=== PATIENT | male | born 1945 | race Caucasian/White ===

== ENCOUNTER 2017-08-14 10:01 | Emergency (ER) | payer OTHER ==
--- NOTE | 2017-08-14 10:25 | PDOC ---
History of Present Illness - General History Source: Patient Exam Limitations: No Limitations - History of Present Illness Initial Comments: 08/14/17 11:18 The patient is a 71 year old male with a significant past medical history of PAD , diabetes, triple bypass, and chronic left shoulder pain who presents to the ED , from [facility], s/p unwitnessed fall earlier today. The patient reports he was walking with slippers and tea in his hand, when he slipped and fell onto his back. Questionable loss of consciousness. Patient reports pain to the side of his right neck. Denies injury to the head. Denies headache, lightheadedness, or dizziness. Denies pain in his extremities. Denies back pain. Denies fever or chills. Denies nausea or vomiting. Denies any other symptoms. <Gracie Gifford - Last Filed: 08/14/17 11:22> <Sadia Fountain - Last Filed: 08/14/17 12:43> - General Chief Complaint: Injury Stated Complaint: FALL Time Seen by Provider: 08/14/17 10:12 Past History <Gracie Gifford - Last Filed: 08/14/17 11:22> - Past Medical History Anemia: No Cardiac Disorders: Yes (CABG) Diabetes: Yes (IDDM) Disorders: Yes (KIDNEY STONES) HTN: Yes Hypercholesterolemia: Yes - Surgical History Cardiac Surgery: Yes (stent,diffibrilator,bypass CABG) Orthopedic Surgery: Yes (LEFT FT - 4TH TOE AMPUTATION - 5 YRS AGO) - Suicide/Smoking/Psychosocial Hx Smoking Status: Yes Smoking History: Former smoker Have you smoked in the past 12 months: No Number of Cigarettes Smoked Daily: 0 Cigars Per Day: 1 'Breaking Loose' booklet given: 05/10/16 Hx Alcohol Use: No Drug/Substance Use Hx: No Substance Use Type: None Hx Substance Use Treatment: No <Sadia Fountain - Last Filed: 08/14/17 12:43> - Past Medical History Allergies/Adverse Reactions: Allergies Allergy/AdvReac Type Severity Reaction Status Date / Time No Known Allergies Allergy Verified 08/14/17 10:23 Home Medications: Ambulatory Orders Insulin (Levemir) [Levemir Flexpen -] 15 units SQ 1900 #0 pen 01/02/13 Insulin (Levemir) [Levemir Flexpen -] 20 units SQ ACBK #0 units 01/02/13 Multivitamins [Multivit ([facility] Form[facility])] 1 udtab PO DAILY #0 tab 01/02/13 Lisinopril [Prinivil] 20 mg PO BID 05/10/16 Ranitidine [Zantac -] 150 mg PO BID 05/11/16 Metformin HCl 500 mg PO BID 12/02/16 Amlodipine Besylate [Norvasc -] 10 mg PO DAILY #30 tablet 12/10/16 Atorvastatin Ca [Lipitor] 40 mg PO HS #30 tablet 12/10/16 Carbamide Peroxide 6.5% [Debrox -] 1 drop AU BID #1 bottle 12/10/16 Carvedilol [Coreg -] 25 mg PO BID #30 tablet 12/10/16 Clopidogrel Bisulfate [Plavix -] 75 mg PO DAILY #30 tablet 12/10/16 Hydralazine HCl [Apresoline -] 25 mg PO BID #30 tablet 12/10/16 Review of Systems - Review of Systems Able to Perform ROS?: Yes Comments:: 08/14/17 11:19 CONSTITUTIONAL: No reported: Fever, Chills, Diaphoresis, Generalized Weakness, Malaise, Loss of Appetite HEENT: No reported: Rhinorrhea, Nasal Congestion, Throat Pain, Throat Swelling, Difficulty Swallowing, Mouth Swelling, Ear Pain, Eye Pain, Visual Changes CARDIOVASCULAR: No reported: Chest Pain, Syncope, Palpitations, Irregular Heart Rate, Lightheadedness, Peripheral Edema RESPIRATORY: No reported: Cough, Shortness of Breath, SOB with Exertion, Orthopnea, Wheezing , Stridor, Hemoptysis GASTROINTESTINAL: No reported: Abdominal pain, Abdominal Distension, Nausea, Vomiting, Diarrhea, Constipation, Melena, Hematochezia GENITOURINARY: No reported: Dysuria, Frequency, Urgency, Hesitancy, Flank Pain, Genital Pain MUSCULOSKELETAL: + neck pain No reported: Myalgia, Arthralgia, Joint Swelling, Back pain SKIN: No reported: Rash, Itching, Pallor HEMEATOLOGIC/IMMUNOLOGIC: No reported: Easy Bleeding, Easy Bruising, Lymphadenopathy, Frequent infections ENDOCRINE: No reported: Unexplained Weight Gain, Unexplained Weight Loss, Heat Intolerance , Cold Intolerance NEUROLOGIC: No reported: Headache, Focal Weakness, Paresthesias, Vertigo, Lightheadedness, Unsteady Gait, Seizure, Mental Status Changes, Incontinence PSYCHIATRIC: No reported: Anxiety, Depression All Other Systems: Reviewed and Negative <Gracie Gifford - Last Filed: 08/14/17 11:22> *Physical Exam - Vital Signs Last Vital Signs Temp Pulse Resp BP Pulse Ox 97.8 F 75 18 131/64 100 08/14/17 10:15 08/14/17 10:15 08/14/17 10:15 08/14/17 10:15 08/14/17 10:15 - Physical Exam Comments: 08/14/17 11:19 GENERAL: Well developed, well nourished. Awake and alert. No acute distress. HEENT: Normocephalic, atraumatic. PERRLA, EOMI. No conjunctival pallor. Sclera are non- icteric. Moist mucous membranes. Oropharynx is clear. NECK: Supple. Full ROM. No JVD. Carotid pulses 2+ and symmetric, without bruits. No thyromegaly. No lymphadenopathy. CARDIOVASCULAR: Regular rate and rhythm. No murmurs, rubs, or gallops. Distal pulses are 2+ and symmetric. PULMONARY: No evidence of respiratory distress. Lungs clear to auscultation bilaterally. No wheezing, rales or rhonchi. ABDOMINAL: Soft. Non-tender. Non-distended. No rebound or guarding. No organomegaly. Normoactive bowel sounds. MUSCULOSKELETAL Normal range of motion at all joints. No bony deformities or tenderness. No CVA tenderness. EXTREMITIES: No cyanosis. No clubbing. No edema. No calf tenderness. SKIN: + old healing excoriation on the parietal area, no scalp laceration. No ecchymosis. Warm and dry. Normal capillary refill. No rashes. No jaundice. NEUROLOGICAL: Alert, awake, appropriate. Cranial nerves 2-12 intact. No deficits to light touch and temperature in face, upper extremities and lower extremities. No motor deficits in the in face, upper extremities and lower extremities. Normoreflexic in the upper and lower extremities. Normal speech. Toes are down- going bilaterally. Gait is normal without ataxia. PSYCHIATRIC: Cooperative. Good eye contact. Appropriate mood and affect. <Gracie Gifford - Last Filed: 08/14/17 11:22> ED Treatment Course - RADIOLOGY Radiograph Interpretation: 08/14/17 11:22 CT/HEAD CT WITHOUT CONTRAST Impression: No CT evidence of acute intracranial pathology. Chronic infarct. CT/CERVICAL SPINE CT W/O CONTRAST Impression: No fracture is identified. Probable small central C4-C5 disc herniation Reported by: Steve Navarrete <Gracie Gifford - Last Filed: 08/14/17 11:22> Medical Decision Making - Medical Decision Making 08/14/17 10:35 71-year-old male brought in by ambulance from [facility] after he slipped and fell. -Chief complaint is right neck pain -He states that he was walking wearing his slippers and slipped and presents with wet clothing. -he states he spilled his tea on himself EXAM - wearing c collar with right paraspinal, trapezius muscle tenderness, there was no cervical vertebral tenderness -he had no extremity deformity or tenderness,no ecchymosis -no abd tenderness -cvr [id number] neuro axox3, appropriate behavior,motor strength 5/5 b/l plan imaging CT SCAN neck 08/14/17 11:36 ct scan head:no acute intracranial pathology,chronic infarcts noted ct scan cervical spine: no fracture or dislocation -multilevel degenerative disc and facet joint are noted -prervertebral soft tissues - show no abnormality 08/14/17 11:37 08/14/17 12:27 pt ambulating ,states he no longer has any neck soreness plan discharge back to [facility] <Sadia Fountain - Last Filed: 08/14/17 12:43> *DC/Admit/Observation/Transfer - Attestations Scribe Attestion: 08/14/17 11:19 Documentation prepared by Gracie Gifford, acting as medical radiation therapist for Sadia Fountain MD <Gracie Gifford - Last Filed: 08/14/17 11:22> <Sadia Fountain - Last Filed: 08/14/17 12:43> Diagnosis at time of Disposition: Neck pain on right side Fall Qualifiers: Encounter type: initial encounter Qualified Code(s): W19.XXXA - Unspecified fall, initial encounter - Discharge Dispostion Disposition: HOME Condition at time of disposition: Stable - Referrals Referrals: Negro Strauss [Primary Care Provider] - - Patient Instructions Printed Discharge Instructions: DI for Neck Pain Additional Instructions: please take tylenol for pain Return to the emergency department for any worsening symptoms
[2017-08-14 10:46] VITALS: TEMP 97.8; BMI 27.9
[2017-08-14] MEDS ORDERED: ACETAMINOPHEN 500 MG TABLET (FP) PO ONE (11:29)
[2017-08-14] MEDS ORDERED: ACETAMINOPHEN 325 MG TABLET (FP) ONE (11:33)
[2017-08-14 13:21] VITALS: BP 117/67; PULSE 65
== END 2017-08-14 13:16 | disposition home or self-care (01) ==
LOC: JER 10:01
DX: M54.2 Cervicalgia (principal); W01.0XXA Fall on same level from slipping, tripping and stumbling without subsequent striking against object, initial encounter; Y93.89 Activity, other specified; Y92.098 Other place in other non-institutional residence as the place of occurrence of the external cause; I25.810 Atherosclerosis of coronary artery bypass graft(s) without angina pectoris; I10 Essential (primary) hypertension; Z95.1 Presence of aortocoronary bypass graft; Z95.5 Presence of coronary angioplasty implant and graft; Z87.891 Personal history of nicotine dependence; Z95.810 Presence of automatic (implantable) cardiac defibrillator; E11.9 Type 2 diabetes mellitus without complications; Z79.4 Long term (current) use of insulin; Z79.84 Long term (current) use of oral hypoglycemic drugs; I73.89 Other specified peripheral vascular diseases; Z89.422 Acquired absence of other left toe(s)
CPT/HCPCS: 70450-TC; 72125-TC; 99282-25

== ENCOUNTER 2020-05-19 12:17 | Inpatient (IN) | payer OTHER ==
--- NOTE | 2020-05-19 12:49 | PDOC ---
History of Present Illness - General Chief Complaint: Wound Stated Complaint: WOUND CARE Time Seen by Provider: 05/19/20 12:23 - History of Present Illness Initial Comments: 05/19/20 13:11 74 yo Male with PMH of IDDM, HTN, HLD, CAD (blood thinners), and chronic left foot wound coming in for wound care.. Pt explains that he had this wound on the bottom of his left foot for 2.5 years after getting surgery and that one month ago his wound opened up and he has been following a wound care doctor for about a month. His wound care physician told him 05/13 that when he comes in next week for hyperbarics that he needs to be admitted to get a biopsy on his wound to rule out an infection , so that is why pt is here today. Pt denies any sxs of pain, fever, swelling, erythema, cough, or SOB. 05/19/20 13:56 PCP:Dr. Negro Strauss Swing Manager: dr. Grover PSH: Stent placed, CABG, Pacemaker, amputation done on Left fourth toe and R second toe Allergies:NKA Social Hx: Pt denies use of drugs or alcohol. Pt does smoke 2 cigars a day for the past 13 years. Pt lives for Past History - Travel History Traveled outside of the country in the last 30 days: No - Medical History Allergies/Adverse Reactions: Allergies Allergy/AdvReac Type Severity Reaction Status Date / Time No Known Allergies Allergy Verified 05/02/20 13:29 Home Medications: Ambulatory Orders Insulin (Levemir) [Levemir Flexpen -] 15 units SQ 1900 #0 pen 01/02/13 Multivitamins [Multivit ([facility] Formul[facility])] 1 udtab PO DAILY #0 tab 01/02/13 Lisinopril [Prinivil] 20 mg PO BID 05/10/16 Ranitidine [Zantac -] 150 mg PO BID 05/11/16 metFORMIN HCL [Metformin HCl] 500 mg PO BID 12/02/16 Amlodipine Besylate [Norvasc -] 10 mg PO DAILY #30 tablet 12/10/16 Atorvastatin Ca [Lipitor] 40 mg PO HS #30 tablet 12/10/16 Carbamide Peroxide 6.5% [Debrox -] 1 drop AU BID #1 bottle 12/10/16 Carvedilol [Coreg -] 25 mg PO BID #30 tablet 12/10/16 Clopidogrel Bisulfate [Plavix -] 75 mg PO DAILY #30 tablet 12/10/16 hydrALAZINE HCL [Apresoline -] 25 mg PO BID #30 tablet 12/10/16 Insulin (Levemir) [Levemir Flexpen -] 25 units SQ ACBK 03/06/19 Anemia: No Cardiac Disorders: Yes (CABG) COPD: No Diabetes: Yes (IDDM) Disorders: Yes (KIDNEY STONES) HTN: Yes Hypercholesterolemia: Yes Comment:: PMH: IDDM CAD HTN HLD 05/19/20 13:31 - Surgical History Cardiac Surgery: Yes (stent,diffibrilator,bypass CABG) Orthopedic Surgery: Yes (LEFT FT - 4TH TOE AMPUTATION - 5 YRS AGO) - Psycho-Social/Smoking History Smoking Status: Yes Smoking History: Current every day smoker Have you smoked in the past 12 months: Yes Number of Cigarettes Smoked Daily: 1 Cigars Per Day: 2 Information on smoking cessation initiated: No 'Breaking Loose' booklet given: 05/10/16 - Substance Abuse Hx (Audit-C & DAST Scrn) How often the patient has a drink containing alcohol: Never Score: In Men: 4 or > Positive; In Women: 3 or > Positive: 0 Screen Result (Pos requires Nsg. Audit-10AR): Negative In the last yr the pt used illegal drug/Rx for NonMed reason: No Score: Yes response is considered Positive: 0 Screen Result (Positive result requires Nsg. DAST-10): Negative Review of Systems - Review of Systems Comments:: CONSTITUTIONAL: Absent: fever, chills, diaphoresis, generalized weakness, malaise, loss of appetite HEENT: Absent: rhinorrhea, nasal congestion, throat pain, throat swelling, difficulty swallowing CARDIOVASCULAR: Absent: chest pain, syncope, palpitations, irregular heart rate, lightheadedness, peripheral edema RESPIRATORY: Absent: cough, shortness of breath, dyspnea with exertion GASTROINTESTINAL: Absent: abdominal pain, abdominal distension, nausea, vomiting, diarrhea, constipation, GENITOURINARY: Absent: dysuria, frequency, urgency, MUSCULOSKELETAL: Absent: myalgia, arthralgia, joint swelling SKIN: Wound on dorsal aspect of foot NEUROLOGIC: Absent: headache, focal weakness or paresthesias, dizziness, unsteady gait, seizure, mental status changes, bladder or bowel incontinence 05/19/20 13:17 05/19/20 13:51 05/19/20 15:26 *Physical Exam - Vital Signs Last Vital Signs Temp Pulse Resp BP Pulse Ox 97.5 F L 64 18 151/74 100 05/19/20 12:19 05/19/20 12:19 05/19/20 12:19 05/19/20 12:19 05/19/20 12:19 - Physical Exam Well-appearing, well-nourished. No apparent distress. HEENT: Normocephalic, atraumatic. PERRL, EOM intact. CARDIOVASCULAR: Normal S1, S2. Regular rate and rhythm. PULMONARY: Clear to auscultation bilaterally. ABDOMEN: Soft, non-distended, non-tender. EXTREMITIES: Pt has amputations on both feet. Left foot has 1cm wound on plantar aspect of foot with no erythema or exudate. Pt foot does have malodorous odor. Left foot pulse 1/4 right foot pulse 2/4 Normal ROM in all four extremities. SKIN: Warm, dry. No rash NEUROLOGICAL: No focal neurological deficits. 05/19/20 16:39 Heart Score/ECG Review - ECG Impressions Comment:: Normal Rate Normal Sinus rhythm @62 bpm Normal axis Nomal HI Intervals No ST changes 05/19/20 14:53 ED Treatment Course - LABORATORY CBC & Chemistry Diagram: 05/19/20 13:45 05/19/20 13:45 Medical Decision Making - Medical Decision Making 74 yo m with PMH of IDDM, HTN, HLD, CAD (on anticoagulants) and chronic Left foot wound coming in for wound care. Pt explains he was told by wound care to doctor to be admitted to check for infxn of foot. Labs, foot xray, and chest xray was done to r/o osteo. Pt's vice president of news Dr. Grover was called, engineering secretary was reached and will call back to see who to admit to. 05/19/20 13:25 05/19/20 15:[address] Grover he wants to admit to hospital team and he will see pt for biopsy and start pt on empiric Abx. Talked to hospital team and said to admit to Dr. Saul Tobin . Discharge - Discharge Information Problems reviewed: Yes Clinical Impression/Diagnosis: Wound of foot Condition: Stable - Admission Yes - Follow up/Referral - Patient Discharge Instructions - Post Discharge Activity
--- NOTE | 2020-05-19 12:51 | PDOC ---
Attending Attestation - Resident Resident Name: Mukund Kimball - ED Attending Attestation I have performed the following: I have examined & evaluated the patient, The case was reviewed & discussed with the resident, I agree w/resident's findings & plan - HPI HPI: 05/19/20 13:02 74-year-old male past medical history diabetes (insulin-dependent) hypertension hyperlipidemia CAD (on anticoagulation), chronic left foot ulcer presenting with acute on chronic left foot wound and admission for care. Pt explains that he had this wound for 2.5 years after getting surgery and that one month ago his wound opened up and he has been following a wound care doctor for about a month. His wound care physician told him 05/13/20 that when he comes in next week for hyperbarics that he needs to be admitted to get a biopsy on his wound to rule out an infection , so that is why pt is here today. Pt denies any sxs of pain, fever, swelling, erythema, cough, or SOB. 05/19/20 13:46 - Physicial Exam PE: 05/19/20 13:02 General: Well appearing, awake and alert, NAD. HEENT: NCAT, PERRL, EOMI, clear conjunctiva, anicteric, moist mucous membranes, clear oropharynx, no oral lesions.. Neck: neck supple, FROM Resp: CTAB, normal and even respirations, no respiratory distress CVS: RRR, no murmurs, 2+ peripheral pulses throughout, no peripheral edema Abdomen: soft, NTND, no rebound or guarding. MSK: no edema, RIVAS x4, ROM intact. Extremities: Left foot_deformity with prior metatarsal excision; plantar aspect with 1cm dry wound Neuro: alert, oriented appropriately; no focal neurologic deficits Skin: warm and well perfused, cap refill <2 sec, normal color; left plantar foot has 1cm wound with no erythema or exudate. Pt foot does have malodorous odor., +left foot chronic deformity s/p surgery/metatarsal excision 05/19/20 13:47 05/19/20 15:23 05/19/20 16:30 - Medical Decision Making 05/19/20 12:51 Vital Signs Temp Pulse Resp BP Pulse Ox 97.5 F L 64 18 151/74 100 05/19/20 12:19 05/19/20 12:19 05/19/20 12:19 05/19/20 12:19 05/19/20 12:19 Vitals reviewed within normal limits, mildly hypertensive otherwise no tachycar anthony no fever no systemic/toxic findings Differential diagnosis includes cellulitis, abscess, osteomyelitis, chronic wound, no signs and symptoms to suggest necrotizing fasciitis Basic laboratory results are within normal limits Type and screen Coags Foot x-ray with chronic degenerative changes and partial amputation of the left metatarsal bone antibiotics IV ceftriaxone and vancomycin for empiric coverage of chronic foot infection/osteo Will admit for wound care, biopsy, debridement, discussed with performing arts road manager Dr. Landry admission to hospitalist service. 05/19/20 15:37 05/19/20 16:31 Heart Score/ECG Review #1 ECG reviewed & interpreted by me at: 13:55 General ECG Interpretation: Sinus Rhythm, Normal Rate 05/19/20 14:03 EKG normal sinus rhythm 62 beats per, no interval abnormalities, narrow QRS, ST and T wave segments and morphology normal. Nonspecific T wave abnormalities Discharge - Discharge Information Problems reviewed: Yes Clinical Impression/Diagnosis: Wound of foot Condition: Stable - Admission Yes - Follow up/Referral - Patient Discharge Instructions - Post Discharge Activity
[2020-05-19 14:10] LABS: BASO % 0.6 % (0-2.0); EOS % 4.3 % (0-4.5); HEMATOCRIT 36.7 % (35.4-49); HEMOGLOBIN 12.1 GM/dL (11.7-16.9); LYMPH % 24.5 % (8-40); MCH 28.8 pg (25.7-33.7); MCHC 32.9 g/dl (32.0-35.9); MEAN CELL VOLUME 87.6 fl (80-96); MEAN PLT VOLUME 11.4 fl (7.5-11.1); MONO % 6.6 % (3.8-10.2); PLATELET COUNT 234 K/MM3 (134-434); RBC 4.19 M/mm3 (4.00-5.60); RDW 14.4 % (11.9-15.9); WHITE BLOOD COUNT 6.9 K/mm3 (4.0-10.0)
[2020-05-19 14:20] LABS: INR 1.18 (0.83-1.09); PROTHROMBIN TIME (PATIENT) 13.9 SEC (9.7-13.0)
[2020-05-19 14:23] LABS: ACTIVATED PTT 26.1 SECONDS (25.2-36.5)
[2020-05-19 14:51] LABS: ALBUMIN 3.3 g/dl (3.4-5.0); BILIRUBIN,TOTAL 0.5 mg/dL (0.2-1); BLOOD UREA NITROGEN 26.4 mg/dL (7-18); CALCIUM 9.1 mg/dL (8.5-10.1); CREATININE 1.5 mg/dL (0.55-1.3); TOT PROT 8.2 g/dl (6.4-8.2)
[2020-05-19 15:15] LABS: POTASSIUM 6.2 mmol/L (3.5-5.1)
--- NOTE | 2020-05-19 15:15 | EKG ---
Test Reason : Blood Pressure : / mmHG Vent. Rate : 062 BPM Atrial Rate : 062 BPM P-R Int : 194 ms QRS Dur : 098 ms QT Int : 400 ms P-R-T Axes : 046 047 104 degrees QTc Int : 406 ms NORMAL SINUS RHYTHM IRBBB ANTERIOR INFARCT (CITED ON OR BEFORE 04-FEB-2012) Inferior infarct old ABNORMAL ECG WHEN COMPARED WITH ECG OF 01-DEC-2016 13:11, No significant changes Confirmed by Yoselin Luna ([id number]) on 05/19/2020 3:14:56 PM Referred By: Confirmed By:Yoselin Luna
[2020-05-19] MEDS ORDERED: CEFTRIAXONE 2 GM-D5W BAG 2 GM/50 ML BAG IVPB ONE (15:23)
[2020-05-19] MEDS ORDERED: SODIUM CHLORIDE 0.9% 500 ML INFUS.BAG IV ONE (16:09)
[2020-05-19] MEDS ORDERED: CEFTRIAXONE 2 GM/100 ML BAG IVPB ONE (16:58)
--- NOTE | 2020-05-19 17:02 | HP ---
CHIEF COMPLAINT: foot wound PCP: Dr. Negro Strauss HISTORY OF PRESENT ILLNESS: 74 yo M PMH DM, HTN, CAD (s/p CABG, stents, defibrillator ~5yago) , CVA ( residual R side deficit ) presents to ED with recommendation from podiatry for L foot OM . Pt states that he saw his wound care doctor last week who states that the wound was deep and that he needed to come in today for a bone biopsy and procedure. pt states that he has had this wound for many years. he states that it is sore around the " callous" wound but denies pain, warmth. denies fevers and chills. Spoke with Dr. Landry. states that pt lost follow up for many years and just returned to his care this month. he states that pt has a positive bone scan for OM. he plans to take the pt for resection and biopsy. Pt states that he has been on Plavix for > 15 y. Pt has not followed up with cardiology since his defibrillator was placed >4 years ago at [facility] ER course was notable for: (1)CBC, BMP (2) foot XR Recent Travel: denies PAST MEDICAL HISTORY: see above Family Hx: Father, Brothers- diabetes PAST SURGICAL HISTORY:Stent placed, CABG, Pacemaker, amputation done on Left fourth toe and R second toe Social History: Smokin cigars a day Alcohol:denies Drugs: denies Allergies No Known Allergies Allergy (Verified 05/02/20 13:29) HOME MEDICATIONS: Home Medications Medication Instructions Recorded Insulin (Levemir) [Levemir Flexpen 15 units SQ 1900 #0 pen 01/02/13 -] Multivitamins [Multivit ([facility] 1 udtab PO DAILY #0 tab 01/02/13 Formulary)] Lisinopril [Prinivil] 20 mg PO BID 05/10/16 Ranitidine [Zantac -] 150 mg PO BID 05/11/16 metFORMIN HCL [Metformin HCl] 500 mg PO BID 12/02/16 Amlodipine Besylate [Norvasc -] 10 mg PO DAILY #30 tablet 12/10/16 Atorvastatin Ca [Lipitor] 40 mg PO HS #30 tablet 12/10/16 Carbamide Peroxide 6.5% [Debrox -] 1 drop AU BID #1 bottle 12/10/16 Carvedilol [Coreg -] 25 mg PO BID #30 tablet 12/10/16 Clopidogrel Bisulfate [Plavix -] 75 mg PO DAILY #30 tablet 12/10/16 hydrALAZINE HCL [Apresoline -] 25 mg PO BID #30 tablet 12/10/16 Insulin (Levemir) [Levemir Flexpen 25 units SQ ACBK 03/06/19 -] REVIEW OF SYSTEMS CONSTITUTIONAL: Absent: fever, chills, diaphoresis, generalized weakness, malaise, loss of appetite, weight change HEENT: Absent: rhinorrhea, nasal congestion, throat pain, throat swelling, difficulty swallowing, mouth swelling, ear pain, eye pain, visual changes CARDIOVASCULAR: Absent: chest pain, syncope, palpitations, irregular heart rate, lig htheadedness, peripheral edema RESPIRATORY: Absent: cough, shortness of breath, dyspnea with exertion, orthopnea, wheezing, stridor, hemoptysis GASTROINTESTINAL: Absent: abdominal pain, abdominal distension, nausea, vomiting, diarrhea, constipation, melena, hematochezia GENITOURINARY: Absent: dysuria, frequency, urgency, hesitancy, hematuria, flank pain, genital pain MUSCULOSKELETAL: Absent: myalgia, arthralgia, joint swelling, back pain, neck pain SKIN: Absent: rash, itching, pallor HEMATOLOGIC/IMMUNOLOGIC: Absent: easy bleeding, easy bruising, lymphadenopathy, frequent infections ENDOCRINE: Absent: unexplained weight gain, unexplained weight loss, heat intolerance, cold intolerance NEUROLOGIC: Absent: headache, focal weakness or paresthesias, dizziness, unsteady gait, seizure, mental status changes, bladder or bowel incontinence PSYCHIATRIC: Absent: anxiety, depression, suicidal or homicidal ideation, hallucinations. PHYSICAL EXAMINATION Vital Signs - 24 hr 05/19/20 05/19/20 12:19 16:31 Temperature 97.5 F L Pulse Rate 64 Pulse Rate [ 62 Right Radial] Respiratory 18 Rate Blood Pressure 151/74 Blood Pressure 120/62 [Left Arm] O2 Sat by Pulse 100 100 Oximetry (%) GENERAL: Awake, alert, and fully oriented, in no acute distress. HEAD: Normal with no signs of trauma. EYES: Pupils equal, round and reactive to light, extraocular movements intact EARS, NOSE, THROAT:oropharynx clear without exudates. Moist mucous membranes. NECK: no JVD LUNGS: Breath sounds equal, clear to auscultation bilaterally.No accessory muscle use. HEART: Regular rate and rhythm, normal S1 and S2 without murmur ABDOMEN: Soft, nontender, not distended, normoactive bowel sounds, no guarding, no rebound, no masses. MUSCULOSKELETAL: Normal range of motion at all joints. No bony deformities or tenderness. No CVA tenderness. UPPER EXTREMITIES: 2+ pulses, warm, well-perfused. No cyanosis. No clubbing. No peripheral edema. LOWER EXTREMITIES: left sub-metatarsal diabetic ulcer, hyperkeratotic borders. There is serous drainage, no surrounding cellulitis, no signs of infection. mild sensitivity around. NEUROLOGICAL: Cranial nerves II-XII intact. Normal speech. mild R nasolabial asymmetry SKIN: Warm, dry, normal turgor, no rashes or lesions noted, normal capillary refill. Laboratory Last Values WBC 6.9 K/mm3 (4.0-10.0) 05/19/20 13:45 RBC 4.19 M/mm3 (4.00-5.60) 05/19/20 13:45 Hgb 12.1 GM/dL (11.7-16.9) 05/19/20 13:45 Hct 36.7 % (35.4-49) 05/19/20 13:45 MCV 87.6 fl (80-96) 05/19/20 13:45 MCH 28.8 pg (25.7-33.7) 05/19/20 13:45 MCHC 32.9 g/dl (32.0-35.9) 05/19/20 13:45 RDW 14.4 % (11.9-15.9) 05/19/20 13:45 Plt Count 234 K/MM3 (134-434) D 05/19/20 13:45 MPV 11.4 fl (7.5-11.1) H 05/19/20 13:45 Absolute Neuts (auto) 4.4 K/mm3 (1.5-8.0) 05/19/20 13:45 Neutrophils % 64.0 % (42.8-82.8) 05/19/20 13:45 Lymphocytes % 24.5 % (8-40) 05/19/20 13:45 Monocytes % 6.6 % (3.8-10.2) 05/19/20 13:45 Eosinophils % 4.3 % (0-4.5) 05/19/20 13:45 Basophils % 0.6 % (0-2.0) 05/19/20 13:45 Nucleated RBC % 0 % (0-0) 05/19/20 13:45 PT with INR 13.90 SEC (9.7-13.0) H 05/19/20 13:45 INR 1.18 (0.83-1.09) H 05/19/20 13:45 PTT (Actin FS) 26.1 SECONDS (25.2-36.5) 05/19/20 13:45 Sodium 140 mmol/L (136-145) 05/19/20 13:45 Potassium 6.2 mmol/L (3.5-5.1) H* 05/19/20 13:45 Chloride 108 mmol/L (98-107) H 05/19/20 13:45 Carbon Dioxide 25 mmol/L (21-32) 05/19/20 13:45 Anion Gap 7 MMOL/L (8-16) L 05/19/20 13:45 BUN 26.4 mg/dL (7-18) H 05/19/20 13:45 Creatinine 1.5 mg/dL (0.55-1.3) H 05/19/20 13:45 Est GFR (CKD-EPI)AfAm 52.77 05/19/20 13:45 Est GFR (CKD-EPI)NonAf 45.53 05/19/20 13:45 Random Glucose 116 mg/dL (74-106) H 05/19/20 13:45 Calcium 9.1 mg/dL (8.5-10.1) 05/19/20 13:45 Total Bilirubin 0.5 mg/dL (0.2-1) 05/19/20 13:45 AST 62 U/L (15-37) H 05/19/20 13:45 ALT 20 U/L (13-61) 05/19/20 13:45 Alkaline Phosphatase 59 U/L (45-117) 05/19/20 13:45 Total Protein 8.2 g/dl (6.4-8.2) 05/19/20 13:45 Albumin 3.3 g/dl (3.4-5.0) L 05/19/20 13:45 Blood Type Cancelled 05/19/20 13:45 Antibody Screen Cancelled 05/19/20 13:45 ASSESSMENT/PLAN: 74 yo M PMH DM, HTN, CAD (s/p CABG, stents, defibrillator ~5yago) , CVA ( residual R side deficit ) presents to ED with recommendation from podiatry. Pt is admitted for bone resection/ biopsy- OM mgmt Osteomyelitis - pt follows Dr. Landry. podiatry consult placed, plan for procedure Tuesday - will start empiric Vanc/ Zosyn. ID consult placed , Dr. Alonso . hold Abx tomorrow as per podiatry - cardio consult placed for optimization for procedure -Dr. Landry reports + bone scan - foot XR reviewed DM - ISS , BGM - A1C HTN - cont home meds: coreg , norvasc CAD - cont home meds - statin, coreg, lisinopril, norvasc , -will hold plavix, asa before surgery - pending cardio consult Home meds confirmed ; confirmed with Nilsa Jarvis DVTppx: Hep SQ Dispo: admit to medicine Visit type - Emergency Visit Emergency Visit: Yes ED Registration Date: 05/19/20 Care time: The patient presented to the Emergency Department on the above date and was hospitalized for further evaluation of their emergent condition. - New Patient This patient is new to me today: Yes - Critical Care Critical Care patient: No ATTENDING PHYSICIAN STATEMENT I saw and evaluated the patient. I reviewed the resident's note and discussed the case with the resident. I agree with the resident's findings and plan as documented. SUBJECTIVE: OBJECTIVE: ASSESSMENT AND PLAN:
--- NOTE | 2020-05-19 17:03 | PN ---
Teaching Attending Note Name of Resident: Latoya Riggs ATTENDING PHYSICIAN STATEMENT I saw and evaluated the patient. I reviewed the resident's note and discussed the case with the resident. I agree with the resident's findings and plan as documented. SUBJECTIVE:74 yo M PMH DM, HTN, CAD (s/p CABG, stents, defibrillator ~5yago) , CVA presents to ED with recommendation from podiatry for L foot OM . Pt states that he saw his wound care doctor last week who states that the wound was deep and that he needed to come in today for a bone biopsy and procedure. pt states that he has had this wound for many years. he states that it is sore around the " callous" wound but denies pain, warmth. denies fevers and chills. Spoke with Dr. Landry. states that pt lost follow up for many years and just returned to his care this month. he states that pt has a positive bone scan for OM. he plans to take the pt for resection and biopsy. no other c/o Pt states that he has been on Plavix for > 15 y. Pt has not followed up with cardiology since his defibrillator was placed >4 years ago at [facility] OBJECTIVE:O/E is comfortable nad alert awake oriented into 3. vss neck supple , no jvd cvs s1/s2/0 chest ctab abd benign ext no c/c/e neuro non focal, L foot plantar aspect a small open wound, about 1 cm, with yellowish discharge, and callous surrounding it, no warmth,capillary refill normal, 1st toe deformity, soft, unable to move, ASSESSMENT AND PLAN: 74 yo M PMH DM, HTN, CAD (s/p CABG, stents, defibrillator ~5yago) , CVA ( residual R side deficit ) presents to ED with recommendation from podiatry. Pt is admitted for bone resection/ biopsy- OM mgmt 1.Osteomyelitis - pt follows Dr. Landry. podiatry consult placed, plan for procedure Tuesday.for possible metatarsal resection and bone biopsy, - will start empiric Vanc/ Zosyn. ID consult placed , Dr. Alonso . hold Abx tomorrow as per podiatry - cardio consult placed for optimization for procedure - 2.DM - RISS , BGM - A1C 3.HTN - cont home meds: coreg , norvasc 4.CAD - cont home meds -
[2020-05-19] MEDS: PIPERACILLIN/TAZOB 3.375 GM 3.375 GM in DEXTROSE 5%-WATER - 50 ML IVPB SCH (19:01)
[2020-05-19] MEDS ORDERED: PIPERACILLIN/TAZOB 3.375 GM 3.375 GM/50 ML BAG IVPB ONE (19:16)
[2020-05-19] MEDS ORDERED: hydrALAZINE HCL 25 MG TABLET (FP) ONE (22:33)
[2020-05-19] MEDS ORDERED: LISINOPRIL 20 MG TABLET (FP) ONE (22:33)
[2020-05-19] MEDS ORDERED: CARVEDILOL 12.5 MG TABLET (FP) ONE (22:33)
[2020-05-19] MEDS ORDERED: FAMOTIDINE 20 MG TABLET ONE (22:33)
[2020-05-19] MEDS ORDERED: ATORVASTATIN CA 40 MG TABLET (FP) ONE (22:33)
[2020-05-19] MEDS ORDERED: HEPARIN NA (PORCINE) 5,000 UNITS/ML 1ML VIAL ONE (22:34)
[2020-05-19 22:49] LABS: BLOOD UREA NITROGEN 23.6 mg/dL (7-18); CALCIUM 8.4 mg/dL (8.5-10.1); CREATININE 1.4 mg/dL (0.55-1.3); POTASSIUM 4.1 mmol/L (3.5-5.1)
[2020-05-19] MEDS: ATORVASTATIN CA 40 MG TABLET (FP) PO SCH (22:55)
[2020-05-19] MEDS: FAMOTIDINE 20 MG TABLET PO SCH (22:55)
[2020-05-19] MEDS: CARVEDILOL 25 MG TABLET (FP) PO SCH (22:55)
[2020-05-19] MEDS: HEPARIN NA (PORCINE) 5,000 UNITS/ML 1ML VIAL SQ SCH (22:55)
[2020-05-19] MEDS: hydrALAZINE HCL 25 MG TABLET (FP) PO SCH (22:55)
[2020-05-19] MEDS: LISINOPRIL 20 MG TABLET (FP) PO SCH (22:55)
[2020-05-20] MEDS ORDERED: PIPERACILLIN/TAZOBACTAM 3.375 GM VIAL IVPB ONE ×2 (02:52→09:18)
[2020-05-20] MEDS ORDERED: DEXTROSE 5%-WATER - 50 ML IVPB ONE ×2 (02:53→09:18)
[2020-05-20] MEDS: PIPERACILLIN/TAZOB 3.375 GM 3.375 GM in DEXTROSE 5%-WATER - 50 ML IVPB SCH ×3 (02:57→17:11)
[2020-05-20] MEDS: HEPARIN NA (PORCINE) 5,000 UNITS/ML 1ML VIAL SQ SCH ×3 (05:58→21:43)
[2020-05-20] MEDS: INSULIN SLIDING SCALE (NOVOLOG) 1 VIAL SQ SCH ×3 (06:00→16:36)
[2020-05-20 08:21] LABS: BASO % 0.3 % (0-2.0); EOS % 5.1 % (0-4.5); HEMATOCRIT 32.1 % (35.4-49); HEMOGLOBIN 10.6 GM/dL (11.7-16.9); LYMPH % 27.2 % (8-40); MCH 28.9 pg (25.7-33.7); MCHC 33.1 g/dl (32.0-35.9); MEAN CELL VOLUME 87.3 fl (80-96); MEAN PLT VOLUME 11.5 fl (7.5-11.1); MONO % 6.9 % (3.8-10.2); NEUT % 60.5 % (42.8-82.8); PLATELET COUNT 128 K/MM3 (134-434); RBC 3.67 M/mm3 (4.00-5.60); RDW 14.2 % (11.9-15.9)
[2020-05-20 08:43] LABS: ALBUMIN 2.9 g/dl (3.4-5.0); BILIRUBIN,TOTAL 0.5 mg/dL (0.2-1); BLOOD UREA NITROGEN 21.4 mg/dL (7-18); CALCIUM 8.4 mg/dL (8.5-10.1); CREATININE 1.2 mg/dL (0.55-1.3); MAGNESIUM 1.6 mg/dL (1.8-2.4); PHOSPHOROUS 2.8 mg/dL (2.5-4.9); POTASSIUM 3.8 mmol/L (3.5-5.1); TOT PROT 6.8 g/dl (6.4-8.2)
[2020-05-20] MEDS ORDERED: CLOPIDOGREL BISULFATE 75 MG TABLET (FP) PO SCH (10:00)
[2020-05-20] MEDS ORDERED: ASPIRIN 81 MG CHEWABLE TABLETS PO SCH (10:00)
[2020-05-20] MEDS: amLODIPine BESYLATE 10 MG TABLET (FP) PO SCH (10:10)
[2020-05-20] MEDS: MULTIVITAMINS (DAILY MVI) TABLET (FP) PO SCH (10:10)
[2020-05-20] MEDS: hydrALAZINE HCL 25 MG TABLET (FP) PO SCH ×2 (10:10→21:43)
[2020-05-20] MEDS: CARVEDILOL 25 MG TABLET (FP) PO SCH ×2 (10:10→21:43)
[2020-05-20] MEDS: LISINOPRIL 20 MG TABLET (FP) PO SCH ×2 (10:10→21:43)
[2020-05-20] MEDS: LORATADINE 10 MG TABLET PO SCH (10:10)
[2020-05-20] MEDS: FAMOTIDINE 20 MG TABLET PO SCH ×2 (10:11→21:43)
--- NOTE | 2020-05-20 11:24 | CON.CARD ---
Consult Consult Specialty:: Cardiology Referred by:: Hospitalist Reason for Consultation:: Cardiac evaluation - History of Present Illness Chief Complaint: Left foot osteomyelitis History of Present Illness: Patient is a 74 year old male with underlying history of CAD s/p PCI/stent ([facility]) and CABG (at [facility], thinks 8 years ago), in addition ICD implantation (does not know the grocery stocker) for ischemic cardiomyopathy and VT/VF, CVA with right residual deficit, HTN, hypercholesterolemia and DM who presented with left foot osteomyelitis. He has been followed at wound care. Currently, he denies chest pain, shortness of breath or palpitations. He denies paroxysmal nocturnal dyspnea or orthopnea. He denies fever or chills. He denies nausea, vomiting, diarrhea or abdominal pain. He denies headache or light headedness. He has not had ICD interrogated for many years. He had seen a business support manager at [facility], but had not seen him for many years and he does not remember his name. - History Source History Provided By: Patient, Medical Record Limitations to Obtaining History: No Limitations - Past Medical History Cardio/Vascular: Yes: CAD, HTN, Hyperlipdemia, Other (CABG, PCI/stent) Endocrine: Yes: Diabetes Mellitus - Past Surgical History Past Surgical History: Yes: AICD, Amputation (Toe amputation), CABG - Alcohol/Substance Use Hx Alcohol Use: Yes (social) - Smoking History Smoking history: Former smoker Home Medications - Allergies Allergies/Adverse Reactions: Allergies Allergy/AdvReac Type Severity Reaction Status Date / Time No Known Allergies Allergy Verified 05/02/20 13:29 - Home Medications Home Medications: Ambulatory Orders Multivitamins [Multivit ([facility] Formulary)] 1 udtab PO DAILY #0 tab 01/02/13 Lisinopril [Prinivil] 20 mg PO BID 05/10/16 Ranitidine [Zantac -] 150 mg PO BID 05/11/16 metFORMIN HCL [Metformin HCl] 1,000 mg PO BID 12/02/16 Amlodipine Besylate [Norvasc -] 10 mg PO DAILY #30 tablet 12/10/16 Atorvastatin Ca [Lipitor] 40 mg PO HS #30 tablet 12/10/16 Carbamide Peroxide 6.5% [Debrox -] 1 drop AU BID #1 bottle 12/10/16 Carvedilol [Coreg -] 25 mg PO BID #30 tablet 12/10/16 Clopidogrel Bisulfate [Plavix -] 75 mg PO DAILY #30 tablet 12/10/16 hydrALAZINE HCL [Apresoline -] 25 mg PO BID #30 tablet 12/10/16 Insulin (Levemir) [Levemir Flexpen -] 25 units SQ ACBK 03/06/19 Aspirin 81 mg PO DAILY 05/19/20 Cetirizine HCl 10 mg PO DAILY 05/19/20 Famotidine [Pepcid] 20 mg PO BID 05/19/20 Gabapentin 100 mg PO BID 05/19/20 Insulin (Levemir) [Levemir Flexpen -] 15 units SQ HS 05/19/20 Family Medical History Other Family History: DM, CHF Review of Systems - Review of Systems Constitutional: denies: Chills, Fever Cardiovascular: denies: Chest Pain, Palpitations, Shortness of Breath Respiratory: denies: Cough, Hemoptysis, Orthopnea, PND, SOB, SOB on Exertion Gastrointestinal: denies: Abdominal Pain, Constipation, Diarrhea, Melena, Nausea, Rectal Bleeding, Vomiting Genitourinary: denies: Dysuria, Hematuria Musculoskeletal: denies: Back Pain, Joint Pain Neurological: denies: Dizziness, Headache, Seizure, Syncope Vital Signs: Vital Signs Temperature 98.0 F 05/20/20 05:00 Pulse Rate 72 05/20/20 10:00 Respiratory Rate 18 05/20/20 10:00 Blood Pressure 108/62 05/20/20 10:00 O2 Sat by Pulse Oximetry (%) 98 05/20/20 09:00 Neck: Yes: Supple Respiratory: Yes: CTA Bilaterally Gastrointestinal: Yes: Normal Bowel Sounds, Soft. No: Tenderness Cardiovascular: Yes: Regular Rate and Rhythm JVD: No PMI: Non-Displaced Heart Sounds: Yes: S1, S2. No: Gallop Murmur: Yes: Systolic Murmur, Grade 1 Extremities: Yes: Amputation Edema: No - Other Data Labs, Other Data: CBC, BMP 05/20/20 06:55 05/20/20 06:55 INR, PTT INR 1.18 (0.83-1.09) H 05/19/20 13:45 Laboratory Results - last 24 hr 05/19/20 05/19/20 05/19/20 13:45 13:45 13:45 WBC 6.9 RBC 4.19 Hgb 12.1 Hct 36.7 MCV 87.6 MCH 28.8 MCHC 32.9 RDW 14.4 Plt Count 234 D MPV 11.4 H Absolute Neuts (auto) 4.4 Neutrophils % 64.0 Lymphocytes % 24.5 Monocytes % 6.6 Eosinophils % 4.3 Basophils % 0.6 Nucleated RBC % 0 PT with INR 13.90 H INR 1.18 H PTT (Actin FS) 26.1 Sodium 140 Potassium 6.2 H* Chloride 108 H Carbon Dioxide 25 Anion Gap 7 L BUN 26.4 H Creatinine 1.5 H Est GFR (CKD-EPI)AfAm 52.77 Est GFR (CKD-EPI)NonAf 45.53 POC Glucometer Random Glucose 116 H Hemoglobin A1c % Calcium 9.1 Phosphorus Magnesium Total Bilirubin 0.5 AST 62 H ALT 20 Alkaline Phosphatase 59 Total Protein 8.2 Albumin 3.3 L Blood Type Antibody Screen 05/19/20 05/19/20 05/19/20 13:45 18:30 21:58 WBC RBC Hgb Hct MCV MCH MCHC RDW Plt Count MPV Absolute Neuts (auto) Neutrophils % Lymphocytes % Monocytes % Eosinophils % Basophils % Nucleated RBC % PT with INR INR PTT (Actin FS) Sodium 142 Potassium 4.1 Chloride 110 H Carbon Dioxide 26 Anion Gap 6 L BUN 23.6 H Creatinine 1.4 H Est GFR (CKD-EPI)AfAm 57.36 Est GFR (CKD-EPI)NonAf 49.49 POC Glucometer Random Glucose 109 H Hemoglobin A1c % Calcium 8.4 L Phosphorus Magnesium Total Bilirubin AST ALT Alkaline Phosphatase Total Protein Albumin Blood Type Cancelled A POSITIVE Antibody Screen Cancelled Negative 05/19/20 05/20/20 05/20/20 21:58 05:38 06:55 WBC 7.0 RBC 3.67 L Hgb 10.6 L Hct 32.1 L MCV 87.3 MCH 28.9 MCHC 33.1 RDW 14.2 Plt Count 128 L D MPV 11.5 H Absolute Neuts (auto) 4.2 Neutrophils % 60.5 Lymphocytes % 27.2 Monocytes % 6.9 Eosinophils % 5.1 H Basophils % 0.3 Nucleated RBC % 0 PT with INR INR PTT (Actin FS) Sodium Potassium Chloride Carbon Dioxide Anion Gap BUN Creatinine Est GFR (CKD-EPI)AfAm Est GFR (CKD-EPI)NonAf POC Glucometer 130 Random Glucose Hemoglobin A1c % 6.3 Calcium Phosphorus Magnesium Total Bilirubin AST ALT Alkaline Phosphatase Total Protein Albumin Blood Type Antibody Screen 05/20/20 05/20/20 06:55 11:19 WBC RBC Hgb Hct MCV MCH MCHC RDW Plt Count MPV Absolute Neuts (auto) Neutrophils % Lymphocytes % Monocytes % Eosinophils % Basophils % Nucleated RBC % PT with INR INR PTT (Actin FS) Sodium 141 Potassium 3.8 Chloride 109 H Carbon Dioxide 24 Anion Gap 8 BUN 21.4 H Creatinine 1.2 Est GFR (CKD-EPI)AfAm 69.11 Est GFR (CKD-EPI)NonAf 59.63 POC Glucometer 188 Random Glucose 125 H Hemoglobin A1c % Calcium 8.4 L Phosphorus 2.8 Magnesium 1.6 L Total Bilirubin 0.5 AST 12 L ALT 14 Alkaline Phosphatase 53 Total Protein 6.8 Albumin 2.9 L Blood Type Antibody Screen Sinus rhythm with inferior infarct, anterior infarct Imaging - Results Chest X-ray: Report Reviewed (Cardiomegaly) EKG: Report Reviewed Problem List - Problems (1) CAD (coronary artery disease) Code(s): I25.10 - ATHSCL HEART DISEASE OF [place] CORONARY ARTERY W/O ANG PCTRS (2) History of percutaneous coronary intervention Code(s): Z98.61 - CORONARY ANGIOPLASTY STATUS (3) Hx of CABG Code(s): Z95.1 - PRESENCE OF AORTOCORONARY BYPASS GRAFT (4) HTN (hypertension) Code(s): I10 - ESSENTIAL (PRIMARY) HYPERTENSION (5) Hypercholesterolemia Code(s): E78.00 - PURE HYPERCHOLESTEROLEMIA, UNSPECIFIED (6) Diabetes mellitus Code(s): E11.9 - TYPE 2 DIABETES MELLITUS WITHOUT COMPLICATIONS (7) Presence of automatic cardioverter/defibrillator (AICD) Code(s): Z95.810 - PRESENCE OF AUTOMATIC (IMPLANTABLE) CARDIAC DEFIBRILLATOR (8) Ischemic dilated cardiomyopathy Code(s): I25.5 - ISCHEMIC CARDIOMYOPATHY; I42.0 - DILATED CARDIOMYOPATHY (9) Wound of foot Code(s): S91.309A - UNSPECIFIED OPEN WOUND, UNSPECIFIED FOOT, INITIAL ENCOUNTER (10) Diabetic foot ulcer Code(s): E11.621 - TYPE 2 DIABETES MELLITUS WITH FOOT ULCER; L97.509 - NON- PRESSURE CHRONIC ULCER OTH PRT UNSP FOOT W UNSP SEVERITY Qualifiers: Diabetic foot ulcer location: midfoot Diabetes mellitus type: other specified (including MARIA M) Laterality: left Non-pressure ulcer stage: unspecified non-pressure ulcer stage Qualified Code(s): E13.621 - Other specified diabetes mellitus with foot ulcer; L97.429 - Non-pressure chronic ulcer of left heel and midfoot with unspecified severity (11) Osteomyelitis Code(s): M86.9 - OSTEOMYELITIS, UNSPECIFIED (12) PAD (peripheral artery disease) Code(s): I73.9 - PERIPHERAL VASCULAR DISEASE, UNSPECIFIED Assessment/Plan 1. Left foot osteomyelitis 2. CAD s/p PCI/stent, CABG, angina pectoris 3. Ischemic dilated cardiomyopathy 4. HTN 5. Hypercholesterolemia 6. DM 7. Presence of AICD for above cardiomyopathy and VT/VF PLAN: 1. Obtain prior medical records from [facility]. 2. Continue Carvedilol 25 mg BID and Prinivil 20 mg BID 3. Continue Amlodipine 10 mg QD and Hydralazine 25 mg BID 4. Continue Atorvastatin 40 mg QHS 5. Empiric antibiotics and wound care 6. Echocardiography to assess LV/RV and valvular function 7. Need to find out the grocery stocker of the device (AICD) and needs to be interrogated. For the procedure, magnet may be placed to deactivate the device during the procedure if needed 8. No absolute contraindication for procedure in view of absence of ischemic symptoms, decompensated congestive heart failure or malignant arrhythmia 9. Restart ASA after procedure when cleared Patient was advised to follow up in our office, [facility] (Dr. Rojas) at [phone] Eddie Rojas MD
--- NOTE | 2020-05-20 12:56 | CONSULT ---
Consult - text type - Consultation Consultation Note: Podiatry Consultation: 74 year old diabetic CAD male presented for admission for non-healing ulcer of the left foot. Patient is seen regularly in wound healing center. He developed a recurrent probing ulcer to the left foot; bone scan obtained which is suggestive of osteomyelitis of the left 2nd/3rd MTPJs. Currently denies F/V/N/C/SOB/CP. Afebrile. Notes some drainage to the left foot. PMHx: IDDM, HTN, HLP, CAD s/p AICD s/p CABG Meds: noted in chart ALL: NKMA SHELLY: L foot: Pedal pulses palpable 2/4, TG wnl, CFT brisk to remaining digits. There is no ischemic change to the foot. The foot is warm and well perfused. There is a sub-second metatarsal diabetic ulcer with underlying fibrogranular base, hyperkeratotic edges, probes to bone. There is scant serosanguinous drainage, there is no purulent drainage, no fluctuance, no streaking ascending cellulitis, no signs of acute infection. Mild tenderness to palpation. Bone scan (from [facility]): consistent with osteomyelitis left 2nd/3rd MTPJs Imp: 74 year old diabetic male with left foot diabetic ulcer and osteomyelitis 1. IV abx per infectious disease 2. Continue local care 3. Discussed treatment options at length with patient. Will plan for left foot debridement and metatarsal head resection with bone biopsy tomorrow. Patient agreeable for planned procedure. NPO after midnight. 4. Will follow postoperatively. Thank you for the courtesy of this consultation. Yunior Grover DPM
--- NOTE | 2020-05-20 13:33 | PN ---
Progress Note (short form) - Note Progress Note: ID CONSULT DICTATED OSTEOMYELITIS L FOOT NON HEALING DIABETIC FOOT ULCER IDDM FOR BONE BX/ CULTURE TOMORROW HOLD ANTIBIOTICS UNTIL AFTER BX
--- NOTE | 2020-05-20 17:17 | CONS ---
DATE OF CONSULTATION: DATE OF DICTATION: 05/20/2020 INFECTIOUS DISEASE CONSULTATION HISTORY OF PRESENT ILLNESS: The patient is a 74-year-old male who is evaluated for osteomyelitis of the left foot. According to the notes, he has had a longstanding history of chronic left diabetic plantar foot ulcer. According to the notes also had dated back approximately 2-1/2 years. It heals intermittently however from time to time opens up. He reports over the past 1 month he had developed a callus which fell off, resulting in a nonhealing wound. He has been followed in the wound care center. X-rays of the foot were negative for osteomyelitis, however a bone scan which was performed on May 02, 2020, showed acute osteomyelitis of the left 2nd or 3rd toe extending to the distal aspect of the metatarsal bone. He is now admitted for debridement and excisional biopsy with culture. The patient denies any purulent wound drainage. He has no complaints of pain at the present time. In the past, he has had wound cultures which have grown mixed organisms including methicillin-sensitive Staphylococcus aureus, group C strep, ESBL, group B strep, coagulase-negative staph, Enterobacter and MRSA. PAST MEDICAL HISTORY: Positive for insulin dependent diabetes mellitus, hypertension, hyperlipidemia, coronary artery disease. PAST SURGICAL HISTORY: Status post coronary artery stent, coronary artery bypass, permanent pacemaker. 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 ALLERGIES: No known allergies. MEDICATION: Include: 1. Lisinopril. 2. Heparin. 3. Coreg. 4. Norvasc. 5. Apresoline. 6. Pepcid. 7. Lipitor. 8. Claritin. SOCIAL HISTORY: He resides at home in the community. He is a former smoker, occasional ETOH. SYSTEMS REVIEW: Neurologic: No loss of consciousness, seizure activity, focal weakness. Cardiac: Negative for chest pain or palpitations. Respiratory: Negative for cough or sputum production. Gastrointestinal: Negative vomiting or diarrhea. Genitourinary: Negative for urinary tract infection. LABORATORY DATA: White count 7.0, hematocrit 32.1, platelet count 128, creatinine 1.2, chest x-ray negative. PHYSICAL EXAMINATION: General: On physical examination, he is awake and alert. He is not acutely toxic appearing. Vital signs: Temperature 98, blood pressure 108/62, pulse 72 regular, respirations 18 per minute. HEENT: Sclerae anicteric. Cardiovascular: Heart sounds S1, S2. Lungs: Clear. Abdomen: Soft, nontender. 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 Examination of the left foot, there is a dry ulceration present on the plantar aspect of the left foot in the area of the 2nd and 3rd metatarsal heads. There is no purulent drainage, no surrounding erythema. IMPRESSION: 1. Osteomyelitis of the left foot. 2. Nonhealing diabetic left foot plantar ulcer. 3. Insulin dependent diabetes mellitus. 4. Positive history of polymicrobial wound cultures including methicillin-resistant Staphylococcus aureus. 5. Bone biopsy and culture tomorrow, would hold off on empiric antibiotic coverage until after bone biopsy obtained and sent for culture, will likely require long-term intravenous antibiotic therapy through a PICC line as an outpatient with podiatry followup. Thank you for the kind referral. WILLIAM JULIEN M.D. [id number]
[2020-05-20] MEDS: ATORVASTATIN CA 40 MG TABLET (FP) PO SCH (21:43)
[2020-05-21] MEDS: HEPARIN NA (PORCINE) 5,000 UNITS/ML 1ML VIAL SQ SCH ×3 (06:05→21:56)
[2020-05-21] MEDS: INSULIN SLIDING SCALE (NOVOLOG) 1 VIAL SQ SCH ×3 (06:35→17:05)
[2020-05-21] MEDS ORDERED: LIDOCAINE HCL 1%, 10 MG/ML (20ML VIAL) ONE (07:22)
[2020-05-21] MEDS ORDERED: LIDOCAINE HCL/PF 2% SDV 5ML VIAL ONE (07:48)
[2020-05-21] MEDS ORDERED: MIDAZOLAM HCL 2 MG/2 ML SINGLE DOSE VIAL ONE (07:48)
[2020-05-21] MEDS ORDERED: PROPOFOL 20 ML ONE (07:48)
[2020-05-21] MEDS ORDERED: ONDANSETRON 4 MG/2 ML VIAL IVPUSH PRN ×2 (07:59→10:18)
[2020-05-21] MEDS ORDERED: ACETAMINOPHEN 500 MG TABLET (FP) PO PRN (07:59)
[2020-05-21] MEDS ORDERED: SODIUM CHLORIDE 1,000 ML IV SCH (08:00)
--- NOTE | 2020-05-21 08:06 | PN ---
Progress Note (short form) - Note Progress Note: Podiatry Pre-op Note: Patient seen/evaluated in preoperative holding. Risks, benefits and alternatives to surgery discussed at length with patient. He is amenable to planned procedure. Plan for left foot debridement, metatarsal head resection and bone biopsy under MAC/Local. Yunior Grover DPM
[2020-05-21] MEDS ORDERED: LIDOCAINE HCL 1%, 10 MG/ML (20ML VIAL) INF ONE (08:17)
--- NOTE | 2020-05-21 09:11 | OP ---
Operative Note - Note: Operative Date: 05/21/20 Pre-Operative Diagnosis: Left foot diabetic ulcer, osteomyelitis Operation: Left foot debridement of ulcer with metatarsal head resection and biopsy Findings: see operative note Post-Operative Diagnosis: Same as Pre-op Surgeon: Los Grover Anesthesia: Local, MAC Specimens Removed: Metatarsal bone left foot Estimated Blood Loss (mls): 10 Instrument used (Debridements only): #15 blade scalpel Operative Report Dictated: Yes
[2020-05-21] MEDS ORDERED: oxyCODONE HCL 5 MG TABLET PO PRN (09:52)
[2020-05-21] MEDS: SODIUM CHLORIDE 1,000 ML IV SCH (10:22)
--- NOTE | 2020-05-21 10:30 | PN ---
Progress Note, Physician History of Present Illness: Left foot diabetic ulcer, osteomyelitis s/p debridement of ulcer with metatarsal head resection and biopsy under MAC/local. Pain adequately controlled, denies chest pain or dyspnea. - Current Medication List Current Medications: Active Medications Amlodipine Besylate (Norvasc -) 10 mg PO DAILY [facility] Atorvastatin Calcium (Lipitor -) 40 mg PO HS [facility] Carvedilol (Coreg -) 25 mg PO BID [facility] Famotidine (Pepcid -) 20 mg PO BID [facility] Heparin Sodium (Porcine) (Heparin -) 5,000 unit SQ TID [facility] Hydralazine HCl (Apresoline -) 25 mg PO BID [facility] Sodium Chloride (Normal Saline -) 1,000 mls @ 75 mls/hr IV ASDIR [facility] Insulin Aspart (Novolog Vial Sliding Scale -) 1 vial SQ TIDAC [facility]; Protocol Lisinopril (Prinivil) 20 mg PO BID [facility] Loratadine (Claritin -) 10 mg PO DAILY [facility] Multivitamins/Minerals/Vitamin C (Tab-A-Vit -) 1 tab PO DAILY [facility] Ondansetron HCl (Zofran Injection) 4 mg IVPUSH Q6H PRN PRN Reason: NAUSEA AND/OR VOMITING Stop: 05/22/20 07:58 Oxycodone HCl (Roxicodone -) 5 mg PO Q4H PRN PRN Reason: PAIN LEVEL 1-5 - Objective Vital Signs: Vital Signs Temperature 97.6 F 05/21/20 09:17 Pulse Rate 60 05/21/20 09:45 Respiratory Rate 18 05/21/20 09:45 Blood Pressure 135/63 05/21/20 09:45 O2 Sat by Pulse Oximetry (%) 96 05/21/20 09:45 Constitutional: Yes: No Distress, Calm Neck: Yes: Supple Cardiovascular: Yes: Regular Rate and Rhythm Respiratory: Yes: Regular, CTA Bilaterally Gastrointestinal: Yes: Normal Bowel Sounds, Soft Edema: No Wound/Incision: Yes: Dressing Dry and Intact Labs: CBC, BMP 05/20/20 06:55 05/20/20 06:55 INR, PTT INR 1.18 (0.83-1.09) H 05/19/20 13:45 Assessment/Plan Problem List - Problems (1) CAD (coronary artery disease) Code(s): I25.10 - ATHSCL HEART DISEASE OF [place] CORONARY ARTERY W/O ANG PCTRS (2) History of percutaneous coronary intervention Code(s): Z98.61 - CORONARY ANGIOPLASTY STATUS (3) Hx of CABG Code(s): Z95.1 - PRESENCE OF AORTOCORONARY BYPASS GRAFT (4) HTN (hypertension) Code(s): I10 - ESSENTIAL (PRIMARY) HYPERTENSION (5) Hypercholesterolemia Code(s): E78.00 - PURE HYPERCHOLESTEROLEMIA, UNSPECIFIED (6) Diabetes mellitus Code(s): E11.9 - TYPE 2 DIABETES MELLITUS WITHOUT COMPLICATIONS (7) Presence of automatic cardioverter/defibrillator (AICD) Code(s): Z95.810 - PRESENCE OF AUTOMATIC (IMPLANTABLE) CARDIAC DEFIBRILLATOR (8) Ischemic dilated cardiomyopathy Code(s): I25.5 - ISCHEMIC CARDIOMYOPATHY; I42.0 - DILATED CARDIOMYOPATHY (9) Wound of foot Code(s): S91.309A - UNSPECIFIED OPEN WOUND, UNSPECIFIED FOOT, INITIAL ENCOUNTER (10) Diabetic foot ulcer Code(s): E11.621 - TYPE 2 DIABETES MELLITUS WITH FOOT ULCER; L97.509 - NON- PRESSURE CHRONIC ULCER OTH PRT UNSP FOOT W UNSP SEVERITY Qualifiers: Diabetic foot ulcer location: midfoot Diabetes mellitus type: other specified (including MARIA M) Laterality: left Non-pressure ulcer stage: unspecified non-pressure ulcer stage Qualified Code(s): E13.621 - Other specified diabetes mellitus with foot ulcer; L97.429 - Non-pressure chronic ulcer of left heel and midfoot with unspecified severity (11) Osteomyelitis Code(s): M86.9 - OSTEOMYELITIS, UNSPECIFIED (12) PAD (peripheral artery disease) Code(s): I73.9 - PERIPHERAL VASCULAR DISEASE, UNSPECIFIED Assessment/Plan 1. Left foot osteomyelitis, diabetic ulcer POD #0 left foot debridement of ulcer with metatarsal head resection and biopsy 2. CAD s/p PCI/stent, CABG, angina pectoris 3. Ischemic dilated cardiomyopathy 4. HTN 5. Hypercholesterolemia 6. DM 7. Presence of AICD for above cardiomyopathy and VT/VF PLAN: 1. Obtain prior medical records from [facility], last saw Dr. Wayne Quijano 2016, did not f/u due to distance 2. Continue Carvedilol 25 mg BID and Prinivil 20 mg BID 3. Continue Amlodipine 10 mg QD and Hydralazine 25 mg BID 4. Continue Atorvastatin 40 mg QHS 5. Off empiric antibiotics and wound care 6. Echocardiography to assess LV/RV and valvular function 7. Need to find out the traffic signal mechanic of the device (AICD) and needs to be interrogated. 8. GI and DVT prophylaxis 9. Restart ASA after procedure when cleared, f/u bone biopsy and cultures Patient was advised to follow up in our office, [facility] (Dr. Rojas) at [phone]
[2020-05-21] MEDS: hydrALAZINE HCL 25 MG TABLET (FP) PO SCH ×2 (11:42→21:58)
[2020-05-21] MEDS: CARVEDILOL 25 MG TABLET (FP) PO SCH ×2 (11:42→21:58)
[2020-05-21] MEDS: amLODIPine BESYLATE 10 MG TABLET (FP) PO SCH (11:42)
[2020-05-21] MEDS: LORATADINE 10 MG TABLET PO SCH (11:42)
[2020-05-21] MEDS: FAMOTIDINE 20 MG TABLET PO SCH ×2 (11:43→21:58)
[2020-05-21] MEDS: LISINOPRIL 20 MG TABLET (FP) PO SCH ×2 (11:43→21:59)
[2020-05-21] MEDS: MULTIVITAMINS (DAILY MVI) TABLET (FP) PO SCH (11:44)
--- NOTE | 2020-05-21 12:14 | OP ---
DATE OF OPERATION: 05/21/2020 PREOPERATIVE DIAGNOSIS: Left foot diabetic ulcer, osteomyelitis. POSTOPERATIVE DIAGNOSIS: Left foot diabetic ulcer, osteomyelitis. OPERATIVE PROCEDURE: Left foot debridement of diabetic ulcer with metatarsal head resection for biopsy. SURGEON: Los Grover DPM WHEEL LACER AND TRUER: None. ANESTHESIA: IV sedation with local. HEMOSTASIS: Surgical dissection. ESTIMATED BLOOD LOSS: 10 mL. PATHOLOGY: Bone, metatarsal, left foot. COMPLICATIONS: None. DESCRIPTION OF PROCEDURE: The patient was brought to the operating room and placed on the operating room table in the supine position. I elected to not use a tourniquet during the course of the procedure. Following induction of IV sedation, local anesthesia was administered using 10 mL of 1% lidocaine plain. The left foot was scrubbed, prepped, and draped in the usual sterile fashion. Attention was directed to the left foot where a submetatarsal ulcer probing to bone was visualized and appreciated. I began by performing a sharp excisional debridement of all devitalized tissue of the left submetatarsal diabetic ulcer to the level of skin, subcutaneous tissue, muscle, and bone utilizing a No. 15 scalpel and forceps. What remained was underlying granular tissue; however, it was noted that the submetatarsal ulcer was probing through and through to the 2nd MTPJ. Next, I performed a 4-cm linear longitudinal incision overlying the dorsal aspect of the 2nd metatarsal. The incision was deepened using sharp and blunt dissection, taking care to retract vital neural and vascular structures. All bleeders were cauterized and ligated as necessary. Next, the periosteum was reflected as well as deep capsular attachments from the 2nd metatarsal distal shaft and head. Of note, there was complete subluxation of the 2nd toe at the 2nd metatarsophalangeal joint. The 2nd metatarsal head was noted to be sclerotic, plantarflexed, and indicative of osteomyelitis bone. Next, the [place] elevator was used to continue gentle reflection of the periosteum until the metatarsal head was exposed. The metatarsal head was resected utilizing the sagittal saw. The metatarsal head was removed from the operative site. It was sectioned for both bone culture and bone pathology. A wound culture was also obtained. The surgical site was then irrigated with sterile saline mixed with Bacitracin. The skin was coapted and maintained using 3-0 nylon in a retention suture fashion. The plantar submetatarsal diabetic ulcer was packed loosely with 1/4-inch Iodoform packing. Following the conclusion of the procedure, the incision was covered with Xeroform, as well as the diabetic ulcer. A sterile compressive dressing was applied to the left foot consisting of sterile gauze, Kerlix, and an Salvatore wrap. The patient tolerated the procedure and anesthesia well without complications. He was transferred from the operating room to the recovery unit with vital signs stable and neurovasculature intact to the left foot. ARTURO [id number]
[2020-05-21] MEDS: VANCOMYCIN 1 GRAM (PRE-DOCKED) 1,000 MG/250 ML BAG IVPB SCH ×2 (12:44→23:34)
[2020-05-21] MEDS ORDERED: PIPERACILLIN/TAZOBACTAM 3.375 GM VIAL IVPB ONE (18:07)
[2020-05-21] MEDS ORDERED: DEXTROSE 5%-WATER - 50 ML IVPB ONE (18:08)
[2020-05-21] MEDS: PIPERACILLIN/TAZOB 3.375 GM 3.375 GM in DEXTROSE 5%-WATER - 50 ML IVPB SCH (18:50)
--- NOTE | 2020-05-21 21:48 | PN ---
Physical Exam: SUBJECTIVE: Patient seen and examined. S/p OR today for left foot ulcer debridement with metatarsal head resection and biopsy. Patient is feeling well post-op. Pain is well controlled. OBJECTIVE: Vital Signs Period Temp Pulse Resp BP Sys/Highotwer Pulse Ox Last 24 Hr 97.4 F-98.4 F 60-72 16-18 131-152/62-77 96-100 GENERAL: AAOx3, in no acute distress HEENT: NCAT, PERRLA, EOMI, sclera anicteric, conjunctiva clear, oropharynx clear w/o exudates. MMM. NECK: Normal ROM, supple, no JVD. LUNGS: CTABL no wheezes/ rhonchi/ rales. No distress, speaks in full sentences. No increased work of breathing. HEART: RRR, normal S1 S2, no M/R/G, peripheral pulses 2+ and equal b/l ABDOMEN: Soft, NTND, + BS. No guarding or rebound. MSK: ROM WNL EXTREMITIES: No peripheral edema. LLE ventral debrided ulcer. Site is c/d/i. Wrapped with gauze bandage, no active drainage. NEUROLOGICAL: CN II-XII intact. No focal sensorimotor deficits. SKIN: Warm, Dry, no rashes or lesions noted Laboratory Results - last 24 hr 05/21/20 05/21/20 05/21/20 06:33 11:56 16:33 POC Glucometer 177 140 191 Active Medications Generic Name Dose Route Start Last Admin Trade Name Freq PRN Reason Stop Dose Admin Amlodipine Besylate 10 mg 05/22/20 10:00 Norvasc - PO DAILY [facility] Atorvastatin Calcium 40 mg 05/21/20 22:00 Lipitor - PO HS [facility] Carvedilol 25 mg 05/21/20 22:00 Coreg - PO BID [facility] Famotidine 20 mg 05/21/20 22:00 Pepcid - PO BID [facility] Heparin Sodium (Porcine) 5,000 unit 05/21/20 14:00 05/21/20 17:05 Heparin - SQ 5,000 unit TID [facility] Administration Hydralazine HCl 25 mg 05/21/20 22:00 Apresoline - PO BID [facility] Sodium Chloride 1,000 mls @ 75 mls/hr 05/21/20 10:18 05/21/20 10:22 Normal Saline - IV 0 mls ASDIR [facility] Administration Vancomycin HCl 1,000 mg in 250 mls @ 166.667 mls/hr 05/21/20 11:45 05/21/20 12:44 Vancomycin (Pre-Docked) IVPB 166.667 mls/hr Q12H [facility] Administration Protocol Piperacillin Sod/Tazobactam 50 mls @ 100 mls/hr 05/21/20 18:00 05/21/20 18:50 Sod 3.375 gm/ Dextrose IVPB 100 mls/hr Q8H-IV [facility] Administration Protocol Insulin Aspart 1 vial 05/21/20 11:00 05/21/20 17:05 Novolog Vial Sliding Scale - SQ 2 units TIDAC [facility] Administration Protocol Lisinopril 20 mg 05/21/20 22:00 Prinivil PO BID [facility] Loratadine 10 mg 05/22/20 10:00 Claritin - PO DAILY [facility] Multivitamins/Minerals/Vitamin C 1 tab 05/22/20 10:00 Tab-A-Vit - PO DAILY [facility] Ondansetron HCl 4 mg 05/21/20 10:18 Zofran Injection IVPUSH 05/22/20 07:58 Q6H PRN NAUSEA AND/OR VOMITING Oxycodone HCl 5 mg 05/21/20 09:52 Roxicodone - PO Q4H PRN PAIN LEVEL 1-5 IMAGING: * Bone scan 05/02/20: Scintigraphic findings suggestive of acute osteomyelitis of the left second or third toe extending to the distal aspect of the metatarsal bone. Nonspecific focal blood pool and delayed uptake in the talus, unchanged since the prior exam possibly possibly on the basis of old trauma or degenerat liudmila changes. Other underlying etiologies cannot be excluded. Correlation with dedicated cross-sectional imaging may be obtained if clinically indicated. ASSESSMENT/PLAN: 74 y.o .M PMH DM, HTN, CAD (s/p CABG, stents, defibrillator ~5yago), CVA (residual R side deficit) presented as per podiatry recommendations for management of left foot diabetic ulcer. #LLE osteomyelitis -today POD #0 s/p left foot ulcer debridement with metatarsal head resection and biopsy -continue local wound care as per podiatry recs- Dr. Grover following -f/u wound culture, bone biopsy cultures -ID following (Dr. Jolly) -abx: continue vanc & zosyn -Oxy 5mg q4h prn for pain control #HTN -Continue amlodipine 10mg QD, Hydralazine 25mg BID, Carvedilol 25mg BID, Prinivil 20mg BID -f/u medical records from [facility] (Pt saw synthetic cloth binding cutter Dr. Wayne Quijano) -f/u echo assess LV/RV and valvular function -Caridology following, Dr. Rojas- pt will need outpatient f/u care with cardiology -f/u cardio recs regarding resuming aspirin post-op #CAD -resume asa & plavix when appropriate (held prior to OR) -atorvastatin 40mg qHS -continue anti htn meds as above -will hold plavix, asa before surgery -cardio following: f/u AICD sports administrator information #DM -ISS, BGMs ACHS -HbA1C 6.3% #PPX: -DVT: Hep SQ #FEN -NS @75cc/hr -trend & replete lytes prn -diabetic diet Dispo: cont to monitor on med surg Visit type - Emergency Visit Emergency Visit: No - New Patient This patient is new to me today: No - Critical Care Critical Care patient: No ATTENDING PHYSICIAN STATEMENT I saw and evaluated the patient. I reviewed the resident's note and discussed the case with the resident. I agree with the resident's findings and plan as documented. SUBJECTIVE: OBJECTIVE: ASSESSMENT AND PLAN:
[2020-05-21] MEDS: ATORVASTATIN CA 40 MG TABLET (FP) PO SCH (21:58)
--- NOTE | 2020-05-21 22:52 | PN ---
Teaching Attending Note Name of Resident: Christine Echevarria ATTENDING PHYSICIAN STATEMENT I saw and evaluated the patient. I reviewed the resident's note and discussed the case with the resident. I agree with the resident's findings and plan as documented. SUBJECTIVE: Patient has no complaints. OBJECTIVE: Vital Signs Period Temp Pulse Resp BP Sys/Hightower Pulse Ox Last 24 Hr 97.4 F-98.4 F 60-72 16-18 131-152/62-77 96-100 HEART: S1S2, RRR LUNGS: Clear ABDOMEN: Soft, non-tender, non-distended, normal BS EXTREMITIES: No edema. Left foot wrapped Laboratory Results - last 24 hr 05/21/20 05/21/20 05/21/20 06:33 11:56 16:33 POC Glucometer 177 140 191 05/21/20 22:05 POC Glucometer 140 Current Medications Generic Name Dose Route Start Last Admin Trade Name Freq PRN Reason Stop Dose Admin Amlodipine Besylate 10 mg 05/22/20 10:00 Norvasc - PO DAILY [facility] Atorvastatin Calcium 40 mg 05/21/20 22:00 05/21/20 21:58 Lipitor - PO 40 mg HS [facility] Administration Carvedilol 25 mg 05/21/20 22:00 05/21/20 21:58 Coreg - PO 25 mg BID [facility] Administration Famotidine 20 mg 05/21/20 22:00 05/21/20 21:58 Pepcid - PO 20 mg BID [facility] Administration Heparin Sodium (Porcine) 5,000 unit 05/21/20 14:00 05/21/20 21:56 Heparin - SQ 5,000 unit TID [facility] Administration Hydralazine HCl 25 mg 05/21/20 22:00 05/21/20 21:58 Apresoline - PO 25 mg BID [facility] Administration Sodium Chloride 1,000 mls @ 75 mls/hr 05/21/20 10:18 05/21/20 10:22 Normal Saline - IV 0 mls ASDIR [facility] Administration Vancomycin HCl 1,000 mg in 250 mls @ 166.667 mls/hr 05/21/20 11:45 05/21/20 12:44 Vancomycin (Pre-Docked) IVPB 166.667 mls/hr Q12H [facility] Administration Protocol Piperacillin Sod/Tazobactam 50 mls @ 100 mls/hr 05/21/20 18:00 05/21/20 18:50 Sod 3.375 gm/ Dextrose IVPB 100 mls/hr Q8H-IV [facility] Administration Protocol Insulin Aspart 1 vial 05/21/20 11:00 05/21/20 17:05 Novolog Vial Sliding Scale - SQ 2 units TIDAC [facility] Administration Protocol Lisinopril 20 mg 05/21/20 22:00 05/21/20 21:59 Prinivil PO 20 mg BID [facility] Administration Loratadine 10 mg 05/22/20 10:00 Claritin - PO DAILY [facility] Multivitamins/Minerals/Vitamin C 1 tab 05/22/20 10:00 Tab-A-Vit - PO DAILY [facility] Ondansetron HCl 4 mg 05/21/20 10:18 Zofran Injection IVPUSH 05/22/20 07:58 Q6H PRN NAUSEA AND/OR VOMITING Oxycodone HCl 5 mg 05/21/20 09:52 Roxicodone - PO Q4H PRN PAIN LEVEL 1-5 ASSESSMENT AND PLAN: This is a 74 year old man with a history of HTN, hyperlipidemia, CAD with CABG and stents, AICD, type 2 DM, CVA with right-sided weakness who presented to the ED with chronic left foot wound and possible osteomyelitis. 1. Non-healing diabetic ulcer of left foot with osteomyelitis of left 2nd metatarsal - s/p debridement and resection of 2nd metatarsal head today - Continue Zosyn, vancomycin - Aspirin, Plavix held for surgery - Wound care
[2020-05-22] MEDS ORDERED: PIPERACILLIN/TAZOBACTAM 3.375 GM VIAL IVPB ONE ×3 (01:31→18:19)
[2020-05-22] MEDS ORDERED: DEXTROSE 5%-WATER - 50 ML IVPB ONE ×3 (01:31→18:19)
[2020-05-22] MEDS: PIPERACILLIN/TAZOB 3.375 GM 3.375 GM in DEXTROSE 5%-WATER - 50 ML IVPB SCH ×3 (01:48→18:20)
[2020-05-22] MEDS: SODIUM CHLORIDE 1,000 ML IV SCH ×2 (03:56→16:29)
[2020-05-22] MEDS: HEPARIN NA (PORCINE) 5,000 UNITS/ML 1ML VIAL SQ SCH ×3 (05:41→21:53)
[2020-05-22] MEDS: INSULIN SLIDING SCALE (NOVOLOG) 1 VIAL SQ SCH ×3 (06:04→15:18)
[2020-05-22] MEDS: FAMOTIDINE 20 MG TABLET PO SCH ×2 (09:27→21:56)
[2020-05-22] MEDS: LISINOPRIL 20 MG TABLET (FP) PO SCH ×2 (09:27→21:53)
[2020-05-22] MEDS: amLODIPine BESYLATE 10 MG TABLET (FP) PO SCH (09:27)
[2020-05-22] MEDS: LORATADINE 10 MG TABLET PO SCH (09:27)
[2020-05-22] MEDS: CARVEDILOL 25 MG TABLET (FP) PO SCH ×2 (09:27→21:53)
[2020-05-22] MEDS: hydrALAZINE HCL 25 MG TABLET (FP) PO SCH ×2 (09:28→21:53)
[2020-05-22] MEDS: MULTIVITAMINS (DAILY MVI) TABLET (FP) PO SCH (09:28)
--- NOTE | 2020-05-22 09:40 | PN ---
Progress Note, Physician History of Present Illness: Left foot diabetic ulcer, osteomyelitis s/p debridement of ulcer with metatarsal head resection and biopsy under MAC/local. Pain adequately controlled, denies chest pain or dyspnea. - Current Medication List Current Medications: Active Medications Amlodipine Besylate (Norvasc -) 10 mg PO DAILY [facility] Atorvastatin Calcium (Lipitor -) 40 mg PO HS [facility] Last Admin: 05/21/20 21:58 Dose: 40 mg Documented by: Carvedilol (Coreg -) 25 mg PO BID [facility] Last Admin: 05/21/20 21:58 Dose: 25 mg Documented by: Famotidine (Pepcid -) 20 mg PO BID [facility] Last Admin: 05/21/20 21:58 Dose: 20 mg Documented by: Heparin Sodium (Porcine) (Heparin -) 5,000 unit SQ TID [facility] Last Admin: 05/22/20 05:41 Dose: 5,000 unit Documented by: Hydralazine HCl (Apresoline -) 25 mg PO BID [facility] Last Admin: 05/21/20 21:58 Dose: 25 mg Documented by: Sodium Chloride (Normal Saline -) 1,000 mls @ 75 mls/hr IV ASDIR [facility] Last Admin: 05/22/20 03:56 Dose: 75 mls/hr Documented by: Vancomycin HCl (Vancomycin (Pre-Docked)) 1,000 mg in 250 mls @ 166.667 mls/hr IVPB Q12H [facility]; Protocol Last Admin: 05/21/20 23:34 Dose: 166.667 mls/hr Documented by: Piperacillin Sod/Tazobactam (Sod 3.375 gm/ Dextrose) 50 mls @ 100 mls/hr IVPB Q8H-IV [facility]; Protocol Last Admin: 05/22/20 01:48 Dose: 100 mls/hr Documented by: Insulin Aspart (Novolog Vial Sliding Scale -) 1 vial SQ TIDAC [facility]; Protocol Last Admin: 05/22/20 06:04 Dose: Not Given Documented by: Lisinopril (Prinivil) 20 mg PO BID [facility] Last Admin: 05/21/20 21:59 Dose: 20 mg Documented by: Loratadine (Claritin -) 10 mg PO DAILY [facility] Multivitamins/Minerals/Vitamin C (Tab-A-Vit -) 1 tab PO DAILY [facility] Oxycodone HCl (Roxicodone -) 5 mg PO Q4H PRN PRN Reason: PAIN LEVEL 1-5 - Objective Vital Signs: Vital Signs Temperature 98.4 F 05/22/20 05:04 Pulse Rate 95 H 05/22/20 05:04 Respiratory Rate 18 05/22/20 05:04 Blood Pressure 134/62 05/22/20 05:04 O2 Sat by Pulse Oximetry (%) 98 05/21/20 22:00 Constitutional: Yes: No Distress, Calm Neck: Yes: Supple Cardiovascular: Yes: Regular Rate and Rhythm Respiratory: Yes: Regular, CTA Bilaterally Gastrointestinal: Yes: Normal Bowel Sounds, Soft Edema: No Wound/Incision: Yes: Dressing Dry and Intact Labs: CBC, BMP 05/20/20 06:55 05/20/20 06:55 INR, PTT INR 1.18 (0.83-1.09) H 05/19/20 13:45 Assessment/Plan Problem List - Problems (1) CAD (coronary artery disease) Code(s): I25.10 - ATHSCL HEART DISEASE OF [place] CORONARY ARTERY W/O ANG PCTRS (2) History of percutaneous coronary intervention Code(s): Z98.61 - CORONARY ANGIOPLASTY STATUS (3) Hx of CABG Code(s): Z95.1 - PRESENCE OF AORTOCORONARY BYPASS GRAFT (4) HTN (hypertension) Code(s): I10 - ESSENTIAL (PRIMARY) HYPERTENSION (5) Hypercholesterolemia Code(s): E78.00 - PURE HYPERCHOLESTEROLEMIA, UNSPECIFIED (6) Diabetes mellitus Code(s): E11.9 - TYPE 2 DIABETES MELLITUS WITHOUT COMPLICATIONS (7) Presence of automatic cardioverter/defibrillator (AICD) Code(s): Z95.810 - PRESENCE OF AUTOMATIC (IMPLANTABLE) CARDIAC DEFIBRILLATOR (8) Ischemic dilated cardiomyopathy Code(s): I25.5 - ISCHEMIC CARDIOMYOPATHY; I42.0 - DILATED CARDIOMYOPATHY (9) Wound of foot Code(s): S91.309A - UNSPECIFIED OPEN WOUND, UNSPECIFIED FOOT, INITIAL ENCOUNTER (10) Diabetic foot ulcer Code(s): E11.621 - TYPE 2 DIABETES MELLITUS WITH FOOT ULCER; L97.509 - NON- PRESSURE CHRONIC ULCER OTH PRT UNSP FOOT W UNSP SEVERITY Qualifiers: Diabetic foot ulcer location: midfoot Diabetes mellitus type: other specified (including MARIA M) Laterality: left Non-pressure ulcer stage: unspecified non-pressure ulcer stage Qualified Code(s): E13.621 - Other specified diabetes mellitus with foot ulcer; L97.429 - Non-pressure chronic ulcer of left heel and midfoot with unspecified severity (11) Osteomyelitis Code(s): M86.9 - OSTEOMYELITIS, UNSPECIFIED (12) PAD (peripheral artery disease) Code(s): I73.9 - PERIPHERAL VASCULAR DISEASE, UNSPECIFIED Assessment/Plan 1. Left foot osteomyelitis, diabetic ulcer POD #0 left foot debridement of u lcer with metatarsal head resection and biopsy 2. CAD s/p PCI/stent, CABG, angina pectoris 3. Ischemic dilated cardiomyopathy 4. HTN 5. Hypercholesterolemia 6. DM 7. Presence of AICD for above cardiomyopathy and VT/VF PLAN: 1. Obtain prior medical records from [facility], last saw Dr. Wayne Quijano 2016, did not f/u due to distance 2. Continue Carvedilol 25 mg BID and Prinivil 20 mg BID 3. Continue Amlodipine 10 mg QD and Hydralazine 25 mg BID 4. Continue Atorvastatin 40 mg QHS 5. Off empiric antibiotics and wound care 6. Echocardiography to assess LV/RV and valvular function 7. Need to find out the certified breastfeeding educator of the device (AICD) and needs to be interrogated. 8. GI and DVT prophylaxis 9. Restart ASA after procedure when cleared, f/u bone biopsy and cultures Patient was advised to follow up in our office, [facility] (Dr. Rojas) at [phone]
--- NOTE | 2020-05-22 10:16 | PN ---
Progress Note (short form) - Note Progress Note: 74 year old diabetic CAD male presented for admission for non-healing ulcer of the left foot. Patient is seen regularly in wound healing center. He developed a recurrent probing ulcer to the left foot; bone scan obtained which is suggestive of osteomyelitis of the left 2nd/3rd MTPJs. One day s/p left 2nd MT head resection. Doing well w/o complaints. Does NOT want to go to rehab would rather have home infusion for antibiotics. PMHx: IDDM, HTN, HLP, CAD s/p AICD s/p CABG Meds: noted in chart ALL: NKMA SHELLY: L foot: Pedal pulses palpable 2/4, TG wnl, CFT brisk to remaining digits. There is no ischemic change to the foot. The foot is warm and well perfused. packing in place, sutures intact, no dehiscence, no erythema, no signs of acute infection Bone scan (from [facility]): consistent with osteomyelitis left 2nd/3rd MTPJs Imp: 74 year old diabetic male with left foot diabetic ulcer and osteomyelitis Evaluated and reviewed looks healthy if IV abx are needed patient refuses rehab; would rather have at home or will come in daily for infusions if needed Keep c/d/i needs f/u as outpatient at wound care center next week.
--- NOTE | 2020-05-22 11:20 | PN ---
Progress Note, Physician History of Present Illness: Left foot diabetic ulcer, osteomyelitis s/p debridement of ulcer with metatarsal head resection and biopsy. Pain adequately controlled, denies chest pain or dyspnea. - Current Medication List Current Medications: Active Medications Amlodipine Besylate (Norvasc -) 10 mg PO DAILY [facility] Last Admin: 05/22/20 09:27 Dose: 10 mg Documented by: Atorvastatin Calcium (Lipitor -) 40 mg PO HS [facility] Last Admin: 05/21/20 21:58 Dose: 40 mg Documented by: Carvedilol (Coreg -) 25 mg PO BID [facility] Last Admin: 05/22/20 09:27 Dose: 25 mg Documented by: Famotidine (Pepcid -) 20 mg PO BID [facility] Last Admin: 05/22/20 09:27 Dose: 20 mg Documented by: Heparin Sodium (Porcine) (Heparin -) 5,000 unit SQ TID [facility] Last Admin: 05/22/20 05:41 Dose: 5,000 unit Documented by: Hydralazine HCl (Apresoline -) 25 mg PO BID [facility] Last Admin: 05/22/20 09:28 Dose: 25 mg Documented by: Sodium Chloride (Normal Saline -) 1,000 mls @ 75 mls/hr IV ASDIR [facility] Last Admin: 05/22/20 03:56 Dose: 75 mls/hr Documented by: Vancomycin HCl (Vancomycin (Pre-Docked)) 1,000 mg in 250 mls @ 166.667 mls/hr IVPB Q12H [facility]; Protocol Last Admin: 05/21/20 23:34 Dose: 166.667 mls/hr Documented by: Piperacillin Sod/Tazobactam (Sod 3.375 gm/ Dextrose) 50 mls @ 100 mls/hr IVPB Q8H-IV [facility]; Protocol Last Admin: 05/22/20 09:28 Dose: 100 mls/hr Documented by: Insulin Aspart (Novolog Vial Sliding Scale -) 1 vial SQ TIDAC [facility]; Protocol Last Admin: 05/22/20 06:04 Dose: Not Given Documented by: Lisinopril (Prinivil) 20 mg PO BID [facility] Last Admin: 05/22/20 09:27 Dose: 20 mg Documented by: Loratadine (Claritin -) 10 mg PO DAILY [facility] Last Admin: 05/22/20 09:27 Dose: 10 mg Documented by: Multivitamins/Minerals/Vitamin C (Tab-A-Vit -) 1 tab PO DAILY [facility] Last Admin: 05/22/20 09:28 Dose: 1 tab Documented by: Oxycodone HCl (Roxicodone -) 5 mg PO Q4H PRN PRN Reason: PAIN LEVEL 1-5 - Objective Vital Signs: Vital Signs Temperature 98.4 F 05/22/20 05:04 Pulse Rate 95 H 05/22/20 05:04 Respiratory Rate 18 05/22/20 05:04 Blood Pressure 134/62 05/22/20 05:04 O2 Sat by Pulse Oximetry (%) 98 05/21/20 22:00 Constitutional: Yes: No Distress, Calm Neck: Yes: Supple Cardiovascular: Yes: Regular Rate and Rhythm Respiratory: Yes: Regular, CTA Bilaterally Gastrointestinal: Yes: Normal Bowel Sounds, Soft Edema: No Wound/Incision: Yes: Dressing Dry and Intact Labs: CBC, BMP 05/20/20 06:55 05/20/20 06:55 INR, PTT INR 1.18 (0.83-1.09) H 05/19/20 13:45 Assessment/Plan Problem List - Problems (1) CAD (coronary artery disease) Code(s): I25.10 - ATHSCL HEART DISEASE OF [place] CORONARY ARTERY W/O ANG PCTRS (2) History of percutaneous coronary intervention Code(s): Z98.61 - CORONARY ANGIOPLASTY STATUS (3) Hx of CABG Code(s): Z95.1 - PRESENCE OF AORTOCORONARY BYPASS GRAFT (4) HTN (hypertension) Code(s): I10 - ESSENTIAL (PRIMARY) HYPERTENSION (5) Hypercholesterolemia Code(s): E78.00 - PURE HYPERCHOLESTEROLEMIA, UNSPECIFIED (6) Diabetes mellitus Code(s): E11.9 - TYPE 2 DIABETES MELLITUS WITHOUT COMPLICATIONS (7) Presence of automatic cardioverter/defibrillator (AICD) Code(s): Z95.810 - PRESENCE OF AUTOMATIC (IMPLANTABLE) CARDIAC DEFIBRILLATOR (8) Ischemic dilated cardiomyopathy Code(s): I25.5 - ISCHEMIC CARDIOMYOPATHY; I42.0 - DILATED CARDIOMYOPATHY (9) Wound of foot Code(s): S91.309A - UNSPECIFIED OPEN WOUND, UNSPECIFIED FOOT, INITIAL ENCOUNTER (10) Diabetic foot ulcer Code(s): E11.621 - TYPE 2 DIABETES MELLITUS WITH FOOT ULCER; L97.509 - NON- PRESSURE CHRONIC ULCER OTH PRT UNSP FOOT W UNSP SEVERITY Qualifiers: Diabetic foot ulcer location: midfoot Diabetes mellitus type: other specified (including MARIA M) Laterality: left Non-pressure ulcer stage: unspecified non-pressure ulcer stage Qualified Code(s): E13.621 - Other specified diabetes mellitus with foot ulcer; L97.429 - Non-pressure chronic ulcer of left heel and midfoot with unspecified severity (11) Osteomyelitis Code(s): M86.9 - OSTEOMYELITIS, UNSPECIFIED (12) PAD (peripheral artery disease) Code(s): I73.9 - PERIPHERAL VASCULAR DISEASE, UNSPECIFIED Assessment/Plan 1. Left foot osteomyelitis, diabetic ulcer POD #1 left foot debridement of ulcer with metatarsal head resection and biopsy 2. CAD s/p PCI/stent, CABG, angina pectoris 3. Ischemic dilated cardiomyopathy 4. HTN 5. Hypercholesterolemia 6. DM 7. Presence of AICD for above cardiomyopathy and VT/VF PLAN: 1. Obtain prior medical records from [facility], last saw Dr. Wayne Quijano 2016, did not f/u due to distance 2. Continue Carvedilol 25 mg BID and Prinivil 20 mg BID 3. Continue Amlodipine 10 mg QD and Hydralazine 25 mg BID 4. Continue Atorvastatin 40 mg QHS 5. Resumed antibiotics, needs PICC line and wound care 6. Echocardiography to assess LV/RV and valvular function 7. Need to find out the microfabrication engineer manager of the device (AICD) and needs to be interrogated. 8. GI and DVT prophylaxis 9. Restart ASA after procedure when cleared, f/u bone biopsy and cultures Patient was advised to follow up in our office, [facility] (Dr. Rojas) at [phone]
--- NOTE | 2020-05-22 12:20 | PATH ---
Surgical Pathology Report Patient Name: REGINALDO BAILEY Med. Rec. #: [id number] /Age/Gender: 1945 (Age: 74) / M Account: [id number] Location: [address] [place] [address]/[facility] Taken: 05/21/2020 Received: 05/21/2020 Reported: 05/22/2020 Physicians: ARTURO Armendariz MD Specimen(s) Received BONE METATARSAL LEFT FOOT Clinical History Osteomyelitis left foot Final Diagnosis BONE METATARSAL LEFT FOOT, EXCISION: PORTION OF BONE WITH MARKED CHRONIC, FOCALLY ACUTE OSTEOMYELITIS. Electronically Signed Alice Villanueva M.D. Gross Description Received in formalin labeled "bone metatarsal left foot," is a 2.0 x 1.6 x 1.1 cm briones, irregular portion of bone. The specimen is sectioned and retail sales representative full thickness sections are submitted in one cassette, following decalcification. /05/21/2020 saudi/05/21/2020
[2020-05-22] MEDS: VANCOMYCIN 1 GRAM (PRE-DOCKED) 1,000 MG/250 ML BAG IVPB SCH ×2 (16:28→23:50)
--- NOTE | 2020-05-22 17:38 | PN ---
Physical Exam: SUBJECTIVE: Patient seen and examined at the bedside, resting in bed, comfortable. denies any pain/discomfort. OBJECTIVE: Patient is a 74 year old male with a significant past medical history of diabetes, hypertention, CAD (s/p CABG, stents, defibrillator ~5yago), CVA (residual right side deficit) presents to ED on 05/19/2020 for left foot osteomyelitis. Pt states that he saw his wound care doctor last week who states that the wound was deep and that he needed to come in today for a bone biopsy and procedure. Pt reports that he has had this wound for many years and has had a PICC line before for IV antibiotics when sent to rehab. Period Temp Pulse Resp BP Sys/Hightower Pulse Ox Last 24 Hr 98.0 F-98.4 F 72-95 16-18 134-152/62-90 98 GENERAL: The patient is awake, alert, and fully oriented, in no acute distress. HEAD: Normal with no signs of trauma. EYES: PERRL, extraocular movements intact, sclera anicteric, conjunctiva clear. No ptosis. ENT: Ears normal, nares patent, oropharynx clear without exudates, moist mucous membranes. NECK: Trachea midline, full range of motion, supple. LUNGS: Breath sounds equal, clear to auscultation bilaterally, no wheezes HEART: Regular rate and rhythm ABDOMEN: Soft, nontender, nondistended, normoactive bowel sounds EXTREMITIES: left foot bandaged (c/d/i), warm left extremity, no pain NEUROLOGICAL: Normal speech, gait not observed. PSYCH: Normal mood, normal affect. laboratory Results - last 24 hr 05/21/20 05/22/20 05/22/20 22:05 05:44 11:33 POC Glucometer 140 129 179 05/22/20 16:49 POC Glucometer 198 Active Medications Generic Name Dose Route Start Last Admin Trade Name Freq PRN Reason Stop Dose Admin Amlodipine Besylate 10 mg 05/22/20 10:00 05/22/20 09:27 Norvasc - PO 10 mg DAILY [facility] Administration Atorvastatin Calcium 40 mg 05/21/20 22:00 05/21/20 21:58 Lipitor - PO 40 mg HS [facility] Administration Carvedilol 25 mg 05/21/20 22:00 05/22/20 09:27 Coreg - PO 25 mg BID [facility] Administration Famotidine 20 mg 05/21/20 22:00 05/22/20 09:27 Pepcid - PO 20 mg BID [facility] Administration Heparin Sodium (Porcine) 5,000 unit 05/21/20 14:00 05/22/20 05:41 Heparin - SQ 5,000 unit TID [facility] Administration Hydralazine HCl 25 mg 05/21/20 22:00 05/22/20 09:28 Apresoline - PO 25 mg BID [facility] Administration Sodium Chloride 1,000 mls @ 75 mls/hr 05/21/20 10:18 05/22/20 16:29 Normal Saline - IV Not Given ASDIR [facility] Vancomycin HCl 1,000 mg in 250 mls @ 166.667 mls/hr 05/21/20 11:45 05/22/20 16:28 Vancomycin (Pre-Docked) IVPB 166.667 mls/hr Q12H [facility] Administration Protocol Piperacillin Sod/Tazobactam 50 mls @ 100 mls/hr 05/21/20 18:00 05/22/20 09:28 Sod 3.375 gm/ Dextrose IVPB 100 mls/hr Q8H-IV [facility] Administration Protocol Insulin Aspart 1 vial 05/21/20 11:00 05/22/20 14:08 Novolog Vial Sliding Scale - SQ 2 units TIDAC [facility] Administration Protocol Lisinopril 20 mg 05/21/20 22:00 05/22/20 09:27 Prinivil PO 20 mg BID [facility] Administration Loratadine 10 mg 05/22/20 10:00 05/22/20 09:27 Claritin - PO 10 mg DAILY [facility] Administration Multivitamins/Minerals/Vitamin C 1 tab 05/22/20 10:00 05/22/20 09:28 Tab-A-Vit - PO 1 tab DAILY [facility] Administration Oxycodone HCl 5 mg 05/21/20 09:52 Roxicodone - PO Q4H PRN PAIN LEVEL 1-5 ASSESSMENT/PLAN: Problem List - Problems (1) Diabetic foot ulcer Assessment/Plan: followed by podiatry Code(s): E11.621 - TYPE 2 DIABETES MELLITUS WITH FOOT ULCER; L97.509 - NON- PRESSURE CHRONIC ULCER OTH PRT UNSP FOOT W UNSP SEVERITY Qualifiers: Diabetic foot ulcer location: midfoot Diabetes mellitus type: other specified (including MARIA M) Laterality: left Non-pressure ulcer stage: unspecified non-pressure ulcer stage Qualified Code(s): E13.621 - Other specified diabetes mellitus with foot ulcer; L97.429 - Non-pressure chronic ulcer of left heel and midfoot with unspecified severity (2) Wound of foot Assessment/Plan: followed by podiatry and ID on zolesli patient with osteomyelitis of left foot non healing diabetic foot ulcer had a bone biopsy today Code(s): S91.309A - UNSPECIFIED OPEN WOUND, UNSPECIFIED FOOT, INITIAL ENCOUNTER (3) CAD (coronary artery disease) Assessment/Plan: continue home meds. lipitor 40mg daily. Code(s): I25.10 - ATHSCL HEART DISEASE OF [place] CORONARY ARTERY W/O ANG PCTRS (4) Diabetes mellitus Assessment/Plan: controlled on novolog ss with bgm checks ac/hs Code(s): E11.9 - TYPE 2 DIABETES MELLITUS WITHOUT COMPLICATIONS (5) HTN (hypertension) Assessment/Plan: stable bp on norvasc 10mg, hydralazine 25 bid, coreq 25 bid Code(s): I10 - ESSENTIAL (PRIMARY) HYPERTENSION (6) Hx of CABG Code(s): Z95.1 - PRESENCE OF AORTOCORONARY BYPASS GRAFT (7) Hypercholesterolemia Assessment/Plan: on statin therapy Code(s): E78.00 - PURE HYPERCHOLESTEROLEMIA, UNSPECIFIED (8) Presence of automatic cardioverter/defibrillator (AICD) Code(s): Z95.810 - PRESENCE OF AUTOMATIC (IMPLANTABLE) CARDIAC DEFIBRILLATOR (9) DVT prophylaxis Assessment/Plan: heparin tid Code(s): Z29.9 - ENCOUNTER FOR PROPHYLACTIC MEASURES, UNSPECIFIED Visit type - Emergency Visit Emergency Visit: Yes ED Registration Date: 05/19/20 Care time: The patient presented to the Emergency Department on the above date and was hospitalized for further evaluation of their emergent condition. - New Patient This patient is new to me today: Yes Date on this admission: 05/22/20 - Critical Care Critical Care patient: No - Discharge Referral Referred to [facility] Med [facility].C.: No
[2020-05-22] MEDS: ATORVASTATIN CA 40 MG TABLET (FP) PO SCH (21:53)
--- NOTE | 2020-05-22 22:24 | PN ---
Progress Note, Physician History of Present Illness: S/P DEBRIDEMENT/BONE BX C/S PENDING - Current Medication List Current Medications: Active Medications Amlodipine Besylate (Norvasc -) 10 mg PO DAILY [facility] Last Admin: 05/22/20 09:27 Dose: 10 mg Documented by: Atorvastatin Calcium (Lipitor -) 40 mg PO HS [facility] Last Admin: 05/22/20 21:53 Dose: 40 mg Documented by: Carvedilol (Coreg -) 25 mg PO BID [facility] Last Admin: 05/22/20 21:53 Dose: 25 mg Documented by: Famotidine (Pepcid -) 20 mg PO BID [facility] Last Admin: 05/22/20 21:56 Dose: 20 mg Documented by: Heparin Sodium (Porcine) (Heparin -) 5,000 unit SQ TID [facility] Last Admin: 05/22/20 21:53 Dose: 5,000 unit Documented by: Hydralazine HCl (Apresoline -) 25 mg PO BID [facility] Last Admin: 05/22/20 21:53 Dose: 25 mg Documented by: Sodium Chloride (Normal Saline -) 1,000 mls @ 75 mls/hr IV ASDIR [facility] Last Admin: 05/22/20 16:29 Dose: Not Given Documented by: Vancomycin HCl (Vancomycin (Pre-Docked)) 1,000 mg in 250 mls @ 166.667 mls/hr IVPB Q12H [facility]; Protocol Last Admin: 05/22/20 16:28 Dose: 166.667 mls/hr Documented by: Piperacillin Sod/Tazobactam (Sod 3.375 gm/ Dextrose) 50 mls @ 100 mls/hr IVPB Q8H-IV [facility]; Protocol Last Admin: 05/22/20 18:20 Dose: 100 mls/hr Documented by: Insulin Aspart (Novolog Vial Sliding Scale -) 1 vial SQ TIDAC [facility]; Protocol Last Admin: 05/22/20 15:18 Dose: 2 units Documented by: Lisinopril (Prinivil) 20 mg PO BID [facility] Last Admin: 05/22/20 21:53 Dose: 20 mg Documented by: Loratadine (Claritin -) 10 mg PO DAILY [facility] Last Admin: 05/22/20 09:27 Dose: 10 mg Documented by: Multivitamins/Minerals/Vitamin C (Tab-A-Vit -) 1 tab PO DAILY [facility] Last Admin: 05/22/20 09:28 Dose: 1 tab Documented by: Oxycodone HCl (Roxicodone -) 5 mg PO Q4H PRN PRN Reason: PAIN LEVEL 1-5 - Objective Vital Signs: Vital Signs Temperature 98.6 F 05/22/20 19:30 Pulse Rate 66 05/22/20 19:30 Respiratory Rate 18 05/22/20 05:04 Blood Pressure 154/73 05/22/20 19:30 O2 Sat by Pulse Oximetry (%) 98 05/21/20 22:00 Constitutional: Yes: No Distress Eyes: Yes: Conjunctiva Clear Cardiovascular: Yes: Regular Rate and Rhythm, S1, S2 Respiratory: Yes: CTA Bilaterally Gastrointestinal: Yes: Normal Bowel Sounds Extremities: Yes: Other (DRESSING IN PLACE) Labs: CBC, BMP 05/20/20 06:55 05/20/20 06:55 INR, PTT INR 1.18 (0.83-1.09) H 05/19/20 13:45 Assessment/Plan S/P BONE BX/ DEBRIDEMENT OSTEOMYELITIS, FOOT NON HEALING DIABETIC FOOT ULCER DM AWAIT C/S CONTINUE VANCOMYCIN/ ZOSYN
[2020-05-23] MEDS ORDERED: DEXTROSE 5%-WATER - 50 ML IVPB ONE ×3 (02:06→16:49)
[2020-05-23] MEDS ORDERED: PIPERACILLIN/TAZOBACTAM 3.375 GM VIAL IVPB ONE ×3 (02:06→16:49)
[2020-05-23] MEDS: PIPERACILLIN/TAZOB 3.375 GM 3.375 GM in DEXTROSE 5%-WATER - 50 ML IVPB SCH ×3 (02:12→16:59)
[2020-05-23] MEDS: INSULIN SLIDING SCALE (NOVOLOG) 1 VIAL SQ SCH ×3 (06:10→16:46)
[2020-05-23] MEDS: HEPARIN NA (PORCINE) 5,000 UNITS/ML 1ML VIAL SQ SCH ×3 (06:10→21:21)
[2020-05-23] MEDS: MULTIVITAMINS (DAILY MVI) TABLET (FP) PO SCH (09:04)
[2020-05-23] MEDS: CARVEDILOL 25 MG TABLET (FP) PO SCH ×2 (09:04→21:21)
[2020-05-23] MEDS: LISINOPRIL 20 MG TABLET (FP) PO SCH ×2 (09:04→21:21)
[2020-05-23] MEDS: amLODIPine BESYLATE 10 MG TABLET (FP) PO SCH (09:04)
[2020-05-23] MEDS: hydrALAZINE HCL 25 MG TABLET (FP) PO SCH ×2 (09:04→21:21)
[2020-05-23] MEDS: FAMOTIDINE 20 MG TABLET PO SCH ×2 (09:05→21:22)
[2020-05-23] MEDS: LORATADINE 10 MG TABLET PO SCH (09:05)
[2020-05-23 09:16] LABS: BASO % 0.6 % (0-2.0); EOS % 5.3 % (0-4.5); HEMOGLOBIN 10.8 GM/dL (11.7-16.9); LYMPH % 25.1 % (8-40); MCH 28.4 pg (25.7-33.7); MCHC 32.7 g/dl (32.0-35.9); MEAN CELL VOLUME 86.7 fl (80-96); MEAN PLT VOLUME 11.7 fl (7.5-11.1); MONO % 7.4 % (3.8-10.2); NEUT % 61.6 % (42.8-82.8); PLATELET COUNT 135 K/MM3 (134-434); RBC 3.81 M/mm3 (4.00-5.60); RDW 14.1 % (11.9-15.9); WHITE BLOOD COUNT 7.1 K/mm3 (4.0-10.0)
[2020-05-23 09:55] LABS: ALBUMIN 2.8 g/dl (3.4-5.0); BILIRUBIN,TOTAL 0.6 mg/dL (0.2-1); BLOOD UREA NITROGEN 16.1 mg/dL (7-18); CALCIUM 8.3 mg/dL (8.5-10.1); CREATININE 1.3 mg/dL (0.55-1.3); MAGNESIUM 1.9 mg/dL (1.8-2.4); POTASSIUM 3.8 mmol/L (3.5-5.1); TOT PROT 6.7 g/dl (6.4-8.2)
--- NOTE | 2020-05-23 10:44 | PN ---
Progress Note (short form) - Note Progress Note: no cardiac events Vital Signs Temperature 97.8 F 05/23/20 09:02 Pulse Rate 62 05/23/20 09:02 Respiratory Rate 18 05/23/20 09:02 Blood Pressure 153/84 05/23/20 09:02 O2 Sat by Pulse Oximetry (%) 97 05/23/20 09:00 Cardiovascular: Yes: Regular Rate and Rhythm Respiratory: Yes: Regular, CTA Bilaterally Gastrointestinal: Yes: Normal Bowel Sounds, Soft Edema: No Labs: CBC, BMP 05/23/20 07:08 05/23/20 07:08 Active Medications Amlodipine Besylate (Norvasc -) 10 mg PO DAILY [facility] Last Admin: 05/23/20 09:04 Dose: 10 mg Documented by: Atorvastatin Calcium (Lipitor -) 40 mg PO HS [facility] Last Admin: 05/22/20 21:53 Dose: 40 mg Documented by: Carvedilol (Coreg -) 25 mg PO BID [facility] Last Admin: 05/23/20 09:04 Dose: 25 mg Documented by: Famotidine (Pepcid -) 20 mg PO BID [facility] Last Admin: 05/23/20 09:05 Dose: 20 mg Documented by: Heparin Sodium (Porcine) (Heparin -) 5,000 unit SQ TID [facility] Last Admin: 05/23/20 06:10 Dose: 5,000 unit Documented by: Hydralazine HCl (Apresoline -) 25 mg PO BID [facility] Last Admin: 05/23/20 09:04 Dose: 25 mg Documented by: Sodium Chloride (Normal Saline -) 1,000 mls @ 75 mls/hr IV ASDIR [facility] Last Admin: 05/22/20 16:29 Dose: Not Given Documented by: Vancomycin HCl (Vancomycin (Pre-Docked)) 1,000 mg in 250 mls @ 166.667 mls/hr I VPB Q12H [facility]; Protocol Last Admin: 05/22/20 23:50 Dose: 166.667 mls/hr Documented by: Piperacillin Sod/Tazobactam (Sod 3.375 gm/ Dextrose) 50 mls @ 100 mls/hr IVPB Q8H-IV [facility]; Protocol Last Admin: 05/23/20 09:04 Dose: 100 mls/hr Documented by: Insulin Aspart (Novolog Vial Sliding Scale -) 1 vial SQ TIDAC [facility]; Protocol Last Admin: 05/23/20 06:10 Dose: Not Given Documented by: Lisinopril (Prinivil) 20 mg PO BID [facility] Last Admin: 05/23/20 09:04 Dose: 20 mg Documented by: Loratadine (Claritin -) 10 mg PO DAILY [facility] Last Admin: 05/23/20 09:05 Dose: 10 mg Documented by: Multivitamins/Minerals/Vitamin C (Tab-A-Vit -) 1 tab PO DAILY [facility] Last Admin: 05/23/20 09:04 Dose: 1 tab Documented by: Oxycodone HCl (Roxicodone -) 5 mg PO Q4H PRN PRN Reason: PAIN LEVEL 1-5 Assessment/Plan Problem List - Problems (1) CAD (coronary artery disease) Code(s): I25.10 - ATHSCL HEART DISEASE OF [place] CORONARY ARTERY W/O ANG PCTRS (2) History of percutaneous coronary intervention Code(s): Z98.61 - CORONARY ANGIOPLASTY STATUS (3) Hx of CABG Code(s): Z95.1 - PRESENCE OF AORTOCORONARY BYPASS GRAFT (4) HTN (hypertension) Code(s): I10 - ESSENTIAL (PRIMARY) HYPERTENSION (5) Hypercholesterolemia Code(s): E78.00 - PURE HYPERCHOLESTEROLEMIA, UNSPECIFIED (6) Diabetes mellitus Code(s): E11.9 - TYPE 2 DIABETES MELLITUS WITHOUT COMPLICATIONS (7) Presence of automatic cardioverter/defibrillator (AICD) Code(s): Z95.810 - PRESENCE OF AUTOMATIC (IMPLANTABLE) CARDIAC DEFIBRILLATOR (8) Ischemic dilated cardiomyopathy Code(s): I25.5 - ISCHEMIC CARDIOMYOPATHY; I42.0 - DILATED CARDIOMYOPATHY (9) Wound of foot Code(s): S91.309A - UNSPECIFIED OPEN WOUND, UNSPECIFIED FOOT, INITIAL ENCOUNTER (10) Diabetic foot ulcer Code(s): E11.621 - TYPE 2 DIABETES MELLITUS WITH FOOT ULCER; L97.509 - NON- PRESSURE CHRONIC ULCER OTH PRT UNSP FOOT W UNSP SEVERITY Qualifiers: Diabetic foot ulcer location: midfoot Diabetes mellitus type: other specified (including MARIA M) Laterality: left Non-pressure ulcer stage: unspecified non-pressure ulcer stage Qualified Code(s): E13.621 - Other specified diabetes mellitus with foot ulcer; L97.429 - Non-pressure chronic ulcer of left heel and midfoot with unspecified severity (11) Osteomyelitis Code(s): M86.9 - OSTEOMYELITIS, UNSPECIFIED (12) PAD (peripheral artery disease) Code(s): I73.9 - PERIPHERAL VASCULAR DISEASE, UNSPECIFIED Assessment/Plan 1. Left foot osteomyelitis, diabetic ulcer POD #1 left foot debridement of ulcer with metatarsal head resection and biopsy 2. CAD s/p PCI/stent, CABG, angina pectoris 3. Ischemic dilated cardiomyopathy 4. HTN 5. Hypercholesterolemia 6. DM 7. Presence of AICD for above cardiomyopathy and VT/VF PLAN: Cardiacwise same: 1. Obtain prior medical records from [facility], last saw Dr. Wayne Quijano 2017, did not f/u due to distance 2. Continue Carvedilol 25 mg BID and Prinivil 20 mg BID 3. Continue Amlodipine 10 mg QD and Hydralazine 25 mg BID 4. Continue Atorvastatin 40 mg QHS 6. Echocardiography to assess LV/RV and valvular function 7. Need to find out the plater production of the device (AICD) and needs to be interrogated. 8. GI and DVT prophylaxis 9. Restart ASA when cleared, s Patient was advised to follow up in our office, [facility] (Dr. Rojas) at [phone]
[2020-05-23] MEDS: SODIUM CHLORIDE 1,000 ML IV SCH ×2 (11:31→21:20)
[2020-05-23] MEDS: VANCOMYCIN 1 GRAM (PRE-DOCKED) 1,000 MG/250 ML BAG IVPB SCH ×2 (11:32→22:55)
[2020-05-23] MEDS ORDERED: INSULIN (NOVOLOG) ASPART 100 UNITS/ML 10ML VIAL ONE ×2 (11:37→16:48)
[2020-05-23] MEDS ORDERED: BISACODYL 10 MG SUPP.RECT PR ONE (14:02)
--- NOTE | 2020-05-23 16:56 | PN ---
Physical Exam: SUBJECTIVE: Patient seen and examined. OBJECTIVE: Patient is a 74 year old male with a significant past medical history of diabetes, hypertention, CAD (s/p CABG, stents, defibrillator ~5yago), CVA (residual right side deficit) presents to ED on 05/19/2020 for left foot osteomyelitis. Pt states that he saw his wound care doctor last week who states that the wound was deep and that he needed to come in today for a bone biopsy and procedure. Pt reports that he has had this wound for many years and has had a PICC line before for IV antibiotics when sent to rehab. ------ covid status: negative serology as of 05/19/2020 discharge plan: picc line for care home antibiotics pending ID recommendations. Vital Signs Period Temp Pulse Resp BP Sys/Hightower Pulse Ox Last 24 Hr 97.8 F-98.6 F 60-70 18-18 111-154/55-84 96-97 GENERAL: The patient is awake, alert, and fully oriented, in no acute distress. HEAD: Normal with no signs of trauma. EYES: PERRL, extraocular movements intact, sclera anicteric, conjunctiva clear. No ptosis. ENT: Ears normal, nares patent, oropharynx clear without exudates, moist mucous membranes. NECK: Trachea midline, full range of motion, supple. LUNGS: Breath sounds equal, clear to auscultation bilaterally, no wheezes HEART: Regular rate and rhythm ABDOMEN: Soft, nontender, nondistended, normoactive bowel sounds EXTREMITIES: left foot bandaged (c/d/i), warm left extremity, no pain NEUROLOGICAL: Normal speech, gait not observed. PSYCH: Normal mood, normal affect. Laboratory Results - last 24 hr 05/22/20 05/23/20 05/23/20 21:47 07:08 07:08 WBC 7.1 RBC 3.81 L Hgb 10.8 L Hct 33.0 L MCV 86.7 MCH 28.4 MCHC 32.7 RDW 14.1 Plt Count 135 MPV 11.7 H Absolute Neuts (auto) 4.4 Neutrophils % 61.6 Lymphocytes % 25.1 Monocytes % 7.4 Eosinophils % 5.3 H Basophils % 0.6 Nucleated RBC % 0 Sodium 141 Potassium 3.8 Chloride 110 H Carbon Dioxide 24 Anion Gap 7 L BUN 16.1 Creatinine 1.3 Est GFR (CKD-EPI)AfAm 62.74 Est GFR (CKD-EPI)NonAf 54.13 POC Glucometer 118 Random Glucose 124 H Calcium 8.3 L Magnesium 1.9 Total Bilirubin 0.6 AST 17 ALT 19 Alkaline Phosphatase 47 Total Protein 6.7 Albumin 2.8 L 05/23/20 05/23/20 11:26 16:43 WBC RBC Hgb Hct MCV MCH MCHC RDW Plt Count MPV Absolute Neuts (auto) Neutrophils % Lymphocytes % Monocytes % Eosinophils % Basophils % Nucleated RBC % Sodium Potassium Chloride Carbon Dioxide Anion Gap BUN Creatinine Est GFR (CKD-EPI)AfAm Est GFR (CKD-EPI)NonAf POC Glucometer 193 160 Random Glucose Calcium Magnesium Total Bilirubin AST ALT Alkaline Phosphatase Total Protein Albumin Active Medications Generic Name Dose Route Start Last Admin Trade Name Freq PRN Reason Stop Dose Admin Amlodipine Besylate 10 mg 05/22/20 10:00 05/23/20 09:04 Norvasc - PO 10 mg DAILY [facility] Administration Atorvastatin Calcium 40 mg 05/21/20 22:00 05/22/20 21:53 Lipitor - PO 40 mg HS [facility] Administration Carvedilol 25 mg 05/21/20 22:00 05/23/20 09:04 Coreg - PO 25 mg BID [facility] Administration Famotidine 20 mg 05/21/20 22:00 05/23/20 09:05 Pepcid - PO 20 mg BID [facility] Administration Heparin Sodium (Porcine) 5,000 unit 05/21/20 14:00 05/23/20 13:53 Heparin - SQ 5,000 unit TID [facility] Administration Hydralazine HCl 25 mg 05/21/20 22:00 05/23/20 09:04 Apresoline - PO 25 mg BID [facility] Administration Sodium Chloride 1,000 mls @ 75 mls/hr 05/21/20 10:18 05/23/20 11:31 Normal Saline - IV Not Given ASDIR [facility] Vancomycin HCl 1,000 mg in 250 mls @ 166.667 mls/hr 05/21/20 11:45 05/23/20 11:32 Vancomycin (Pre-Docked) IVPB 166.667 mls/hr Q12H [facility] Administration Protocol Piperacillin Sod/Tazobactam 50 mls @ 100 mls/hr 05/21/20 18:00 07/10/20 09:04 Sod 3.375 gm/ Dextrose IVPB 100 mls/hr Q8H-IV [facility] Administration Protocol Insulin Aspart 1 vial 05/21/20 11:00 05/23/20 16:46 Novolog Vial Sliding Scale - SQ 2 units TIDAC [facility] Administration Protocol Lisinopril 20 mg 05/21/20 22:00 05/23/20 09:04 Prinivil PO 20 mg BID [facility] Administration Loratadine 10 mg 05/22/20 10:00 05/23/20 09:05 Claritin - PO 10 mg DAILY [facility] Administration Multivitamins/Minerals/Vitamin C 1 tab 05/22/20 10:00 05/23/20 09:04 Tab-A-Vit - PO 1 tab DAILY [facility] Administration Oxycodone HCl 5 mg 05/21/20 09:52 Roxicodone - PO Q4H PRN PAIN LEVEL 1-5 ASSESSMENT/PLAN: Problem List - Problems (1) Wound of foot Assessment/Plan: followed by podiatry and ID on zosyn/vanco patient with osteomyelitis of left foot non healing diabetic foot ulcer had a bone biopsy on 05/22/2020 will need picc line tuesday for d/c home with antibiotics (pending ID recommendations) Code(s): S91.309A - UNSPECIFIED OPEN WOUND, UNSPECIFIED FOOT, INITIAL ENCOUNTER (2) Diabetic foot ulcer Assessment/Plan: followed by podiatry Code(s): E11.621 - TYPE 2 DIABETES MELLITUS WITH FOOT ULCER; L97.509 - NON- PRESSURE CHRONIC ULCER OTH PRT UNSP FOOT W UNSP SEVERITY Qualifiers: Diabetic foot ulcer location: midfoot Diabetes mellitus type: other specified (including MARIA M) Laterality: left Non-pressure ulcer stage: unspecified non-pressure ulcer stage Qualified Code(s): E13.621 - Other specified diabetes mellitus with foot ulcer; L97.429 - Non-pressure chronic ulcer of left heel and midfoot with unspecified severity (3) CAD (coronary artery disease) Assessment/Plan: continue home meds. lipitor 40mg daily. Code(s): I25.10 - ATHSCL HEART DISEASE OF [place] CORONARY ARTERY W/O ANG PCTRS (4) Diabetes mellitus Assessment/Plan: controlled on novolog ss with bgm checks ac/hs Code(s): E11.9 - TYPE 2 DIABETES MELLITUS WITHOUT COMPLICATIONS (5) HTN (hypertension) Assessment/Plan: stable bp on norvasc 10mg, hydralazine 25 bid, coreq 25 bid Code(s): I10 - ESSENTIAL (PRIMARY) HYPERTENSION (6) Hx of CABG Code(s): Z95.1 - PRESENCE OF AORTOCORONARY BYPASS GRAFT (7) Hypercholesterolemia Assessment/Plan: on statin therapy Code(s): E78.00 - PURE HYPERCHOLESTEROLEMIA, UNSPECIFIED (8) Presence of automatic cardioverter/defibrillator (AICD) Code(s): Z95.810 - PRESENCE OF AUTOMATIC (IMPLANTABLE) CARDIAC DEFIBRILLATOR (9) DVT prophylaxis Assessment/Plan: heparin tid Code(s): Z29.9 - ENCOUNTER FOR PROPHYLACTIC MEASURES, UNSPECIFIED Visit type - Emergency Visit Emergency Visit: Yes ED Registration Date: 05/19/20 Care time: The patient presented to the Emergency Department on the above date and was hospitalized for further evaluation of their emergent condition. - New Patient This patient is new to me today: No - Critical Care Critical Care patient: No - Discharge Referral Referred to [facility] Med [facility] No
--- NOTE | 2020-05-23 20:30 | PN ---
Progress Note, Physician History of Present Illness: AWAKE, ALERT IN BED NO COMPLAINTS NO FOOT PAIN S/P DEBRIDEMENT/BONE BX C/S MIXED ORGANISMS FINAL C/S PENDING - Current Medication List Current Medications: Active Medications Amlodipine Besylate (Norvasc -) 10 mg PO DAILY [facility] Last Admin: 05/23/20 09:04 Dose: 10 mg Documented by: Atorvastatin Calcium (Lipitor -) 40 mg PO HS [facility] Last Admin: 05/22/20 21:53 Dose: 40 mg Documented by: Carvedilol (Coreg -) 25 mg PO BID [facility] Last Admin: 05/23/20 09:04 Dose: 25 mg Documented by: Famotidine (Pepcid -) 20 mg PO BID [facility] Last Admin: 05/23/20 09:05 Dose: 20 mg Documented by: Heparin Sodium (Porcine) (Heparin -) 5,000 unit SQ TID [facility] Last Admin: 05/23/20 13:53 Dose: 5,000 unit Documented by: Hydralazine HCl (Apresoline -) 25 mg PO BID [facility] Last Admin: 05/23/20 09:04 Dose: 25 mg Documented by: Sodium Chloride (Normal Saline -) 1,000 mls @ 75 mls/hr IV ASDIR [facility] Last Admin: 05/23/20 11:31 Dose: Not Given Documented by: Vancomycin HCl (Vancomycin (Pre-Docked)) 1,000 mg in 250 mls @ 166.667 mls/hr IVPB Q12H [facility]; Protocol Last Admin: 05/23/20 11:32 Dose: 166.667 mls/hr Documented by: Piperacillin Sod/Tazobactam (Sod 3.375 gm/ Dextrose) 50 mls @ 100 mls/hr IVPB Q8H-IV [facility]; Protocol Last Admin: 05/23/20 16:59 Dose: 100 mls/hr Documented by: Insulin Aspart (Novolog Vial Sliding Scale -) 1 vial SQ TIDAC [facility]; Protocol Last Admin: 05/23/20 16:46 Dose: 2 units Documented by: Lisinopril (Prinivil) 20 mg PO BID [facility] Last Admin: 05/23/20 09:04 Dose: 20 mg Documented by: Loratadine (Claritin -) 10 mg PO DAILY [facility] Last Admin: 05/23/20 09:05 Dose: 10 mg Documented by: Multivitamins/Minerals/Vitamin C (Tab-A-Vit -) 1 tab PO DAILY [facility] Last Admin: 05/23/20 09:04 Dose: 1 tab Documented by: Oxycodone HCl (Roxicodone -) 5 mg PO Q4H PRN PRN Reason: PAIN LEVEL 1-5 - Objective Vital Signs: Vital Signs Temperature 98.6 F 05/23/20 19:15 Pulse Rate 64 05/23/20 19:15 Respiratory Rate 18 05/23/20 13:49 Blood Pressure 148/71 05/23/20 19:15 O2 Sat by Pulse Oximetry (%) 97 05/23/20 09:00 Constitutional: Yes: No Distress Eyes: Yes: Conjunctiva Clear Cardiovascular: Yes: Regular Rate and Rhythm, S1, S2 Respiratory: Yes: CTA Bilaterally Gastrointestinal: Yes: Normal Bowel Sounds, Soft Extremities: Yes: Other (L FOOT DRESSING IN PLACE) Labs: CBC, BMP 05/23/20 07:08 05/23/20 07:08 INR, PTT INR 1.18 (0.83-1.09) H 05/19/20 13:45 Assessment/Plan S/P BONE BX/ DEBRIDEMENT OSTEOMYELITIS, FOOT NON HEALING DIABETIC FOOT ULCER DM AWAIT FINAL C/S CONTINUE VANCOMYCIN/ ZOSYN
[2020-05-23] MEDS: ATORVASTATIN CA 40 MG TABLET (FP) PO SCH (21:21)
[2020-05-24] MEDS ORDERED: PIPERACILLIN/TAZOBACTAM 3.375 GM VIAL IVPB ONE ×3 (02:35→16:03)
[2020-05-24] MEDS ORDERED: DEXTROSE 5%-WATER - 50 ML IVPB ONE ×3 (02:35→16:03)
[2020-05-24] MEDS: PIPERACILLIN/TAZOB 3.375 GM 3.375 GM in DEXTROSE 5%-WATER - 50 ML IVPB SCH ×3 (02:40→17:19)
[2020-05-24] MEDS: HEPARIN NA (PORCINE) 5,000 UNITS/ML 1ML VIAL SQ SCH ×3 (05:27→21:19)
[2020-05-24] MEDS: INSULIN SLIDING SCALE (NOVOLOG) 1 VIAL SQ SCH ×3 (06:03→16:39)
--- NOTE | 2020-05-24 07:31 | PN ---
Progress Note (short form) - Note Progress Note: Podiatry F/U: Seen/evaluated at bedside NAD. Pain controlled. Denies F/V/N/C/SOB/CP. AFebrile. S/p left foot debridement with metatarsal head resection. SHELLY: L foot: pedal pulses palpable, TG wnl, CFT brisk to toes. There are no ischemic changes to the foot. The foot is warm, well perfused. Post-surgical dressing clean, dry, intact. Sutures well coapted dorsal second ray. There is no dehiscence noted. There is a sub-second metatarsal diabetic ulcer, strong granular base, mild sanguinous ooze. There is no purulence, no fluctuance, no streaking ascending cellulitis, no signs of active infection. No tenderness to palpation. OR Cx: mixed orgs Path: (+) acute on chronic osteomyelitis Imp: 74 year old diabetic male s/p left foot debridement with metatarsal head resection 1. IV abx per infectious disease 2. DSD L foot. Can begin using topical mupirocin and dry sterile dressing daily. 3. F/u operative cultures 4. PICC line. SNF versus daily IV infusion in the hospital. 5. Patient enrolled in hyperbaric oxygen therapy program. 6. Partial WB L heel with surgical shoe. 7. Will follow. Yunior Grover DPM
[2020-05-24] MEDS: LISINOPRIL 20 MG TABLET (FP) PO SCH ×2 (09:01→21:19)
[2020-05-24] MEDS: hydrALAZINE HCL 25 MG TABLET (FP) PO SCH ×2 (09:01→21:19)
[2020-05-24] MEDS: LORATADINE 10 MG TABLET PO SCH (09:01)
[2020-05-24] MEDS: amLODIPine BESYLATE 10 MG TABLET (FP) PO SCH (09:01)
[2020-05-24] MEDS: MULTIVITAMINS (DAILY MVI) TABLET (FP) PO SCH (09:02)
[2020-05-24] MEDS: CARVEDILOL 25 MG TABLET (FP) PO SCH ×2 (09:02→21:19)
[2020-05-24] MEDS: FAMOTIDINE 20 MG TABLET PO SCH ×2 (09:02→21:19)
[2020-05-24] MEDS ORDERED: PT OWN MED DRAWER 7, Y5N ONE (10:02)
[2020-05-24] MEDS: SODIUM CHLORIDE 1,000 ML IV SCH (10:17)
[2020-05-24] MEDS: VANCOMYCIN 1 GRAM (PRE-DOCKED) 1,000 MG/250 ML BAG IVPB SCH (10:55)
[2020-05-24 11:48] LABS: BASO % 0.6 % (0-2.0); EOS % 3.7 % (0-4.5); HEMATOCRIT 34.6 % (35.4-49); HEMOGLOBIN 11.6 GM/dL (11.7-16.9); LYMPH % 21.7 % (8-40); MCH 29.2 pg (25.7-33.7); MCHC 33.5 g/dl (32.0-35.9); MEAN CELL VOLUME 87.1 fl (80-96); MEAN PLT VOLUME 11.2 fl (7.5-11.1); MONO % 5.8 % (3.8-10.2); NEUT % 68.2 % (42.8-82.8); PLATELET COUNT 137 K/MM3 (134-434); RBC 3.98 M/mm3 (4.00-5.60); RDW 14.6 % (11.9-15.9); WHITE BLOOD COUNT 7.2 K/mm3 (4.0-10.0)
[2020-05-24 12:06] LABS: ALBUMIN 2.9 g/dl (3.4-5.0); BILIRUBIN,TOTAL 0.8 mg/dL (0.2-1); BLOOD UREA NITROGEN 14.2 mg/dL (7-18); CALCIUM 8.5 mg/dL (8.5-10.1); CREATININE 1.2 mg/dL (0.55-1.3); POTASSIUM 3.9 mmol/L (3.5-5.1); TOT PROT 7.2 g/dl (6.4-8.2)
--- NOTE | 2020-05-24 12:07 | PN ---
Progress Note (short form) - Note Progress Note: no cardiac events Vital Signs Temperature 98.6 F 05/24/20 09:00 Pulse Rate 66 05/24/20 09:00 Respiratory Rate 18 05/24/20 09:00 Blood Pressure 158/72 05/24/20 09:00 O2 Sat by Pulse Oximetry (%) 100 05/24/20 09:00 Cardiovascular: Yes: Regular Rate and Rhythm Respiratory: Yes: Regular, CTA Bilaterally Gastrointestinal: Yes: Normal Bowel Sounds, Soft Edema: No Labs: CBC, BMP 05/24/20 11:11 05/24/20 11:11 Active Medications Amlodipine Besylate (Norvasc -) 10 mg PO DAILY [facility] Last Admin: 05/24/20 09:01 Dose: 10 mg Documented by: Atorvastatin Calcium (Lipitor -) 40 mg PO HS [facility] Last Admin: 05/23/20 21:21 Dose: 40 mg Documented by: Carvedilol (Coreg -) 25 mg PO BID [facility] Last Admin: 05/24/20 09:02 Dose: 25 mg Documented by: Famotidine (Pepcid -) 20 mg PO BID [facility] Last Admin: 05/24/20 09:02 Dose: 20 mg Documented by: Heparin Sodium (Porcine) (Heparin -) 5,000 unit SQ TID [facility] Last Admin: 05/24/20 05:27 Dose: 5,000 unit Documented by: Hydralazine HCl (Apresoline -) 25 mg PO BID [facility] Last Admin: 05/24/20 09:01 Dose: 25 mg Documented by: Sodium Chloride (Normal Saline -) 1,000 mls @ 75 mls/hr IV [facility] Last Admin: 05/24/20 10:17 Dose: Not Given Documented by: Vancomycin HCl (Vancomycin (Pre-Docked)) 1,000 mg in 250 mls @ 166.667 mls/hr IVPB Q12H [facility]; Protocol Last Admin: 05/24/20 10:55 Dose: 166.667 mls/hr Documented by: Piperacillin Sod/Tazobactam (Sod 3.375 gm/ Dextrose) 50 mls @ 100 mls/hr IVPB Q8H-IV [facility]; Protocol Last Admin: 05/24/20 09:02 Dose: 100 mls/hr Documented by: Insulin Aspart (Novolog Vial Sliding Scale -) 1 vial SQ TIDAC [facility]; Protocol Last Admin: 05/24/20 10:16 Dose: 4 units Documented by: Lisinopril (Prinivil) 20 mg PO BID [facility] Last Admin: 05/24/20 09:01 Dose: 20 mg Documented by: Loratadine (Claritin -) 10 mg PO DAILY [facility] Last Admin: 05/24/20 09:01 Dose: 10 mg Documented by: Multivitamins/Minerals/Vitamin C (Tab-A-Vit -) 1 tab PO DAILY [facility] Last Admin: 05/24/20 09:02 Dose: 1 tab Documented by: Mupirocin (Bactroban 2% Ointment -) 1 applic TP DAILY [facility] Oxycodone HCl (Roxicodone -) 5 mg PO Q4H PRN PRN Reason: PAIN LEVEL 1-5 Assessment/Plan Problem List - Problems (1) CAD (coronary artery disease) Code(s): I25.10 - ATHSCL HEART DISEASE OF [place] CORONARY ARTERY W/O ANG PCTRS (2) History of percutaneous coronary intervention Code(s): Z98.61 - CORONARY ANGIOPLASTY STATUS (3) Hx of CABG Code(s): Z95.1 - PRESENCE OF AORTOCORONARY BYPASS GRAFT (4) HTN (hypertension) Code(s): I10 - ESSENTIAL (PRIMARY) HYPERTENSION (5) Hypercholesterolemia Code(s): E78.00 - PURE HYPERCHOLESTEROLEMIA, UNSPECIFIED (6) Diabetes mellitus Code(s): E11.9 - TYPE 2 DIABETES MELLITUS WITHOUT COMPLICATIONS (7) Presence of automatic cardioverter/defibrillator (AICD) Code(s): Z95.810 - PRESENCE OF AUTOMATIC (IMPLANTABLE) CARDIAC DEFIBRILLATOR (8) Ischemic dilated cardiomyopathy Code(s): I25.5 - ISCHEMIC CARDIOMYOPATHY; I42.0 - DILATED CARDIOMYOPATHY (9) Wound of foot Code(s): S91.309A - UNSPECIFIED OPEN WOUND, UNSPECIFIED FOOT, INITIAL ENCOUNTER (10) Diabetic foot ulcer Code(s): E11.621 - TYPE 2 DIABETES MELLITUS WITH FOOT ULCER; L97.509 - NON- PRESSURE CHRONIC ULCER OTH PRT UNSP FOOT W UNSP SEVERITY Qualifiers: Diabetic foot ulcer location: midfoot Diabetes mellitus type: other specified (including MARIA M) Laterality: left Non-pressure ulcer stage: unspecified non-pressure ulcer stage Qualified Code(s): E13.621 - Other specified diabetes mellitus with foot ulcer; L97.429 - Non-pressure chronic ulcer of left heel and midfoot with unspecified severity (11) Osteomyelitis Code(s): M86.9 - OSTEOMYELITIS, UNSPECIFIED (12) PAD (peripheral artery disease) Code(s): I73.9 - PERIPHERAL VASCULAR DISEASE, UNSPECIFIED Assessment/Plan 1. Left foot osteomyelitis, diabetic ulcer POD #1 left foot debridement of ulcer with metatarsal head resection and biopsy 2. CAD s/p PCI/stent, CABG, angina pectoris 3. Ischemic dilated cardiomyopathy 4. HTN 5. Hypercholesterolemia 6. DM 7. Presence of AICD for above cardiomyopathy and VT/VF PLAN: Cardiacwise same: 1. Obtain prior medical records from [facility], last saw Dr. Wayne Quijano 2016, did not f/u due to distance 2. Continue Carvedilol 25 mg BID and Prinivil 20 mg BID 3. Continue Amlodipine 10 mg QD and Hydralazine 25 mg BID 4. Continue Atorvastatin 40 mg QHS 6. Echocardiography to assess LV/RV and valvular function 7. Need to find out the him clerk of the device (AICD) and needs to be interrogated. 8. GI and DVT prophylaxis 9. Restart ASA when cleared, s Patient was advised to follow up in our office, [facility] (Dr. Roajs) at [phone]
[2020-05-24] MEDS: MUPIROCIN 2% TOPICAL OINTMENT 22 GM TUBE TP SCH (13:19)
--- NOTE | 2020-05-24 16:27 | PN ---
Progress Note, Physician History of Present Illness: seen and examined at bedside. No events. Afebrile. Cultures from OR are preliminrily positive. pending ID and sensitivity. Remains on vanco and zosyn. Denies nausea vomiting fever chills chest pain or SOB. Ambulating. Eating and drinking well. - Current Medication List Current Medications: Active Medications Amlodipine Besylate (Norvasc -) 10 mg PO DAILY [facility] Last Admin: 05/24/20 09:01 Dose: 10 mg Documented by: Atorvastatin Calcium (Lipitor -) 40 mg PO HS [facility] Last Admin: 05/23/20 21:21 Dose: 40 mg Documented by: Carvedilol (Coreg -) 25 mg PO BID [facility] Last Admin: 05/24/20 09:02 Dose: 25 mg Documented by: Famotidine (Pepcid -) 20 mg PO BID [facility] Last Admin: 05/24/20 09:02 Dose: 20 mg Documented by: Heparin Sodium (Porcine) (Heparin -) 5,000 unit SQ TID [facility] Last Admin: 05/24/20 13:19 Dose: 5,000 unit Documented by: Hydralazine HCl (Apresoline -) 25 mg PO BID [facility] Last Admin: 05/24/20 09:01 Dose: 25 mg Documented by: Sodium Chloride (Normal Saline -) 1,000 mls @ 75 mls/hr IV ASDIR [facility] Last Admin: 05/24/20 10:17 Dose: Not Given Documented by: Vancomycin HCl (Vancomycin (Pre-Docked)) 1,000 mg in 250 mls @ 166.667 mls/hr IVPB Q12H [facility]; Protocol Last Admin: 05/24/20 10:55 Dose: 166.667 mls/hr Documented by: Piperacillin Sod/Tazobactam (Sod 3.375 gm/ Dextrose) 50 mls @ 100 mls/hr IVPB Q8H-IV [facility]; Protocol Last Admin: 05/24/20 09:02 Dose: 100 mls/hr Documented by: Insulin Aspart (Novolog Vial Sliding Scale -) 1 vial SQ TIDAC [facility]; Protocol Last Admin: 05/24/20 10:16 Dose: 4 units Documented by: Lisinopril (Prinivil) 20 mg PO BID [facility] Last Admin: 05/24/20 09:01 Dose: 20 mg Documented by: Loratadine (Claritin -) 10 mg PO DAILY [facility] Last Admin: 05/24/20 09:01 Dose: 10 mg Documented by: Multivitamins/Minerals/Vitamin C (Tab-A-Vit -) 1 tab PO DAILY [facility] Last Admin: 05/24/20 09:02 Dose: 1 tab Documented by: Mupirocin (Bactroban 2% Ointment -) 1 applic TP DAILY [facility] Last Admin: 05/24/20 13:19 Dose: 1 applic Documented by: Oxycodone HCl (Roxicodone -) 5 mg PO Q4H PRN PRN Reason: PAIN LEVEL 1-5 - Objective Vital Signs: Vital Signs Temperature 98.6 F 05/24/20 09:00 Pulse Rate 66 05/24/20 09:00 Respiratory Rate 18 05/24/20 09:00 Blood Pressure 158/72 05/24/20 09:00 O2 Sat by Pulse Oximetry (%) 100 05/24/20 09:00 Constitutional: Yes: No Distress, Calm Eyes: Yes: Conjunctiva Clear, EOM Intact HENT: Yes: Normocephalic, Other (Moist mucous membranes). No: Thrush Neck: Yes: Supple Cardiovascular: Yes: Regular Rate and Rhythm Respiratory: Yes: Regular, Other (Crackles at the bases biolaterally) Gastrointestinal: Yes: WNL, Soft. No: Tenderness, Vomiting Edema: No Wound/Incision: Yes: Clean/Dry Neurological: Yes: Alert, Oriented Labs: CBC, BMP 05/24/20 11:11 05/24/20 11:11 INR, PTT INR 1.18 (0.83-1.09) H 05/19/20 13:45 Impression/Plan Impression/Plan: 74M with multiple medical problems including CAD s/p CABG DM HTN HLD DFU now osteomyelitis s/p bone biopsy in OR by podiatry. diabetic foot ulcer/osteomyelitis of left foot f/u final OR cultures f/u ID continue vanco and zosyn for now check Vanco level tonight 30 min prior to dose. pain control PICC line and DC tuesday likely Blood glucose control d/c IVF CAD s/p CABG s/p AICD Continue statin, BB, BP control KATHY resolved stop IVF Diabetes mellitus controlled on ISS-continue HTN was controlled but getting hypertensive-stop IVF on norvasc 10mg, increase hydralazine to 25mg PO TID from BID, coreq 25 bid, Lisinopril 20mg po BID HLD on statin therapy DVT prophylaxis heparin tid GI PPx famotidine 20mg po BID Visit type - Emergency Visit Emergency Visit: Yes ED Registration Date: 05/19/20 Care time: The patient presented to the Emergency Department on the above date and was hospitalized for further evaluation of their emergent condition. - New Patient This patient is new to me today: Yes Date on this admission: 05/24/20 - Critical Care Critical Care patient: No
[2020-05-24] MEDS: ATORVASTATIN CA 40 MG TABLET (FP) PO SCH (21:19)
[2020-05-25] MEDS: VANCOMYCIN 1 GRAM (PRE-DOCKED) 1,000 MG/250 ML BAG IVPB SCH (01:25)
[2020-05-25] MEDS ORDERED: PIPERACILLIN/TAZOBACTAM 3.375 GM VIAL IVPB ONE ×2 (01:28→08:48)
[2020-05-25] MEDS ORDERED: DEXTROSE 5%-WATER - 50 ML IVPB ONE ×2 (01:28→08:49)
[2020-05-25] MEDS: PIPERACILLIN/TAZOB 3.375 GM 3.375 GM in DEXTROSE 5%-WATER - 50 ML IVPB SCH ×2 (01:30→09:09)
[2020-05-25] MEDS: HEPARIN NA (PORCINE) 5,000 UNITS/ML 1ML VIAL SQ SCH ×3 (05:45→21:01)
[2020-05-25] MEDS: hydrALAZINE HCL 25 MG TABLET (FP) PO SCH ×3 (05:45→21:01)
[2020-05-25] MEDS: INSULIN SLIDING SCALE (NOVOLOG) 1 VIAL SQ SCH ×3 (06:03→16:33)
[2020-05-25] MEDS: LORATADINE 10 MG TABLET PO SCH (09:09)
[2020-05-25] MEDS: amLODIPine BESYLATE 10 MG TABLET (FP) PO SCH (09:09)
[2020-05-25] MEDS: MULTIVITAMINS (DAILY MVI) TABLET (FP) PO SCH (09:09)
[2020-05-25] MEDS: FAMOTIDINE 20 MG TABLET PO SCH ×2 (09:09→21:01)
[2020-05-25] MEDS: CARVEDILOL 25 MG TABLET (FP) PO SCH ×2 (09:09→21:01)
[2020-05-25] MEDS: LISINOPRIL 20 MG TABLET (FP) PO SCH ×2 (09:09→21:01)
--- NOTE | 2020-05-25 09:35 | PN ---
Progress Note (short form) - Note Progress Note: no acute cardiac events Vital Signs Temperature 97.9 F 05/25/20 05:00 Pulse Rate 74 05/25/20 05:00 Respiratory Rate 16 05/25/20 05:00 Blood Pressure 141/66 05/25/20 05:00 O2 Sat by Pulse Oximetry (%) 100 05/24/20 20:39 Cardiovascular: Yes: Regular Rate and Rhythm Respiratory: Yes: Regular, CTA Bilaterally Gastrointestinal: Yes: Normal Bowel Sounds, Soft Edema: No Labs: CBC, BMP 05/24/20 11:11 05/24/20 11:11 Active Medications Amlodipine Besylate (Norvasc -) 10 mg PO DAILY [facility] Last Admin: 05/24/20 09:01 Dose: 10 mg Documented by: Atorvastatin Calcium (Lipitor -) 40 mg PO HS [facility] Last Admin: 05/23/20 21:21 Dose: 40 mg Documented by: Carvedilol (Coreg -) 25 mg PO BID [facility] Last Admin: 05/24/20 09:02 Dose: 25 mg Documented by: Famotidine (Pepcid -) 20 mg PO BID [facility] Last Admin: 05/24/20 09:02 Dose: 20 mg Documented by: Heparin Sodium (Porcine) (Heparin -) 5,000 unit SQ TID [facility] Last Admin: 05/24/20 05:27 Dose: 5,000 unit Documented by: Hydralazine HCl (Apresoline -) 25 mg PO BID [facility] Last Admin: 05/24/20 09:01 Dose: 25 mg Documented by: Sodium Chloride (Normal Saline -) 1,000 mls @ 75 mls/hr IV ASDIR [facility] Last Admin: 05/24/20 10:17 Dose: Not Given Documented by: Vancomycin HCl (Vancomycin (Pre-Docked)) 1,000 mg in 250 mls @ 166.667 mls/hr IVPB Q12H [facility]; Protocol Last Admin: 05/24/20 10:55 Dose: 166.667 mls/hr Documented by: Piperacillin Sod/Tazobactam (Sod 3.375 gm/ Dextrose) 50 mls @ 100 mls/hr IVPB Q8H-IV [facility]; Protocol Last Admin: 05/24/20 09:02 Dose: 100 mls/hr Documented by: Insulin Aspart (Novolog Vial Sliding Scale -) 1 vial SQ TIDAC [facility]; Protocol Last Admin: 05/24/20 10:16 Dose: 4 units Documented by: Lisinopril (Prinivil) 20 mg PO BID [facility] Last Admin: 05/24/20 09:01 Dose: 20 mg Documented by: Loratadine (Claritin -) 10 mg PO DAILY [facility] Last Admin: 05/24/20 09:01 Dose: 10 mg Documented by: Multivitamins/Minerals/Vitamin C (Tab-A-Vit -) 1 tab PO DAILY [facility] Last Admin: 05/24/20 09:02 Dose: 1 tab Documented by: Mupirocin (Bactroban 2% Ointment -) 1 applic TP DAILY [facility] Oxycodone HCl (Roxicodone -) 5 mg PO Q4H PRN PRN Reason: PAIN LEVEL 1-5 Assessment/Plan Problem List - Problems (1) CAD (coronary artery disease) Code(s): I25.10 - ATHSCL HEART DISEASE OF [place] CORONARY ARTERY W/O ANG PCTRS (2) History of percutaneous coronary intervention Code(s): Z98.61 - CORONARY ANGIOPLASTY STATUS (3) Hx of CABG Code(s): Z95.1 - PRESENCE OF AORTOCORONARY BYPASS GRAFT (4) HTN (hypertension) Code(s): I10 - ESSENTIAL (PRIMARY) HYPERTENSION (5) Hypercholesterolemia Code(s): E78.00 - PURE HYPERCHOLESTEROLEMIA, UNSPECIFIED (6) Diabetes mellitus Code(s): E11.9 - TYPE 2 DIABETES MELLITUS WITHOUT COMPLICATIONS (7) Presence of automatic cardioverter/defibrillator (AICD) Code(s): Z95.810 - PRESENCE OF AUTOMATIC (IMPLANTABLE) CARDIAC DEFIBRILLATOR (8) Ischemic dilated cardiomyopathy Code(s): I25.5 - ISCHEMIC CARDIOMYOPATHY; I42.0 - DILATED CARDIOMYOPATHY (9) Wound of foot Code(s): S91.309A - UNSPECIFIED OPEN WOUND, UNSPECIFIED FOOT, INITIAL ENCOUNTER (10) Diabetic foot ulcer Code(s): E11.621 - TYPE 2 DIABETES MELLITUS WITH FOOT ULCER; L97.509 - NON- PRESSURE CHRONIC ULCER OTH PRT UNSP FOOT W UNSP SEVERITY Qualifiers: Diabetic foot ulcer location: midfoot Diabetes mellitus type: other specified (including MARIA M) Laterality: left Non-pressure ulcer stage: unspecified non-pressure ulcer stage Qualified Code(s): E13.621 - Other specified diabetes mellitus with foot ulcer; L97.429 - Non-pressure chronic ulcer of left heel and midfoot with unspecified severity (11) Osteomyelitis Code(s): M86.9 - OSTEOMYELITIS, UNSPECIFIED (12) PAD (peripheral artery disease) Code(s): I73.9 - PERIPHERAL VASCULAR DISEASE, UNSPECIFIED Assessment/Plan 1. Left foot osteomyelitis, diabetic ulcer POD #1 left foot debridement of ulcer with metatarsal head resection and biopsy 2. CAD s/p PCI/stent, CABG, angina pectoris 3. Ischemic dilated cardiomyopathy 4. HTN 5. Hypercholesterolemia 6. DM 7. Presence of AICD for above cardiomyopathy and VT/VF PLAN: Cardiacwise same: 1. Obtain prior medical records from [facility], last saw Dr. Wayne Quijano 2016, did not f/u due to distance 2. Continue Carvedilol 25 mg BID and Prinivil 20 mg BID 3. Continue Amlodipine 10 mg QD and Hydralazine 25 mg BID 4. Continue Atorvastatin 40 mg QHS 6. Echocardiography to assess LV/RV and valvular function 7. Need to find out the religious education coordinator of the device (AICD) and needs to be interrogated. 8. GI and DVT prophylaxis 9. Restart ASA when cleared, s [facility] ([facility] at [phone]
[2020-05-25 10:26] LABS: BASO % 0.9 % (0-2.0); EOS % 4.2 % (0-4.5); HEMATOCRIT 35.4 % (35.4-49); HEMOGLOBIN 11.6 GM/dL (11.7-16.9); LYMPH % 19.5 % (8-40); MCH 28.5 pg (25.7-33.7); MCHC 32.9 g/dl (32.0-35.9); MEAN CELL VOLUME 86.8 fl (80-96); MONO % 5.2 % (3.8-10.2); NEUT % 70.2 % (42.8-82.8); PLATELET COUNT 158 K/MM3 (134-434); RBC 4.08 M/mm3 (4.00-5.60); RDW 14.8 % (11.9-15.9); WHITE BLOOD COUNT 8.3 K/mm3 (4.0-10.0)
[2020-05-25 10:55] LABS: ALBUMIN 3.2 g/dl (3.4-5.0); BILIRUBIN,TOTAL 0.5 mg/dL (0.2-1); CALCIUM 8.9 mg/dL (8.5-10.1); CREATININE 1.5 mg/dL (0.55-1.3); POTASSIUM 4.1 mmol/L (3.5-5.1); TOT PROT 7.5 g/dl (6.4-8.2)
[2020-05-25] MEDS: MUPIROCIN 2% TOPICAL OINTMENT 22 GM TUBE TP SCH (11:18)
--- NOTE | 2020-05-25 11:24 | PN ---
Progress Note (short form) - Note Progress Note: doing well no complaints Vital Signs Period Temp Pulse Resp BP Sys/Hightower Pulse Ox Last 24 Hr 97.7 F-98 F 62-74 16-18 141-152/63-71 100-100 cor-rrr lungs clear abd soft,nt ext incision clean and dry- wound examined CBC, BMP 05/25/20 09:50 05/25/20 09:50 Microbiology 05/21/20 08:36 Bone Gram Stain - Final 05/21/20 08:36 Bone Tissue Culture - Final Staphylococcus Aureus 05/21/20 08:36 Bone Anaerobic Culture - Final NO ANAEROBES WERE ISOLATED 05/21/20 08:36 Foot - Left Gram Stain - Final 05/21/20 08:36 Foot - Left Wound Culture - Preliminary Staphylococcus Coagulase Neg Beta Hem Streptococcus Group G Diphtheroid/Corynebacterium Staphylococcus Aureus path- acute/chronic osteomyelitis a/p osteomyelitis-MSSA s/p resection of second metatarsal head switch to cefazolin 2 g q8h repeat bmp in am esr/crp to trend will need picc line for [facility] iv antibiotics
[2020-05-25] MEDS: CEFAZOLIN 2 GM/D5W 2 GM/50 ML ML IVPB SCH (16:59)
--- NOTE | 2020-05-25 18:19 | PN ---
Progress Note, Physician History of Present Illness: seen and examined at bedside. No events. Afebrile. Cultures from OR are positive for MSSA. Switched to Cefazolin 2gm q8h per ID.. Denies nausea vomiting fever chills chest pain or SOB. Ambulating. Eating and drinking well.Patient smokes cigars despite counselling. - Current Medication List Current Medications: Active Medications Amlodipine Besylate (Norvasc -) 10 mg PO DAILY [facility] Last Admin: 05/25/20 09:09 Dose: 10 mg Documented by: Atorvastatin Calcium (Lipitor -) 40 mg PO HS [facility] Last Admin: 05/24/20 21:19 Dose: 40 mg Documented by: Carvedilol (Coreg -) 25 mg PO BID [facility] Last Admin: 05/25/20 09:09 Dose: 25 mg Documented by: Famotidine (Pepcid -) 20 mg PO BID [facility] Last Admin: 05/25/20 09:09 Dose: 20 mg Documented by: Heparin Sodium (Porcine) (Heparin -) 5,000 unit SQ TID [facility] Last Admin: 05/25/20 13:00 Dose: 5,000 unit Documented by: Hydralazine HCl (Apresoline -) 25 mg PO TID [facility] Last Admin: 05/25/20 13:00 Dose: 25 mg Documented by: Cefazolin Sodium/Dextrose (Ancef 2 Gm Premixed Ivpb -) 2 gm in 50 mls @ 100 mls/hr IVPB Q8H-IV [facility] Last Admin: 05/25/20 16:59 Dose: 100 mls/hr Documented by: Insulin Aspart (Novolog Vial Sliding Scale -) 1 vial SQ TIDAC [facility]; Protocol Last Admin: 05/25/20 16:33 Dose: 2 units Documented by: Lisinopril (Prinivil) 20 mg PO BID [facility] Last Admin: 05/25/20 09:09 Dose: 20 mg Documented by: Loratadine (Claritin -) 10 mg PO DAILY [facility] Last Admin: 05/25/20 09:09 Dose: 10 mg Documented by: Multivitamins/Minerals/Vitamin C (Tab-A-Vit -) 1 tab PO DAILY [facility] Last Admin: 05/25/20 09:09 Dose: 1 tab Documented by: Mupirocin (Bactroban 2% Ointment -) 1 applic TP DAILY [facility] Last Admin: 05/25/20 11:18 Dose: 1 applic Documented by: Oxycodone HCl (Roxicodone -) 5 mg PO Q4H PRN PRN Reason: PAIN LEVEL 1-5 - Objective Vital Signs: Vital Signs Temperature 98.4 F 05/25/20 18:10 Pulse Rate 65 05/25/20 18:10 Respiratory Rate 18 05/25/20 18:10 Blood Pressure 149/72 05/25/20 18:10 O2 Sat by Pulse Oximetry (%) 100 05/25/20 09:00 Constitutional: Yes: No Distress, Calm Eyes: Yes: Conjunctiva Clear, EOM Intact HENT: Yes: Normocephalic, Other (Moist mucous membranes). No: Thrush Neck: Yes: Supple Cardiovascular: Yes: Regular Rate and Rhythm Respiratory: Yes: Regular, Other (Crackles at the bases bilaterally) Gastrointestinal: Yes: WNL, Soft. No: Tenderness, Vomiting Edema: No Wound/Incision: Yes: Clean/Dry Neurological: Yes: Alert, Oriented Labs: CBC, BMP 05/25/20 09:50 05/25/20 09:50 INR, PTT INR 1.18 (0.83-1.09) H 05/19/20 13:45 Impression/Plan Impression/Plan: 74M with multiple medical problems including CAD s/p CABG DM HTN HLD DFU now osteomyelitis s/p bone biopsy in OR by podiatry. diabetic foot ulcer/osteomyelitis of left foot f/u final OR cultures-MSSA f/u ID-noted and appreciated discontinue vanco and zosyn per ID and start cefazolin 2gm IV q8h check Vanco level tonight 30 min prior to dose. pain control PICC line and DC tuesday likely Blood glucose control repeat ESR/CRP tomorrow AM per ID CAD s/p CABG s/p AICD Continue statin, BB, BP control KATHY resolved yesterday now 1.5 from 1.2. possibly from vanco as trough was 29 last night encourage hydration orally Diabetes mellitus controlled on ISS-continue HTN on norvasc 10mg, ihydralazine to 25mg PO TID, coreq 25 bid, Lisinopril 20mg po BID if needed can increase hydralazine HLD on statin therapy DVT prophylaxis heparin tid GI PPx famotidine 20mg po BID Visit type - Emergency Visit Emergency Visit: Yes ED Registration Date: 05/19/20 Care time: The patient presented to the Emergency Department on the above date and was hospitalized for further evaluation of their emergent condition. - New Patient This patient is new to me today: No - Critical Care Critical Care patient: No
[2020-05-25] MEDS: ATORVASTATIN CA 40 MG TABLET (FP) PO SCH (21:01)
[2020-05-26] MEDS: CEFAZOLIN 2 GM/D5W 2 GM/50 ML ML IVPB SCH ×2 (01:30→10:01)
[2020-05-26] MEDS: HEPARIN NA (PORCINE) 5,000 UNITS/ML 1ML VIAL SQ SCH ×2 (06:13→14:20)
[2020-05-26] MEDS: hydrALAZINE HCL 25 MG TABLET (FP) PO SCH ×2 (06:13→14:20)
[2020-05-26] MEDS: INSULIN SLIDING SCALE (NOVOLOG) 1 VIAL SQ SCH ×3 (06:16→16:29)
[2020-05-26 08:35] LABS: BASO % 0.7 % (0-2.0); EOS % 3.9 % (0-4.5); HEMATOCRIT 33.1 % (35.4-49); HEMOGLOBIN 11.1 GM/dL (11.7-16.9); MCH 29.3 pg (25.7-33.7); MCHC 33.4 g/dl (32.0-35.9); MEAN CELL VOLUME 87.7 fl (80-96); MEAN PLT VOLUME 11.9 fl (7.5-11.1); NEUT % 66.4 % (42.8-82.8); PLATELET COUNT 147 K/MM3 (134-434); RBC 3.78 M/mm3 (4.00-5.60); RDW 14.9 % (11.9-15.9); WHITE BLOOD COUNT 7.9 K/mm3 (4.0-10.0)
[2020-05-26 09:00] LABS: ALBUMIN 2.9 g/dl (3.4-5.0); BILIRUBIN,TOTAL 0.3 mg/dL (0.2-1); BLOOD UREA NITROGEN 26.1 mg/dL (7-18); CALCIUM 8.4 mg/dL (8.5-10.1); CREATININE 1.5 mg/dL (0.55-1.3); POTASSIUM 3.9 mmol/L (3.5-5.1)
--- NOTE | 2020-05-26 09:47 | PN ---
Progress Note, Physician History of Present Illness: Left foot diabetic ulcer, MSSA osteomyelitis s/p debridement of ulcer with metatarsal head resection and biopsy s/p tunnelled catheter. Pain adequately controlled, denies chest pain or dyspnea. - Current Medication List Current Medications: Active Medications Amlodipine Besylate (Norvasc -) 10 mg PO DAILY [facility] Last Admin: 05/25/20 09:09 Dose: 10 mg Documented by: Atorvastatin Calcium (Lipitor -) 40 mg PO HS [facility] Last Admin: 05/25/20 21:01 Dose: 40 mg Documented by: Carvedilol (Coreg -) 25 mg PO BID [facility] Last Admin: 05/25/20 21:01 Dose: 25 mg Documented by: Famotidine (Pepcid -) 20 mg PO BID [facility] Last Admin: 05/25/20 21:01 Dose: 20 mg Documented by: Heparin Sodium (Porcine) (Heparin -) 5,000 unit SQ TID [facility] Last Admin: 05/26/20 06:13 Dose: 5,000 unit Documented by: Hydralazine HCl (Apresoline -) 25 mg PO TID [facility] Last Admin: 05/26/20 06:13 Dose: 25 mg Documented by: Cefazolin Sodium/Dextrose (Ancef 2 Gm Premixed Ivpb -) 2 gm in 50 mls @ 100 mls/hr IVPB Q8H-IV [facility] Last Admin: 05/26/20 01:30 Dose: 100 mls/hr Documented by: Insulin Aspart (Novolog Vial Sliding Scale -) 1 vial SQ TIDAC [facility]; Protocol Last Admin: 05/26/20 06:16 Dose: Not Given Documented by: Lisinopril (Prinivil) 20 mg PO BID [facility] Last Admin: 05/25/20 21:01 Dose: 20 mg Documented by: Loratadine (Claritin -) 10 mg PO DAILY [facility] Last Admin: 05/25/20 09:09 Dose: 10 mg Documented by: Multivitamins/Minerals/Vitamin C (Tab-A-Vit -) 1 tab PO DAILY [facility] Last Admin: 05/25/20 09:09 Dose: 1 tab Documented by: Mupirocin (Bactroban 2% Ointment -) 1 applic TP DAILY [facility] Last Admin: 05/25/20 11:18 Dose: 1 applic Documented by: Oxycodone HCl (Roxicodone -) 5 mg PO Q4H PRN PRN Reason: PAIN LEVEL 1-5 - Objective Vital Signs: Vital Signs Temperature 97.9 F 05/26/20 08:27 Pulse Rate 71 05/26/20 08:27 Respiratory Rate 20 05/26/20 08:30 Blood Pressure 130/73 05/26/20 08:27 O2 Sat by Pulse Oximetry (%) 98 05/26/20 08:30 Constitutional: Yes: No Distress, Calm, Thin Neck: Yes: Supple Cardiovascular: Yes: Regular Rate and Rhythm Respiratory: Yes: Regular, CTA Bilaterally Gastrointestinal: Yes: Normal Bowel Sounds, Soft Edema: No Wound/Incision: Yes: Dressing Dry and Intact Labs: CBC, BMP 05/26/20 07:30 05/26/20 07:30 INR, PTT INR 1.18 (0.83-1.09) H 05/19/20 13:45 Assessment/Plan Problem List - Problems (1) CAD (coronary artery disease) Code(s): I25.10 - ATHSCL HEART DISEASE OF [place] CORONARY ARTERY W/O ANG PCTRS (2) History of percutaneous coronary intervention Code(s): Z98.61 - CORONARY ANGIOPLASTY STATUS (3) Hx of CABG Code(s): Z95.1 - PRESENCE OF AORTOCORONARY BYPASS GRAFT (4) HTN (hypertension) Code(s): I10 - ESSENTIAL (PRIMARY) HYPERTENSION (5) Hypercholesterolemia Code(s): E78.00 - PURE HYPERCHOLESTEROLEMIA, UNSPECIFIED (6) Diabetes mellitus Code(s): E11.9 - TYPE 2 DIABETES MELLITUS WITHOUT COMPLICATIONS (7) Presence of automatic cardioverter/defibrillator (AICD) Code(s): Z95.810 - PRESENCE OF AUTOMATIC (IMPLANTABLE) CARDIAC DEFIBRILLATOR (8) Ischemic dilated cardiomyopathy Code(s): I25.5 - ISCHEMIC CARDIOMYOPATHY; I42.0 - DILATED CARDIOMYOPATHY (9) Wound of foot Code(s): S91.309A - UNSPECIFIED OPEN WOUND, UNSPECIFIED FOOT, INITIAL ENCOUNTER (10) Diabetic foot ulcer Code(s): E11.621 - TYPE 2 DIABETES MELLITUS WITH FOOT ULCER; L97.509 - NON- PRESSURE CHRONIC ULCER OTH PRT UNSP FOOT W UNSP SEVERITY Qualifiers: Diabetic foot ulcer location: midfoot Diabetes mellitus type: other specified (including MARIA M) Laterality: left Non-pressure ulcer stage: unspecified non-pressure ulcer stage Qualified Code(s): E13.621 - Other specified diabetes mellitus with foot ulcer; L97.429 - Non-pressure chronic ulcer of left heel and midfoot with unspecified severity (11) Osteomyelitis Code(s): M86.9 - OSTEOMYELITIS, UNSPECIFIED (12) PAD (peripheral artery disease) Code(s): I73.9 - PERIPHERAL VASCULAR DISEASE, UNSPECIFIED Assessment/Plan 1. Left foot MSSA osteomyelitis, diabetic ulcer s/p left foot debridement of ulcer with metatarsal head resection and biopsy 2. CAD s/p PCI/stent, CABG, angina pectoris 3. Ischemic dilated cardiomyopathy 4. HTN 5. Hypercholesterolemia 6. DM 7. Presence of AICD for above cardiomyopathy and VT/VF 8. CKD PLAN: Cardiacwise same: 1. Obtain prior medical records from [facility], last saw Dr. Wayne Quijano 2016, did not f/u due to distance 2. Continue Carvedilol 25 mg BID and Prinivil 20 mg BID 3. Continue Amlodipine 10 mg QD and Hydralazine 25 mg TID 4. Continue Atorvastatin 40 mg QHS 6. Echocardiography to assess LV/RV and valvular function as outpatient 7. Need to find out the cell room supervisor of the device (AICD) and needs to be interrogated. 8. GI and DVT prophylaxis, complete Ancef course via tunnelled catheter 9. Resume ASA after PICC insertion Patient was advised to follow up in our office, [facility] (Dr. Rojas) at [phone]
[2020-05-26] MEDS: amLODIPine BESYLATE 10 MG TABLET (FP) PO SCH (10:01)
[2020-05-26] MEDS: LORATADINE 10 MG TABLET PO SCH (10:01)
[2020-05-26] MEDS: CARVEDILOL 25 MG TABLET (FP) PO SCH (10:01)
[2020-05-26] MEDS: FAMOTIDINE 20 MG TABLET PO SCH (10:01)
[2020-05-26] MEDS: MUPIROCIN 2% TOPICAL OINTMENT 22 GM TUBE TP SCH (10:01)
[2020-05-26] MEDS: MULTIVITAMINS (DAILY MVI) TABLET (FP) PO SCH (10:01)
[2020-05-26] MEDS: LISINOPRIL 20 MG TABLET (FP) PO SCH (10:01)
[2020-05-26 14:19] VITALS: BP 153/94; PULSE 66; TEMP 97.8
--- NOTE | 2020-05-26 14:19 | PN ---
Progress Note (short form) - Note Progress Note: doing well no complaints Vital Signs Period Temp Pulse Resp BP Sys/Hightower Pulse Ox Last 24 Hr 97.4 F-98.5 F 62-71 18-20 120-149/54-73 98-99 cor-rrr llungs clear foot sutures intact CBC, BMP 05/26/20 07:30 05/26/20 07:30 path- acute/chronic osteomyelitis a/p osteomyelitis-MSSA s/p resection of second metatarsal head will switch to rocephin daily- his living situation doesnot permit iv antibiotics and he does not want to go to a snf 6 weeks planned
[2020-05-26 14:22] VITALS: BMI 26.2
[2020-05-26] MEDS ORDERED: CEFTRIAXONE 2 GM in DEXTROSE 5%-WATER 100 ML IVPB SCH (14:30)
[2020-05-26] MEDS ORDERED: DEXTROSE 5%-WATER 100 ML IVPB ONE (15:01)
--- NOTE | 2020-05-26 15:28 | DS ---
Physical Exam: SUBJECTIVE: Patient seen and examined OBJECTIVE: Patient is a 74 year old male with a significant past medical history of diabetes, hypertention, CAD (s/p CABG, stents, defibrillator ~5yago), CVA (residual right side deficit) presents to ED on 05/19/2020 for left foot osteomyelitis. Pt states that he saw his wound care doctor last week who states that the wound was deep and that he needed to come in today for a bone biopsy and procedure. Pt reports that he has had this wound for many years and has had a PICC line before for IV antibiotics when sent to rehab. Patient to be discharged home today with a tunned catheter. He is being set up for outpatient infusion at [facility] infusion suite. Today is day #5 of 42 for iv antibiotics (ceftriaxone 2 grams) ------ covid status: negative serology as of 05/19/2020 discharge plan: for outpatient antibiotics at [facility]/ceftraixone per ID. Vital Signs Period Temp Pulse Resp BP Sys/Hightower Pulse Ox Last 24 Hr 97.4 F-98.5 F 62-71 18-20 120-153/54-94 98-99 PHYSICAL EXAM GENERAL: The patient is awake, alert, and fully oriented, in no acute distress. HEAD: Normal with no signs of trauma. EYES: PERRL, extraocular movements intact, sclera anicteric, conjunctiva clear. No ptosis. ENT: Ears normal, nares patent, oropharynx clear without exudates, moist mucous membranes. NECK: Trachea midline, full range of motion, supple. LUNGS: Breath sounds equal, clear to auscultation bilaterally, no wheezes HEART: Regular rate and rhythm ABDOMEN: Soft, nontender, nondistended, normoactive bowel sounds EXTREMITIES: left foot bandaged (c/d/i), warm left extremity, no pain NEUROLOGICAL: Normal speech, gait not observed. PSYCH: Normal mood, normal affect. Laboratory Results - last 24 hr 05/25/20 05/26/20 05/26/20 16:27 06:01 07:30 WBC 7.9 RBC 3.78 L Hgb 11.1 L Hct 33.1 L MCV 87.7 MCH 29.3 MCHC 33.4 RDW 14.9 Plt Count 147 MPV 11.9 H Absolute Neuts (auto) 5.2 Neutrophils % 66.4 Lymphocytes % 22.0 Monocytes % 7.0 Eosinophils % 3.9 Basophils % 0.7 Nucleated RBC % 0 ESR Sodium Potassium Chloride Carbon Dioxide Anion Gap BUN Creatinine Est GFR (CKD-EPI)AfAm Est GFR (CKD-EPI)NonAf POC Glucometer 184 143 Random Glucose Calcium Magnesium Total Bilirubin AST ALT Alkaline Phosphatase C-Reactive Protein Total Protein Albumin 05/26/20 05/26/20 05/26/20 07:30 07:30 12:10 WBC RBC Hgb Hct MCV MCH MCHC RDW Plt Count MPV Absolute Neuts (auto) Neutrophils % Lymphocytes % Monocytes % Eosinophils % Basophils % Nucleated RBC % ESR 18 Sodium 141 Potassium 3.9 Chloride 111 H Carbon Dioxide 23 Anion Gap 8 BUN 26.1 H Creatinine 1.5 H Est GFR (CKD-EPI)AfAm 52.77 Est GFR (CKD-EPI)NonAf 45.53 POC Glucometer 223 Random Glucose 145 H Calcium 8.4 L Magnesium 2.0 Total Bilirubin 0.3 AST 20 ALT 25 Alkaline Phosphatase 48 C-Reactive Protein 1.0 H Total Protein 7.0 Albumin 2.9 L HOSPITAL COURSE: Date of Admission:05/19/20 Date of Discharge: 05/26/20 Minutes to complete discharge: 60 Discharge Summary Problems reviewed: Yes Reason For Visit: WOUND OF FOOT Current Active Problems CAD (coronary artery disease) (Acute) DVT prophylaxis (Acute) Diabetes mellitus (Acute) HTN (hypertension) (Acute) History of percutaneous coronary intervention (Acute) Hx of CABG (Acute) Hypercholesterolemia (Acute) Ischemic dilated cardiomyopathy (Acute) Presence of automatic cardioverter/defibrillator (AICD) (Acute) Wound of foot (Acute) Condition: Stable - Instructions Diet, Activity, Other Instructions: Mr Mercedes You will be discharged home today. You have a tunneled catheter placed for continuation of your antibiotics. Antibiotics: Please come to admissions on 1st floor of the hospital to register before receiving antibiotics On weekends, you will receive your antibiotic therapy on the 7th floor. You will be receiving Ceftriaxone 2gram via your tunneled catheter for osteomylitis of your foot. Medications: Please continue your medications as outlined in your discharge instructions. Follow ups: Please follow up with your primary care doctor within 1-2 weeks after discharge home. Thank you for allowing us to care for you. Referrals: Larisa Alonso MD [Staff Physician] - Disposition: HOME - Home Medications Comprehensive Discharge Medication List: Ambulatory Orders Multivitamins [Multivit ([facility] Formulary)] 1 udtab PO DAILY #0 tab 01/02/13 Lisinopril [Prinivil] 20 mg PO BID 05/10/16 Ranitidine [Zantac -] 150 mg PO BID 05/11/16 metFORMIN HCL [Metformin HCl] 1,000 mg PO BID 12/02/16 Amlodipine Besylate [Norvasc -] 10 mg PO DAILY #30 tablet 12/10/16 Atorvastatin Ca [Lipitor] 40 mg PO HS #30 tablet 12/10/16 Carbamide Peroxide 6.5% [Debrox -] 1 drop AU BID #1 bottle 12/10/16 Carvedilol [Coreg -] 25 mg PO BID #30 tablet 12/10/16 Clopidogrel Bisulfate [Plavix -] 75 mg PO DAILY #30 tablet 12/10/16 hydrALAZINE HCL [Apresoline -] 25 mg PO BID #30 tablet 12/10/16 Insulin (Levemir) [Levemir Flexpen -] 25 units SQ ACBK 03/06/19 Aspirin 81 mg PO DAILY 05/19/20 Cetirizine HCl 10 mg PO DAILY 05/19/20 Famotidine [Pepcid] 20 mg PO BID 05/19/20 Gabapentin 100 mg PO BID 05/19/20 Insulin (Levemir) [Levemir Flexpen -] 15 units SQ HS 05/19/20 Problem List - Problems (1) Wound of foot Assessment/Plan: followed by podiatry and ID. will be sent home on ceftriaxone for osteomyelitis of left foot non healing diabetic foot ulcer had a bone biopsy on 05/22/2020 had a tunneled catheter placed today Code(s): S91.309A - UNSPECIFIED OPEN WOUND, UNSPECIFIED FOOT, INITIAL ENCOUNTER (2) Diabetic foot ulcer Assessment/Plan: followed by podiatry Code(s): E11.621 - TYPE 2 DIABETES MELLITUS WITH FOOT ULCER; L97.509 - NON- PRESSURE CHRONIC ULCER OTH PRT UNSP FOOT W UNSP SEVERITY Qualifiers: Diabetic foot ulcer location: midfoot Diabetes mellitus type: other specified (including MARIA M) Laterality: left Non-pressure ulcer stage: unspecified non-pressure ulcer stage Qualified Code(s): E13.621 - Other specified diabetes mellitus with foot ulcer; L97.429 - Non-pressure chronic ulcer of left heel and midfoot with unspecified severity (3) CAD (coronary artery disease) Assessment/Plan: continue home meds. lipitor 40mg daily. Code(s): I25.10 - ATHSCL HEART DISEASE OF [place] CORONARY ARTERY W/O ANG PCTRS (4) Diabetes mellitus Assessment/Plan: controlled on novolog ss with bgm checks ac/hs Code(s): E11.9 - TYPE 2 DIABETES MELLITUS WITHOUT COMPLICATIONS (5) HTN (hypertension) Assessment/Plan: stable bp on norvasc 10mg, hydralazine 25 bid, coreq 25 bid Code(s): I10 - ESSENTIAL (PRIMARY) HYPERTENSION (6) Hx of CABG Code(s): Z95.1 - PRESENCE OF AORTOCORONARY BYPASS GRAFT (7) Hypercholesterolemia Assessment/Plan: on statin therapy Code(s): E78.00 - PURE HYPERCHOLESTEROLEMIA, UNSPECIFIED (8) Presence of automatic cardioverter/defibrillator (AICD) Code(s): Z95.810 - PRESENCE OF AUTOMATIC (IMPLANTABLE) CARDIAC DEFIBRILLATOR (9) DVT prophylaxis Assessment/Plan: heparin tid Code(s): Z29.9 - ENCOUNTER FOR PROPHYLACTIC MEASURES, UNSPECIFIED This patient is new to me today: No Emergency Visit: Yes ED Registration Date: 05/19/20 Care time: The patient presented to the Emergency Department on the above date and was hospitalized for further evaluation of their emergent condition. Critical Care patient: No - Discharge Referral [facility]erred to [facility] Med P.C.: No
[2020-05-27] MEDS ORDERED: AMINO ACIDS/PROTEIN HYDROLYS 30 ML LIQUID.PKT PO SCH (10:00)
== END 2020-05-26 19:35 | disposition home or self-care (01) | DRG 629 ==
LOC: JER 12:17 → JERBED 15:59 → J6S 05-20 02:41
PROVIDERS: ADMIT Internal Medicine; ATTEND Nurse Practitioner Family
PROC: 0QBP0ZX Excision of Left Metatarsal, Open Approach, Diagnostic (ICD-10-PCS; 2020-05-21)
PROC: 0QBP0ZZ Excision of Left Metatarsal, Open Approach (ICD-10-PCS; principal; 2020-05-21 08:00)
PROC: 02HV33Z Insertion of Infusion Device into Superior Vena Cava, Percutaneous Approach (ICD-10-PCS; 2020-05-26)
PROC: B518ZZA Fluoroscopy of Superior Vena Cava, Guidance (ICD-10-PCS; 2020-05-26)
DX: E11.69 Type 2 diabetes mellitus with other specified complication (principal); L97.528 Non-pressure chronic ulcer of other part of left foot with other specified severity; I42.0 Dilated cardiomyopathy; M86.172 Other acute osteomyelitis, left ankle and foot; I69.351 Hemiplegia and hemiparesis following cerebral infarction affecting right dominant side; I25.5 Ischemic cardiomyopathy; E11.621 Type 2 diabetes mellitus with foot ulcer; I10 Essential (primary) hypertension; I25.119 Atherosclerotic heart disease of native coronary artery with unspecified angina pectoris; N17.9 Acute kidney failure, unspecified; E11.51 Type 2 diabetes mellitus with diabetic peripheral angiopathy without gangrene; B95.61 Methicillin susceptible Staphylococcus aureus infection as the cause of diseases classified elsewhere; E78.5 Hyperlipidemia, unspecified; Z95.1 Presence of aortocoronary bypass graft; Z89.422 Acquired absence of other left toe(s); Z89.421 Acquired absence of other right toe(s); Z95.810 Presence of automatic (implantable) cardiac defibrillator; Z87.442 Personal history of urinary calculi
CPT/HCPCS: 36415; 36558; 71045-TC-FY; 73630-TC-LT; 77001-TC-FY; 80048; 80053; 82962; 83036; 83735; 84100; 85025; 85610; 85651; 85730; 86140; 86850; 86900; 86901; 87070; 87075; 87186; 87205; 88305-TC; 88311-TC; 93005; 93010; 93923; 94760; 99285-25; C1751; G0277; G0480; J1644; U0003

== ENCOUNTER 2020-05-27 08:20 | Day surgery (SDC) | payer OTHER ==
[2020-05-27] MEDS ORDERED: CEFTRIAXONE 2 GM in DEXTROSE 5%-WATER 100 ML IVPB ONE (09:15)
[2020-05-27] MEDS ORDERED: DEXTROSE 5%-WATER 100 ML IVPB ONE (10:15)
[2020-05-27 11:22] VITALS: BP 138/67; PULSE 73; TEMP 98.1
== END 2020-05-27 14:01 | disposition home or self-care (01) ==
LOC: JINFUSION 08:20 → J7W 08:47 → JINFUSION 14:01
PROVIDERS: ATTEND Internal Medicine
DX: E11.621 Type 2 diabetes mellitus with foot ulcer (principal); M86.172 Other acute osteomyelitis, left ankle and foot; L97.528 Non-pressure chronic ulcer of other part of left foot with other specified severity; B95.61 Methicillin susceptible Staphylococcus aureus infection as the cause of diseases classified elsewhere
CPT/HCPCS: 96365; U0003

== ENCOUNTER 2020-05-28 08:46 | Day surgery (SDC) | payer OTHER ==
[2020-05-28] MEDS ORDERED: CEFTRIAXONE 2 GM in DEXTROSE 5%-WATER 100 ML IVPB ONE (09:00)
[2020-05-28] MEDS ORDERED: DEXTROSE 5%-WATER 100 ML IVPB ONE (09:20)
[2020-05-28 12:54] VITALS: BP 141/71; PULSE 68; TEMP 98.1
== END 2020-05-28 13:17 | disposition home or self-care (01) ==
LOC: JINFUSION 08:46 → J7W 08:56 → JINFUSION 13:17
PROVIDERS: ATTEND Internal Medicine
DX: E11.621 Type 2 diabetes mellitus with foot ulcer (principal); M86.172 Other acute osteomyelitis, left ankle and foot
CPT/HCPCS: 96365

== ENCOUNTER 2020-05-29 09:08 | Day surgery (SDC) | payer OTHER ==
[2020-05-29] MEDS ORDERED: CEFTRIAXONE 2 GM in DEXTROSE 5%-WATER 100 ML IVPB ONE (09:45)
[2020-05-29] MEDS ORDERED: DEXTROSE 5%-WATER 100 ML IVPB ONE (09:49)
[2020-05-29 09:59] VITALS: TEMP 97.7
[2020-05-29 10:35] VITALS: BP 128/71; PULSE 64
== END 2020-05-29 11:40 | disposition home or self-care (01) ==
LOC: JINFUSION 09:08 → J7W 09:09 → EDSTATUS 09:34 → JINFUSION 11:40
PROVIDERS: ATTEND Internal Medicine
DX: E11.621 Type 2 diabetes mellitus with foot ulcer (principal); M86.172 Other acute osteomyelitis, left ankle and foot; L97.528 Non-pressure chronic ulcer of other part of left foot with other specified severity; B95.61 Methicillin susceptible Staphylococcus aureus infection as the cause of diseases classified elsewhere
CPT/HCPCS: 96365

== ENCOUNTER 2020-05-30 08:01 | Day surgery (SDC) | payer OTHER ==
[2020-05-30] MEDS ORDERED: CEFTRIAXONE 2 GM in DEXTROSE 5%-WATER 100 ML IVPB ONE (10:30)
[2020-05-30] MEDS ORDERED: DEXTROSE 5%-WATER 100 ML IVPB ONE (10:31)
[2020-05-30 10:48] VITALS: TEMP 97.9
[2020-05-30 17:13] VITALS: BP 114/52; PULSE 64
== END 2020-05-30 14:32 | disposition home or self-care (01) ==
LOC: JINFUSION 08:01 → J7W 08:02 → JINFUSION 14:32
PROVIDERS: ATTEND Internal Medicine
DX: E11.621 Type 2 diabetes mellitus with foot ulcer (principal); M86.172 Other acute osteomyelitis, left ankle and foot; L97.528 Non-pressure chronic ulcer of other part of left foot with other specified severity; B95.61 Methicillin susceptible Staphylococcus aureus infection as the cause of diseases classified elsewhere
CPT/HCPCS: 82962; 96365; G0277

== ENCOUNTER 2020-05-31 09:11 | Day surgery (SDC) | payer OTHER ==
[2020-05-31] MEDS ORDERED: CEFTRIAXONE 2 GM in DEXTROSE 5%-WATER 100 ML IVPB ONE (10:00)
[2020-05-31 10:16] VITALS: TEMP 97.5
[2020-05-31] MEDS ORDERED: DEXTROSE 5%-WATER 100 ML IVPB ONE (10:20)
[2020-05-31 11:02] VITALS: BP 117/54; PULSE 62
== END 2020-05-31 11:05 | disposition home or self-care (01) ==
LOC: JINFUSION 09:11 → J7W 09:19 → JINFUSION 11:05
PROVIDERS: ATTEND Internal Medicine
DX: E11.621 Type 2 diabetes mellitus with foot ulcer (principal); M86.172 Other acute osteomyelitis, left ankle and foot; L97.528 Non-pressure chronic ulcer of other part of left foot with other specified severity; B95.61 Methicillin susceptible Staphylococcus aureus infection as the cause of diseases classified elsewhere
CPT/HCPCS: 96365

== ENCOUNTER 2020-06-02 09:45 | Day surgery (SDC) | payer OTHER ==
[2020-06-02] MEDS ORDERED: CEFTRIAXONE 2 GM in DEXTROSE 5%-WATER 100 ML IVPB ONE (10:15)
[2020-06-02 11:26] VITALS: TEMP 98
[2020-06-02] MEDS ORDERED: DEXTROSE 5%-WATER 100 ML IVPB ONE (12:08)
[2020-06-02 12:13] LABS: BASO % 0.5 % (0-2.0); HEMATOCRIT 31.8 % (35.4-49); HEMOGLOBIN 10.5 GM/dL (11.7-16.9); LYMPH % 18.7 % (8-40); MCH 29.1 pg (25.7-33.7); MEAN CELL VOLUME 88.2 fl (80-96); MEAN PLT VOLUME 12.1 fl (7.5-11.1); MONO % 8.1 % (3.8-10.2); NEUT % 69.7 % (42.8-82.8); PLATELET COUNT 124 K/MM3 (134-434)
[2020-06-02 12:52] VITALS: BP 111/55; PULSE 66
[2020-06-02 12:54] LABS: ALBUMIN 3.1 g/dl (3.4-5.0); BILIRUBIN,TOTAL 0.6 mg/dL (0.2-1); BLOOD UREA NITROGEN 40.8 mg/dL (7-18); CALCIUM 8.8 mg/dL (8.5-10.1); CREATININE 3.5 mg/dL (0.55-1.3); POTASSIUM 4.3 mmol/L (3.5-5.1); TOT PROT 7.4 g/dl (6.4-8.2)
== END 2020-06-02 13:40 | disposition home or self-care (01) ==
LOC: JINFUSION 09:45 → J7W 09:58 → JINFUSION 13:40
PROVIDERS: ATTEND Internal Medicine
DX: E11.621 Type 2 diabetes mellitus with foot ulcer (principal); M86.172 Other acute osteomyelitis, left ankle and foot; L97.528 Non-pressure chronic ulcer of other part of left foot with other specified severity; B95.61 Methicillin susceptible Staphylococcus aureus infection as the cause of diseases classified elsewhere
CPT/HCPCS: 36415; 80053; 85025; 96365

== ENCOUNTER 2020-06-03 08:00 | Day surgery (SDC) | payer OTHER ==
[2020-06-03] MEDS ORDERED: CEFTRIAXONE 2 GM in DEXTROSE 5%-WATER 100 ML IVPB ONE (10:30)
[2020-06-03] MEDS ORDERED: DEXTROSE 5%-WATER 100 ML IVPB ONE (10:40)
[2020-06-03 10:53] VITALS: BP 120/67; PULSE 66; TEMP 97.9
== END 2020-06-03 13:21 | disposition home or self-care (01) ==
LOC: JINFUSION 08:00 → J7W 08:02 → JINFUSION 13:21
PROVIDERS: ATTEND Internal Medicine
DX: E11.621 Type 2 diabetes mellitus with foot ulcer (principal); M86.172 Other acute osteomyelitis, left ankle and foot; L97.528 Non-pressure chronic ulcer of other part of left foot with other specified severity; B95.61 Methicillin susceptible Staphylococcus aureus infection as the cause of diseases classified elsewhere
CPT/HCPCS: 11042; 82962; 96365; G0277

== ENCOUNTER 2020-06-04 08:38 | Day surgery (SDC) | payer OTHER ==
[2020-06-04] MEDS ORDERED: CEFTRIAXONE 2 GM in DEXTROSE 5%-WATER 100 ML IVPB ONE (09:30)
[2020-06-04] MEDS ORDERED: DEXTROSE 5%-WATER 100 ML IVPB ONE (10:32)
[2020-06-04 10:49] VITALS: TEMP 98
[2020-06-04 12:07] VITALS: BP 102/60; PULSE 76
== END 2020-06-04 12:07 | disposition home or self-care (01) ==
LOC: JINFUSION 08:38 → J7W 08:39 → JINFUSION 12:07
PROVIDERS: ATTEND Internal Medicine
DX: E11.621 Type 2 diabetes mellitus with foot ulcer (principal); M86.172 Other acute osteomyelitis, left ankle and foot; L97.528 Non-pressure chronic ulcer of other part of left foot with other specified severity; B95.61 Methicillin susceptible Staphylococcus aureus infection as the cause of diseases classified elsewhere
CPT/HCPCS: 96365

== ENCOUNTER 2020-06-05 07:53 | Day surgery (SDC) | payer OTHER ==
[2020-06-05] MEDS ORDERED: CEFTRIAXONE 2 GM in DEXTROSE 5%-WATER 100 ML IVPB ONE (09:45)
[2020-06-05] MEDS ORDERED: DEXTROSE 5%-WATER 100 ML IVPB ONE (10:16)
[2020-06-05 10:33] VITALS: TEMP 98
[2020-06-05 11:15] VITALS: BP 115/87; PULSE 80
== END 2020-06-05 12:38 | disposition home or self-care (01) ==
LOC: JINFUSION 07:53 → J7W 07:55 → JINFUSION 12:38
PROVIDERS: ATTEND Internal Medicine
DX: E11.621 Type 2 diabetes mellitus with foot ulcer (principal); M86.172 Other acute osteomyelitis, left ankle and foot; L97.528 Non-pressure chronic ulcer of other part of left foot with other specified severity; B95.61 Methicillin susceptible Staphylococcus aureus infection as the cause of diseases classified elsewhere
CPT/HCPCS: 96365

== ENCOUNTER 2020-06-06 09:07 | Day surgery (SDC) | payer OTHER ==
[2020-06-06] MEDS ORDERED: CEFTRIAXONE 2 GM in DEXTROSE 5%-WATER 100 ML IVPB ONE (09:45)
[2020-06-06] MEDS ORDERED: DEXTROSE 5%-WATER 100 ML IVPB ONE (09:48)
[2020-06-06 10:43] VITALS: BP 126/59; PULSE 68; TEMP 98.1
== END 2020-06-06 10:44 | disposition home or self-care (01) ==
LOC: JINFUSION 09:07 → J7W 09:29 → JINFUSION 10:44 → EDSTATUS 16:02
PROVIDERS: ATTEND Internal Medicine
DX: E11.621 Type 2 diabetes mellitus with foot ulcer (principal); M86.172 Other acute osteomyelitis, left ankle and foot; L97.528 Non-pressure chronic ulcer of other part of left foot with other specified severity; B95.61 Methicillin susceptible Staphylococcus aureus infection as the cause of diseases classified elsewhere
CPT/HCPCS: 96365

== ENCOUNTER 2020-06-07 09:04 | Day surgery (SDC) | payer OTHER ==
[2020-06-07 09:43] VITALS: TEMP 97.8
[2020-06-07] MEDS ORDERED: DEXTROSE 5%-WATER 100 ML IVPB ONE (09:46)
[2020-06-07] MEDS ORDERED: CEFTRIAXONE 2 GM in DEXTROSE 5%-WATER 100 ML IVPB ONE (10:00)
[2020-06-07 10:46] VITALS: BP 128/61; PULSE 71
== END 2020-06-07 10:45 | disposition home or self-care (01) ==
LOC: JINFUSION 09:04 → J7W 09:05 → JINFUSION 10:45
PROVIDERS: ATTEND Internal Medicine
DX: E11.621 Type 2 diabetes mellitus with foot ulcer (principal); M86.172 Other acute osteomyelitis, left ankle and foot; L97.528 Non-pressure chronic ulcer of other part of left foot with other specified severity; B95.61 Methicillin susceptible Staphylococcus aureus infection as the cause of diseases classified elsewhere
CPT/HCPCS: 96365

== ENCOUNTER 2020-06-09 08:23 | Day surgery (SDC) | payer OTHER ==
[2020-06-09] MEDS ORDERED: CEFTRIAXONE 2 GM in DEXTROSE 5%-WATER 100 ML IVPB ONE (09:00)
[2020-06-09 09:03] LABS: HEMATOCRIT 32.8 % (35.4-49); HEMOGLOBIN 10.9 GM/dL (11.7-16.9); MCH 29.4 pg (25.7-33.7); MCHC 33.2 g/dl (32.0-35.9); MEAN CELL VOLUME 88.6 fl (80-96); MEAN PLT VOLUME 11.5 fl (7.5-11.1); PLATELET COUNT 161 K/MM3 (134-434); RDW 14.9 % (11.9-15.9); WHITE BLOOD COUNT 8.2 K/mm3 (4.0-10.0)
[2020-06-09 09:06] VITALS: TEMP 97.7
[2020-06-09] MEDS ORDERED: DEXTROSE 5%-WATER 100 ML IVPB ONE (09:29)
[2020-06-09 09:40] LABS: ALBUMIN 3.1 g/dl (3.4-5.0); BILIRUBIN,TOTAL 0.5 mg/dL (0.2-1); BLOOD UREA NITROGEN 30.4 mg/dL (7-18); CALCIUM 8.7 mg/dL (8.5-10.1); CREATININE 2.3 mg/dL (0.55-1.3); TOT PROT 7.4 g/dl (6.4-8.2)
[2020-06-09 09:59] LABS: POTASSIUM 4.9 mmol/L (3.5-5.1)
[2020-06-09 10:27] VITALS: BP 133/68; PULSE 64
== END 2020-06-09 10:43 | disposition home or self-care (01) ==
LOC: JINFUSION 08:23 → J7W 08:50 → JINFUSION 10:43
PROVIDERS: ATTEND Internal Medicine
DX: E11.621 Type 2 diabetes mellitus with foot ulcer (principal); M86.172 Other acute osteomyelitis, left ankle and foot; L97.528 Non-pressure chronic ulcer of other part of left foot with other specified severity; B95.61 Methicillin susceptible Staphylococcus aureus infection as the cause of diseases classified elsewhere
CPT/HCPCS: 36415; 80053; 85027; 96365

== ENCOUNTER 2020-06-10 08:28 | Day surgery (SDC) | payer OTHER ==
[2020-06-10] MEDS ORDERED: CEFTRIAXONE 2 GM in DEXTROSE 5%-WATER 100 ML IVPB ONE (08:45)
[2020-06-10] MEDS ORDERED: DEXTROSE 5%-WATER 100 ML IVPB ONE (09:03)
[2020-06-10 09:21] VITALS: BP 136/68; PULSE 67; TEMP 98.3
== END 2020-06-10 11:55 | disposition home or self-care (01) ==
LOC: JINFUSION 08:28 → J7W 08:39 → JINFUSION 11:55
PROVIDERS: ATTEND Internal Medicine
DX: E11.621 Type 2 diabetes mellitus with foot ulcer (principal); M86.172 Other acute osteomyelitis, left ankle and foot; L97.528 Non-pressure chronic ulcer of other part of left foot with other specified severity; B95.61 Methicillin susceptible Staphylococcus aureus infection as the cause of diseases classified elsewhere
CPT/HCPCS: 96365

== ENCOUNTER 2020-06-11 08:50 | Day surgery (SDC) | payer OTHER ==
[2020-06-11] MEDS ORDERED: CEFTRIAXONE 2 GM in DEXTROSE 5%-WATER 100 ML IVPB ONE (09:30)
[2020-06-11 09:57] VITALS: TEMP 98.2
[2020-06-11] MEDS ORDERED: DEXTROSE 5%-WATER 100 ML IVPB ONE (09:59)
[2020-06-11 10:51] VITALS: BP 137/67; PULSE 63
== END 2020-06-11 11:24 | disposition home or self-care (01) ==
LOC: JINFUSION 08:50 → J7W 08:52 → JINFUSION 11:24
PROVIDERS: ATTEND Internal Medicine
DX: E11.621 Type 2 diabetes mellitus with foot ulcer (principal); M86.172 Other acute osteomyelitis, left ankle and foot; L97.528 Non-pressure chronic ulcer of other part of left foot with other specified severity; B95.61 Methicillin susceptible Staphylococcus aureus infection as the cause of diseases classified elsewhere
CPT/HCPCS: 96365

== ENCOUNTER 2020-06-12 09:42 | Day surgery (SDC) | payer OTHER ==
[2020-06-12] MEDS ORDERED: DEXTROSE 5%-WATER 100 ML IVPB ONE (10:07)
[2020-06-12 10:28] VITALS: PULSE 64; TEMP 98.3
[2020-06-12] MEDS ORDERED: CEFTRIAXONE 2 GM in DEXTROSE 5%-WATER 100 ML IVPB ONE (10:30)
[2020-06-12 10:51] VITALS: BP 118/66
== END 2020-06-12 10:52 | disposition home or self-care (01) ==
LOC: JINFUSION 09:42 → J7W 09:43 → JINFUSION 10:52
PROVIDERS: ATTEND Internal Medicine
DX: E11.621 Type 2 diabetes mellitus with foot ulcer (principal); M86.172 Other acute osteomyelitis, left ankle and foot; L97.528 Non-pressure chronic ulcer of other part of left foot with other specified severity; B95.61 Methicillin susceptible Staphylococcus aureus infection as the cause of diseases classified elsewhere
CPT/HCPCS: 96365

== ENCOUNTER 2020-06-13 07:48 | Day surgery (SDC) | payer OTHER ==
[2020-06-13] MEDS ORDERED: CEFTRIAXONE 2 GM in DEXTROSE 5%-WATER 100 ML IVPB ONE (09:30)
[2020-06-13] MEDS ORDERED: DEXTROSE 5%-WATER 100 ML IVPB ONE (10:10)
[2020-06-13 10:20] VITALS: BP 131/67; PULSE 65; TEMP 98.4
== END 2020-06-13 14:01 | disposition home or self-care (01) ==
LOC: JINFUSION 07:48 → J7W 07:59 → JINFUSION 14:01 → EDSTATUS 15:21
PROVIDERS: ATTEND Internal Medicine
DX: E11.621 Type 2 diabetes mellitus with foot ulcer (principal); M86.172 Other acute osteomyelitis, left ankle and foot; L97.528 Non-pressure chronic ulcer of other part of left foot with other specified severity; B95.61 Methicillin susceptible Staphylococcus aureus infection as the cause of diseases classified elsewhere
CPT/HCPCS: 96365

== ENCOUNTER 2020-06-14 08:53 | Day surgery (SDC) | payer OTHER ==
[2020-06-14] MEDS ORDERED: DEXTROSE 5%-WATER 100 ML IVPB ONE (09:25)
[2020-06-14] MEDS ORDERED: CEFTRIAXONE 2 GM in DEXTROSE 5%-WATER 100 ML IVPB ONE (09:30)
[2020-06-14 10:05] VITALS: BP 131/75; PULSE 75; TEMP 97.9
== END 2020-06-14 10:20 | disposition home or self-care (01) ==
LOC: JINFUSION 08:53 → J7W 08:57 → JINFUSION 10:20 → EDSTATUS 18:12
PROVIDERS: ATTEND Internal Medicine
DX: E11.621 Type 2 diabetes mellitus with foot ulcer (principal); M86.172 Other acute osteomyelitis, left ankle and foot; L97.528 Non-pressure chronic ulcer of other part of left foot with other specified severity; B95.61 Methicillin susceptible Staphylococcus aureus infection as the cause of diseases classified elsewhere
CPT/HCPCS: 96365

== ENCOUNTER 2020-06-15 09:03 | Day surgery (SDC) | payer OTHER ==
[2020-06-15] MEDS ORDERED: DEXTROSE 5%-WATER 100 ML IVPB ONE (09:50)
[2020-06-15] MEDS ORDERED: CEFTRIAXONE 2 GM in DEXTROSE 5%-WATER 100 ML IVPB ONE (10:00)
[2020-06-15 12:13] VITALS: BP 133/61; PULSE 63; TEMP 98.2
== END 2020-06-15 10:58 | disposition home or self-care (01) ==
LOC: JINFUSION 09:03 → J7W 09:04 → JINFUSION 10:58
PROVIDERS: ATTEND Internal Medicine
DX: E11.621 Type 2 diabetes mellitus with foot ulcer (principal); M86.172 Other acute osteomyelitis, left ankle and foot; L97.528 Non-pressure chronic ulcer of other part of left foot with other specified severity; B95.61 Methicillin susceptible Staphylococcus aureus infection as the cause of diseases classified elsewhere
CPT/HCPCS: 96365

== ENCOUNTER 2020-06-16 08:00 | Day surgery (SDC) | payer OTHER ==
[2020-06-16] MEDS ORDERED: CEFTRIAXONE 2 GM in DEXTROSE 5%-WATER 100 ML IVPB ONE (09:30)
[2020-06-16] MEDS ORDERED: DEXTROSE 5%-WATER 100 ML IVPB ONE (09:49)
[2020-06-16 10:42] LABS: HEMATOCRIT 31.5 % (35.4-49); HEMOGLOBIN 10.3 GM/dL (11.7-16.9); MCH 28.9 pg (25.7-33.7); MCHC 32.7 g/dl (32.0-35.9); MEAN CELL VOLUME 88.2 fl (80-96); MEAN PLT VOLUME 11.6 fl (7.5-11.1); PLATELET COUNT 149 K/MM3 (134-434); RBC 3.57 M/mm3 (4.00-5.60); RDW 15.1 % (11.9-15.9); WHITE BLOOD COUNT 6.9 K/mm3 (4.0-10.0)
[2020-06-16 11:08] LABS: BILIRUBIN,TOTAL 0.4 mg/dL (0.2-1); BLOOD UREA NITROGEN 14.8 mg/dL (7-18); CALCIUM 8.5 mg/dL (8.5-10.1); POTASSIUM 5.1 mmol/L (3.5-5.1)
[2020-06-16 13:19] VITALS: BP 122/60; PULSE 62; TEMP 97.5
== END 2020-06-16 13:48 | disposition home or self-care (01) ==
LOC: JINFUSION 08:00 → J7W 08:34 → JINFUSION 13:48
PROVIDERS: ATTEND Internal Medicine
DX: E11.621 Type 2 diabetes mellitus with foot ulcer (principal); M86.172 Other acute osteomyelitis, left ankle and foot; L97.528 Non-pressure chronic ulcer of other part of left foot with other specified severity; B95.61 Methicillin susceptible Staphylococcus aureus infection as the cause of diseases classified elsewhere
CPT/HCPCS: 36415; 80053; 85027; 96365

== ENCOUNTER 2020-06-17 08:18 | Day surgery (SDC) | payer OTHER ==
[2020-06-17] MEDS ORDERED: DEXTROSE 5%-WATER 100 ML IVPB ONE (08:57)
[2020-06-17] MEDS ORDERED: CEFTRIAXONE 2 GM in DEXTROSE 5%-WATER 100 ML IVPB ONE (09:00)
[2020-06-17 09:51] VITALS: BP 134/66; PULSE 69; TEMP 98.6
== END 2020-06-17 09:53 | disposition home or self-care (01) ==
LOC: JINFUSION 08:18 → J7W 08:19 → JINFUSION 09:53
PROVIDERS: ATTEND Internal Medicine
DX: E11.621 Type 2 diabetes mellitus with foot ulcer (principal); M86.172 Other acute osteomyelitis, left ankle and foot; L97.528 Non-pressure chronic ulcer of other part of left foot with other specified severity; B95.61 Methicillin susceptible Staphylococcus aureus infection as the cause of diseases classified elsewhere
CPT/HCPCS: 96365; G0463-25

== ENCOUNTER 2020-06-18 08:30 | Day surgery (SDC) | payer OTHER ==
[2020-06-18] MEDS ORDERED: CEFTRIAXONE 2 GM in DEXTROSE 5%-WATER 100 ML IVPB ONE (08:45)
[2020-06-18] MEDS ORDERED: DEXTROSE 5%-WATER 100 ML IVPB ONE (08:51)
[2020-06-18 11:04] VITALS: BP 135/73; PULSE 75; TEMP 97.9
== END 2020-06-18 11:06 | disposition home or self-care (01) ==
LOC: JINFUSION 08:30 → J7W 08:31 → JINFUSION 11:06
PROVIDERS: ATTEND Internal Medicine
DX: E11.621 Type 2 diabetes mellitus with foot ulcer (principal); M86.172 Other acute osteomyelitis, left ankle and foot; L97.528 Non-pressure chronic ulcer of other part of left foot with other specified severity; B95.61 Methicillin susceptible Staphylococcus aureus infection as the cause of diseases classified elsewhere
CPT/HCPCS: 96365

== ENCOUNTER 2020-06-19 08:15 | Day surgery (SDC) | payer OTHER ==
[2020-06-19] MEDS ORDERED: CEFTRIAXONE 2 GM in DEXTROSE 5%-WATER 100 ML IVPB ONE (08:45)
[2020-06-19] MEDS ORDERED: DEXTROSE 5%-WATER 100 ML IVPB ONE (08:45)
[2020-06-19 09:58] VITALS: BP 139/64; PULSE 63; TEMP 97.8
== END 2020-06-19 09:59 | disposition home or self-care (01) ==
LOC: J7W 08:15 → JINFUSION 08:15
PROVIDERS: ATTEND Internal Medicine
DX: E11.621 Type 2 diabetes mellitus with foot ulcer (principal); M86.172 Other acute osteomyelitis, left ankle and foot; L97.528 Non-pressure chronic ulcer of other part of left foot with other specified severity; B95.61 Methicillin susceptible Staphylococcus aureus infection as the cause of diseases classified elsewhere
CPT/HCPCS: 96365

== ENCOUNTER 2020-06-20 08:20 | Day surgery (SDC) | payer OTHER ==
[2020-06-20] MEDS ORDERED: DEXTROSE 5%-WATER 100 ML IVPB ONE (09:07)
[2020-06-20] MEDS ORDERED: CEFTRIAXONE 2 GM in DEXTROSE 5%-WATER 100 ML IVPB ONE (09:15)
[2020-06-20 11:51] VITALS: BP 143/67; PULSE 66; TEMP 98.1
== END 2020-06-20 12:01 | disposition home or self-care (01) ==
LOC: J7W 08:20 → JINFUSION 08:20
PROVIDERS: ATTEND Internal Medicine
DX: E11.621 Type 2 diabetes mellitus with foot ulcer (principal); M86.172 Other acute osteomyelitis, left ankle and foot; L97.528 Non-pressure chronic ulcer of other part of left foot with other specified severity; B95.61 Methicillin susceptible Staphylococcus aureus infection as the cause of diseases classified elsewhere
CPT/HCPCS: 96365

== ENCOUNTER 2020-06-21 09:06 | Day surgery (SDC) | payer OTHER ==
[2020-06-21] MEDS ORDERED: CEFTRIAXONE 2 GM in DEXTROSE 5%-WATER 100 ML IVPB ONE (11:00)
[2020-06-21] MEDS ORDERED: DEXTROSE 5%-WATER 100 ML IVPB ONE (11:23)
[2020-06-21 13:24] VITALS: BP 130/86; PULSE 89; TEMP 98
== END 2020-06-21 13:25 | disposition home or self-care (01) ==
LOC: JINFUSION 09:06 → J7W 09:14 → JINFUSION 13:25
PROVIDERS: ATTEND Internal Medicine
DX: E11.621 Type 2 diabetes mellitus with foot ulcer (principal); M86.172 Other acute osteomyelitis, left ankle and foot; L97.528 Non-pressure chronic ulcer of other part of left foot with other specified severity; B95.61 Methicillin susceptible Staphylococcus aureus infection as the cause of diseases classified elsewhere
CPT/HCPCS: 96365

== ENCOUNTER 2020-06-22 08:53 | Day surgery (SDC) | payer OTHER ==
[2020-06-22] MEDS ORDERED: CEFTRIAXONE 2 GM in DEXTROSE 5%-WATER 100 ML IVPB ONE (09:30)
[2020-06-22] MEDS ORDERED: DEXTROSE 5%-WATER 100 ML IVPB ONE (09:32)
[2020-06-22 11:56] VITALS: BP 139/68; PULSE 66; TEMP 98.1
== END 2020-06-22 11:40 | disposition home or self-care (01) ==
LOC: J7W 08:53 → JINFUSION 08:53
PROVIDERS: ATTEND Internal Medicine
DX: E11.621 Type 2 diabetes mellitus with foot ulcer (principal); M86.172 Other acute osteomyelitis, left ankle and foot; L97.528 Non-pressure chronic ulcer of other part of left foot with other specified severity; B95.61 Methicillin susceptible Staphylococcus aureus infection as the cause of diseases classified elsewhere
CPT/HCPCS: 96365

== ENCOUNTER 2020-06-23 08:21 | Day surgery (SDC) | payer OTHER ==
[2020-06-23 08:55] VITALS: TEMP 98.6
[2020-06-23] MEDS ORDERED: DEXTROSE 5%-WATER 100 ML IVPB ONE (08:58)
[2020-06-23 09:00] LABS: HEMOGLOBIN 10.7 GM/dL (11.7-16.9); MCH 29.6 pg (25.7-33.7); MCHC 33.4 g/dl (32.0-35.9); MEAN CELL VOLUME 88.7 fl (80-96); MEAN PLT VOLUME 11.3 fl (7.5-11.1); PLATELET COUNT 121 K/MM3 (134-434); RBC 3.61 M/mm3 (4.00-5.60); RDW 14.5 % (11.9-15.9); WHITE BLOOD COUNT 7.2 K/mm3 (4.0-10.0)
[2020-06-23] MEDS ORDERED: CEFTRIAXONE 2 GM in DEXTROSE 5%-WATER 100 ML IVPB ONE (09:00)
[2020-06-23 09:33] LABS: ALBUMIN 3.1 g/dl (3.4-5.0); BILIRUBIN,TOTAL 0.4 mg/dL (0.2-1); BLOOD UREA NITROGEN 13.2 mg/dL (7-18); CALCIUM 8.9 mg/dL (8.5-10.1); CREATININE 1.7 mg/dL (0.55-1.3); POTASSIUM 4.3 mmol/L (3.5-5.1); TOT PROT 7.2 g/dl (6.4-8.2)
[2020-06-23 09:58] VITALS: BP 148/71; PULSE 64
== END 2020-06-23 10:38 | disposition home or self-care (01) ==
LOC: JINFUSION 08:21 → J7W 08:22 → JINFUSION 10:38
PROVIDERS: ATTEND Internal Medicine
DX: E11.621 Type 2 diabetes mellitus with foot ulcer (principal); M86.172 Other acute osteomyelitis, left ankle and foot; L97.528 Non-pressure chronic ulcer of other part of left foot with other specified severity; B95.61 Methicillin susceptible Staphylococcus aureus infection as the cause of diseases classified elsewhere
CPT/HCPCS: 36415; 80053; 85027; 96365

== ENCOUNTER 2020-06-24 08:04 | Day surgery (SDC) | payer OTHER ==
[2020-06-24] MEDS ORDERED: CEFTRIAXONE 2 GM in DEXTROSE 5%-WATER 100 ML IVPB ONE (08:30)
[2020-06-24] MEDS ORDERED: DEXTROSE 5%-WATER 100 ML IVPB ONE (08:48)
[2020-06-24 09:56] VITALS: BP 133/71; PULSE 74; TEMP 98.1
== END 2020-06-24 11:55 | disposition home or self-care (01) ==
LOC: JINFUSION 08:04 → J7W 08:19 → JINFUSION 11:55
PROVIDERS: ATTEND Internal Medicine
DX: E11.621 Type 2 diabetes mellitus with foot ulcer (principal); M86.172 Other acute osteomyelitis, left ankle and foot; L97.528 Non-pressure chronic ulcer of other part of left foot with other specified severity; B95.61 Methicillin susceptible Staphylococcus aureus infection as the cause of diseases classified elsewhere; L97.521 Non-pressure chronic ulcer of other part of left foot limited to breakdown of skin; E11.21 Type 2 diabetes mellitus with diabetic nephropathy; E11.42 Type 2 diabetes mellitus with diabetic polyneuropathy; E78.00 Pure hypercholesterolemia, unspecified; I10 Essential (primary) hypertension; Z89.422 Acquired absence of other left toe(s); Z79.01 Long term (current) use of anticoagulants; Z79.82 Long term (current) use of aspirin; Z79.4 Long term (current) use of insulin
CPT/HCPCS: 96365; 99406; G0463-25

== ENCOUNTER 2020-06-27 08:36 | Day surgery (SDC) | payer OTHER ==
[2020-06-27] MEDS ORDERED: CEFTRIAXONE 2 GM in DEXTROSE 5%-WATER 100 ML IVPB ONE (09:00)
[2020-06-27] MEDS ORDERED: DEXTROSE 5%-WATER 100 ML IVPB ONE (09:22)
[2020-06-27 09:32] VITALS: TEMP 98.1
[2020-06-27 10:24] VITALS: BP 135/65; PULSE 97
== END 2020-06-27 11:02 | disposition home or self-care (01) ==
LOC: JINFUSION 08:36 → J7W 08:41 → JINFUSION 11:02 → EDSTATUS 18:45
PROVIDERS: ATTEND Internal Medicine
DX: E11.621 Type 2 diabetes mellitus with foot ulcer (principal); L97.528 Non-pressure chronic ulcer of other part of left foot with other specified severity; M86.172 Other acute osteomyelitis, left ankle and foot; B95.61 Methicillin susceptible Staphylococcus aureus infection as the cause of diseases classified elsewhere
CPT/HCPCS: 96365

== ENCOUNTER 2020-06-28 08:30 | Day surgery (SDC) | payer OTHER ==
[2020-06-28] MEDS ORDERED: CEFTRIAXONE 2 GM in DEXTROSE 5%-WATER 100 ML IVPB ONE (09:00)
[2020-06-28] MEDS ORDERED: DEXTROSE 5%-WATER 100 ML IVPB ONE (09:47)
[2020-06-28 12:15] VITALS: BP 117/86; PULSE 78; TEMP 98
== END 2020-06-28 12:15 | disposition home or self-care (01) ==
LOC: JINFUSION 08:30 → J7W 08:30 → JINFUSION 12:15
PROVIDERS: ATTEND Internal Medicine
DX: E11.621 Type 2 diabetes mellitus with foot ulcer (principal); M86.172 Other acute osteomyelitis, left ankle and foot; L97.528 Non-pressure chronic ulcer of other part of left foot with other specified severity; B95.61 Methicillin susceptible Staphylococcus aureus infection as the cause of diseases classified elsewhere
CPT/HCPCS: 96365

== ENCOUNTER 2020-06-29 09:00 | Day surgery (SDC) | payer OTHER ==
[2020-06-29 09:14] VITALS: BP 129/63; PULSE 66; TEMP 98.9
[2020-06-29] MEDS ORDERED: CEFTRIAXONE 2 GM in DEXTROSE 5%-WATER 100 ML IVPB ONE (09:30)
[2020-06-29] MEDS ORDERED: DEXTROSE 5%-WATER 100 ML IVPB ONE (09:36)
== END 2020-06-29 10:20 | disposition home or self-care (01) ==
LOC: JINFUSION 09:00 → J7W 09:00 → JINFUSION 10:20
PROVIDERS: ATTEND Internal Medicine
DX: E11.621 Type 2 diabetes mellitus with foot ulcer (principal); M86.172 Other acute osteomyelitis, left ankle and foot; L97.528 Non-pressure chronic ulcer of other part of left foot with other specified severity; B95.61 Methicillin susceptible Staphylococcus aureus infection as the cause of diseases classified elsewhere
CPT/HCPCS: 96365

== ENCOUNTER 2020-06-30 08:58 | Day surgery (SDC) | payer OTHER ==
[2020-06-30] MEDS ORDERED: DEXTROSE 5%-WATER 100 ML IVPB ONE (09:39)
[2020-06-30] MEDS ORDERED: CEFTRIAXONE 2 GM in DEXTROSE 5%-WATER 100 ML IVPB ONE (09:45)
[2020-06-30 09:49] VITALS: TEMP 98.2
[2020-06-30 10:37] VITALS: BP 143/64; PULSE 64
[2020-06-30 10:55] LABS: HEMATOCRIT 33.3 % (35.4-49); HEMOGLOBIN 11.1 GM/dL (11.7-16.9); MCH 29.5 pg (25.7-33.7); MCHC 33.2 g/dl (32.0-35.9); MEAN CELL VOLUME 88.7 fl (80-96); PLATELET COUNT 132 K/MM3 (134-434); RBC 3.75 M/mm3 (4.00-5.60); RDW 14.8 % (11.9-15.9); WHITE BLOOD COUNT 7.5 K/mm3 (4.0-10.0)
[2020-06-30 11:31] LABS: ALBUMIN 3.1 g/dl (3.4-5.0); BILIRUBIN,TOTAL 0.4 mg/dL (0.2-1); BLOOD UREA NITROGEN 15.4 mg/dL (7-18); CALCIUM 8.4 mg/dL (8.5-10.1); CREATININE 1.8 mg/dL (0.55-1.3); POTASSIUM 4.5 mmol/L (3.5-5.1); TOT PROT 7.4 g/dl (6.4-8.2)
== END 2020-06-30 10:39 | disposition home or self-care (01) ==
LOC: JINFUSION 08:58 → J7W 09:28 → JINFUSION 10:39
PROVIDERS: ATTEND Internal Medicine
DX: E11.621 Type 2 diabetes mellitus with foot ulcer (principal); M86.172 Other acute osteomyelitis, left ankle and foot; L97.528 Non-pressure chronic ulcer of other part of left foot with other specified severity; B95.61 Methicillin susceptible Staphylococcus aureus infection as the cause of diseases classified elsewhere
CPT/HCPCS: 36415; 80053; 85027; 96365

== ENCOUNTER 2020-07-01 08:14 | Day surgery (SDC) | payer OTHER ==
[2020-07-01] MEDS ORDERED: CEFTRIAXONE 2 GM in DEXTROSE 5%-WATER 100 ML IVPB ONE (08:45)
[2020-07-01] MEDS ORDERED: DEXTROSE 5%-WATER 100 ML IVPB ONE (08:48)
[2020-07-01 09:56] VITALS: BP 133/76; PULSE 78; TEMP 98
== END 2020-07-01 12:11 | disposition home or self-care (01) ==
LOC: JINFUSION 08:14 → J7W 08:16 → JINFUSION 12:11
PROVIDERS: ATTEND Internal Medicine
DX: E11.621 Type 2 diabetes mellitus with foot ulcer (principal); M86.172 Other acute osteomyelitis, left ankle and foot; L97.528 Non-pressure chronic ulcer of other part of left foot with other specified severity; B95.61 Methicillin susceptible Staphylococcus aureus infection as the cause of diseases classified elsewhere
CPT/HCPCS: 96365

== ENCOUNTER → 2020-07-03 | Day surgery (SDC) | payer OTHER | END | disposition home or self-care (01) | LOC: JRADIR 09:00 | PROVIDERS: ATTEND Internal Medicine | PROC: 02PY03Z Removal of Infusion Device from Great Vessel, Open Approach (ICD-10-PCS; principal; 2020-07-03) | DX: Z45.2 Encounter for adjustment and management of vascular access device (principal) | CPT/HCPCS: 36589 ==

== ENCOUNTER 2020-07-17 16:09 | Inpatient (IN) | payer OTHER ==
--- NOTE | 2020-07-17 16:15 | PDOC ---
History of Present Illness - General Chief Complaint: Bleeding from PICC Line Stated Complaint: CHEST PAIN Time Seen by Provider: 07/17/20 16:13 - History of Present Illness Initial Comments: 07/17/20 16:21 74 y/o M hx of IDDM, HTN,HLD, CAD, presents to the ED with RUQ pain which began a few hours ago while he was sitting down. Patient last ate in the a.m and did not have any lunch. He reports 5/10 intermittent pain which radiates to the right side of his chest. Exacerbated by movement. He denies any fevers, chills, nausea, vomiting, flank pain, dysuria, hematuria, shortness of breath, He endorses diarrhea (non-bloody soft stools) which have been going on for the last 4 months. PMHx: as noted above ROS: as noted Allergies: NKDA ROS: GENERAL/CONSTITUTIONAL: No fever or chills. No weakness. HEAD, EYES, EARS, NOSE AND THROAT: No change in vision. No ear pain or discharge. No sore throat. CARDIOVASCULAR: No chest pain or shortness of breath RESPIRATORY: No cough, wheezing, or hemoptysis. GASTROINTESTINAL: No nausea, vomiting, diarrhea or constipation. GENITOURINARY: No dysuria, frequency, or change in urination. MUSCULOSKELETAL: No joint or muscle swelling or pain. No neck or back pain. SKIN: No rash NEUROLOGIC: No headache, vertigo, loss of consciousness, or change in strength/sensation. ENDOCRINE: No increased thirst. No abnormal weight change GENERAL: no acute distress HEAD: normocephalic, atraumatic EYE: PERRLA, EOMI, sclera anicteric, conjunctiva clear ENT: Auricles normal inspection, hearing grossly normal, nares patent, oropharynx clear without exudates. Moist mucosa NECK: Normal ROM, supple, no lymphadenopathy, JVD, or masses LUNGS: No distress, speaks full sentences, clear to auscultation bilaterally HEART: Regular rate and rhythm, normal S1 and S2, no murmurs, rubs or gallops, peripheral pulses normal and equal bilaterally. ABDOMEN: Soft, ttp in RUQ, normoactive bowel sounds. No guarding, no rebound. No masses EXTREMITIES : Normal inspection, Normal range of motion, no edema. No clubbing or cyanosis NEUROLOGICAL: Cranial nerves II through XII grossly intact. Normal speech, normal gait, no focal sensorimotor deficits SKIN: Warm, Dry, normal turgor, no rashes or lesions noted MDM DDx including but not limited to: cholelithiasis, cholecystitis, pancreatitis, acs, Workup: labs, ekg, chest x-ray, RUQ ultrasound. TX: tylenol Scores - HEART score - EKG: normal sinus rhythm, HR 70bpm, MD 194 ms, QRS 106 ms, QTc 425ms. sinus rhythm with occasional pvc's. twi v5, v5, II,III -previous ekg 05/2020: NSR, IRBBB, old anterior and inferior infarct ultrasound: cholelithiasis with moderate amount of bile/sludge boderline gallbladder wall thickness (anterior gallbladder wall 0.27cm) no definite biliary tract dilatation if clinical concern for acute cholecystitis, additional evaluation with mri/mrcp/hida scan may be done. diffuse hepatic steatosis ED course LFT's wnl, hypoglycemic 48, pt alert and oriented consult with Dr. Mary per Dr. Rodriguez, admit for surgical clearance might get surgery tommorrow. given juice. meds: Re-assessment: Pt resting, reports improvement in his pain. Past History - Medical History Allergies/Adverse Reactions: Allergies Allergy/AdvReac Type Severity Reaction Status Date / Time No Known Allergies Allergy Verified 07/17/20 16:20 Home Medications: Ambulatory Orders Multivitamins [Multivit ([facility] Formulary)] 1 udtab PO DAILY #0 tab 01/02/13 Lisinopril [Prinivil] 20 mg PO BID 05/10/16 metFORMIN HCL [Metformin HCl] 1,000 mg PO BID 12/02/16 Amlodipine Besylate [Norvasc -] 10 mg PO DAILY #30 tablet 12/10/16 Atorvastatin Ca [Lipitor] 40 mg PO HS #30 tablet 12/10/16 Carvedilol [Coreg -] 25 mg PO BID #30 tablet 12/10/16 Clopidogrel Bisulfate [Plavix -] 75 mg PO DAILY #30 tablet 12/10/16 hydrALAZINE HCL [Apresoline -] 25 mg PO BID #30 tablet 12/10/16 Aspirin 81 mg PO DAILY 05/19/20 Gabapentin 100 mg PO BID 05/19/20 Insulin (Levemir) [Levemir Flexpen -] 15 units SQ HS 05/19/20 Famotidine 20 mg PO BID 07/17/20 Insulin (Levemir) [Levemir Vial] 25 unit SQ DAILY 07/18/20 Anemia: No Asthma: No Cancer: No Cardiac Disorders: Yes (CABG) CVA: No COPD: No CHF: No Dementia: No Diabetes: Yes (IDDM) GI Disorders: No Disorders: Yes (KIDNEY STONES) HTN: Yes Hypercholesterolemia: Yes Seizures: No Thyroid Disease: No - Surgical History Abdominal Surgery: No Appendectomy: No Cardiac Surgery: Yes (stent,diffibrilator,bypass CABG) Cholecystectomy: No Lung Surgery: No Neurologic Surgery: No Orthopedic Surgery: No (LEFT FT - 4TH TOE AMPUTATION - 5 YRS AGO) - Psycho-Social/Smoking History Smoking Status: Yes Smoking History: Current every day smoker Have you smoked in the past 12 months: Yes Number of Cigarettes Smoked Daily: 0 Cigars Per Day: 2 'Breaking Loose' booklet given: 05/10/16 ED Treatment Course - LABORATORY CBC & Chemistry Diagram: 07/19/20 07:05 07/19/20 07:05 Discharge - Discharge Information Problems reviewed: Yes Clinical Impression/Diagnosis: Abdominal pain Condition: Good - Follow up/Referral - Patient Discharge Instructions - Post Discharge Activity
[2020-07-17] MEDS ORDERED: ACETAMINOPHEN 1000 MG/100 ML VIAL (NON FORMULARY) IVPB ONE (16:38)
[2020-07-17] MEDS ORDERED: ACETAMINOPHEN INJECTION 100 ML IVPB ONE (16:46)
[2020-07-17 18:15] LABS: BASO % 0.2 % (0-2.0); EOS % 1.9 % (0-4.5); HEMOGLOBIN 10.3 GM/dL (11.7-16.9); LYMPH % 12.8 % (8-40); MCHC 33.2 g/dl (32.0-35.9); MEAN CELL VOLUME 87.5 fl (80-96); MEAN PLT VOLUME 12.1 fl (7.5-11.1); MONO % 8.6 % (3.8-10.2); NEUT % 76.5 % (42.8-82.8); PLATELET COUNT 155 K/MM3 (134-434); RBC 3.54 M/mm3 (4.00-5.60); RDW 14.4 % (11.9-15.9); WHITE BLOOD COUNT 8.7 K/mm3 (4.0-10.0)
[2020-07-17] MEDS ORDERED: SODIUM CHLORIDE 0.9% 500 ML INFUS.BAG IV ONE (18:41)
--- NOTE | 2020-07-17 18:48 | PDOC ---
Documentation entered by Olivia Brown SCRIBE, acting as scribe for Britton Rodriguez MD. Britton Rodriguez MD: This documentation has been prepared by the Stephanie dooley Xhesika, SCRIBE, under my direction and personally reviewed by me in its entirety. I confirm that the documentation accurately reflects all work, treatment, procedures, and medical decision making performed by me. Attending Attestation - Resident Resident Name: [email or web address] - ED Attending Attestation I have performed the following: I have examined & evaluated the patient, The case was reviewed & discussed with the resident, I agree w/resident's findings & plan, Exceptions are as noted - HPI HPI: 07/17/20 17:36 The patient is a 74y/o Male with a PMH of IDDM, HTN, HLD, CAD (blood thinners), and chronic left foot wound who presents to the ED for sudden onset RUQ pain and distention. Pt states his last BM was this morning. The patient denies chest pain, shortness of breath, and dizziness. Denies fever, chills, cough, nausea, vomiting, and constipation. Denies dysuria, frequency, urgency and hematuria. Allergies: NKDA PCP: Negro Newell - Physicial Exam PE: 07/17/20 18:24 Vitals: Triage Vital signs reviewed General Appearance: no acute distress, well nourished well developed, Chest Wall: Nontender Cardiac: Regular rate and rhythm, no murmurs, no rubs, no gallops, Lungs: Clear to auscultation bilateral, good air movement bilaterally, Abdomen: +RUQ abdominal pain TTP. +distended. normal bowel sounds, nontender to palpation Extremities: Full range of motion to all extremities, no cyanosis, clubbing, or edema Skin: Warm and dry, no rashes or lesions, no petechiae - Medical Decision Making 07/17/20 18:49 The patient is a 74y/o Male with a PMH of IDDM, HTN, HLD, CAD (blood thinners), and chronic left foot wound p/w RUQ pain US shows possible Cholecystitis. Pain improving Will admit for HIDA scan for further evaluation surgical consultation Discharge - Discharge Information Problems reviewed: Yes Clinical Impression/Diagnosis: Abdominal pain - Follow up/Referral Referrals: Negro Strauss [Primary Care Provider] - - Patient Discharge Instructions - Post Discharge Activity
[2020-07-17 18:50] LABS: ALK PHOS 123 U/L (45-117); ANION GAP 9 MMOL/L (8-16); BILIRUBIN,TOTAL 0.6 mg/dL (0.2-1); BLOOD UREA NITROGEN 16.2 mg/dL (7-18); CALCIUM 8.4 mg/dL (8.5-10.1); CHLORIDE 111 mmol/L (98-107); CO2 22 mmol/L (21-32); CREATININE 1.6 mg/dL (0.55-1.3); LIPASE 122 U/L (73-393); POTASSIUM 3.8 mmol/L (3.5-5.1); SGOT/AST 27 U/L (15-37); SGPT/ALT 20 U/L (13-61); SODIUM 141 mmol/L (136-145); TOT PROT 7.2 g/dl (6.4-8.2)
[2020-07-17 18:51] LABS: GLUCOSE,RANDOM 48 mg/dL (74-106)
[2020-07-17] MEDS ORDERED: CEFTRIAXONE 1,000 MG in DEXTROSE 5%-WATER - 50 ML IVPB ONE (19:08)
[2020-07-17] MEDS ORDERED: DEXTROSE 50%-WATER - 25 GM/50 ML VIAL IVPUSH ONE (19:41)
--- NOTE | 2020-07-17 20:43 | PN ---
Teaching Attending Note Name of Resident: Naren Sampson ATTENDING PHYSICIAN STATEMENT I saw and evaluated the patient. I reviewed the resident's note and discussed the case with the resident. I agree with the resident's findings and plan as documented. SUBJECTIVE: 74yoM with history of HTN, HLD, CAD s/p CABG, s/p AICD, CVA with residual right sided weakness, and T2DM on insulin who presents with acute onset RUQ pain. Patient reports he has been in his usual state of health but this afternoon developed sudden RUQ pain described as aching. Initially attributed it to gas but the pain progressively worsened. He saw the nurse at his assisted living facility who recommended he come to the ED. Denies vomiting, diarrhea, fever/chills. Patient notes he has not seen a software design analyst in about 5 years and believes his AICD battery may need to be replaced. Patient was afebrile and hemodynamically stable in the ED, labs notable for creatinine 1.6, glucose 48. WBC within normal. RUQ US showed cholelithiasis, moderate amount of bile/sludge within the gallbladder, and borderline gallbladder wall thickness. Patient was able to tolerate some juice. At time of evaluation he has no acute complaints. ED consulted surgery, Dr. Mary. ROS: (+) abd pain (-) chest pain, palpitations, SOB, fever/chills OBJECTIVE: Vital Signs - 24 hr 07/17/20 07/17/20 16:21 20:29 Temperature 97.6 F 97.4 F L Pulse Rate 75 Pulse Rate [ 74 Right Radial] Respiratory 18 Rate Blood Pressure 162/75 Blood Pressure 147/81 [Left Arm] O2 Sat by Pulse 98 98 Oximetry (%) Exam: Gen: awake, alert, NAD HEENT: anicteric sclera CV: RRR, no MRG appreicated Resp: CTAB, unlabored breathing Abd: Soft, nontender, nondistended. +bowel sounds throughout Ext: No edema Laboratory Results - last 24 hr 07/17/20 07/17/20 07/17/20 17:00 17:00 22:42 WBC 8.7 RBC 3.54 L Hgb 10.3 L Hct 31.0 L MCV 87.5 MCH 29.0 MCHC 33.2 RDW 14.4 Plt Count 155 MPV 12.1 H Absolute Neuts (auto) 6.7 Neutrophils % 76.5 Lymphocytes % 12.8 D Monocytes % 8.6 Eosinophils % 1.9 Basophils % 0.2 Nucleated RBC % 0 Sodium 141 Potassium 3.8 Chloride 111 H Carbon Dioxide 22 Anion Gap 9 BUN 16.2 Creatinine 1.6 H Est GFR (CKD-EPI)AfAm 48.81 Est GFR (CKD-EPI)NonAf 42.11 POC Glucometer 156 Random Glucose 48 L* Calcium 8.4 L Total Bilirubin 0.6 AST 27 ALT 20 Alkaline Phosphatase 123 H Creatine Kinase < 7 L Troponin I < 0.02 Total Protein 7.2 Albumin 3.0 L Lipase 122 Imaging reviewed in chart ASSESSMENT AND PLAN: 74yoM with history of HTN, HLD, CAD s/p CABG, s/p AICD, CVA with residual right sided weakness, and T2DM on insulin who presents with acute onset RUQ pain found to have gallbladder stones and sludge with possible cholecystitis. Cholelithiasis, r/o cholecystitis Presented with RUQ pain which has since resolved Work up thus far equivocal for acute cholecystitis Patient is moderate to high risk for surgery (RCRI = 3); given patient was lost to f/u with cardiology for several years, would recommend clearance from cardiology if surgery is indicated - NPO - HIDA - Surgical consult appreciated Hypoglycemia; T2DM on insulin Last dose of levemir was 9/3 in AM, has not had much to eat since then Asymptomatic despite glucose 48; tolerated juice in ED and also received 25g dextrose - POC glucose q6h while NPO - ISS - hold home metformin - half home dose levemir while NPO Chronic, stable: h/o CVA, CAD: holding Plavix pending decision re surgery, please resume when able HTN: continue home amlodipine, hydralazine, lisinopril DVT ppx: SCD pending possible procedure
[2020-07-17] MEDS ORDERED: CEFTRIAXONE 1 GM/50 ML BAG ONE (21:02)
[2020-07-17] MEDS ORDERED: DEXTROSE 50%-WATER 25 GM/50 ML DISP.SYRIN ONE (21:09)
[2020-07-17] MEDS ORDERED: MORPHINE SULFATE 2 MG/ML VIAL IVPUSH PRN (22:43)
[2020-07-17] MEDS ORDERED: ACETAMINOPHEN 1000 MG/100 ML VIAL (NON FORMULARY) IVPB PRN (22:43)
[2020-07-18] MEDS: INSULIN SLIDING SCALE (NOVOLOG) 1 VIAL SQ SCH ×5 (00:49→21:45)
--- NOTE | 2020-07-18 03:20 | HP ---
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 At 15:30 while laying down, had sudden gas pocket 9/10 pain. Did not have lunch. Pain was worse with movement. Pain is now nearly resolved after ED pain medications. Had similar pain in the past, calling it a gastric attack with bloating abd to RUQ pain; 10ys prior. Denies recalling having a HIDA in the past. Denies jaundice, scleral icterus, N, V. Has been having diarrhea x6-8mo, 4-5x/daily, w/ occasional fecal incontinence in the morning. Lives Assisted Living Facility, gets help getting medication administration but otherwise performs ADLs independently. Denies kidney disease, had football-related kidney injury at 17y/o. Hasnt seen his [facility] sales consultant in a "long time". Has upcoming Podiatry appointment for orthodotic adjustment. 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 ER course was notable for: -Tmax 97.6F, HR 75, 162/75, 18, 98 -WBC 8.7(neutorphils 76.5%) -Cr 1.6(baseline 1.5?) -US RUQ: cholelithiasis, mod amount of inspissated bile/sludge w/in GB. GB wall thickness(0.27cm) is borderline. CBD 0.5cm -Mary contacted -NS 500ml, ofirmev, ceftriaxone, flagyl Recent Travel: none PAST MEDICAL HISTORY: denies PAST SURGICAL HISTORY: -triple bypass(8ys prior) -cardiac stent([facility], 8ys prior) -toe amputations(2nd digit of Right foot, 2nd digit of Left foot) Social History: Smoking: Smokes 1-2cigars from 7ys prior. (smoked 2-3ppd from 16 -24y/o) Alcohol: occasional wine w/ dinner Drugs: denies Allergies No Known Allergies Allergy (Verified 07/17/20 16:20) HOME MEDICATIONS: Home Medications Medication Instructions Recorded Multivitamins [Multivit ([facility] 1 udtab PO DAILY #0 tab 01/02/13 Formulary)] Lisinopril [Prinivil] 20 mg PO BID 05/10/16 metFORMIN HCL [Metformin HCl] 1,000 mg PO BID 12/02/16 Amlodipine Besylate [Norvasc -] 10 mg PO DAILY #30 tablet 12/10/16 Atorvastatin Ca [Lipitor] 40 mg PO HS #30 tablet 12/10/16 Carvedilol [Coreg -] 25 mg PO BID #30 tablet 12/10/16 Clopidogrel Bisulfate [Plavix -] 75 mg PO DAILY #30 tablet 12/10/16 hydrALAZINE HCL [Apresoline -] 25 mg PO BID #30 tablet 12/10/16 Aspirin 81 mg PO DAILY 05/19/20 Gabapentin 100 mg PO BID 05/19/20 Insulin (Levemir) [Levemir Flexpen 15 units SQ HS 05/19/20 -] Famotidine 20 mg PO BID 07/17/20 REVIEW OF SYSTEMS CONSTITUTIONAL: Absent: fever, chills, diaphoresis, generalized weakness, malaise, loss of appetite, weight change HEENT: Absent: rhinorrhea, nasal congestion, throat pain, throat swelling, difficulty swallowing, mouth swelling, ear pain, eye pain, visual changes CARDIOVASCULAR: Absent: chest pain, syncope, palpitations, irregular heart rate, lightheadedness, peripheral edema RESPIRATORY: Absent: cough, shortness of breath, dyspnea with exertion, orthopnea, wheezing, stridor, hemoptysis GASTROINTESTINAL: Right-sided abd pain, diarrhea Absent: abdominal distension, nausea, vomiting, constipation, melena, hematochezia GENITOURINARY: Absent: dysuria, frequency, urgency, hesitancy, hematuria, flank pain, genital pain MUSCULOSKELETAL: Absent: myalgia, arthralgia, joint swelling, back pain, neck pain SKIN: Absent: rash, itching, pallor HEMATOLOGIC/IMMUNOLOGIC: Absent: easy bleeding, easy bruising, lymphadenopathy, frequent infections ENDOCRINE: Absent: unexplained weight gain, unexplained weight loss, heat intolerance, cold intolerance NEUROLOGIC: Absent: headache, focal weakness or paresthesias, dizziness, unsteady gait, seizure, mental status changes, bladder or bowel incontinence PSYCHIATRIC: Absent: anxiety, depression, suicidal or homicidal ideation, hallucinations. PHYSICAL EXAMINATION Vital Signs - 24 hr 07/17/20 07/17/20 16:21 20:29 Temperature 97.6 F 97.4 F L Pulse Rate 75 Pulse Rate [ 74 Right Radial] Respiratory 18 Rate Blood Pressure 162/75 Blood Pressure 147/81 [Left Arm] O2 Sat by Pulse 98 98 Oximetry (%) GENERAL: Awake, alert, and fully oriented, in no acute distress. HEAD: NC/AT EYES: Right eye with diminished vision of the lower field EARS, NOSE, THROAT: Ears normal, nares patent, oropharynx clear without exudates. Moist mucous membranes. NECK: Normal range of motion, supple without lymphadenopathy, JVD, or masses. LUNGS: Breath sounds equal, mildly coarse BS bilaterally. No wheezes, and no crackles. No accessory muscle use. HEART: Regular rate and rhythm, normal S1 and S2 without murmur, rub or gallop. ABDOMEN: Protuberant abd. Upper abdominal incisional scars(likely from Chest tubes post CABG). Soft, nontender, not distended, no guarding, no rebound. Neg Yost's sign MUSCULOSKELETAL: Normal range of motion at all joints. No bony deformities or tenderness. No CVA tenderness. UPPER EXTREMITIES: 2+ pulses, warm, well-perfused. No cyanosis. No clubbing. No peripheral edema. LOWER EXTREMITIES: 2+ pulses, warm, well-perfused. No calf tenderness. No peripheral edema. NEUROLOGICAL: Cranial nerves II-XII intact. Normal speech. Laboratory Results - last 24 hr 07/17/20 07/17/20 07/17/20 17:00 17:00 22:42 WBC 8.7 RBC 3.54 L Hgb 10.3 L Hct 31.0 L MCV 87.5 MCH 29.0 MCHC 33.2 RDW 14.4 Plt Count 155 MPV 12.1 H Absolute Neuts (auto) 6.7 Neutrophils % 76.5 Lymphocytes % 12.8 D Monocytes % 8.6 Eosinophils % 1.9 Basophils % 0.2 Nucleated RBC % 0 Sodium 141 Potassium 3.8 Chloride 111 H Carbon Dioxide 22 Anion Gap 9 BUN 16.2 Creatinine 1.6 H Est GFR (CKD-EPI)AfAm 48.81 Est GFR (CKD-EPI)NonAf 42.11 POC Glucometer 156 Random Glucose 48 L* Calcium 8.4 L Total Bilirubin 0.6 AST 27 ALT 20 Alkaline Phosphatase 123 H Creatine Kinase < 7 L Troponin I < 0.02 Total Protein 7.2 Albumin 3.0 L Lipase 122 ASSESSMENT/PLAN: 74M w/ pmh of Lefthandedness, IDDM, HTN,HLD, CAD(3vCABG), AICD(checked 4ys prior), h/o chronic Left foot wound(h/o OM sp IV abx for 6wks w/ tunneled catheter removed on 07/03/20), CVA(residual Right-sided seed technician weakness, Right sided vision deficit--cant seen lower field) was BIBA from [facility] for evaluation of pain down Right side of abdomen. Examine by ED reportedly with RUQ tenderness, which has resolved with my examination. HD stable. WBC 8.7. No sepsis. Imaging showing borderline GB wall thickeness(0.27cm). Findings were equivocal for an acute cholecystitis, but admitted for possible chronic cholecystitis vs biliary colic. #RUQ pain --possibly 2/2 chronic cholecystitis vs biliary colic >Tmax 97.6F, HR 75, 162/75 >WBC 8.7(neutorphils 76.5%) >US RUQ: cholelithiasis, mod amount of inspissated bile/sludge w/in GB. GB wall thickness(0.27cm) is borderline. CBD 0.5cm -pt has had past neg HIDA(05/31/16) >HIDA --pending -IV abx regimen: --ED: sp ceftriaxone + flagyl --ceftriaxone + flagyl -pain regimen: --ofirmev PRN, morphine PRN -Surgery consult(Tyra): --recs pending #CKD >Cr 1.6(baseline 1.5?) -mIVF #IDDM -holding home insulin regimen as pt came in hypoglycemic -ISS #HTN -cw lisinopril, norvasc, coreg #CAD -holding plavix, in case of procedure(Surgery?) -RCRI ~4: 15%, 30d risk of significant mortaility #h/o CVA -cw atorvastatin FEN -NS @75 -NPO for HIDA DVT PPX: -SCDs(in case of procedure) Family Medical History Family History: As Documented Family Hx Diabetes: Father, Brother Visit type - Medication Review Med list reviewed for High Risk Meds patients 65 and older: Yes - Emergency Visit Emergency Visit: Yes ED Registration Date: 07/17/20 Care time: The patient presented to the Emergency Department on the above date and was hospitalized for further evaluation of their emergent condition. - New Patient This patient is new to me today: Yes Date on this admission: 07/20/20 - Critical Care Critical Care patient: No ATTENDING PHYSICIAN STATEMENT I saw and evaluated the patient. I reviewed the resident's note and discussed the case with the resident. I agree with the resident's findings and plan as documented. SUBJECTIVE: OBJECTIVE: ASSESSMENT AND PLAN:
[2020-07-18] MEDS ORDERED: ALBUTEROL SO4 HFA INHALER IH PRN (04:13)
--- NOTE | 2020-07-18 04:13 | PDOC ---
*Physical Exam - Vital Signs Last Vital Signs Temp Pulse Resp BP Pulse Ox 97.5 F L 84 19 151/68 98 07/18/20 03:14 07/18/20 03:14 07/18/20 03:14 07/18/20 03:14 07/18/20 03:14 - Physical Exam Sign out was given. Called Dr. Mary. NPO, fluid, antibiotic. Admitted for cholecystitis and early cholecystectomy early in the morning. ED Treatment Course - LABORATORY CBC & Chemistry Diagram: 07/17/20 17:00 07/17/20 17:00 - ADDITIONAL ORDERS Additional order review: Laboratory Results 07/17/20 17:00 Sodium 141 Potassium 3.8 Chloride 111 H Carbon Dioxide 22 Anion Gap 9 BUN 16.2 Creatinine 1.6 H Est GFR (CKD-EPI)AfAm 48.81 Est GFR (CKD-EPI)NonAf 42.11 Random Glucose 48 L* Calcium 8.4 L Total Bilirubin 0.6 AST 27 ALT 20 Alkaline Phosphatase 123 H Creatine Kinase < 7 L Troponin I < 0.02 Total Protein 7.2 Albumin 3.0 L Lipase 122 07/17/20 17:00 RBC 3.54 L MCV 87.5 MCHC 33.2 RDW 14.4 MPV 12.1 H Neutrophils % 76.5 Lymphocytes % 12.8 D Monocytes % 8.6 Eosinophils % 1.9 Basophils % 0.2 - Medications Given in the ED: ED Medications Discontinued Medications Generic Name Dose Route Start Last Admin Trade Name Freq PRN Reason Stop Dose Admin Acetaminophen 1,000 mg 07/17/20 16:38 07/17/20 17:03 Ofirmev Injection - IVPB 07/17/20 16:39 1,000 mg ONCE ONE Administration Dextrose 25 gm 07/17/20 19:41 07/17/20 21:01 D50w (Vial) - IVPUSH 07/17/20 19:42 25 gm NOW ONE Administration Metronidazole 500 mg in 100 mls @ 100 mls/hr 07/17/20 19:08 07/17/20 21:01 Flagyl 500mg Premixed Ivpb - IVPB 07/17/20 20:07 100 mls/hr ONCE ONE Administration Ceftriaxone Sodium 1,000 mg/ 50 mls @ 100 mls/hr 07/17/20 19:08 07/17/20 21:08 Dextrose IVPB 07/17/20 19:37 100 mls/hr ONCE ONE Administration Sodium Chloride 500 ml 07/17/20 18:41 07/17/20 18:51 Normal Saline - IV 07/17/20 18:42 500 ml ONCE ONE Administration Discharge - Discharge Information Problems reviewed: Yes Clinical Impression/Diagnosis: Abdominal pain Condition: Good - Follow up/Referral - Patient Discharge Instructions - Post Discharge Activity
[2020-07-18 04:19] LABS: INR 1.39 (0.83-1.09); PROTHROMBIN TIME (PATIENT) 16.5 SEC (9.7-13.0)
[2020-07-18 04:21] LABS: ACTIVATED PTT 25.6 SECONDS (25.2-36.5)
[2020-07-18] MEDS: SODIUM CHLORIDE 1,000 ML IV SCH (05:39)
[2020-07-18 06:16] LABS: HEMATOCRIT 28.1 % (35.4-49); HEMOGLOBIN 9.4 GM/dL (11.7-16.9); MCH 28.9 pg (25.7-33.7); MCHC 33.4 g/dl (32.0-35.9); MEAN CELL VOLUME 86.5 fl (80-96); MEAN PLT VOLUME 11.7 fl (7.5-11.1); PLATELET COUNT 139 K/MM3 (134-434); RBC 3.24 M/mm3 (4.00-5.60); RDW 13.9 % (11.9-15.9); WHITE BLOOD COUNT 7.5 K/mm3 (4.0-10.0)
[2020-07-18 06:40] LABS: ALBUMIN 2.7 g/dl (3.4-5.0); BILIRUBIN,TOTAL 0.5 mg/dL (0.2-1); BLOOD UREA NITROGEN 15.8 mg/dL (7-18); CALCIUM 7.9 mg/dL (8.5-10.1); CREATININE 1.4 mg/dL (0.55-1.3); MAGNESIUM 1.5 mg/dL (1.8-2.4); POTASSIUM 3.9 mmol/L (3.5-5.1); TOT PROT 6.4 g/dl (6.4-8.2)
--- NOTE | 2020-07-18 09:23 | CON.CARD ---
Consult Consult Specialty:: Cardiology Referred by:: SCARLETT Reeves Reason for Consultation:: Pre-op CV evaluation, ischemic cardiomyopathy - History of Present Illness Chief Complaint: RUQ pain History of Present Illness: Patient is a 74 year old male with underlying history of CAD s/p PCI/stent ([facility]) and CABG (02/23/10 JONES->L[facility], SVG-PDA, SVG->[facility]), Jose Sci/Guidant ICD implantation 02/28/2010 for inducible VT (last check 02/26/2016!) for ischemic cardiomyopathy and VT/VF, CVA with right residual defi cit, HTN, hypercholesterolemia, T2DM, left foot osteomyelitis followed at wound care who presents with acute onset RUQ pain. Initially attributed it to gas but the pain progressively worsened. He saw the nurse at his assisted living facility who recommended he come to the ED. Denies vomiting, diarrhea, fever/chills. Patient notes he has not seen a gallery host since 2015, has poor insight to his condition and believes his AICD battery may need to be replaced. Regarding CV symptoms, he denies chest pain, dyspnea, near or true syncope, palpitations, orthopnea, PND, LE edema, ICD discharge or change in exercise capacity. Patient was afebrile and hemodynamically stable in the ED, labs notable for creatinine 1.6, glucose 48. WBC within normal. RUQ US showed cholelithiasis, moderate amount of bile/sludge within the gallbladder, and borderline gallbladder wall thickness. Patient was able to tolerate some juice. At time of evaluation he has no acute complaints, RUQ pain improved. - History Source History Provided By: Patient Limitations to Obtaining History: No Limitations - Past Medical History Cardio/Vascular: Yes: CAD, HTN, Hyperlipdemia, Other (CABG, PCI/stent) Endocrine: Yes: Diabetes Mellitus - Past Surgical History Past Surgical History: Yes: AICD, Amputation (Toe amputation), CABG - Alcohol/Substance Use Hx Alcohol Use: Yes (social) - Smoking History Smoking history: Current every day smoker Have you smoked in the past 12 months: Yes Aproximately how many cigarettes per day: 0 Home Medications - Allergies Allergies/Adverse Reactions: Allergies Allergy/AdvReac Type Severity Reaction Status Date / Time No Known Allergies Allergy Verified 07/17/20 16:20 - Home Medications Home Medications: Ambulatory Orders Multivitamins [Multivit ([facility] Formulary)] 1 udtab PO DAILY #0 tab 01/02/13 Lisinopril [Prinivil] 20 mg PO BID 05/10/16 metFORMIN HCL [Metformin HCl] 1,000 mg PO BID 12/02/16 Amlodipine Besylate [Norvasc -] 10 mg PO DAILY #30 tablet 12/10/16 Atorvastatin Ca [Lipitor] 40 mg PO HS #30 tablet 12/10/16 Carvedilol [Coreg -] 25 mg PO BID #30 tablet 12/10/16 Clopidogrel Bisulfate [Plavix -] 75 mg PO DAILY #30 tablet 12/10/16 hydrALAZINE HCL [Apresoline -] 25 mg PO BID #30 tablet 12/10/16 Aspirin 81 mg PO DAILY 05/19/20 Gabapentin 100 mg PO BID 05/19/20 Insulin (Levemir) [Levemir Flexpen -] 15 units SQ HS 05/19/20 Famotidine 20 mg PO BID 07/17/20 Insulin (Levemir) [Levemir Vial] 25 unit SQ DAILY 07/18/20 Family Medical History Family Hx Diabetes: Father, Brother Review of Systems - Review of Systems Gastrointestinal: reports: Abdominal Pain Vital Signs: Vital Signs Temperature 99.2 F 07/18/20 06:59 Pulse Rate 75 07/18/20 06:59 Respiratory Rate 20 07/18/20 06:59 Blood Pressure 138/66 07/18/20 06:59 O2 Sat by Pulse Oximetry (%) 98 07/18/20 06:59 Constitutional: Yes: No Distress, Calm Neck: Yes: Supple Respiratory: Yes: Regular, CTA Bilaterally Gastrointestinal: Yes: Soft, Hypoactive Bowel Sounds Cardiovascular: Yes: Regular Rate and Rhythm JVD: No Carotid Bruit: No Heart Sounds: Yes: S1, S2 Murmur: Yes: Systolic Murmur, Grade 1 Edema: No - Other Data Labs, Other Data: CBC, BMP 07/18/20 05:25 07/18/20 05:25 INR, PTT INR 1.39 (0.83-1.09) H 07/18/20 03:38 Troponin, BNP 07/17/20 17:00 Troponin I < 0.02 Troponin, BNP 07/17/20 17:00 Troponin I < 0.02 NSR @ 70 anterior infarct with PVC Echo: Report Reviewed Prior Cardiac Procedures: CABG, PTCA with Stent Ejection Fraction %: LVEF > or = 40 % Imaging - Results Chest X-ray: Report Reviewed (Left base ATX) Problem List - Problems (1) Acute cholecystitis due to biliary calculus Code(s): K80.00 - CALCULUS OF GALLBLADDER W ACUTE CHOLECYST W/O OBSTRUCTION (2) Pre-operative cardiovascular examination Code(s): Z01.810 - ENCOUNTER FOR PREPROCEDURAL CARDIOVASCULAR EXAMINATION (3) CAD (coronary artery disease) Code(s): I25.10 - ATHSCL HEART DISEASE OF [place] CORONARY ARTERY W/O ANG PCTRS Qualifiers: Coronary Disease-Associated Artery/Lesion type: [place] artery [place] vs. transplanted heart: [place] heart Associated angina: without angina Qualified Code(s): I25.10 - Atherosclerotic heart disease of [place] coronary artery without angina pectoris (4) Diabetes mellitus Code(s): E11.9 - TYPE 2 DIABETES MELLITUS WITHOUT COMPLICATIONS Qualifiers: Diabetes mellitus type: type 2 Diabetes mellitus complication status: with circulatory complication Diabetes mellitus complication detail: with peripheral angiopathy with gangrene (5) Diabetic foot ulcer Code(s): E11.621 - TYPE 2 DIABETES MELLITUS WITH FOOT ULCER; L97.509 - NON- PRESSURE CHRONIC ULCER OTH PRT UNSP FOOT W UNSP SEVERITY Qualifiers: Diabetic foot ulcer location: midfoot Diabetes mellitus type: other specified (including MARIA M) Laterality: left Non-pressure ulcer stage: unspecified non-pressure ulcer stage Qualified Code(s): E13.621 - Other specified diabetes mellitus with foot ulcer; L97.429 - Non-pressure chronic ulcer of left heel and midfoot with unspecified severity (6) HTN (hypertension) Code(s): I10 - ESSENTIAL (PRIMARY) HYPERTENSION Qualifiers: Hypertension type: essential hypertension Qualified Code(s): I10 - Essential (primary) hypertension (7) History of percutaneous coronary intervention Code(s): Z98.61 - CORONARY ANGIOPLASTY STATUS (8) Hx of CABG Code(s): Z95.1 - PRESENCE OF AORTOCORONARY BYPASS GRAFT (9) Hypercholesterolemia Code(s): E78.00 - PURE HYPERCHOLESTEROLEMIA, UNSPECIFIED (10) Ischemic dilated cardiomyopathy Code(s): I25.5 - ISCHEMIC CARDIOMYOPATHY; I42.0 - DILATED CARDIOMYOPATHY (11) PAD (peripheral artery disease) Code(s): I73.9 - PERIPHERAL VASCULAR DISEASE, UNSPECIFIED (12) Presence of automatic cardioverter/defibrillator (AICD) Code(s): Z95.810 - PRESENCE OF AUTOMATIC (IMPLANTABLE) CARDIAC DEFIBRILLATOR Assessment/Plan 07/18/2020 Hida with evidence of acute syed. no filling of gallbladder 07/18/2020 Mild decreased LVEF 45-50%, abnl LV compliance, pcemaker in RV, mil dMR, TR, RVSP normal 04/16/2016 Lexiscan Myoview: Small mild ischemia of mid anterior wall and inferior wall scar. Mld decreased LVEF 43% with AK of basal to mid inferior wall and paradoxical septal motion 04/16/2016 Echo: Norml LV size with mild-mod JACKIE, mild decreased LV systolic function, LVEF 45%, abnl LV compliance, AK of inferior and mid inferolateral, paradoxical septal motion due to post-op state, tr TR, MR 1. Acute cholecystitis with cholelithiasis and abnl LFTs, r/o choledocholithiasis 2. H/o left foot MSSA osteomyelitis, diabetic ulcer s/p left foot debridement of ulcer with metatarsal head resection and biopsy 3. CAD s/p PCI/stent, CABG, angina pectoris 4. Ischemic dilated cardiomyopathy 5. HTN 6. Hypercholesterolemia 7. DM 8. Presence of AICD for above cardiomyopathy and VT/VF 9. CKD PLAN: 1. NPO in meantime, trend LFTs to document peak, cannot undergo MRCP due to ICD, will need alternative imaging modality 2. Reviewed prior medical records from [facility], last saw Dr. Wayne Quijano 2015, did not f/u due to distance 3. Continue Carvedilol 25 mg BID, Prinivil 20 mg BID, Amlodipine 10 mg QD and Hydralazine 25 mg BID 4. Continue Atorvastatin 40 mg QHS. Continue ASA 81 qd to minimize risk of very late stent thrombosis, hold Plavix 75 qd for possible lap syed 5. Called [facility] for ICD interrogation. Place magnet on ICD intraop. 6. GI and DVT prophylaxis, completed Ancef course via tunnelled catheter since d/deidra Patient was previously advised to follow up in our office but did not, [facility] (Dr. Rojas) at [phone]
[2020-07-18] MEDS ORDERED: PT OWN MED DRAWER 7, Y5N ONE (09:35)
[2020-07-18] MEDS ORDERED: INSULIN (NOVOLOG) ASPART 100 UNITS/ML 10ML VIAL ONE ×2 (09:36→21:19)
[2020-07-18] MEDS: CARVEDILOL 25 MG TABLET (FP) PO SCH ×2 (09:41→21:45)
[2020-07-18] MEDS: GABAPENTIN 100 MG CAPSULE PO SCH ×2 (09:42→21:46)
[2020-07-18] MEDS: amLODIPine BESYLATE 10 MG TABLET (FP) PO SCH (09:42)
[2020-07-18] MEDS ORDERED: LISINOPRIL 20 MG TABLET (FP) PO SCH (10:00)
--- NOTE | 2020-07-18 10:53 | EKG ---
Test Reason : Blood Pressure : / mmHG Vent. Rate : 070 BPM Atrial Rate : 070 BPM P-R Int : 194 ms QRS Dur : 106 ms QT Int : 394 ms P-R-T Axes : 048 088 059 degrees QTc Int : 425 ms SINUS RHYTHM WITH OCCASIONAL PREMATURE VENTRICULAR COMPLEXES ANTERIOR INFARCT (CITED ON OR BEFORE 04-FEB-2012) NONSPECIFIC ST ABNORMALITY ABNORMAL ECG WHEN COMPARED WITH ECG OF 19-MAY-2020 13:52, PREMATURE VENTRICULAR COMPLEXES ARE NOW PRESENT Confirmed by WILLIAM WINSLOW MD ([id number]) on 07/18/2020 10:53:38 AM Referred By: Confirmed By:WILLIAM WINSLOW MD
--- NOTE | 2020-07-18 11:05 | CONSULT ---
<Cristiana Pdeerson - Last Filed: 07/18/20 11:24> - Consultation REQUESTING PROVIDER: CONSULT REQUEST: We have been asked to surgically evaluate this patient for Abd schmidt r/o GB disease. Hospitalist:Geronimo Farfan MD HISTORY OF PRESENT ILLNESS: The patient is a 74 yo male who presented to the ER for evaluation of his abd pian in his upper abdomen. The pain began suddenly yesterday afternoon. No nausea or emesis and his pain has now resolved. He doesn't recall having this pain in the past. The pt denies any fevers. He has been having loose BM's(non-bloody) over the past 6 months going 4 to 5 times daily. He has a chronic wound to his foot that he gets care for in wound clinic. He just had his tunneled catheter removed, completing his treatment. PMHx: HTN, CAD, Diabetes, osteomyelitis, chronic left foot infection PSHx: Cardiac stent placement, CABG and defibrillator, b/l 2nd to amputation Home Medications Medication Instructions Recorded Multivitamins [Multivit ([facility] 1 udtab PO DAILY #0 tab 01/02/13 Formulary)] Lisinopril [Prinivil] 20 mg PO BID 05/10/16 metFORMIN HCL [Metformin HCl] 1,000 mg PO BID 12/02/16 Amlodipine Besylate [Norvasc -] 10 mg PO DAILY #30 tablet 12/10/16 Atorvastatin Ca [Lipitor] 40 mg PO HS #30 tablet 12/10/16 Carvedilol [Coreg -] 25 mg PO BID #30 tablet 12/10/16 Clopidogrel Bisulfate [Plavix -] 75 mg PO DAILY #30 tablet 12/10/16 hydrALAZINE HCL [Apresoline -] 25 mg PO BID #30 tablet 12/10/16 Aspirin 81 mg PO DAILY 05/19/20 Gabapentin 100 mg PO BID 05/19/20 Insulin (Levemir) [Levemir Flexpen 15 units SQ HS 05/19/20 -] Famotidine 20 mg PO BID 07/17/20 Insulin (Levemir) [Levemir Vial] 25 unit SQ DAILY 07/18/20 Allergies Allergy/AdvReac Type Severity Reaction Status Date / Time No Known Allergies Allergy Verified 07/17/20 16:20 REVIEW OF SYSTEMS: CONSTITUTIONAL: Absent: fever, chills CARDIOVASCULAR: Absent: chest pain, palpitations RESPIRATORY: Absent: cough, shortness of breath GASTROINTESTINAL: Present: loose BM's-4 to 5 times daily for past 6 months GENITOURINARY: Absent: dysuria, hematuria MUSCULOSKELETAL: Absent: joint swelling, neck pain NEUROLOGIC: Absent: headache, seizure PHYSICAL EXAM: GENERAL: Awake, alert, and fully oriented, in no acute distress. LUNGS: Clear to auscultation bilat anteriorly. No wheezes, and no crackles. HEART: Regular rate and rhythm. ABDOMEN: Soft, mild RUQ tenderness, not distended, normoactive bowel sounds, no guarding, no rebound, no masses. LOWER EXTREMITIES: 2+ PT/DP pulses, warm, well-perfused. No calf tenderness. No peripheral edema. no open wounds to b/l feet. NEUROLOGICAL: Normal speech, gait not observed. PSYCH: Cooperative. Good eye contact. Appropriate mood and affect. Vital Signs Temperature 99.2 F 07/18/20 06:59 Pulse Rate 75 07/18/20 06:59 Respiratory Rate 20 07/18/20 06:59 Blood Pressure 138/66 07/18/20 06:59 O2 Sat by Pulse Oximetry (%) 98 07/18/20 06:59 Lab Results WBC 7.5 K/mm3 (4.0-10.0) 07/18/20 05:25 RBC 3.24 M/mm3 (4.00-5.60) L 07/18/20 05:25 Hgb 9.4 GM/dL (11.7-16.9) L 07/18/20 05:25 Hct 28.1 % (35.4-49) L 07/18/20 05:25 MCV 86.5 fl (80-96) 07/18/20 05:25 MCHC 33.4 g/dl (32.0-35.9) 07/18/20 05:25 RDW 13.9 % (11.9-15.9) 07/18/20 05:25 Plt Count 139 K/MM3 (134-434) 07/18/20 05:25 INR 1.39 (0.83-1.09) H 07/18/20 03:38 Sodium 140 mmol/L (136-145) 07/18/20 05:25 Potassium 3.9 mmol/L (3.5-5.1) 07/18/20 05:25 Chloride 111 mmol/L (98-107) H 07/18/20 05:25 Carbon Dioxide 23 mmol/L (21-32) 07/18/20 05:25 Anion Gap 7 MMOL/L (8-16) L 07/18/20 05:25 BUN 15.8 mg/dL (7-18) 07/18/20 05:25 Creatinine 1.4 mg/dL (0.55-1.3) H 07/18/20 05:25 Random Glucose 113 mg/dL (74-106) H 07/18/20 05:25 Calcium 7.9 mg/dL (8.5-10.1) L 07/18/20 05:25 Blood Type A POSITIVE 07/18/20 03:38 Antibody Screen Negative 07/18/20 03:38 US: cholelithiasis, no cbd diltation, Gb mild thickening Problem List - Problems (1) CAD (coronary artery disease) Assessment/Plan: Pt with significant cardiac history, cardiology to evaluate the patient for clearance for possible lap syde next week Holding plavix Problems reviewed: Yes Code(s): I25.10 - ATHSCL HEART DISEASE OF [place] CORONARY ARTERY W/O ANG PCTRS (2) Cholelithiases Assessment/Plan: pt with symptomatic cholelithiasis, pain symptoms now improved with a slight increase in LFTs Recommend to trend the LFTs GI consult regarding increase in LFTs and chronic diarrhea Will plan for lap syed once pt has cardiac clearance. Problems reviewed: Yes Code(s): K80.20 - CALCULUS OF GALLBLADDER W/O CHOLECYSTITIS W/O OBSTRUCTION <Richard Mary - Last Filed: 08/05/20 08:22> - Consultation Attending Surgeon: I personally saw and examined the patient. My examination reveals a patient with acute cholecystitis. I discussed the case with the surgical PA and agree with their findings and plan of care with any exceptions as noted. ~ Richard Mary MD, FACS
--- NOTE | 2020-07-18 11:45 | ECHO ---
Version: 1 Name: REGINALDO BAILEY Exam: Adult Echocardiogram Study Date: 07/18/2020, 10:54 AM Age: 74 Years MMode/2D Measurements & Calculations IVSd: 1.19 cm LVIDs: 4.0 cm LVIDd: 5.2 cm LVPWd: 1.18 cm LAV (MOD-bp): 66.0 ml ACS: 1.61 cm Ao root diam: 3.5 cm LVOT diam: 2.04 cm LA dimension: 3.8 cm Doppler Measurements & Calculations MV E max oswald: 114.0 cm/sec Med E/e': 24.4 MV A max oswald: 124.9 cm/sec Med Peak E' Oswald: 4.7 cm/sec MV E/A: 0.91 Lat E/e': 12.3 Lat Peak E' Oswald: 9.2 cm/sec Ao max P.6 mmHg NGUYEN(I,D): 1.97 cm Ao mean P.3 mmHg LV V1 mean: 67.8 cm/sec Ao V2 max: 154.7 cm/sec LV V1 mean P.10 mmHg TR max oswald: 235.3 cm/sec TR max P.4 mmHg Procedure The study was technically difficult with many images being suboptimal in quality. Left Ventricle There is borderline concentric left ventricular hypertrophy. Ejection Fraction = 45-50%. Left ventri cular systolic function is mildly reduced. The transmitral spectral Doppler flow pattern is suggestive of impaired LV relaxation. Regional wall motion abnormalities cannot be excluded due to limited visualization. Right Ventricle There is a pacemaker lead in the right ventricle. The right ventricular systolic function is grossly normal. Atria The left atrial size is normal. Right atrial size is normal. Mitral Valve The mitral valve is grossly normal. There is no mitral valve stenosis. There is mild mitral regurgit ation. Tricuspid Valve There is mild tricuspid regurgitation. Right ventricular systolic pressure is normal. Aortic Valve There is mild aortic sclerosis.;. The aortic valve is trileaflet. No hemodynamically significant viola vular aortic stenosis. No aortic regurgitation is present. Pulmonic Valve The pulmonic valve is not well seen, but is grossly normal. There is no pulmonic valvular stenosis. Trace pulmonic valvular regurgitation. Great Vessels The aortic root is normal size. Pericardium/Pleura There is no pericardial effusion. Summary Statements Ejection Fraction = 45-50%. Left ventricular systolic function is mildly reduced. Regional wall motion abnormalities cannot be excluded due to limited visualization. The study was technically difficult with many images being suboptimal in quality. The transmitral spectral Doppler flow pattern is suggestive of impaired LV relaxation. There is a pacemaker lead in the right ventricle. There is mild mitral regurgitation. There is mild tricuspid regurgitation. Right ventricular systolic pressure is normal. There is mild aortic sclerosis.; There is no pericardial effusion. MD Ac *[place] 07/18/2020, 11:44 AM Ordering Physician: Caroline Avila Referring Physician: CAROLINE AVILA Performed By: Tiffanie Ramírez
--- NOTE | 2020-07-18 12:18 | PN ---
Teaching Attending Note Name of Resident: Caroline Zhao ATTENDING PHYSICIAN STATEMENT I saw and evaluated the patient. I reviewed the resident's note and discussed the case with the resident. I agree with the resident's findings and plan as documented. SUBJECTIVE: Seen and examined at bedside. Patient reports abdominal pain is resolved. LFTs noted to be trending up, bilirubin within normal limits. Pending HIDA scan, echocardiogram, and cardiology clearance. OBJECTIVE Last Vital Signs Temp Pulse Resp BP Pulse Ox 99.2 F 75 20 138/66 98 07/18/20 06:59 07/18/20 06:59 07/18/20 06:59 07/18/20 06:59 07/18/20 06:59 PE: Per resident note Labs/Imaging: reviewed ASSESSMENT/PLAN 74-year-old male with a history of CAD status post PCI/stent, CABG, ICD implantation for ischemic cardiomyopathy and VT/VF, CVA with right residual deficit, HTN, HLD, IDDM, left foot osteomyelitis presents with right upper quadrant pain, with concern for acute cholecystitis versus biliary colic. #Right upper quadrant pain: Concern for cholecystitis versus cholelithiasis Surgery on board: Appreciate recommendations Cardiology on board for clearance LFTs uptrending Pending HIDA scan GI consulted #Extensive cardiac history Cardiology on board: Appreciate recommendations Continue aspirin, hold clopidogrel Echocardiogram Continue statin #IDDM Hold home insulin regimen as patient hypo-glycemic ISS Restart insulin regimen as required #History of CVA Continue statin, ASA, hold Plavix #Hypertension Continue home medications
--- NOTE | 2020-07-18 15:11 | PN ---
Physical Exam: SUBJECTIVE: Patient seen and examined this AM. Pain improved, able to speak in full sentences. OBJECTIVE: Vital Signs Period Temp Pulse Resp BP Sys/Hightower Pulse Ox Last 24 Hr 97.4 F-99.2 F 74-84 18-20 138-162/66-81 98-98 GENERAL: A&Ox3, NAD HEAD: NCAT ENT: Moist mucous membranes NECK: Supple LUNGS: Diminished breath sounds at the bases, No wheezes, no crackles HEART: Regular rate and rhythm, normal S1 and S2 ABDOMEN: Soft, nontender, not distended, +BS, no guarding, no rebound, Neg Yost's sign EXTREMITIES: No edema SKIN: Dry, Warm, Upper abdominal incisional scars Laboratory Last Values WBC 7.5 K/mm3 (4.0-10.0) 07/18/20 05:25 RBC 3.24 M/mm3 (4.00-5.60) L 07/18/20 05:25 Hgb 9.4 GM/dL (11.7-16.9) L 07/18/20 05:25 Hct 28.1 % (35.4-49) L 07/18/20 05:25 MCV 86.5 fl (80-96) 07/18/20 05:25 MCH 28.9 pg (25.7-33.7) 07/18/20 05:25 MCHC 33.4 g/dl (32.0-35.9) 07/18/20 05:25 RDW 13.9 % (11.9-15.9) 07/18/20 05:25 Plt Count 139 K/MM3 (134-434) 07/18/20 05:25 MPV 11.7 fl (7.5-11.1) H 07/18/20 05:25 Absolute Neuts (auto) 6.7 K/mm3 (1.5-8.0) 07/17/20 17:00 Neutrophils % 76.5 % (42.8-82.8) 07/17/20 17:00 Lymphocytes % 12.8 % (8-40) D 07/17/20 17:00 Monocytes % 8.6 % (3.8-10.2) 07/17/20 17:00 Eosinophils % 1.9 % (0-4.5) 07/17/20 17:00 Basophils % 0.2 % (0-2.0) 07/17/20 17:00 Nucleated RBC % 0 % (0-0) 07/17/20 17:00 PT with INR 16.50 SEC (9.7-13.0) H 07/18/20 03:38 INR 1.39 (0.83-1.09) H 07/18/20 03:38 PTT (Actin FS) 25.6 SECONDS (25.2-36.5) 07/18/20 03:38 Sodium 140 mmol/L (136-145) 07/18/20 05:25 Potassium 3.9 mmol/L (3.5-5.1) 07/18/20 05:25 Chloride 111 mmol/L (98-107) H 07/18/20 05:25 Carbon Dioxide 23 mmol/L (21-32) 07/18/20 05:25 Anion Gap 7 MMOL/L (8-16) L 07/18/20 05:25 BUN 15.8 mg/dL (7-18) 07/18/20 05:25 Creatinine 1.4 mg/dL (0.55-1.3) H 07/18/20 05:25 Est GFR (CKD-EPI)AfAm 57.36 07/18/20 05:25 Est GFR (CKD-EPI)NonAf 49.49 07/18/20 05:25 POC Glucometer 105 UNITS (80-120) 07/18/20 09:40 Random Glucose 113 mg/dL (74-106) H 07/18/20 05:25 Calcium 7.9 mg/dL (8.5-10.1) L 07/18/20 05:25 Magnesium 1.5 mg/dL (1.8-2.4) L 07/18/20 05:25 Iron 26 ug/dL (50-175) L 07/18/20 05:25 TIBC 172 ug/dL (250-450) L 07/18/20 05:25 Iron Saturation 15 % (17.5-39) L 07/18/20 05:25 Unsaturated IBC 146 ug/dL (200-275) L 07/18/20 05:25 Ferritin 75.5 ng/ml (8-388) 07/18/20 05:25 Total Bilirubin 0.5 mg/dL (0.2-1) 07/18/20 05:25 AST 127 U/L (15-37) H 07/18/20 05:25 ALT 117 U/L (13-61) H 07/18/20 05:25 Alkaline Phosphatase 237 U/L (45-117) H 07/18/20 05:25 Creatine Kinase < 7 U/L (26-308) L 07/17/20 17:00 Troponin I < 0.02 ng/ml (0.00-0.05) 07/17/20 17:00 Total Protein 6.4 g/dl (6.4-8.2) 07/18/20 05:25 Albumin 2.7 g/dl (3.4-5.0) L 07/18/20 05:25 Lipase 122 U/L (73-393) 07/17/20 17:00 Blood Type A POSITIVE 07/18/20 03:38 Antibody Screen Negative 07/18/20 03:38 Active Medications Acetaminophen (Ofirmev Injection -) 1,000 mg IVPB Q6H PRN PRN Reason: PAIN LEVEL 4 - 6 Stop: 07/18/20 22:43 Albuterol Sulfate (Ventolin Hfa Inhaler -) 2 puff IH Q4H PRN PRN Reason: SHORT OF BREATH/WHEEZING Amlodipine Besylate (Norvasc -) 10 mg PO DAILY [facility] Last Admin: 07/18/20 09:42 Dose: 10 mg Documented by: Atorvastatin Calcium (Lipitor -) 40 mg PO HS [facility] Carvedilol (Coreg -) 25 mg PO BID [facility] Last Admin: 07/18/20 09:41 Dose: 25 mg Documented by: Gabapentin (Neurontin -) 100 mg PO BID [facility] Last Admin: 07/18/20 09:42 Dose: 100 mg Documented by: Metronidazole (Flagyl 500mg Premixed Ivpb -) 500 mg in 100 mls @ 100 mls/hr IVPB Q8H-IV [facility] Last Admin: 07/18/20 09:41 Dose: 100 mls/hr Documented by: Ceftriaxone Sodium 2 gm/ (Dextrose) 50 mls @ 100 mls/hr IVPB DAILY [facility] Sodium Chloride (Normal Saline -) 1,000 mls @ 75 mls/hr IV ASDIR [facility] Last Admin: 07/18/20 05:39 Dose: 75 mls/hr Documented by: Insulin Aspart (Novolog Vial Sliding Scale -) 1 vial SQ ACHS [facility]; Protocol Last Admin: 07/18/20 13:25 Dose: Not Given Documented by: Lisinopril (Prinivil) 20 mg PO BID [facility] Last Admin: 07/18/20 09:41 Dose: 20 mg Documented by: Morphine Sulfate (Morphine Sulfate) 2 mg IVPUSH Q6H PRN PRN Reason: PAIN LEVEL 7 - 10 ASSESSMENT/PLAN: 74 y/o M PMHx IDDM, HTN, HLD, CAD (s/p 3 vessel CABG), AICD, Left foot OM (s/p 6 week course IV abx via tunneled catheter removed on 07/03/20), CVA (residual 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 Patient admitted for concerns for acute cholecystitis. 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 - New Patient This patient is new to me today: Yes Date on this admission: 07/18/20 - Critical Care Critical Care patient: No - Discharge Referral Referred to [facility] Med P.C.: No - Medication Review Med list reviewed for High Risk Meds patients 65 and older: Yes ATTENDING PHYSICIAN STATEMENT I saw and evaluated the patient. I reviewed the resident's note and discussed the case with the resident. I agree with the resident's findings and plan as documented. SUBJECTIVE: OBJECTIVE: ASSESSMENT AND PLAN:
[2020-07-18 16:11] VITALS: BMI 26.2
--- NOTE | 2020-07-18 17:01 | CON.GI ---
Consult Consult Specialty:: GI Referred by:: Dr. Richard Mary Reason for Consultation:: Elevated liver chemistries - History of Present Illness Chief Complaint: Right upper abdominal pain History of Present Illness: 74M admitted through [facility] ER from assisted living for evaluation of abdominal pain. Patient explains that he began experiencing progressively more intense RUQ pain around 330pm yesterday. The pain progressed and worsened prompting his ER evaluation. It gradually improved around 8 or 9 last night. No similar episo otto in the past. + Nausea, no vomiting. In ER had abd US revealing gallstones/sludge, bordeline thickened gallbladder wall and a 5mm CBD. Had a HIDA scan today that was positive. Currently no abdominal pain. + loose bowel movements "for months". Denies rectal bleeding/melena. Has never had an upper endoscopy or colonoscopy. No family history of colorectal cancer or other GI malignancy. Is maintained on ASA/Plavix as outpatient. Has not seen a county or city auditor "In years". - History Source History Provided By: Patient, Medical Record - Past Medical History Cardio/Vascular: Yes: CAD, HTN, Hyperlipdemia, Other (CABG, PCI/stent) Endocrine: Yes: Diabetes Mellitus - Past Surgical History Past Surgical History: Yes: AICD, Amputation (Toe amputation), CABG Additional Surgical History: Left foot wound debridement - Alcohol/Substance Use Hx Alcohol Use: Yes (social) History of Substance Use: reports: None - Smoking History Smoking history: Current every day smoker (Cigars) Have you smoked in the past 12 months: Yes Aproximately how many cigarettes per day: 0 - Social History Usual Living Arrangement: Assisted Living ADL: Independent 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 [employer] Place of : [facility] History of Recent Travel: No Home Medications - Allergies Allergies/Adverse Reactions: Allergies Allergy/AdvReac Type Severity Reaction Status Date / Time No Known Allergies Allergy Verified 07/17/20 16:20 - Home Medications Home Medications: Ambulatory Orders Multivitamins [Multivit ([facility] Formulary)] 1 udtab PO DAILY #0 tab 01/02/13 Lisinopril [Prinivil] 20 mg PO BID 05/10/16 metFORMIN HCL [Metformin HCl] 1,000 mg PO BID 12/02/16 Amlodipine Besylate [Norvasc -] 10 mg PO DAILY #30 tablet 12/10/16 Atorvastatin Ca [Lipitor] 40 mg PO HS #30 tablet 12/10/16 Carvedilol [Coreg -] 25 mg PO BID #30 tablet 12/10/16 Clopidogrel Bisulfate [Plavix -] 75 mg PO DAILY #30 tablet 12/10/16 hydrALAZINE HCL [Apresoline -] 25 mg PO BID #30 tablet 12/10/16 Aspirin 81 mg PO DAILY 05/19/20 Gabapentin 100 mg PO BID 05/19/20 Insulin (Levemir) [Levemir Flexpen -] 15 units SQ HS 05/19/20 Famotidine 20 mg PO BID 07/17/20 Insulin (Levemir) [Levemir Vial] 25 unit SQ DAILY 07/18/20 Family Medical History Family Hx Diabetes: Father, Brother Other Family History: Mother: : 80's: Heart problems. Father: : 70's: Hrt proiblems. Brother: : brain tumor. 1 daughter: healthy. No family history of colorectal cancer or other GI malignancy Review of Systems - Review of Systems Constitutional: denies: Chills Cardiovascular: denies: Chest Pain Respiratory: denies: Cough, SOB, SOB on Exertion Gastrointestinal: reports: Abdominal Pain, Nausea. denies: Constipation, Diarrhea, Dysphagia, Rectal Bleeding, Vomiting Physical Exam-GI Vital Signs: Vital Signs Temperature 99.5 F 07/18/20 10:00 Pulse Rate 76 07/18/20 10:00 Respiratory Rate 20 07/18/20 10:00 Blood Pressure 138/62 07/18/20 10:00 O2 Sat by Pulse Oximetry (%) 93 L 07/18/20 10:00 Constitutional: Yes: Calm Eyes: No: Sclera Icterus Cardiovascular: Yes: Regular Rate and Rhythm Respiratory: Yes: CTA Bilaterally Gastrointestinal Inspection: No: Distention ...Auscultate: Yes: Normoactive Bowel Sounds ...Palpate: Yes: Soft. No: Hepatomegaly, Splenomegaly, Tenderness ...Percussion: No: Tympanitic ...Rectal Exam: Yes: Other (No external lesions, no masses, trace light brown stool in rectal vault, guaiac negative) Edema: No (No LE edema) Neurological: Yes: Alert Labs: CBC, BMP 07/18/20 05:25 07/18/20 05:25 INR, PTT INR 1.39 (0.83-1.09) H 07/18/20 03:38 Imaging - Results Ultrasound: Report Reviewed Problem List - Problems (1) Acute cholecystitis due to biliary calculus Assessment/Plan: Biliary colic with + HIDA suggesting acute calculous cholecystitis Liver chemistries have risen. This may be on the basis of cholecystits itself. If obstructive biliary pattern progresses, discussed the possibility of the need for ERCP with the patient to exclude CBD stone. DIscussed potential risks of the procedure like but not limited to bleeding, perforation requiring surgery to repair, infection, sedation medication effects all of which could be potentially life threatening. He has agreed to the procedure if if was felt to be medically necessary For now: IV Abx Avoid hepatotoxic agents Monitor LFTs Surgery is following Patient on ASA/Plavix with remote h/o cardiac stent. ? need for continued plavix. cardiology evaluation for optimization prior to invasive testing Code(s): K80.00 - CALCULUS OF GALLBLADDER W ACUTE CHOLECYST W/O OBSTRUCTION
[2020-07-18] MEDS ORDERED: DEXTROSE 5%-WATER - 50 ML IVPB ONE (17:47)
[2020-07-18] MEDS: CEFTRIAXONE 2 GM in DEXTROSE 5%-WATER - 50 ML IVPB SCH (18:47)
[2020-07-18] MEDS: ATORVASTATIN CA 40 MG TABLET (FP) PO SCH (21:45)
[2020-07-19] MEDS: SODIUM CHLORIDE 1,000 ML IV SCH ×4 (01:10→17:19)
[2020-07-19] MEDS: INSULIN SLIDING SCALE (NOVOLOG) 1 VIAL SQ SCH ×4 (06:23→22:31)
--- NOTE | 2020-07-19 08:16 | PN ---
Progress Note (short form) - Note Progress Note: Denies any abdominal pain now. Vital Signs Temperature 98.6 F 07/19/20 05:26 Pulse Rate 76 07/19/20 05:26 Respiratory Rate 20 07/19/20 05:26 Blood Pressure 138/60 07/19/20 05:26 O2 Sat by Pulse Oximetry (%) 93 L 07/19/20 05:26 Afebrile. No scleral icterus. Abdomen: soft, no tenderness even to deep RUQ palpation. Sonogram and HIDA reviewed. Pt has multiple gallstones, a normal diameter common bile duct; with the HIDA scan there was prompt excretion of tracer into small bowel. Pt is not jaundiced at all, I believe this is simple acute calculous cholecystitis. As patient was on Plavix until admission, we can continue to observe his LFTs for a few days as long as he does not decompensate.
[2020-07-19 08:18] LABS: BASO % 0.3 % (0-2.0); EOS % 2.7 % (0-4.5); HEMATOCRIT 27.3 % (35.4-49); HEMOGLOBIN 9.2 GM/dL (11.7-16.9); LYMPH % 17.6 % (8-40); MCH 29.7 pg (25.7-33.7); MCHC 33.8 g/dl (32.0-35.9); MEAN CELL VOLUME 87.9 fl (80-96); MEAN PLT VOLUME 12.1 fl (7.5-11.1); MONO % 11.2 % (3.8-10.2); NEUT % 68.2 % (42.8-82.8); PLATELET COUNT 129 K/MM3 (134-434); RDW 14.1 % (11.9-15.9); WHITE BLOOD COUNT 7.6 K/mm3 (4.0-10.0)
[2020-07-19 08:49] LABS: ALBUMIN 2.5 g/dl (3.4-5.0); BILIRUBIN,TOTAL 0.4 mg/dL (0.2-1); BLOOD UREA NITROGEN 15.4 mg/dL (7-18); CALCIUM 7.5 mg/dL (8.5-10.1); CREATININE 1.4 mg/dL (0.55-1.3); MAGNESIUM 1.4 mg/dL (1.8-2.4); PHOSPHOROUS 1.8 mg/dL (2.5-4.9); POTASSIUM 3.5 mmol/L (3.5-5.1); TOT PROT 6.2 g/dl (6.4-8.2)
--- NOTE | 2020-07-19 08:55 | PN ---
Progress Note (short form) - Note Progress Note: Attending Surgeon Seen in f/u; feeling better; tolerating clear liquids; Cardiology evaluation and w/u in progress VSS AF abdo-benign labs noted IMP: cholecystitis PLAN: For lap syed 07/22/2020 pending ongoing w/u. Richard Mary MD FACS
[2020-07-19] MEDS ORDERED: PT OWN MED DRAWER 7, Y5N ONE (09:46)
[2020-07-19] MEDS: amLODIPine BESYLATE 10 MG TABLET (FP) PO SCH (09:48)
[2020-07-19] MEDS: GABAPENTIN 100 MG CAPSULE PO SCH ×2 (09:48→22:31)
[2020-07-19] MEDS: CARVEDILOL 25 MG TABLET (FP) PO SCH ×2 (09:48→22:31)
[2020-07-19] MEDS ORDERED: DEXTROSE 5%-WATER - 50 ML IVPB ONE (10:42)
[2020-07-19] MEDS: CEFTRIAXONE 2 GM in DEXTROSE 5%-WATER - 50 ML IVPB SCH (10:46)
--- NOTE | 2020-07-19 10:48 | PN ---
Progress Note, Physician History of Present Illness: Patient is a 74 year old male with underlying history of CAD s/p PCI/stent ([facility]) and CABG (02/23/10 JONES->LAD, SVG-PDA, SVG->PL [facility]), Jose Sci/Guidant ICD implantation 02/28/2010 for inducible VT (last check 02/26/2016!) for ischemic cardiomyopathy and VT/VF, CVA with right residual deficit, HTN, hypercholesterolemia, T2DM, left foot osteomyelitis followed at wound care who presents with acute onset RUQ pain. Initially attributed it to gas but the pain progressively worsened. He saw the nurse at his assisted living facility who recommended he come to the ED. Denies vomiting, diarrhea, fever/chills. Patient notes he has not seen a wire harness design engineer since 2016, has poor insight to his condition and believes his AICD battery may need to be replaced. Regarding CV symptoms, he denies chest pain, dyspnea, near or true syncope, palpitations, orthopnea, PND, LE edema, ICD discharge or change in exercise capacity. Patient was afebrile and hemodynamically stable in the ED, labs notable for creatinine 1.6, glucose 48. WBC within normal. RUQ US showed cholelithiasis, mod erate amount of bile/sludge within the gallbladder, and borderline gallbladder wall thickness. Patient was able to tolerate some juice. At time of evaluation he has no acute complaints, RUQ pain improved. - Current Medication List Current Medications: Active Medications Albuterol Sulfate (Ventolin Hfa Inhaler -) 2 puff IH Q4H PRN PRN Reason: SHORT OF BREATH/WHEEZING Amlodipine Besylate (Norvasc -) 10 mg PO DAILY [facility] Last Admin: 07/19/20 09:48 Dose: 10 mg Documented by: Atorvastatin Calcium (Lipitor -) 40 mg PO HS [facility] Last Admin: 07/18/20 21:45 Dose: 40 mg Documented by: Carvedilol (Coreg -) 25 mg PO BID [facility] Last Admin: 07/19/20 09:48 Dose: 25 mg Documented by: Gabapentin (Neurontin -) 100 mg PO BID [facility] Last Admin: 07/19/20 09:48 Dose: 100 mg Documented by: Metronidazole (Flagyl 500mg Premixed Ivpb -) 500 mg in 100 mls @ 100 mls/hr IVPB Q8H-IV [facility] Last Admin: 09/05/20 09:48 Dose: 100 mls/hr Documented by: Ceftriaxone Sodium 2 gm/ (Dextrose) 50 mls @ 100 mls/hr IVPB DAILY [facility] Last Admin: 07/19/20 10:46 Dose: 100 mls/hr Documented by: Sodium Chloride (Normal Saline -) 1,000 mls @ 75 mls/hr IV ASDIR [facility] Last Admin: 07/19/20 06:24 Dose: Not Given Documented by: Insulin Aspart (Novolog Vial Sliding Scale -) 1 vial SQ ACHS [facility]; Protocol Last Admin: 07/19/20 06:23 Dose: Not Given Documented by: Morphine Sulfate (Morphine Sulfate) 2 mg IVPUSH Q6H PRN PRN Reason: PAIN LEVEL 7 - 10 - Objective Vital Signs: Vital Signs Temperature 98.6 F 07/19/20 05:26 Pulse Rate 76 07/19/20 05:26 Respiratory Rate 20 07/19/20 05:26 Blood Pressure 138/60 07/19/20 05:26 O2 Sat by Pulse Oximetry (%) 93 L 07/19/20 05:26 Eyes: Yes: WNL, Conjunctiva Clear, EOM Intact HENT: Yes: WNL, Atraumatic, Normocephalic Neck: Yes: WNL, Supple, Trachea Midline Cardiovascular: Yes: WNL, Regular Rate and Rhythm Respiratory: Yes: WNL, Regular, CTA Bilaterally Gastrointestinal: Yes: WNL, Normal Bowel Sounds Genitourinary: Yes: WNL Musculoskeletal: Yes: WNL Extremities: Yes: WNL Edema: No Integumentary: Yes: WNL Neurological: Yes: WNL, Alert, Oriented ...Motor Strength: WNL Psychiatric: Yes: WNL Labs: CBC, BMP 07/19/20 07:05 07/19/20 07:05 INR, PTT INR 1.39 (0.83-1.09) H 07/18/20 03:38 Assessment/Plan - Problems (1) Acute cholecystitis due to biliary calculus Code(s): K80.00 - CALCULUS OF GALLBLADDER W ACUTE CHOLECYST W/O OBSTRUCTION (2) Pre-operative cardiovascular examination Code(s): Z01.810 - ENCOUNTER FOR PREPROCEDURAL CARDIOVASCULAR EXAMINATION (3) CAD (coronary artery disease) Code(s): I25.10 - ATHSCL HEART DISEASE OF [place] CORONARY ARTERY W/O ANG PCTRS Qualifiers: Coronary Disease-Associated Artery/Lesion type: [place] artery [place] vs. transplanted heart: [place] heart Associated angina: without angina Qualified Code(s): I25.10 - Atherosclerotic heart disease of [place] coronary artery withou t angina pectoris (4) Diabetes mellitus Code(s): E11.9 - TYPE 2 DIABETES MELLITUS WITHOUT COMPLICATIONS Qualifiers: Diabetes mellitus type: type 2 Diabetes mellitus complication status: with circulatory complication Diabetes mellitus complication detail: with peripheral angiopathy with gangrene (5) Diabetic foot ulcer Code(s): E11.621 - TYPE 2 DIABETES MELLITUS WITH FOOT ULCER; L97.509 - NON- PRESSURE CHRONIC ULCER OTH PRT UNSP FOOT W UNSP SEVERITY Qualifiers: Diabetic foot ulcer location: midfoot Diabetes mellitus type: other specified (including MARIA M) Laterality: left Non-pressure ulcer stage: unspecified non-pressure ulcer stage Qualified Code(s): E13.621 - Other specified diabetes mellitus with foot ulcer; L97.429 - Non-pressure chronic ulcer of left heel and midfoot with unspecified severity (6) HTN (hypertension) Code(s): I10 - ESSENTIAL (PRIMARY) HYPERTENSION Qualifiers: Hypertension type: essential hypertension Qualified Code(s): I10 - Essential (primary) hypertension (7) History of percutaneous coronary intervention Code(s): Z98.61 - CORONARY ANGIOPLASTY STATUS (8) Hx of CABG Code(s): Z95.1 - PRESENCE OF AORTOCORONARY BYPASS GRAFT (9) Hypercholesterolemia Code(s): E78.00 - PURE HYPERCHOLESTEROLEMIA, UNSPECIFIED (10) Ischemic dilated cardiomyopathy Code(s): I25.5 - ISCHEMIC CARDIOMYOPATHY; I42.0 - DILATED CARDIOMYOPATHY (11) PAD (peripheral artery disease) Code(s): I73.9 - PERIPHERAL VASCULAR DISEASE, UNSPECIFIED (12) Presence of automatic cardioverter/defibrillator (AICD) Code(s): Z95.810 - PRESENCE OF AUTOMATIC (IMPLANTABLE) CARDIAC DEFIBRILLATOR Assessment/Plan 07/18/2020 Hida with evidence of acute syed. no filling of gallbladder 07/18/2020 Mild decreased LVEF 45-50%, abnl LV compliance, pcemaker in RV, mil dMR, TR, RVSP normal 04/16/2016 Lexiscan Myoview: Small mild ischemia of mid anterior wall and inferior wall scar. Mld decreased LVEF 43% with AK of basal to mid inferior wall and paradoxical septal motion 04/16/2016 Echo: Norml LV size with mild-mod JACKIE, mild decreased LV systolic function, LVEF 45%, abnl LV compliance, AK of inferior and mid inferolateral, paradoxical septal motion due to post-op state, tr TR, MR 1. Acute cholecystitis with cholelithiasis and abnl LFTs, r/o choledocholithiasis 2. H/o left foot MSSA osteomyelitis, diabetic ulcer s/p left foot debridement of ulcer with metatarsal head resection and biopsy 3. CAD s/p PCI/stent, CABG, angina pectoris 4. Ischemic dilated cardiomyopathy 5. HTN 6. Hypercholesterolemia 7. DM 8. Presence of AICD for above cardiomyopathy and VT/VF 9. CKD PLAN: 1. NPO in meantime, trend LFTs to document peak, cannot undergo MRCP due to ICD, will need alternative imaging modality 2. Reviewed prior medical records from [facility], last saw Dr. Wayne Quijano 2015, did not f/u due to distance 3. Continue Carvedilol 25 mg BID, Prinivil 20 mg BID, Amlodipine 10 mg QD and Hydralazine 25 mg BID 4. Continue Atorvastatin 40 mg QHS. Continue ASA 81 qd to minimize risk of very late stent thrombosis, hold Plavix 75 qd for possible lap syed 5. Called [facility] for ICD interrogation. Place magnet on ICD intraop. 6. GI and DVT prophylaxis, completed Ancef course via tunnelled catheter since d/deidra Coverage dr. Smith
--- NOTE | 2020-07-19 14:34 | PN ---
Physical Exam: SUBJECTIVE: Patient seen and examined at bedside, still endorses some abdominal discomfort but improved from prior, tolerating clears, scheduled for lap syed Tuesday, will hold Plavix per Cardio recs. VSS. OBJECTIVE: Vital Signs Period Temp Pulse Resp BP Sys/Hightower Pulse Ox Last 24 Hr 98.1 F-100.1 F 72-103 20-20 138-151/59-67 91-96 GENERAL: The patient is awake, alert, and fully oriented, in no acute distress. HEENT NC/AT, EOMI, neck supple LUNGS: CTAB, no crackles HEART: S1, S2+ RRR ABDOMEN: Mildly distended, soft, some RUQ pain to deep palpation, no guarding, BS+ EXTREMITIES: 2+ pulses, warm, well-perfused, no edema. NEUROLOGICAL: Cranial nerves II through XII grossly intact. Normal speech, gait not observed. PSYCH: Normal mood, normal affect. SKIN: Warm, dry, normal turgor, no rashes or lesions noted Laboratory Results - last 24 hr 07/18/20 07/18/20 07/18/20 03:38 05:25 17:40 WBC RBC Hgb Hct MCV MCH MCHC RDW Plt Count MPV Absolute Neuts (auto) Neutrophils % Lymphocytes % Monocytes % Eosinophils % Basophils % Nucleated RBC % Sodium Potassium Chloride Carbon Dioxide Anion Gap BUN Creatinine Est GFR (CKD-EPI)AfAm Est GFR (CKD-EPI)NonAf POC Glucometer 111 Random Glucose Calcium Phosphorus Magnesium Transferrin 142 L Total Bilirubin AST ALT Alkaline Phosphatase Total Protein Albumin Stool Occult Blood COVID-19 ([facility]) Not detected 07/18/20 07/19/20 07/19/20 21:45 06:23 06:30 WBC RBC Hgb Hct MCV MCH MCHC RDW Plt Count MPV Absolute Neuts (auto) Neutrophils % Lymphocytes % Monocytes % Eosinophils % Basophils % Nucleated RBC % Sodium Potassium Chloride Carbon Dioxide Anion Gap BUN Creatinine Est GFR (CKD-EPI)AfAm Est GFR (CKD-EPI)NonAf POC Glucometer 113 94 Random Glucose Calcium Phosphorus Magnesium Transferrin Total Bilirubin AST ALT Alkaline Phosphatase Total Protein Albumin Stool Occult Blood Negative COVID-19 ([facility]IS) 07/19/20 07/19/20 07/19/20 07:05 07:05 11:25 WBC 7.6 RBC 3.10 L Hgb 9.2 L Hct 27.3 L MCV 87.9 MCH 29.7 MCHC 33.8 RDW 14.1 Plt Count 129 L MPV 12.1 H Absolute Neuts (auto) 5.2 Neutrophils % 68.2 Lymphocytes % 17.6 D Monocytes % 11.2 H Eosinophils % 2.7 Basophils % 0.3 Nucleated RBC % 0 Sodium 143 Potassium 3.5 Chloride 112 H Carbon Dioxide 24 Anion Gap 6 L BUN 15.4 Creatinine 1.4 H Est GFR (CKD-EPI)AfAm 57.36 Est GFR (CKD-EPI)NonAf 49.49 POC Glucometer 107 Random Glucose 97 Calcium 7.5 L Phosphorus 1.8 L Magnesium 1.4 L Transferrin Total Bilirubin 0.4 AST 38 H ALT 63 H Alkaline Phosphatase 174 H Total Protein 6.2 L Albumin 2.5 L Stool Occult Blood COVID-19 ([facility]) Active Medications Generic Name Dose Route Start Last Admin Trade Name Freq PRN Reason Stop Dose Admin Albuterol Sulfate 2 puff 07/18/20 04:13 Ventolin Hfa Inhaler - IH Q4H PRN SHORT OF BREATH/WHEEZING Amlodipine Besylate 10 mg 07/18/20 10:00 07/19/20 09:48 Norvasc - PO 10 mg DAILY [facility] Administration Atorvastatin Calcium 40 mg 07/18/20 22:00 07/18/20 21:45 Lipitor - PO 40 mg HS [facility]IER[facility] Administration Carvedilol 25 mg 07/18/20 10:00 07/19/20 09:48 Coreg - PO 25 mg BID [facility] Administration Gabapentin 100 mg 07/18/20 10:00 07/19/20 09:48 Neurontin - PO 100 mg BID [facility] Administration Metronidazole 500 mg in 100 mls @ 100 mls/hr 07/18/20 02:00 07/19/20 09:48 Flagyl 500mg Premixed Ivpb - IVPB 100 mls/hr Q8H-IV [facility] Administration Ceftriaxone Sodium 2 gm/ 50 mls @ 100 mls/hr 07/18/20 19:00 07/19/20 10:46 Dextrose IVPB 100 mls/hr DAILY [facility] Administration Sodium Chloride 1,000 mls @ 75 mls/hr 07/18/20 04:30 07/19/20 06:24 Normal Saline - IV Not Given ASDIR [facility] Insulin Aspart 1 vial 07/17/20 22:00 07/19/20 11:26 Novolog Vial Sliding Scale - SQ Not Given ACHS [facility] Protocol Morphine Sulfate 2 mg 07/17/20 22:43 Morphine Sulfate IVPUSH Q6H PRN PAIN LEVEL 7 - 10 ASSESSMENT/PLAN: 74 M Acute cholecystitis CAD s/p stent 10 years ago HTN HLD T2DM with neuropathy CVA Chronic L foot OM/wound HFrEF s/p AICD Plan: COnt. Ceftriaxone/Flagyl Clear liquid diet per Surgery recommendations Cardiology following for clearance ID following Scheduled for lap syed Tuesday GI following DVT ppx: SCD Visit type - Emergency Visit Emergency Visit: Yes ED Registration Date: 07/17/20 Care time: The patient presented to the Emergency Department on the above date and was hospitalized for further evaluation of their emergent condition. - New Patient This patient is new to me today: Yes Date on this admission: 07/19/20 - Critical Care Critical Care patient: No - Discharge Referral Referred to [facility] Med P.C.: No - Medication Review Med list reviewed for High Risk Meds patients 65 and older: Yes
[2020-07-19] MEDS: ATORVASTATIN CA 40 MG TABLET (FP) PO SCH (22:31)
[2020-07-20] MEDS: SODIUM CHLORIDE 1,000 ML IV SCH ×2 (06:40→10:28)
[2020-07-20] MEDS: INSULIN SLIDING SCALE (NOVOLOG) 1 VIAL SQ SCH ×4 (06:42→22:04)
[2020-07-20 08:14] LABS: BASO % 0.2 % (0-2.0); EOS % 3.1 % (0-4.5); HEMATOCRIT 27.3 % (35.4-49); HEMOGLOBIN 9.1 GM/dL (11.7-16.9); LYMPH % 15.5 % (8-40); MCH 28.9 pg (25.7-33.7); MCHC 33.3 g/dl (32.0-35.9); MEAN PLT VOLUME 11.8 fl (7.5-11.1); MONO % 9.8 % (3.8-10.2); NEUT % 71.4 % (42.8-82.8); PLATELET COUNT 141 K/MM3 (134-434); RBC 3.13 M/mm3 (4.00-5.60); WHITE BLOOD COUNT 8.5 K/mm3 (4.0-10.0)
[2020-07-20 08:40] LABS: ALBUMIN 2.3 g/dl (3.4-5.0); BILIRUBIN,TOTAL 0.5 mg/dL (0.2-1); BLOOD UREA NITROGEN 13.6 mg/dL (7-18); CALCIUM 7.1 mg/dL (8.5-10.1); CREATININE 1.3 mg/dL (0.55-1.3); POTASSIUM 3.4 mmol/L (3.5-5.1); TOT PROT 5.8 g/dl (6.4-8.2)
--- NOTE | 2020-07-20 08:49 | PN ---
Progress Note, Physician History of Present Illness: Patient is a 74 year old male with underlying history of CAD s/p PCI/stent ([facility]) and CABG (02/23/10 JONES->LAD, SVG-PDA, SVG->[facility]), Jose Sci/Guidant ICD implantation 02/28/2010 for inducible VT (last check 02/26/2016!) for ischemic cardiomyopathy and VT/VF, CVA with right residual deficit, HTN, hypercholesterolemia, T2DM, left foot osteomyelitis followed at wound care who presents with acute onset RUQ pain. Initially attributed it to gas but the pain progressively worsened. He saw the nurse at his assisted living facility who recommended he come to the ED. Denies vomiting, diarrhea, fever/chills. Patient notes he has not seen a fine grader since 2016, has poor insight to his condition and believes his AICD battery may need to be replaced. Regarding CV symptoms, he denies chest pain, dyspnea, near or true syncope, palpitations, orthopnea, PND, LE edema, ICD discharge or change in exercise capacity. Patient was afebrile and hemodynamically stable in the ED, labs notable for creatinine 1.6, glucose 48. WBC within normal. RUQ US showed cholelithiasis, mod erate amount of bile/sludge within the gallbladder, and borderline gallbladder wall thickness. Patient was able to tolerate some juice. At time of evaluation he has no acute complaints, RUQ pain improved. - Current Medication List Current Medications: Active Medications Albuterol Sulfate (Ventolin Hfa Inhaler -) 2 puff IH Q4H PRN PRN Reason: SHORT OF BREATH/WHEEZING Amlodipine Besylate (Norvasc -) 10 mg PO DAILY [facility] Last Admin: 07/19/20 09:48 Dose: 10 mg Documented by: Atorvastatin Calcium (Lipitor -) 40 mg PO HS [facility] Last Admin: 07/19/20 22:31 Dose: 40 mg Documented by: Carvedilol (Coreg -) 25 mg PO BID [facility] Last Admin: 07/19/20 22:31 Dose: 25 mg Documented by: Gabapentin (Neurontin -) 100 mg PO BID [facility] Last Admin: 07/19/20 22:31 Dose: 100 mg Documented by: Metronidazole (Flagyl 500mg Premixed Ivpb -) 500 mg in 100 mls @ 100 mls/hr IVPB Q8H-IV [facility] Last Admin: 07/20/20 03:33 Dose: 100 mls/hr Documented by: Ceftriaxone Sodium 2 gm/ (Dextrose) 50 mls @ 100 mls/hr IVPB DAILY [facility] Last Admin: 07/19/20 10:46 Dose: 100 mls/hr Documented by: Sodium Chloride (Normal Saline -) 1,000 mls @ 75 mls/hr IV ASDIR [facility] Last Admin: 07/20/20 06:40 Dose: Not Given Documented by: Insulin Aspart (Novolog Vial Sliding Scale -) 1 vial SQ ACHS [facility]; Protocol Last Admin: 07/20/20 06:42 Dose: Not Given Documented by: Morphine Sulfate (Morphine Sulfate) 2 mg IVPUSH Q6H PRN PRN Reason: PAIN LEVEL 7 - 10 - Objective Vital Signs: Vital Signs Temperature 98.7 F 07/20/20 07:31 Pulse Rate 69 07/20/20 07:31 Respiratory Rate 20 07/20/20 07:31 Blood Pressure 134/58 L 07/20/20 07:31 O2 Sat by Pulse Oximetry (%) 97 07/20/20 07:31 Eyes: Yes: WNL, Conjunctiva Clear, EOM Intact HENT: Yes: WNL, Atraumatic, Normocephalic Neck: Yes: WNL, Supple, Trachea Midline Cardiovascular: Yes: WNL, Regular Rate and Rhythm Respiratory: Yes: WNL, Regular, CTA Bilaterally Gastrointestinal: Yes: WNL, Normal Bowel Sounds Genitourinary: Yes: WNL Musculoskeletal: Yes: WNL Extremities: Yes: WNL Edema: No Integumentary: Yes: WNL Neurological: Yes: WNL, Alert, Oriented ...Motor Strength: WNL Psychiatric: Yes: WNL Labs: CBC, BMP 07/20/20 06:50 07/20/20 06:50 INR, PTT INR 1.39 (0.83-1.09) H 07/18/20 03:38 Assessment/Plan - Problems (1) Acute cholecystitis due to biliary calculus Code(s): K80.00 - CALCULUS OF GALLBLADDER W ACUTE CHOLECYST W/O OBSTRUCTION (2) Pre-operative cardiovascular examination Code(s): Z01.810 - ENCOUNTER FOR PREPROCEDURAL CARDIOVASCULAR EXAMINATION (3) CAD (coronary artery disease) Code(s): I25.10 - ATHSCL HEART DISEASE OF [place] CORONARY ARTERY W/O ANG PCTRS Qualifiers: Coronary Disease-Associated Artery/Lesion type: [place] artery [place] vs. transplanted heart: [place] heart Associated angina: without angina Qualified Code(s): I25.10 - Atherosclerotic heart disease of [place] coronary artery withou t angina pectoris (4) Diabetes mellitus Code(s): E11.9 - TYPE 2 DIABETES MELLITUS WITHOUT COMPLICATIONS Qualifiers: Diabetes mellitus type: type 2 Diabetes mellitus complication status: with circulatory complication Diabetes mellitus complication detail: with peripheral angiopathy with gangrene (5) Diabetic foot ulcer Code(s): E11.621 - TYPE 2 DIABETES MELLITUS WITH FOOT ULCER; L97.509 - NON- PRESSURE CHRONIC ULCER OTH PRT UNSP FOOT W UNSP SEVERITY Qualifiers: Diabetic foot ulcer location: midfoot Diabetes mellitus type: other specified (including MARIA M) Laterality: left Non-pressure ulcer stage: unspecified non-pressure ulcer stage Qualified Code(s): E13.621 - Other specified diabetes mellitus with foot ulcer; L97.429 - Non-pressure chronic ulcer of left heel and midfoot with unspecified severity (6) HTN (hypertension) Code(s): I10 - ESSENTIAL (PRIMARY) HYPERTENSION Qualifiers: Hypertension type: essential hypertension Qualified Code(s): I10 - Essential (primary) hypertension (7) History of percutaneous coronary intervention Code(s): Z98.61 - CORONARY ANGIOPLASTY STATUS (8) Hx of CABG Code(s): Z95.1 - PRESENCE OF AORTOCORONARY BYPASS GRAFT (9) Hypercholesterolemia Code(s): E78.00 - PURE HYPERCHOLESTEROLEMIA, UNSPECIFIED (10) Ischemic dilated cardiomyopathy Code(s): I25.5 - ISCHEMIC CARDIOMYOPATHY; I42.0 - DILATED CARDIOMYOPATHY (11) PAD (peripheral artery disease) Code(s): I73.9 - PERIPHERAL VASCULAR DISEASE, UNSPECIFIED (12) Presence of automatic cardioverter/defibrillator (AICD) Code(s): Z95.810 - PRESENCE OF AUTOMATIC (IMPLANTABLE) CARDIAC DEFIBRILLATOR Assessment/Plan 07/18/2020 Hida with evidence of acute syed. no filling of gallbladder 07/18/2020 Mild decreased LVEF 45-50%, abnl LV compliance, pcemaker in RV, mil dMR, TR, RVSP normal 04/16/2016 Lexiscan Myoview: Small mild ischemia of mid anterior wall and inferior wall scar. Mld decreased LVEF 43% with AK of basal to mid inferior wall and paradoxical septal motion 04/16/2016 Echo: Norml LV size with mild-mod JACKIE, mild decreased LV systolic function, LVEF 45%, abnl LV compliance, AK of inferior and mid inferolateral, paradoxical septal motion due to post-op state, tr TR, MR 1. Acute cholecystitis with cholelithiasis and abnl LFTs, r/o choledocholithiasis 2. H/o left foot MSSA osteomyelitis, diabetic ulcer s/p left foot debridement of ulcer with metatarsal head resection and biopsy 3. CAD s/p PCI/stent, CABG, angina pectoris 4. Ischemic dilated cardiomyopathy 5. HTN 6. Hypercholesterolemia 7. DM 8. Presence of AICD for above cardiomyopathy and VT/VF 9. CKD PLAN: 1. NPO in meantime, trend LFTs to document peak, cannot undergo MRCP due to ICD, will need alternative imaging modality 2. Reviewed prior medical records from [facility], last saw Dr. Wayne Quijano 2015, did not f/u due to distance 3. Continue Carvedilol 25 mg BID, Prinivil 20 mg BID, Amlodipine 10 mg QD and Hydralazine 25 mg BID 4. Continue Atorvastatin 40 mg QHS. Continue ASA 81 qd to minimize risk of very late stent thrombosis, hold Plavix 75 qd for possible lap syed 5. Called [facility] for ICD interrogation. Place magnet on ICD intraop. 6. GI and DVT prophylaxis, completed Ancef course via tunnelled catheter since d/deidra Coverage dr. Smith
--- NOTE | 2020-07-20 09:17 | PN ---
Progress Note (short form) - Note Progress Note: Denies abdominal pain, vomiting. Abdomen: distended with air in bowel but soft. Labs: Hepatic Panel Total Bilirubin 0.5 mg/dL (0.2-1) 07/20/20 06:50 AST 21 U/L (15-37) 07/20/20 06:50 ALT 43 U/L (13-61) 07/20/20 06:50 Alkaline Phosphatase 137 U/L (45-117) H 07/20/20 06:50 Albumin 2.3 g/dl (3.4-5.0) L 07/20/20 06:50 LFTs are much better. Agree with plans for cholecystectomy.
[2020-07-20] MEDS ORDERED: POTASSIUM CHLORIDE TABS 20 MEQ TABLET.ER (FP) PO ONE (09:45)
--- NOTE | 2020-07-20 09:47 | PN ---
Progress Note (short form) - Note Progress Note: Attending Surgeon Seen in f/u; no c/o; tolerating clear liquids VSS AF abdo-soft; non tender LFT's and bili decreasing Cardiology notes reviewed IMP: cholelithiasis and acute cholecystitis PLAN: Plan for lap syed 07/22/2020 pending on going w/u. Richard Mary MD FACS
[2020-07-20] MEDS ORDERED: PT OWN MED DRAWER 7, Y5N ONE (10:21)
[2020-07-20] MEDS ORDERED: DEXTROSE 5%-WATER - 50 ML IVPB ONE (10:21)
[2020-07-20] MEDS: CARVEDILOL 25 MG TABLET (FP) PO SCH ×2 (10:29→22:00)
[2020-07-20] MEDS: GABAPENTIN 100 MG CAPSULE PO SCH ×2 (10:30→22:00)
[2020-07-20] MEDS: amLODIPine BESYLATE 10 MG TABLET (FP) PO SCH (10:30)
[2020-07-20] MEDS: CEFTRIAXONE 2 GM in DEXTROSE 5%-WATER - 50 ML IVPB SCH (11:30)
--- NOTE | 2020-07-20 15:06 | PN ---
Physical Exam: SUBJECTIVE: Patient seen and examined at bedside, denies abdominal pain, scheduled for lap syed, occult stool ++, will eventually need colonoscopy (last one >10 years ago). Appreciate GI input. OBJECTIVE: Vital Signs Period Temp Pulse Resp BP Sys/[place] Pulse Ox Last 24 Hr 98.1 F-100.1 F 72-103 20-20 138-151/59-67 91-96 GENERAL: The patient is awake, alert, and fully oriented, in no acute distress. HEENT NC/AT, EOMI, neck supple LUNGS: CTAB, no crackles HEART: S1, S2+ RRR ABDOMEN: Mildly distended, soft, NT, no guarding, BS+ EXTREMITIES: 2+ pulses, warm, well-perfused, no edema. NEUROLOGICAL: Cranial nerves II through XII grossly intact. Normal speech, gait not observed. PSYCH: Normal mood, normal affect. SKIN: Warm, dry, normal turgor, no rashes or lesions noted Laboratory Results - last 24 hr 07/19/20 07/19/20 07/20/20 16:40 22:30 02:15 WBC RBC Hgb Hct MCV MCH MCHC RDW Plt Count MPV Absolute Neuts (auto) Neutrophils % Lymphocytes % Monocytes % Eosinophils % Basophils % Nucleated RBC % Sodium Potassium Chloride Carbon Dioxide Anion Gap BUN Creatinine Est GFR (CKD-EPI)AfAm Est GFR (CKD-EPI)NonAf POC Glucometer 119 127 Random Glucose Calcium Total Bilirubin AST ALT Alkaline Phosphatase Total Protein Albumin Stool Occult Blood Positive 07/20/20 07/20/20 07/20/20 06:42 06:50 06:50 WBC 8.5 RBC 3.13 L Hgb 9.1 L Hct 27.3 L MCV 87.0 MCH 28.9 MCHC 33.3 RDW 14.0 Plt Count 141 MPV 11.8 H Absolute Neuts (auto) 6.1 Neutrophils % 71.4 Lymphocytes % 15.5 Monocytes % 9.8 Eosinophils % 3.1 Basophils % 0.2 Nucleated RBC % 0 Sodium 142 Potassium 3.4 L Chloride 112 H Carbon Dioxide 23 Anion Gap 7 L BUN 13.6 Creatinine 1.3 Est GFR (CKD-EPI)AfAm 62.74 Est GFR (CKD-EPI)NonAf 54.13 POC Glucometer 97 Random Glucose 100 Calcium 7.1 L Total Bilirubin 0.5 AST 21 ALT 43 Alkaline Phosphatase 137 H Total Protein 5.8 L Albumin 2.3 L Stool Occult Blood 07/20/20 11:15 WBC RBC Hgb Hct MCV MCH MCHC RDW Plt Count MPV Absolute Neuts (auto) Neutrophils % Lymphocytes % Monocytes % Eosinophils % Basophils % Nucleated RBC % Sodium Potassium Chloride Carbon Dioxide Anion Gap BUN Creatinine Est GFR (CKD-EPI)AfAm Est GFR (CKD-EPI)NonAf POC Glucometer 154 Random Glucose Calcium Total Bilirubin AST ALT Alkaline Phosphatase Total Protein Albumin Stool Occult Blood Active Medications Generic Name Dose Route Start Last Admin Trade Name Freq PRN Reason Stop Dose Admin Albuterol Sulfate 2 puff 07/18/20 04:13 Ventolin Hfa Inhaler - IH Q4H PRN SHORT OF BREATH/WHEEZING Amlodipine Besylate 10 mg 07/18/20 10:00 07/20/20 10:30 Norvasc - PO 10 mg DAILY KIERRA Administration Atorvastatin Calcium 40 mg 07/18/20 22:00 07/19/20 22:31 Lipitor - PO 40 mg HS KIERRA Administration Carvedilol 25 mg 07/18/20 10:00 07/20/20 10:29 Coreg - PO 25 mg BID KIERRA Administration Gabapentin 100 mg 07/18/20 10:00 07/20/20 10:30 Neurontin - PO 100 mg BID KIERRA Administration Metronidazole 500 mg in 100 mls @ 100 mls/hr 07/18/20 02:00 07/20/20 10:31 Flagyl 500mg Premixed Ivpb - IVPB 100 mls/hr Q8H-IV KIERRA Administration Ceftriaxone Sodium 2 gm/ 50 mls @ 100 mls/hr 07/18/20 19:00 07/20/20 11:30 Dextrose IVPB 100 mls/hr DAILY KIERRA Administration Sodium Chloride 1,000 mls @ 75 mls/hr 07/18/20 04:30 07/20/20 10:28 Normal Saline - IV 75 mls/hr ASDIR KIERRA Administration Insulin Aspart 1 vial 07/17/20 22:00 07/20/20 11:17 Novolog Vial Sliding Scale - SQ 2 unit ACHS KIERRA Administration Protocol Morphine Sulfate 2 mg 07/17/20 22:43 Morphine Sulfate IVPUSH Q6H PRN PAIN LEVEL 7 - 10 ASSESSMENT/PLAN: 74 M Acute cholecystitis r/o colon malignancy CAD s/p stent 10 years ago HTN HLD T2DM with neuropathy CVA Chronic L foot OM/wound HFrEF s/p AICD Plan: COnt. Ceftriaxone/Flagyl Hold ASA/blood thinners d/t positive FOBT Clear liquid diet per Surgery recommendations Cardiology following for clearance ID following Scheduled for lap tuesday GI recommendations regarding positive FOBT appreciated DVT ppx: SCD Visit type - Emergency Visit Emergency Visit: Yes ED Registration Date: 07/17/20 Care time: The patient presented to the Emergency Department on the above date and was hospitalized for further evaluation of their emergent condition. - New Patient This patient is new to me today: No - Critical Care Critical Care patient: No - Discharge Referral Referred to [facility] Med P.C.: No - Medication Review Med list reviewed for High Risk Meds patients 65 and older: Yes
[2020-07-20] MEDS: ATORVASTATIN CA 40 MG TABLET (FP) PO SCH (22:00)
[2020-07-21] MEDS: SODIUM CHLORIDE 1,000 ML IV SCH ×2 (02:10→06:57)
[2020-07-21] MEDS: INSULIN SLIDING SCALE (NOVOLOG) 1 VIAL SQ SCH ×4 (06:59→21:22)
[2020-07-21 08:43] LABS: BASO % 0.3 % (0-2.0); EOS % 4.2 % (0-4.5); HEMATOCRIT 28.1 % (35.4-49); HEMOGLOBIN 9.4 GM/dL (11.7-16.9); LYMPH % 19.2 % (8-40); MCHC 33.4 g/dl (32.0-35.9); MEAN CELL VOLUME 86.7 fl (80-96); MONO % 9.7 % (3.8-10.2); NEUT % 66.6 % (42.8-82.8); PLATELET COUNT 154 K/MM3 (134-434); RBC 3.24 M/mm3 (4.00-5.60); WHITE BLOOD COUNT 7.4 K/mm3 (4.0-10.0)
[2020-07-21 09:02] LABS: ALBUMIN 2.3 g/dl (3.4-5.0); BILIRUBIN,TOTAL 0.4 mg/dL (0.2-1); BLOOD UREA NITROGEN 9.4 mg/dL (7-18); CALCIUM 7.2 mg/dL (8.5-10.1); CREATININE 1.2 mg/dL (0.55-1.3); POTASSIUM 3.4 mmol/L (3.5-5.1); TOT PROT 5.8 g/dl (6.4-8.2)
--- NOTE | 2020-07-21 09:31 | PN ---
Progress Note (short form) - Note Progress Note: Attending Surgeon Seen in f/u; no c/o; tolerating clear liquids VSS AF abdo-soft; non tender LFT's and bili continue to normalize Cardiology notes reviewed agian and ECHO IMP: cholelithiasis and acute cholecystitis PLAN: Plan for lap syed 07/22/2020 pending on going w/u; order placed for NPO; r/b/t/a's d/w the patient. Richard Mary MD FACS
[2020-07-21] MEDS ORDERED: DEXTROSE 5%-WATER - 50 ML IVPB ONE (09:52)
[2020-07-21] MEDS: amLODIPine BESYLATE 10 MG TABLET (FP) PO SCH (10:00)
[2020-07-21] MEDS: CARVEDILOL 25 MG TABLET (FP) PO SCH ×2 (10:00→21:22)
[2020-07-21] MEDS: GABAPENTIN 100 MG CAPSULE PO SCH ×2 (10:01→21:23)
--- NOTE | 2020-07-21 10:20 | PN ---
Progress Note, Physician History of Present Illness: Patient is a 74 year old male with underlying history of CAD s/p PCI/stent ([facility]) and CABG (02/23/10 JONES->LAD, SVG-PDA, SVG->[facility]), [employer] ICD implantation 02/28/2010 for inducible VT (last check 02/26/2016!) for ischemic cardiomyopathy and VT/VF, CVA with right residual deficit, HTN, hypercholesterolemia, T2DM, left foot osteomyelitis followed at wound care who presents with acute onset RUQ pain. Initially attributed it to gas but the pain progressively worsened. He saw the nurse at his assisted living facility who recommended he come to the ED. Denies vomiting, diarrhea, fever/chills. 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 Regarding CV symptoms, he denies chest pain, dyspnea, near or true syncope, palpitations, orthopnea, PND, LE edema, ICD discharge or change in exercise capacity. Patient was afebrile and hemodynamically stable in the ED, labs notable for creatinine 1.6, glucose 48. WBC within normal. RUQ US showed cholelithiasis, mod erate amount of bile/sludge within the gallbladder, and borderline gallbladder wall thickness. Patient was able to tolerate some juice. At time of evaluation he has no acute complaints, RUQ pain improved. - Current Medication List Current Medications: Active Medications Albuterol Sulfate (Ventolin Hfa Inhaler -) 2 puff IH Q4H PRN PRN Reason: SHORT OF BREATH/WHEEZING Amlodipine Besylate (Norvasc -) 10 mg PO DAILY KIERRA Last Admin: 07/21/20 10:00 Dose: 10 mg Documented by: Atorvastatin Calcium (Lipitor -) 40 mg PO HS KIERRA Last Admin: 07/20/20 22:00 Dose: 40 mg Documented by: Carvedilol (Coreg -) 25 mg PO BID KIERRA Last Admin: 07/21/20 10:00 Dose: 25 mg Documented by: Gabapentin (Neurontin -) 100 mg PO BID [facility] Last Admin: 07/21/20 10:01 Dose: 100 mg Documented by: Metronidazole (Flagyl 500mg Premixed Ivpb -) 500 mg in 100 mls @ 100 mls/hr IVPB Q8H-IV KIERRA Last Admin: 07/21/20 10:01 Dose: 100 mls/hr Documented by: Ceftriaxone Sodium 2 gm/ (Dextrose) 50 mls @ 100 mls/hr IVPB DAILY KIERRA Last Admin: 07/20/20 11:30 Dose: 100 mls/hr Documented by: Sodium Chloride (Normal Saline -) 1,000 mls @ 75 mls/hr IV ASDIR KIERRA Last Admin: 07/21/20 06:57 Dose: Not Given Documented by: Insulin Aspart (Novolog Vial Sliding Scale -) 1 vial SQ ACHS KIERRA; Protocol Last Admin: 07/21/20 06:59 Dose: Not Given Documented by: - Objective Vital Signs: Vital Signs Temperature 97.8 F 07/21/20 06:00 Pulse Rate 68 07/21/20 06:00 Respiratory Rate 07/21/20 06:00 Blood Pressure 140/62 07/21/20 06:00 O2 Sat by Pulse Oximetry (%) 93 L 07/21/20 06:00 Eyes: Yes: WNL, Conjunctiva Clear, EOM Intact HENT: Yes: WNL, Atraumatic, Normocephalic Neck: Yes: WNL, Supple, Trachea Midline Cardiovascular: Yes: WNL, Regular Rate and Rhythm, Murmur, S1, S2 Respiratory: Yes: WNL, Regular, CTA Bilaterally Gastrointestinal: Yes: WNL, Normal Bowel Sounds Genitourinary: Yes: WNL Musculoskeletal: Yes: WNL Extremities: Yes: WNL Edema: No Integumentary: Yes: WNL Neurological: Yes: WNL, Alert, Oriented ...Motor Strength: WNL Psychiatric: Yes: WNL Labs: CBC, BMP 07/21/20 07:15 07/21/20 07:15 INR, PTT INR 1.39 (0.83-1.09) H 07/18/20 03:38 Assessment/Plan - Problems (1) Acute cholecystitis due to biliary calculus Code(s): K80.00 - CALCULUS OF GALLBLADDER W ACUTE CHOLECYST W/O OBSTRUCTION (2) Pre-operative cardiovascular examination Code(s): Z01.810 - ENCOUNTER FOR PREPROCEDURAL CARDIOVASCULAR EXAMINATION (3) CAD (coronary artery disease) Code(s): I25.10 - ATHSCL HEART DISEASE OF [place] CORONARY ARTERY W/O ANG PCTRS Qualifiers: Coronary Disease-Associated Artery/Lesion type: [place] artery [place] vs. transplanted heart: [place] heart Associated angina: without angina Qualified Code(s): I25.10 - Atherosclerotic heart disease of [place] coronary artery without angina pectoris (4) Diabetes mellitus Code(s): E11.9 - TYPE 2 DIABETES MELLITUS WITHOUT COMPLICATIONS Qualifiers: Diabetes mellitus type: type 2 Diabetes mellitus complication status: with circulatory complication Diabetes mellitus complication detail: with peripheral angiopathy with gangrene (5) Diabetic foot ulcer Code(s): E11.621 - TYPE 2 DIABETES MELLITUS WITH FOOT ULCER; L97.509 - NON- PRESSURE CHRONIC ULCER OTH PRT UNSP FOOT W UNSP SEVERITY Qualifiers: Diabetic foot ulcer location: midfoot Diabetes mellitus type: other specified (including MARIA M) Laterality: left Non-pressure ulcer stage: unspecified non-pressure ulcer stage Qualified Code(s): E13.621 - Other specified diabetes mellitus with foot ulcer; L97.429 - Non-pressure chronic ulcer of left heel and midfoot with unspecified severity (6) HTN (hypertension) Code(s): I10 - ESSENTIAL (PRIMARY) HYPERTENSION Qualifiers: Hypertension type: essential hypertension Qualified Code(s): I10 - Essent ial (primary) hypertension (7) History of percutaneous coronary intervention Code(s): Z98.61 - CORONARY ANGIOPLASTY STATUS (8) Hx of CABG Code(s): Z95.1 - PRESENCE OF AORTOCORONARY BYPASS GRAFT (9) Hypercholesterolemia Code(s): E78.00 - PURE HYPERCHOLESTEROLEMIA, UNSPECIFIED (10) Ischemic dilated cardiomyopathy Code(s): I25.5 - ISCHEMIC CARDIOMYOPATHY; I42.0 - DILATED CARDIOMYOPATHY (11) PAD (peripheral artery disease) Code(s): I73.9 - PERIPHERAL VASCULAR DISEASE, UNSPECIFIED (12) Presence of automatic cardioverter/defibrillator (AICD) Code(s): Z95.810 - PRESENCE OF AUTOMATIC (IMPLANTABLE) CARDIAC DEFIBRILLATOR Assessment/Plan 07/18/2020 Hida with evidence of acute syed. no filling of gallbladder 07/18/2020 Mild decreased LVEF 45-50%, abnl LV compliance, pcemaker in RV, mil dMR, TR, RVSP normal 04/16/2016 Lexiscan Myoview: Small mild ischemia of mid anterior wall and inferior wall scar. Mld decreased LVEF 43% with AK of basal to mid inferior wall and paradoxical septal motion 04/16/2016 Echo: Norml LV size with mild-mod JACKIE, mild decreased LV systolic function, LVEF 45%, abnl LV compliance, AK of inferior and mid inferolateral, paradoxical septal motion due to post-op state, tr TR, MR 1. Acute cholecystitis with cholelithiasis and abnl LFTs, r/o choledocholithiasis 2. H/o left foot MSSA osteomyelitis, diabetic ulcer s/p left foot debridement of ulcer with metatarsal head resection and biopsy 3. CAD s/p PCI/stent, CABG, angina pectoris 4. Ischemic dilated cardiomyopathy 5. HTN 6. Hypercholesterolemia 7. DM 8. Presence of AICD for above cardiomyopathy and VT/VF 9. CKD PLAN: 1. NPO in meantime, trend LFTs to document peak, cannot undergo MRCP due to ICD, will need alternative imaging modality 2. Reviewed prior medical records from [facility], last saw Dr. Wayne Quijano 2015, did not f/u due to distance 3. Continue Carvedilol 25 mg BID, Prinivil 20 mg BID, Amlodipine 10 mg QD and Hydralazine 25 mg BID 4. Continue Atorvastatin 40 mg QHS. Continue ASA 81 qd to minimize risk of very late stent thrombosis, hold Plavix 75 qd for possible lap syed 5. Called [employer] for ICD interrogation. Place magnet on ICD intraop. 6. GI and DVT prophylaxis, completed Ancef course via tunnelled catheter since d/deidra Coverage dr. Smith
[2020-07-21] MEDS: CEFTRIAXONE 2 GM in DEXTROSE 5%-WATER - 50 ML IVPB SCH (11:04)
--- NOTE | 2020-07-21 12:31 | PN ---
Physical Exam: SUBJECTIVE: Patient seen and examined. No acute events overnight. Pt. denies any complaints. OBJECTIVE: Vital Signs Period Temp Pulse Resp BP Sys/[place] Pulse Ox Last 24 Hr 97.0 F-99.1 F 66-72 20-20 127-151/62-80 90-95 GENERAL: The patient is awake, alert, and in no acute distress. HEAD: Normal with no signs of trauma. EYES: Sclera anicteric, conjunctiva clear. ENT: Ears normal, nares patent, oropharynx clear without exudates, moist mucous membranes. LUNGS: Breath sounds equal, clear to auscultation bilaterally, no wheezes, no crackles, no accessory muscle use. HEART: Regular rate and rhythm, S1, S2 without murmur ABDOMEN: Soft, nontender, nondistended, hypooactive bowel sounds, no guarding, no rebound EXTREMITIES: 2+ dorsal pedal pulses, warm, no calf tenderness well-perfused, no edema. NEUROLOGICAL: Normal speech, gait not observed. PSYCH: Normal mood, normal affect. SKIN: Warm, dry, normal turgor Laboratory Results - last 24 hr 07/20/20 07/20/20 07/21/20 16:49 22:03 06:59 WBC RBC Hgb Hct MCV MCH MCHC RDW Plt Count MPV Absolute Neuts (auto) Neutrophils % Lymphocytes % Monocytes % Eosinophils % Basophils % Nucleated RBC % Sodium Potassium Chloride Carbon Dioxide Anion Gap BUN Creatinine Est GFR (CKD-EPI)AfAm Est GFR (CKD-EPI)NonAf POC Glucometer 141 140 102 Random Glucose Calcium Iron TIBC Iron Saturation Unsaturated IBC Total Bilirubin AST ALT Alkaline Phosphatase Total Protein Albumin 07/21/20 07/21/20 07/21/20 07:15 07:15 12:11 WBC 7.4 RBC 3.24 L Hgb 9.4 L Hct 28.1 L MCV 86.7 MCH 29.0 MCHC 33.4 RDW 14.0 Plt Count 154 MPV 12.0 H Absolute Neuts (auto) 4.9 Neutrophils % 66.6 Lymphocytes % 19.2 D Monocytes % 9.7 Eosinophils % 4.2 Basophils % 0.3 Nucleated RBC % 0 Sodium 143 Potassium 3.4 L Chloride 114 H Carbon Dioxide 24 Anion Gap 5 L BUN 9.4 Creatinine 1.2 Est GFR (CKD-EPI)AfAm 69.11 Est GFR (CKD-EPI)NonAf 59.63 POC Glucometer 150 Random Glucose 110 H Calcium 7.2 L Iron 24 L TIBC 144 L Iron Saturation 16 L Unsaturated IBC 120 L Total Bilirubin 0.4 AST 19 ALT 34 Alkaline Phosphatase 123 H Total Protein 5.8 L Albumin 2.3 L Active Medications Generic Name Dose Route Start Last Admin Trade Name Freq PRN Reason Stop Dose Admin Albuterol Sulfate 2 puff 07/18/20 04:13 Ventolin Hfa Inhaler - IH Q4H PRN SHORT OF BREATH/WHEEZING Amlodipine Besylate 10 mg 07/18/20 10:00 07/21/20 10:00 Norvasc - PO 10 mg DAILY KIERRA Administration Aspirin 81 mg 07/21/20 12:30 Asa - PO DAILY KIERRA Atorvastatin Calcium 40 mg 07/18/20 22:00 07/20/20 22:00 Lipitor - PO 40 mg HS KIERRA Administration Carvedilol 25 mg 07/18/20 10:00 07/21/20 10:00 Coreg - PO 25 mg BID KIERRA Administration Gabapentin 100 mg 07/18/20 10:00 07/21/20 10:01 Neurontin - PO 100 mg BID KIERRA Administration Metronidazole 500 mg in 100 mls @ 100 mls/hr 07/18/20 02:00 07/21/20 10:01 Flagyl 500mg Premixed Ivpb - IVPB 100 mls/hr Q8H-IV KIERRA Administration Ceftriaxone Sodium 2 gm/ 50 mls @ 100 mls/hr 07/18/20 19:00 07/21/20 11:04 Dextrose IVPB 100 mls/hr DAILY KIERRA Administration Sodium Chloride 1,000 mls @ 75 mls/hr 07/18/20 04:30 07/21/20 06:57 Normal Saline - IV Not Given ASDIR KIERRA Insulin Aspart 1 vial 07/17/20 22:00 07/21/20 06:59 Novolog Vial Sliding Scale - SQ Not Given ACHS KIERRA Protocol ASSESSMENT/PLAN: Pt. is a 74 y.o. M w/ PMHx. of IDDM, HTN, HLD, CAD (s/p 3 vessel CABG and AICD), Left foot OM (s/p 6 week course IV abx via tunneled catheter removed on 07/03/20), CVA (residual Right-sided putaway driver weakness, Right sided vision deficit) BIBA for Right sided abdominal pain. Patient admitted for acute cholecystitis. #RUQ pain 2/2 acute cholecystitis and choledocholithiasis -HIDA with evidence for acute cholecystitis -NPO after midnight for OR in AM -IV Hydration -General surgery consulted who recommends cardiac clearance and GI Evaluation -IV abx: ceftriaxone, flagyl Started 07/17/20) -Stool studies negative #IDDM -ISS BGMs ACHS -Pt. has been well controlled in the hospital without needing home Levemir doses. Will resume Levemir once Pt. tolerating PO. #HTN #HLD #CAD (s/p 3 vessel CABG), CVA (residual Right-sided putaway driver weakness, Right sided vision deficit), AICD -continue lisinopril, norvasc, coreg, Hydralazine, ASA, Statin -Echo pending -Hold plavix, resume ASA as per appreciated cardiology consult #FEN -NS @75 -Replete lytes PRN -NPO after midinight, was on clears DVT PPX: -SCDs Visit type - Emergency Visit Emergency Visit: Yes ED Registration Date: 07/17/20 Care time: The patient presented to the Emergency Department on the above date and was hospitalized for further evaluation of their emergent condition. - New Patient This patient is new to me today: Yes Date on this admission: 07/21/20 - Critical Care Critical Care patient: No - Discharge Referral Referred to [facility] Med P.C[facility] No - Medication Review Med list reviewed for High Risk Meds patients 65 and older: Yes ATTENDING PHYSICIAN STATEMENT I saw and evaluated the patient. I reviewed the resident's note and discussed the case with the resident. I agree with the resident's findings and plan as documented. SUBJECTIVE: OBJECTIVE: ASSESSMENT AND PLAN:
[2020-07-21] MEDS: ASPIRIN 81 MG CHEWABLE TABLETS PO SCH (12:49)
--- NOTE | 2020-07-21 13:39 | PN ---
Teaching Attending Note Name of Resident: Augustine Jacome ATTENDING PHYSICIAN STATEMENT I saw and evaluated the patient. I reviewed the resident's note and discussed the case with the resident. I agree with the resident's findings and plan as documented. SUBJECTIVE: Seen and examined at bedside. No complaints. Patient to undergo a laparoscopic cholecystectomy tomorrow. OBJECTIVE Last Vital Signs Temp Pulse Resp BP Pulse Ox 97.8 F 68 20 140/62 93 L 07/21/20 06:00 07/21/20 06:00 07/21/20 06:00 07/21/20 06:00 07/21/20 06:00 PE: Per resident note Labs/Imaging: reviewed ASSESSMENT/PLAN 74-year-old male with a history of CAD status post PCI/stent, CABG, ICD implantation for ischemic cardiomyopathy and VT/VF, CVA with right residual deficit, HTN, HLD, IDDM, left foot osteomyelitis presents with right upper quadrant pain, with concern for acute cholecystitis versus biliary colic. #acute cholecystitis Surgery on board: Appreciate recommendations -lap syed for tomorrow GI consulted #Extensive cardiac history Cardiology on board: Appreciate recommendations Continue aspirin, hold clopidogrel Continue statin #IDDM Hold home insulin regimen as patient hypo-glycemic ISS Restart insulin regimen as required #History of CVA Continue statin, ASA, hold Plavix #Hypertension Continue home medications
[2020-07-21] MEDS: ATORVASTATIN CA 40 MG TABLET (FP) PO SCH (21:22)
[2020-07-22] MEDS: SODIUM CHLORIDE 1,000 ML IV SCH (06:02)
[2020-07-22] MEDS: INSULIN SLIDING SCALE (NOVOLOG) 1 VIAL SQ SCH ×4 (06:05→23:02)
[2020-07-22 08:43] LABS: HEMATOCRIT 29.6 % (35.4-49); HEMOGLOBIN 9.8 GM/dL (11.7-16.9); MCH 28.8 pg (25.7-33.7); MCHC 33.3 g/dl (32.0-35.9); MEAN CELL VOLUME 86.7 fl (80-96); PLATELET COUNT 164 K/MM3 (134-434); RBC 3.41 M/mm3 (4.00-5.60); RDW 14.1 % (11.9-15.9); WHITE BLOOD COUNT 7.2 K/mm3 (4.0-10.0)
[2020-07-22 09:01] LABS: ALBUMIN 2.4 g/dl (3.4-5.0); BILIRUBIN,TOTAL 0.4 mg/dL (0.2-1); BLOOD UREA NITROGEN 6.1 mg/dL (7-18); CALCIUM 7.2 mg/dL (8.5-10.1); CREATININE 1.1 mg/dL (0.55-1.3); POTASSIUM 3.4 mmol/L (3.5-5.1); TOT PROT 6.2 g/dl (6.4-8.2)
[2020-07-22] MEDS ORDERED: DEXTROSE 5%-WATER - 50 ML IVPB ONE (10:22)
[2020-07-22] MEDS: CEFTRIAXONE 2 GM in DEXTROSE 5%-WATER - 50 ML IVPB SCH (10:25)
[2020-07-22] MEDS: ASPIRIN 81 MG CHEWABLE TABLETS PO SCH (10:26)
[2020-07-22] MEDS: amLODIPine BESYLATE 10 MG TABLET (FP) PO SCH (10:26)
[2020-07-22] MEDS: CARVEDILOL 25 MG TABLET (FP) PO SCH ×2 (10:26→21:27)
[2020-07-22] MEDS: GABAPENTIN 100 MG CAPSULE PO SCH ×2 (10:26→21:27)
--- NOTE | 2020-07-22 12:10 | PN ---
Progress Note, Physician Chief Complaint: Events noted Not in distress History of Present Illness: Patient was seen and examined. Awake and alert. Chart was reviewed Denies chest pain, SOB or palpitations Await lap cholecystectomy today - Current Medication List Current Medications: Active Medications Albuterol Sulfate (Ventolin Hfa Inhaler -) 2 puff IH Q4H PRN PRN Reason: SHORT OF BREATH/WHEEZING Amlodipine Besylate (Norvasc -) 10 mg PO DAILY [facility] Last Admin: 07/22/20 10:26 Dose: 10 mg Documented by: Aspirin (Asa -) 81 mg PO DAILY [facility] Last Admin: 07/22/20 10:26 Dose: Not Given Documented by: Atorvastatin Calcium (Lipitor -) 40 mg PO HS [facility] Last Admin: 07/21/20 21:22 Dose: 40 mg Documented by: Carvedilol (Coreg -) 25 mg PO BID [facility] Last Admin: 07/22/20 10:26 Dose: 25 mg Documented by: Gabapentin (Neurontin -) 100 mg PO BID [facility] Last Admin: 07/22/20 10:26 Dose: 100 mg Documented by: Metronidazole (Flagyl 500mg Premixed Ivpb -) 500 mg in 100 mls @ 100 mls/hr IVPB Q8H-IV [facility] Last Admin: 07/22/20 01:27 Dose: 100 mls/hr Documented by: Ceftriaxone Sodium 2 gm/ (Dextrose) 50 mls @ 100 mls/hr IVPB DAILY [facility] Last Admin: 07/22/20 10:25 Dose: 100 mls/hr Documented by: Sodium Chloride (Normal Saline -) 1,000 mls @ 75 mls/hr IV ASDIR [facility] Last Admin: 07/22/20 06:02 Dose: Not Given Documented by: Insulin Aspart (Novolog Vial Sliding Scale -) 1 vial SQ ACHS [facility]; Protocol Last Admin: 07/22/20 06:05 Dose: Not Given Documented by: - Objective Vital Signs: Vital Signs Temperature 98.3 F 07/22/20 06:00 Pulse Rate 71 07/22/20 06:00 Respiratory Rate 18 07/22/20 06:00 Blood Pressure 142/65 07/22/20 06:00 O2 Sat by Pulse Oximetry (%) 93 L 07/22/20 06:00 Neck: Yes: Supple Cardiovascular: Yes: Regular Rate and Rhythm, S1, S2. No: Murmur Respiratory: Yes: CTA Bilaterally Gastrointestinal: Yes: Soft. No: Tenderness Edema: No Additional Findings/Remarks: - Review of Systems Constitutional: denies: Chills, Fever Cardiovascular: denies: Chest Pain, Palpitations, Shortness of Breath Respiratory: denies: Cough, Hemoptysis, Orthopnea, PND, SOB, SOB on Exertion Gastrointestinal: (+) Abdominal Pain, denies: Constipation, Diarrhea, Melena, Nausea, Rectal Bleeding, Vomiting Genitourinary: denies: Dysuria, Hematuria Musculoskeletal: denies: Back Pain, Joint Pain Neurological: denies: Dizziness, Headache, Seizure, Syncope Labs: CBC, BMP 07/22/20 06:55 07/22/20 06:55 Problem List - Problems (1) Acute cholecystitis due to biliary calculus Code(s): K80.00 - CALCULUS OF GALLBLADDER W ACUTE CHOLECYST W/O OBSTRUCTION (2) Pre-operative cardiovascular examination Code(s): Z01.810 - ENCOUNTER FOR PREPROCEDURAL CARDIOVASCULAR EXAMINATION (3) CAD (coronary artery disease) Code(s): I25.10 - ATHSCL HEART DISEASE OF [place] CORONARY ARTERY W/O ANG PCTRS Qualifiers: Coronary Disease-Associated Artery/Lesion type: [place] artery [place] vs. transplanted heart: [place] heart Associated angina: without angina Qualified Code(s): I25.10 - Atherosclerotic heart disease of [place] coronary artery without angina pectoris (4) Diabetes mellitus Code(s): E11.9 - TYPE 2 DIABETES MELLITUS WITHOUT COMPLICATIONS Qualifiers: Diabetes mellitus type: type 2 Diabetes mellitus complication status: with circulatory complication Diabetes mellitus complication detail: with peripheral angiopathy with gangrene (5) Diabetic foot ulcer Code(s): E11.621 - TYPE 2 DIABETES MELLITUS WITH FOOT ULCER; L97.509 - NON- PRESSURE CHRONIC ULCER OTH PRT UNSP FOOT W UNSP SEVERITY Qualifiers: Diabetic foot ulcer location: midfoot Diabetes mellitus type: other specified (including MARIA M) Laterality: left Non-pressure ulcer stage: unspecified non-pressure ulcer stage Qualified Code(s): E13.621 - Other specified diabetes mellitus with foot ulcer; L97.429 - Non-pressure chronic ulcer of left heel and midfoot with unspecified severity (6) HTN (hypertension) Code(s): I10 - ESSENTIAL (PRIMARY) HYPERTENSION Qualifiers: Hypertension type: essential hypertension Qualified Code(s): I10 - Essential (primary) hypertension (7) History of percutaneous coronary intervention Code(s): Z98.61 - CORONARY ANGIOPLASTY STATUS (8) Hx of CABG Code(s): Z95.1 - PRESENCE OF AORTOCORONARY BYPASS GRAFT (9) Hypercholesterolemia Code(s): E78.00 - PURE HYPERCHOLESTEROLEMIA, UNSPECIFIED (10) Ischemic dilated cardiomyopathy Code(s): I25.5 - ISCHEMIC CARDIOMYOPATHY; I42.0 - DILATED CARDIOMYOPATHY (11) Osteomyelitis Code(s): M86.9 - OSTEOMYELITIS, UNSPECIFIED (12) PAD (peripheral artery disease) Code(s): I73.9 - PERIPHERAL VASCULAR DISEASE, UNSPECIFIED (13) Presence of automatic cardioverter/defibrillator (AICD) Code(s): Z95.810 - PRESENCE OF AUTOMATIC (IMPLANTABLE) CARDIAC DEFIBRILLATOR Assessment/Plan 1. Acute cholecystitis with cholelithiasis and abnormal LFTs 2. History of left foot MSSA osteomyelitis, diabetic ulcer s/p left foot debridement of ulcer with metatarsal head resection and biopsy 3. CAD s/p PCI/stent, CABG, angina pectoris 4. Ischemic dilated cardiomyopathy 5. HTN 6. Hypercholesterolemia 7. DM 8. Presence of AICD for above cardiomyopathy and VT/VF 9. CKD PLAN: 1. No absolute contraindication for surgery in ivew of absence of ischemic symptoms, decompensated congestive heart failure or malignant arrhythmia. 2. Continue Carvedilol 25 mg BID, Prinivil 20 mg BID, Amlodipine 10 mg QD and Hydralazine 25 mg BID 3. Continue Atorvastatin 40 mg QHS if LFT remains stable. Continue ASA 81 mg QD to minimize risk of very late stent thrombosis. Plavix held for lap cholecystectomy 4. May place magnet on ICD intra-operatively which will deactivate the device and when magnet is taken off, device will go back to the programmed setting 5. GI and DVT prophylaxis 6. Antibiotic coverage Eventually follow up in our office [facility] upon discharge [phone] Eddie Rojas MD
[2020-07-22] MEDS ORDERED: fentaNYL CITRATE 250 MCG/5 ML VIAL ONE (13:59)
--- NOTE | 2020-07-22 14:05 | PN ---
Teaching Attending Note Name of Resident: Augustine Jacome ATTENDING PHYSICIAN STATEMENT I saw and evaluated the patient. I reviewed the resident's note and discussed the case with the resident. I agree with the resident's findings and plan as documented. SUBJECTIVE: Seen and examined at bedside. No complaints. Pt to undergo lap-syed today OBJECTIVE Last Vital Signs Temp Pulse Resp BP Pulse Ox 98.4 F 70 18 124/69 95 07/22/20 09:00 07/22/20 09:00 07/22/20 09:00 07/22/20 09:00 07/22/20 09:00 PE: Per resident note Labs/Imaging: reviewed ASSESSMENT/PLAN 74-year-old male with a history of CAD status post PCI/stent, CABG, ICD implantation for ischemic cardiomyopathy and VT/VF, CVA with right residual deficit, HTN, HLD, IDDM, left foot osteomyelitis presents with right upper quadrant pain, with concern for acute cholecystitis versus biliary colic. #acute cholecystitis Surgery on board: Appreciate recommendations -lap syed for today GI consulted #Extensive cardiac history Cardiology on board: Appreciate recommendations Continue aspirin, hold clopidogrel Continue statin #IDDM Hold home insulin regimen as patient hypo-glycemic ISS Restart insulin regimen as required #History of CVA Continue statin, ASA, hold Plavix #Hypertension Continue home medications
[2020-07-22] MEDS ORDERED: SODIUM CHLORIDE 1,000 ML IV SCH ×2 (15:08→16:57)
[2020-07-22] MEDS ORDERED: PROPOFOL 20 ML ONE ×2 (15:23)
[2020-07-22] MEDS ORDERED: LIDOCAINE HCL 2% JELLY (5 ML/TUBE) ONE (15:45)
[2020-07-22] MEDS ORDERED: LIDOCAINE HCL/PF 2% SDV 5ML VIAL ONE (15:45)
[2020-07-22] MEDS ORDERED: DEXAMETHASONE SOD PHOSPHATE 4 MG/1 ML VIAL ONE (15:45)
[2020-07-22] MEDS ORDERED: ALBUTEROL SO4 HFA INHALER IH ONE (15:45)
[2020-07-22] MEDS ORDERED: ROCURONIUM BROMIDE 100 MG/10 ML VIAL ONE (16:07)
[2020-07-22] MEDS ORDERED: ONDANSETRON 4 MG/2 ML VIAL IVPUSH PRN (16:30)
[2020-07-22] MEDS ORDERED: NEOSTIGMINE METHYLSULFATE 0.5 MG/ML - 10 ML MDV ONE (16:35)
[2020-07-22] MEDS ORDERED: ALBUTEROL SO4 HFA INHALER IH PRN (16:57)
[2020-07-22] MEDS ORDERED: oxyCODONE HCL 5 MG TABLET PO PRN ×2 (16:57)
[2020-07-22] MEDS ORDERED: POLYETHYLENE GLYCOL 3350 119 GM BTL PO PRN (16:57)
[2020-07-22] MEDS ORDERED: FAMOTIDINE 10 MG TABLET PO PRN (16:57)
[2020-07-22] MEDS ORDERED: BENZOCAINE/MENTH/CETYLPYRD CL 1 EACH LOZENGE MM PRN (16:57)
[2020-07-22] MEDS ORDERED: SENNOSIDES 8.6MG TABLET (FP) PO PRN (16:57)
--- NOTE | 2020-07-22 16:58 | OP ---
Operative Note - Note: Operative Date: 07/22/20 Pre-Operative Diagnosis: acute cholecystitis Operation: lap cholecystectomy Post-Operative Diagnosis: Same as Pre-op Surgeon: Richard Mary Seasonal Package Handler: Que Edgar Anesthesiologist/COUNSELING CASE MANAGER: Paulino Everett Anesthesia: General Estimated Blood Loss (mls): 20 Operative Report Dictated: Yes
--- NOTE | 2020-07-22 16:59 | SURG ---
Surgery Associate Professor Of Archaeology Note Associate Professor Of Archaeology: Que Edgar PA-C Date of Service: 07/22/20 Diagnosis: acute cholecystectomy Procedure: lap cholecystectomy I was present for the entirety of the operative procedure. For further detail, please refer to operative report. Visit type - Case Type Case Type: ED Admission - Emergency Emergency Visit: Yes ED Registration Date: 07/17/20 Care time: The patient presented to the Emergency Department on the above date and was hospitalized for further evaluation of their emergent condition. - New patient This patient is new to me today: No - Critical Care Critical Care patient: No
--- NOTE | 2020-07-22 18:52 | PN ---
Physical Exam: SUBJECTIVE: Patient seen and examined. No acute events overnight. Pt. denies any complaints. Pt. with congestive cough. OBJECTIVE: Vital Signs Period Temp Pulse Resp BP Sys/Hightower Pulse Ox Last 24 Hr 98 F-98.8 F 64-102 16-18 112-142/58-69 93-100 GENERAL: The patient is awake, alert, and in no acute distress. HEAD: Normal with no signs of trauma. EYES: Sclera anicteric, conjunctiva clear. ENT: Ears normal, nares patent, oropharynx clear without exudates, moist mucous membranes. LUNGS: Diffuse crackles, no accessory muscle use. HEART: Regular rate and rhythm, S1, S2 without murmur ABDOMEN: Soft, nontender, nondistended, hypooactive bowel sounds, no guarding, no rebound EXTREMITIES: 2+ dorsal pedal pulses, warm, no calf tenderness well-perfused, 2+ edema. NEUROLOGICAL: Normal speech, gait not observed. PSYCH: Normal mood, normal affect. SKIN: Warm, dry, normal turgor Laboratory Results - last 24 hr 07/21/20 07/21/20 07/22/20 19:10 21:22 06:04 WBC RBC Hgb Hct MCV MCH MCHC RDW Plt Count MPV Sodium Potassium Chloride Carbon Dioxide Anion Gap BUN Creatinine Est GFR (CKD-EPI)AfAm Est GFR (CKD-EPI)NonAf POC Glucometer 123 102 Random Glucose Calcium Total Bilirubin AST ALT Alkaline Phosphatase Total Protein Albumin Blood Type A POSITIVE Antibody Screen Negative 07/22/20 07/22/20 07/22/20 06:55 06:55 12:04 WBC 7.2 RBC 3.41 L Hgb 9.8 L Hct 29.6 L MCV 86.7 MCH 28.8 MCHC 33.3 RDW 14.1 Plt Count 164 MPV 12.0 H Sodium 141 Potassium 3.4 L Chloride 111 H Carbon Dioxide 22 Anion Gap 9 BUN 6.1 L Creatinine 1.1 Est GFR (CKD-EPI)AfAm 76.78 Est GFR (CKD-EPI)NonAf 66.24 POC Glucometer 135 Random Glucose 120 H Calcium 7.2 L Total Bilirubin 0.4 AST 18 ALT 28 Alkaline Phosphatase 118 H Total Protein 6.2 L Albumin 2.4 L Blood Type Antibody Screen 07/22/20 18:29 WBC RBC Hgb Hct MCV MCH MCHC RDW Plt Count MPV Sodium Potassium Chloride Carbon Dioxide Anion Gap BUN Creatinine Est GFR (CKD-EPI)AfAm Est GFR (CKD-EPI)NonAf POC Glucometer 158 Random Glucose Calcium Total Bilirubin AST ALT Alkaline Phosphatase Total Protein Albumin Blood Type Antibody Screen Active Medications Generic Name Dose Route Start Last Admin Trade Name Freq PRN Reason Stop Dose Admin Albuterol Sulfate 2 puff 07/22/20 16:57 Ventolin Hfa Inhaler - IH Q4H PRN SHORT OF BREATH/WHEEZING Amlodipine Besylate 10 mg 07/23/20 10:00 Norvasc - PO DAILY [facility] Aspirin 81 mg 07/23/20 10:00 Asa - PO DAILY [facility] Atorvastatin Calcium 40 mg 07/22/20 22:00 Lipitor - PO HS [facility] Benzocaine/Menthol 1 each 07/22/20 16:57 Cepacol Lozenge - MM PRN PRN SORE THROAT Carvedilol 25 mg 07/22/20 22:00 Coreg - PO BID [facility] Famotidine 10 mg 07/22/20 16:57 Acid Collar Turner Operator PO BID PRN INDIGESTION Gabapentin 100 mg 07/22/20 22:00 Neurontin - PO BID [facility] Sodium Chloride 1,000 mls @ 42 mls/hr 07/22/20 16:57 Normal Saline - IV ASDIR [facility] Insulin Aspart 1 vial 07/22/20 22:00 Novolog Vial Sliding Scale - SQ ACHS [facility] Protocol Ondansetron HCl 4 mg 07/22/20 16:30 Zofran Injection IVPUSH Q6H PRN NAUSEA AND/OR VOMITING Oxycodone HCl 5 mg 07/22/20 16:57 Roxicodone - PO Q4H PRN PAIN LEVEL 1-5 Oxycodone HCl 10 mg 07/22/20 16:57 Roxicodone - PO Q4H PRN PAIN LEVEL 6-10 Polyethylene Glycol 17 gm 07/22/20 16:57 Miralax (For Daily Use) - PO DAILY PRN CONSTIPATION Senna 2 tab 07/22/20 16:57 Senna - PO HS PRN CONSTIPATION ASSESSMENT/PLAN: Pt. is a 74 y.o. M w/ PMHx. 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 Patient admitted for acute cholecystitis. #RUQ pain 2/2 acute cholecystitis and choledocholithiasis -HIDA with evidence for acute cholecystitis -Pt. for OR today -IV Hydration -General surgery consulted who recommends cardiac clearance and GI Evaluation -D/C abx: ceftriaxone, flagyl Started 07/17/20- Stopped 07/22/20 -Stool studies negative -CXR with new congestive changes and with crackles, will decrease rate of fluids and assess in AM for Lasix. -Incentive Spirometer #IDDM -ISS BGMs ACHS -Pt. has been well controlled in the hospital without needing home Levemir doses. Will resume Levemir once Pt. tolerating PO. 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 - New Patient This patient is new to me today: No - Critical Care Critical Care patient: No - Discharge Referral Referred to [facility] No - Medication Review Med list reviewed for High Risk Meds patients 65 and older: Yes ATTENDING PHYSICIAN STATEMENT I saw and evaluated the patient. I reviewed the resident's note and discussed the case with the resident. I agree with the resident's findings and plan as documented. SUBJECTIVE: OBJECTIVE: ASSESSMENT AND PLAN:
[2020-07-22] MEDS: ATORVASTATIN CA 40 MG TABLET (FP) PO SCH (21:27)
[2020-07-23] MEDS: INSULIN SLIDING SCALE (NOVOLOG) 1 VIAL SQ SCH ×4 (07:38→21:28)
[2020-07-23 08:28] LABS: BASO % 0.1 % (0-2.0); HEMATOCRIT 32.1 % (35.4-49); HEMOGLOBIN 10.6 GM/dL (11.7-16.9); LYMPH % 7.9 % (8-40); MCH 28.7 pg (25.7-33.7); MCHC 33.1 g/dl (32.0-35.9); MEAN CELL VOLUME 86.8 fl (80-96); MONO % 1.6 % (3.8-10.2); NEUT % 90.4 % (42.8-82.8); PLATELET COUNT 182 K/MM3 (134-434); RDW 13.9 % (11.9-15.9); WHITE BLOOD COUNT 9.1 K/mm3 (4.0-10.0)
[2020-07-23 08:36] LABS: ALBUMIN 2.4 g/dl (3.4-5.0); BILIRUBIN,TOTAL 0.4 mg/dL (0.2-1); BLOOD UREA NITROGEN 12.6 mg/dL (7-18); CALCIUM 7.5 mg/dL (8.5-10.1); CREATININE 1.3 mg/dL (0.55-1.3); MAGNESIUM 1.4 mg/dL (1.8-2.4); PHOSPHOROUS 2.9 mg/dL (2.5-4.9); POTASSIUM 3.8 mmol/L (3.5-5.1); TOT PROT 6.2 g/dl (6.4-8.2)
--- NOTE | 2020-07-23 09:38 | PN ---
Progress Note (short form) - Note Progress Note: 74yo M s/p lap syed POD 1. Pt seen and examined at bedside. Pt complains of some mild abd pain, with no nausea or vomiting. Pt tolerating diet. Vital Signs Temp 97.7 F 07/23/20 05:55 Pulse 77 07/23/20 05:55 Resp 18 07/23/20 05:55 BP 139/63 07/23/20 05:55 Pulse Ox 93 L 07/23/20 05:55 Intake & Output 07/22/20 07/22/20 07/23/20 11:59 23:59 11:59 Intake Total 400 1600 252 Output Total 70 320 Balance 400 1530 -68 Intake: IV 300 1600 252 Normal Saline - 1,000 ml 252 @ 42 mls/hr IV ASDIR KIERRA Rx#:[id number] Normal Saline - 1,000 ml 300 @ 75 mls/hr IV ASDIR KIERRA Rx#:[id number] IVPB 100 Output: Drainage 70 120 Right Abdomen 120 Urine 200 Void 200 Other: Voiding Method Toilet Toilet # Unmeasured Voids Void 1 2 1 Bowel Movement Yes No CBC, BMP 07/23/20 06:35 07/23/20 06:35 PE: Gen: A&O X3 Resp: breathing comfortably Abd: soft, mild diffuse tenderness, non distended, drain in place with serosanguinous drainage. Ext: no edema Problem List - Problems (1) Acute cholecystitis due to biliary calculus Assessment/Plan: Plan -pt appears to be doing well -monitor drain output, poss removal tomorrow. -dvt ppx Pt discussed with Dr. Mary who agrees with plan Code(s): K80.00 - CALCULUS OF GALLBLADDER W ACUTE CHOLECYST W/O OBSTRUCTION
--- NOTE | 2020-07-23 09:57 | PN ---
Progress Note, Physician History of Present Illness: 74yo M s/p lap syed POD 1, OOB in chair. Pt complains of some mild abd pain, with no nausea or vomiting, awaiting flatus, denies chest pain or dyspnea. Pt tolerating regular diet. - Current Medication List Current Medications: Active Medications Albuterol Sulfate (Ventolin Hfa Inhaler -) 2 puff IH Q4H PRN PRN Reason: SHORT OF BREATH/WHEEZING Amlodipine Besylate (Norvasc -) 10 mg PO DAILY [facility] Aspirin (Asa -) 81 mg PO DAILY [facility] Atorvastatin Calcium (Lipitor -) 40 mg PO HS [facility] Last Admin: 07/22/20 21:27 Dose: 40 mg Documented by: Benzocaine/Menthol (Cepacol Lozenge -) 1 each MM PRN PRN PRN Reason: SORE THROAT Carvedilol (Coreg -) 25 mg PO BID [facility] Last Admin: 07/22/20 21:27 Dose: 25 mg Documented by: Famotidine (Acid Machine Sprayer) 10 mg PO BID PRN PRN Reason: INDIGESTION Gabapentin (Neurontin -) 100 mg PO BID [facility] Last Admin: 07/22/20 21:27 Dose: 100 mg Documented by: Sodium Chloride (Normal Saline -) 1,000 mls @ 42 mls/hr IV ASDIR [facility] Last Admin: 07/22/20 19:30 Dose: 0 mls Documented by: Insulin Aspart (Novolog Vial Sliding Scale -) 1 vial SQ ACHS [facility]; Protocol Last Admin: 07/23/20 07:38 Dose: 2 units Documented by: Ondansetron HCl (Zofran Injection) 4 mg IVPUSH Q6H PRN PRN Reason: NAUSEA AND/OR VOMITING Oxycodone HCl (Roxicodone -) 5 mg PO Q4H PRN PRN Reason: PAIN LEVEL 1-5 Oxycodone HCl (Roxicodone -) 10 mg PO Q4H PRN PRN Reason: PAIN LEVEL 6-10 Polyethylene Glycol (Miralax (For Daily Use) -) 17 gm PO DAILY PRN PRN Reason: CONSTIPATION Senna (Senna -) 2 tab PO HS PRN PRN Reason: CONSTIPATION - Objective Vital Signs: Vital Signs Temperature 97.7 F 07/23/20 05:55 Pulse Rate 77 07/23/20 05:55 Respiratory Rate 18 07/23/20 05:55 Blood Pressure 139/63 07/23/20 05:55 O2 Sat by Pulse Oximetry (%) 93 L 07/23/20 05:55 Constitutional: Yes: No Distress, Calm Neck: Yes: Supple Cardiovascular: Yes: Regular Rate and Rhythm Respiratory: Yes: Regular, CTA Bilaterally Gastrointestinal: Yes: Normal Bowel Sounds, Soft Edema: No Labs: CBC, BMP 07/23/20 06:35 07/23/20 06:35 INR, PTT INR 1.39 (0.83-1.09) H 07/18/20 03:38 Problem List - Problems (1) Acute cholecystitis due to biliary calculus Code(s): K80.00 - CALCULUS OF GALLBLADDER W ACUTE CHOLECYST W/O OBSTRUCTION (2) Pre-operative cardiovascular examination Code(s): Z01.810 - ENCOUNTER FOR PREPROCEDURAL CARDIOVASCULAR EXAMINATION (3) CAD (coronary artery disease) Code(s): I25.10 - ATHSCL HEART DISEASE OF [place] CORONARY ARTERY W/O ANG PCTRS Qualifiers: Coronary Disease-Associated Artery/Lesion type: [place] artery [place] vs. transplanted heart: [place] heart Associated angina: without angina Qualified Code(s): I25.10 - Atherosclerotic heart disease of [place] coronary artery without angina pectoris (4) Diabetes mellitus Code(s): E11.9 - TYPE 2 DIABETES MELLITUS WITHOUT COMPLICATIONS Qualifiers: Diabetes mellitus type: type 2 Diabetes mellitus complication status: with circulatory complication Diabetes mellitus complication detail: with peripheral angiopathy with gangrene (5) Diabetic foot ulcer Code(s): E11.621 - TYPE 2 DIABETES MELLITUS WITH FOOT ULCER; L97.509 - NON- PRESSURE CHRONIC ULCER OTH PRT UNSP FOOT W UNSP SEVERITY Qualifiers: Diabetic foot ulcer location: midfoot Diabetes mellitus type: other specified (including MARIA M) Laterality: left Non-pressure ulcer stage: unspecified non-pressure ulcer stage Qualified Code(s): E13.621 - Other specified diabetes mellitus with foot ulcer; L97.429 - Non-pressure chronic ulcer of left heel and midfoot with unspecified severity (6) HTN (hypertension) Code(s): I10 - ESSENTIAL (PRIMARY) HYPERTENSION Qualifiers: Hypertension type: essential hypertension Qualified Code(s): I10 - Essential (primary) hypertension (7) History of percutaneous coronary intervention Code(s): Z98.61 - CORONARY ANGIOPLASTY STATUS (8) Hx of CABG Code(s): Z95.1 - PRESENCE OF AORTOCORONARY BYPASS GRAFT (9) Hypercholesterolemia Code(s): E78.00 - PURE HYPERCHOLESTEROLEMIA, UNSPECIFIED (10) Ischemic dilated cardiomyopathy Code(s): I25.5 - ISCHEMIC CARDIOMYOPATHY; I42.0 - DILATED CARDIOMYOPATHY (11) PAD (peripheral artery disease) Code(s): I73.9 - PERIPHERAL VASCULAR DISEASE, UNSPECIFIED (12) Presence of automatic cardioverter/defibrillator (AICD) Code(s): Z95.810 - PRESENCE OF AUTOMATIC (IMPLANTABLE) CARDIAC DEFIBRILLATOR Assessment/Plan 07/18/2020 Hida with evidence of acute syed. no filling of gallbladder 07/18/2020 Mild decreased LVEF 45-50%, abnl LV compliance, pcemaker in RV, mil dMR, TR, RVSP normal 04/16/2016 Lexiscan Myoview: Small mild ischemia of mid anterior wall and infer ior wall scar. Mld decreased LVEF 43% with AK of basal to mid inferior wall and paradoxical septal motion 04/16/2016 Echo: Norml LV size with mild-mod JACKIE, mild decreased LV systolic function, LVEF 45%, abnl LV compliance, AK of inferior and mid inferolateral, paradoxical septal motion due to post-op state, tr TR, MR 1. POD#1 lap cholecystectomy for acute cholecystitis with cholelithiasis and abn ormal LFTs 2. History of left foot MSSA osteomyelitis, diabetic ulcer s/p left foot debridement of ulcer with metatarsal head resection and biopsy 3. CAD s/p PCI/stent, CABG, angina pectoris 4. Ischemic dilated cardiomyopathy 5. HTN 6. Hypercholesterolemia 7. DM 8. Presence of AICD for above cardiomyopathy and VT/VF 9. CKD PLAN: 1. Drain management for possible removal tomorrow, diet as tolerated, d/c IVF, encourage ambulation 2. Continue Carvedilol 25 mg BID, resume Prinivil 20 mg BID, Amlodipine 10 mg QD, eventual aldosterone inhibition 3. Continue Atorvastatin 40 mg QHS if LFT remains stable. Change ASA 81 mg QD to Plavix 75 qd once post-op hemostasis assured 5. GI and DVT prophylaxis 6. Antibiotic coverage Eventually follow up in our office [facility] upon discharge [phone]
--- NOTE | 2020-07-23 10:34 | PN ---
Progress Note (short form) - Note Progress Note: 74M s/p lap cholecystectomy under GETA. No new c/o. Tolerating PO. Current Active Problems Problem Status Onset Abdominal pain Acute Acute cholecystitis due to biliary calculus Acute Pre-operative cardiovascular examination Acute All Active Problems Abdominal pain (Acute) Acute cholecystitis due to biliary calculus (Acute) Pre-operative cardiovascular examination (Acute) CAD (coronary artery disease) (Acute) DVT prophylaxis (Acute) Diabetes mellitus (Acute) Diabetic foot ulcer (Acute) Fall (Acute) Gangrene of foot (Acute) HTN (hypertension) (Acute) Head injury due to trauma (Acute) History of percutaneous coronary intervention (Acute) Hx of CABG (Acute) Hypercholesterolemia (Acute) Ischemic dilated cardiomyopathy (Acute) Neck pain on right side (Acute) Osteomyelitis (Acute) PAD (peripheral artery disease) (Acute) Presence of automatic cardioverter/defibrillator (AICD) (Acute) Wound of foot (Acute) Vital Signs Temp 97.7 F 07/23/20 05:55 Pulse 77 07/23/20 05:55 Resp 18 07/23/20 05:55 BP 139/63 07/23/20 05:55 Pulse Ox 93 L 07/23/20 05:55 Intake & Output 07/22/20 07/22/20 07/23/20 11:59 23:59 11:59 Intake Total 400 1600 252 Output Total 70 320 Balance 400 1530 -68 Intake: IV 300 1600 252 Normal Saline - 1,000 ml 252 @ 42 mls/hr IV ASDIR KIERRA Rx#:[id number] Normal Saline - 1,000 ml 300 @ 75 mls/hr IV ASDIR KIERRA Rx#:[id number] IVPB 100 Output: Drainage 70 120 Right Abdomen 120 Urine 200 Void 200 Other: Voiding Method Toilet Toilet # Unmeasured Voids Void 1 2 1 Bowel Movement Yes No sitting, NAD RRR, CTAB CBC, BMP 07/23/20 06:35 07/23/20 06:35 - No anesthesia complications
[2020-07-23] MEDS: CARVEDILOL 25 MG TABLET (FP) PO SCH ×2 (10:58→21:27)
[2020-07-23] MEDS: ASPIRIN 81 MG CHEWABLE TABLETS PO SCH (10:58)
[2020-07-23] MEDS: GABAPENTIN 100 MG CAPSULE PO SCH ×2 (10:58→21:27)
[2020-07-23] MEDS: amLODIPine BESYLATE 10 MG TABLET (FP) PO SCH (10:58)
[2020-07-23] MEDS ORDERED: FUROSEMIDE 40 MG/4 ML INJECTABLE VIAL IVPUSH ONE (12:00)
[2020-07-23] MEDS: LISINOPRIL 10 MG TABLET (FP) PO SCH (12:27)
--- NOTE | 2020-07-23 13:48 | PN ---
Teaching Attending Note Name of Resident: Bethel Arora ATTENDING PHYSICIAN STATEMENT I saw and evaluated the patient. I reviewed the resident's note and discussed the case with the resident. I agree with the resident's findings and plan as documented. SUBJECTIVE: Seen and examined at bedside. Postop day 1 status post cholecystectomy. Pat ient has not yet passed flatus. Reports pain is controlled. Hemodynamically stable OBJECTIVE Last Vital Signs Temp Pulse Resp BP Pulse Ox 97.0 F L 71 18 127/68 95 07/23/20 10:00 07/23/20 10:00 07/23/20 10:00 07/23/20 10:00 07/23/20 10:00 PE: Per resident note Labs/Imaging: reviewed ASSESSMENT/PLAN 74-year-old male with a history of CAD status post PCI/stent, CABG, ICD implantation for ischemic cardiomyopathy and VT/VF, CVA with right residual deficit, HTN, HLD, IDDM, left foot osteomyelitis presents with right upper quadrant pain, with concern for acute cholecystitis versus biliary colic. #acute cholecystitis Surgery on board: Appreciate recommendations -lap syed for today GI consulted #hypomagnesemia -replete #Extensive cardiac history Cardiology on board: Appreciate recommendations Continue aspirin, hold clopidogrel Continue statin #IDDM with hypoglycemia Hold home insulin regimen as patient hypo-glycemic ISS Restart insulin regimen as required #History of CVA Continue statin, ASA, hold Plavix #Hypertension Continue home medications
--- NOTE | 2020-07-23 14:36 | OP ---
DATE OF OPERATION: 07/22/2020 PREOPERATIVE DIAGNOSIS: Acute cholecystitis and cholelithiasis. POSTOPERATIVE DIAGNOSIS: Acute cholecystitis and cholelithiasis. PROCEDURE: Laparoscopic cholecystectomy. SURGEON: Richard Mary MD FINISH [employer]ILL OPERATOR: Que Edgar PA-C ANESTHESIA: General. OPERATIVE FINDINGS: Acute cholecystitis and cholelithiasis. The rest of the findings were unremarkable. PROCEDURE: The patient was placed on the operating table in the supine position and after the induction of general anesthesia the patient's abdomen was prepped with ChloraPrep and draped in sterile fashion. A timeout was taken and pneumoperitoneum established above the umbilicus using a Veress needle. Once 15 mmHg of pressure were obtained, a 5-mm port was placed at the umbilicus and additional lateral 5-mm ports and a subxiphoid 12-mm port. Laparoscopy was carried out and the previously noted findings were observed. Dissection was begun at the neck of the gallbladder where the peritoneum was opened medially and laterally using blunt dissection and electrocautery. The cystic duct was identified coursing from the neck of the gallbladder towards the common bile duct and it was dissected using blunt dissection proximally and distally for length. Similarly, the artery was identified and dissected proximally and distally for length. A critical view of safety was taken and then the duct and the artery were clipped twice proximally and twice distally with large hemoclips. The duct and artery were then serially divided using Endoshears. Hemostasis was checked for and noted to be good and then the gallbladder was removed from the liver bed in a retrograde fashion using electrocautery. Prior to removal from the edge of the liver, hemostasis in the liver bed was again checked for and noted to be good and then the gallbladder removed from the edge of the liver, placed in an Endo Catch, and brought out through the subxiphoid port. Pneumoperitoneum was reestablished. Copious irrigation was carried out with saline. Hemostasis was verified again. A 10-mm Juan-Garcia drain was placed in the right hepatorenal fossa and brought out through one of the 5-mm ports and secured to the skin with 2-0 silk suture. All port sites were removed under laparoscopic vision without evidence of bleeding from the port sites. The port sites were infiltrated with 0.5% Marcaine and the skin edges reapproximated with 4-0 Biosyn in a subcuticular continuous fashion. Steri-Strips and Band-Aid dressings were placed. The drain was connected to bulb suction and then the patient aroused from general anesthesia and transferred to the postanesthesia care unit in stable condition, awake and alert. ESTIMATED BLOOD LOSS: 20 mL. REPLACEMENT: Crystalloid. DRAINS: One 10-mm Juan-Garcia. SPECIMEN: Gallbladder and contents to Pathology. I, Richard Mary, was physically present in the operating room from the time the patient was placed on the operating table until he was transferred to the postanesthesia care unit in my accompaniment. MD KAREEN Christian/[id number] MTDD
[2020-07-23] MEDS ORDERED: ACETAMINOPHEN 325 MG TABLET (FP) PO PRN (15:39)
[2020-07-23] MEDS ORDERED: oxyCODONE HCL 5 MG TABLET PO PRN (15:39)
--- NOTE | 2020-07-23 15:40 | PN ---
Physical Exam: SUBJECTIVE: Patient seen and examined at bedside. He is urinating without dysuria, hematuria. He denies passing any flatus or bowel movement. Tolerating diet without abdominal pain, nausea, vomiting. Denies subjective fevers, chills. OBJECTIVE: Vital Signs Period Temp Pulse Resp BP Sys/Hightower Pulse Ox Last 24 Hr 97.0 F-98 F 18-102 16-185 112-139/58-68 93-100 GENERAL: The patient is awake, alert, and fully oriented, in no acute distress. HEAD: Normocephalic, atraumatic. EYES: PERRL, extraocular movements intact, sclera anicteric, conjunctiva clear. ENT: Oropharynx clear, without erythema or exudates. Moist mucous membranes. NECK: Trachea midline, full range of motion. Supple without lymphadenopathy. LUNGS: Breath sounds equal, clear to auscultation bilaterally. No wheezes, no crackles. No accessory muscle use. HEART: Regular rate and rhythm. S1, S2 without murmur, rub or gallop. ABDOMEN: Soft, nondistended, nontender to light and deep palpation x4 quadrants. No rebound tenderness, no guarding. Normoactive bowel sounds x4 quadrants. No hepatosplenomegaly, no masses appreciated. EXTREMITIES: 2+ radial, dorsalis pedis pulses bilaterally. Warm, well-perfused. No lower extremity edema bilaterally. NEUROLOGICAL: Cranial nerves II through XII grossly intact. Normal speech. No gross focal deficits. PSYCH: Normal mood, normal affect upon my encounter. SKIN: Warm, dry. Laparoscopic surgical sites visualized clean, dry, intact. Right lower abdominal quadrant SALUD drain with sanguinous drainage. Laboratory Results - last 24 hr 07/22/20 07/22/20 07/23/20 18:29 21:25 06:35 WBC 9.1 RBC 3.70 L Hgb 10.6 L Hct 32.1 L MCV 86.8 MCH 28.7 MCHC 33.1 RDW 13.9 Plt Count 182 MPV 12.0 H Absolute Neuts (auto) 8.3 H Neutrophils % 90.4 H Lymphocytes % 7.9 L D Monocytes % 1.6 L D Eosinophils % 0.0 D Basophils % 0.1 Nucleated RBC % 0 Sodium Potassium Chloride Carbon Dioxide Anion Gap BUN Creatinine Est GFR (CKD-EPI)AfAm Est GFR (CKD-EPI)NonAf POC Glucometer 158 138 Random Glucose Calcium Phosphorus Magnesium Total Bilirubin AST ALT Alkaline Phosphatase Total Protein Albumin 07/23/20 07/23/20 07/23/20 06:35 07:03 11:08 WBC RBC Hgb Hct MCV MCH MCHC RDW Plt Count MPV Absolute Neuts (auto) Neutrophils % Lymphocytes % Monocytes % Eosinophils % Basophils % Nucleated RBC % Sodium 141 Potassium 3.8 Chloride 111 H Carbon Dioxide 20 L Anion Gap 10 BUN 12.6 Creatinine 1.3 Est GFR (CKD-EPI)AfAm 62.74 Est GFR (CKD-EPI)NonAf 54.13 POC Glucometer 152 185 Random Glucose 158 H Calcium 7.5 L Phosphorus 2.9 Magnesium 1.4 L Total Bilirubin 0.4 AST 37 ALT 33 Alkaline Phosphatase 116 Total Protein 6.2 L Albumin 2.4 L Active Medications Generic Name Dose Route Start Last Admin Trade Name Freq PRN Reason Stop Dose Admin Albuterol Sulfate 2 puff 07/22/20 16:57 Ventolin Hfa Inhaler - IH Q4H PRN SHORT OF BREATH/WHEEZING Amlodipine Besylate 10 mg 07/23/20 10:00 07/23/20 10:58 Norvasc - PO 10 mg DAILY KIERRA Administration Aspirin 81 mg 07/23/20 10:00 07/23/20 10:58 Asa - PO 81 mg DAILY KIERRA Administration Atorvastatin Calcium 40 mg 07/22/20 22:00 07/22/20 21:27 Lipitor - PO 40 mg HS KIERRA Administration Benzocaine/Menthol 1 each 07/22/20 16:57 Cepacol Lozenge - MM PRN PRN SORE THROAT Carvedilol 25 mg 07/22/20 22:00 07/23/20 10:58 Coreg - PO 25 mg BID KIERRA Administration Famotidine 10 mg 07/22/20 16:57 Acid Journey Lineman PO BID PRN INDIGESTION Gabapentin 100 mg 07/22/20 22:00 07/23/20 10:58 Neurontin - PO 100 mg BID KIERRA Administration Insulin Aspart 1 vial 07/22/20 22:00 07/23/20 12:26 Novolog Vial Sliding Scale - SQ 2 units ACHS KIERRA Administration Protocol Lisinopril 10 mg 07/23/20 12:00 07/23/20 12:27 Prinivil PO 10 mg DAILY KIERRA Administration Ondansetron HCl 4 mg 07/22/20 16:30 Zofran Injection IVPUSH Q6H PRN NAUSEA AND/OR VOMITING Oxycodone HCl 5 mg 07/22/20 16:57 Roxicodone - PO Q4H PRN PAIN LEVEL 1-5 Oxycodone HCl 10 mg 07/22/20 16:57 Roxicodone - PO Q4H PRN PAIN LEVEL 6-10 Polyethylene Glycol 17 gm 07/22/20 16:57 Miralax (For Daily Use) - PO DAILY PRN CONSTIPATION Senna 2 tab 07/22/20 16:57 Senna - PO HS PRN CONSTIPATION ASSESSMENT/PLAN: Patient is a 74 year old male with history of coronary artery disease s/p PCI/stent, 3 vessel CABG, ICD implantation for ischemic cardiomyopathy and VT/VF, CVA with residual right-sided hide washer weakness, right sided vision deficit, hypertension, hyperlipidemia, diabetes mellitus (insulin dependent), osteomyelitis of the left foot s/p 6 week course IV antibiotics via tunneled catheter removed on 07/03/20), presents with right upper quadrant abdominal pain. Acute cholecystitis -Patient is POD #1 s/p laparascopic cholecystectomy. -HIDA with evidence of acute cholecystitis -Right upper quadrant ultrasound reveals cholelithiasis. Common bile duct 0.5CM. -Surgery (Dr. Mary) recommendations appreciated. Drain may be removed tomorrow. -GI recommendations (Dr. Davidson) appreciated. -Pain management with Oxycodone. Transition to Acetaminophen to reduce opiod dependence Extensive cardiac history -Cardiology on board: Appreciate recommendations -Continue aspirin, hold clopidogrel -Continue statin -Lisinopril 10mg PO daily History of diabetes mellitus -Hold home insulin regimen as patient hypo-glycemic -Insulin sliding scale ACHS -Restart insulin regimen as required History of CVA -Continue Atorvastatin, ASA, hold Plavix Hypertension -Continue Lisinopril, Amlodipine, Carvedliol, Hydralazine, ASA, Atorvastatin FEN -IV NS @75 -Follow BMP -Sodium modified, diabetic diet Prophylaxis -SCDs bilateral lower extremities Dispositon -Continue care in medical- surgical floor. Visit type - Emergency Visit Emergency Visit: Yes ED Registration Date: 07/17/20 Care time: The patient presented to the Emergency Department on the above date and was hospitalized for further evaluation of their emergent condition. - New Patient This patient is new to me today: Yes Date on this admission: 07/23/20 - Critical Care Critical Care patient: No - Discharge Referral Referred to [facility] Med P.C.: No - Medication Review Med list reviewed for High Risk Meds patients 65 and older: Yes ATTENDING PHYSICIAN STATEMENT I saw and evaluated the patient. I reviewed the resident's note and discussed the case with the resident. I agree with the resident's findings and plan as documented. SUBJECTIVE: OBJECTIVE: ASSESSMENT AND PLAN:
[2020-07-23] MEDS: ATORVASTATIN CA 40 MG TABLET (FP) PO SCH (21:27)
[2020-07-24] MEDS: INSULIN SLIDING SCALE (NOVOLOG) 1 VIAL SQ SCH ×4 (06:26→21:32)
[2020-07-24 08:12] LABS: HEMOGLOBIN 9.9 GM/dL (11.7-16.9); MCH 29.7 pg (25.7-33.7); MCHC 34.2 g/dl (32.0-35.9); MEAN CELL VOLUME 86.7 fl (80-96); MEAN PLT VOLUME 11.4 fl (7.5-11.1); PLATELET COUNT 177 K/MM3 (134-434); RBC 3.34 M/mm3 (4.00-5.60); RDW 14.3 % (11.9-15.9); WHITE BLOOD COUNT 9.8 K/mm3 (4.0-10.0)
--- NOTE | 2020-07-24 08:25 | PN ---
Progress Note (short form) - Note Progress Note: Surgery: Pt without complaints this am. Tolerated a diet yesterday. No SBO/CP. Vital Signs Period Temp Pulse Resp BP Sys/Hightower Pulse Ox Last 24 Hr 97.0 F-98.4 F 69-75 18-185 119-136/56-74 93-97 SALUD: serosangrenous 325ml GEN; A&0x3, NAD ABD: soft, non-distended, inc tenderness. inc c/d/i CBC, BMP 07/24/20 06:39 Laboratory Tests 07/24/20 07/24/20 06:25 06:39 Sodium 141 Potassium 3.5 Chloride 109 H Carbon Dioxide 25 Anion Gap 7 L BUN 21.9 H Creatinine 1.5 H Est GFR (CKD-EPI)AfAm 52.77 Est GFR (CKD-EPI)NonAf 45.53 POC Glucometer 185 Random Glucose 195 H Calcium 7.2 L Total Bilirubin 0.2 AST 25 ALT 26 Alkaline Phosphatase 95 A/p: 74 yo male s/p lap syed, POD#1 Recommend to continue diet. Salud removed today with the tip intact D/w Dr. Mary Follow up instructions completed regarding his discharge care. Problem List - Problems (1) CAD (coronary artery disease) Code(s): I25.10 - ATHSCL HEART DISEASE OF [place] CORONARY ARTERY W/O ANG PCTRS Qualifiers: Coronary Disease-Associated Artery/Lesion type: [place] artery [place] vs. transplanted heart: [place] heart Associated angina: without angina Qualified Code(s): I25.10 - Atherosclerotic heart disease of [place] coronary artery without angina pectoris (2) Cholelithiases Code(s): K80.20 - CALCULUS OF GALLBLADDER W/O CHOLECYSTITIS W/O OBSTRUCTION
[2020-07-24 08:27] LABS: ALBUMIN 2.2 g/dl (3.4-5.0); BILIRUBIN,TOTAL 0.2 mg/dL (0.2-1); BLOOD UREA NITROGEN 21.9 mg/dL (7-18); CALCIUM 7.2 mg/dL (8.5-10.1); CREATININE 1.5 mg/dL (0.55-1.3); POTASSIUM 3.5 mmol/L (3.5-5.1); TOT PROT 5.7 g/dl (6.4-8.2)
--- NOTE | 2020-07-24 09:29 | PN ---
Progress Note, Physician History of Present Illness: 74yo M s/p lap syed POD 2, OOB in chair. Pt complains of some mild abd pain, with no nausea or vomiting, awaiting flatus, denies chest pain or dyspnea. Pt tolerating regular diet. - Current Medication List Current Medications: Active Medications Acetaminophen (Tylenol -) 650 mg PO Q6H PRN PRN Reason: PAIN LEVEL 1-3 Albuterol Sulfate (Ventolin Hfa Inhaler -) 2 puff IH Q4H PRN PRN Reason: SHORT OF BREATH/WHEEZING Amlodipine Besylate (Norvasc -) 10 mg PO DAILY [facility] Last Admin: 07/23/20 10:58 Dose: 10 mg Documented by: Aspirin (Asa -) 81 mg PO DAILY [facility] Last Admin: 07/23/20 10:58 Dose: 81 mg Documented by: Atorvastatin Calcium (Lipitor -) 40 mg PO HS [facility] Last Admin: 07/23/20 21:27 Dose: 40 mg Documented by: Benzocaine/Menthol (Cepacol Lozenge -) 1 each MM PRN PRN PRN Reason: SORE THROAT Carvedilol (Coreg -) 25 mg PO BID [facility] Last Admin: 07/23/20 21:27 Dose: 25 mg Documented by: Famotidine (Acid Wood Setter) 10 mg PO BID PRN PRN Reason: INDIGESTION Gabapentin (Neurontin -) 100 mg PO BID [facility] Last Admin: 07/23/20 21:27 Dose: 100 mg Documented by: Insulin Aspart (Novolog Vial Sliding Scale -) 1 vial SQ [facility]; Protocol Last Admin: 07/24/20 06:26 Dose: 2 units Documented by: Lisinopril (Prinivil) 10 mg PO DAILY [facility] Last Admin: 07/23/20 12:27 Dose: 10 mg Documented by: Ondansetron HCl (Zofran Injection) 4 mg IVPUSH Q6H PRN PRN Reason: NAUSEA AND/OR VOMITING Oxycodone HCl (Roxicodone -) 10 mg PO Q4H PRN PRN Reason: PAIN LEVEL 6-10 Oxycodone HCl (Roxicodone -) 5 mg PO Q4H PRN PRN Reason: PAIN LEVEL 4 - 6 Polyethylene Glycol (Miralax (For Daily Use) -) 17 gm PO DAILY PRN PRN Reason: CONSTIPATION Senna (Senna -) 2 tab PO HS PRN PRN Reason: CONSTIPATION - Objective Vital Signs: Vital Signs Temperature 98.3 F 07/24/20 06:00 Pulse Rate 69 07/24/20 06:00 Respiratory Rate 20 07/24/20 06:00 Blood Pressure 119/56 L 07/24/20 06:00 O2 Sat by Pulse Oximetry (%) 93 L 07/24/20 06:00 Constitutional: Yes: No Distress, Calm Neck: Yes: Supple Cardiovascular: Yes: Regular Rate and Rhythm Respiratory: Yes: Regular, CTA Bilaterally Gastrointestinal: Yes: Soft, Hypoactive Bowel Sounds, Other (Post-op) Edema: No Labs: CBC, BMP 07/24/20 06:39 07/24/20 06:39 INR, PTT INR 1.39 (0.83-1.09) H 07/18/20 03:38 Problem List - Problems (1) Acute cholecystitis due to biliary calculus Code(s): K80.00 - CALCULUS OF GALLBLADDER W ACUTE CHOLECYST W/O OBSTRUCTION (2) CAD (coronary artery disease) Code(s): I25.10 - ATHSCL HEART DISEASE OF [place] CORONARY ARTERY W/O ANG PCTRS Qualifiers: Coronary Disease-Associated Artery/Lesion type: [place] artery [place] vs. transplanted heart: [place] heart Associated angina: without angina Qualified Code(s): I25.10 - Atherosclerotic heart disease of [place] coronary artery without angina pectoris (3) Diabetes mellitus Code(s): E11.9 - TYPE 2 DIABETES MELLITUS WITHOUT COMPLICATIONS Qualifiers: Diabetes mellitus type: type 2 Diabetes mellitus complication status: with circulatory complication Diabetes mellitus complication detail: with peripheral angiopathy with gangrene (4) Diabetic foot ulcer Code(s): E11.621 - TYPE 2 DIABETES MELLITUS WITH FOOT ULCER; L97.509 - NON- PRESSURE CHRONIC ULCER OTH PRT UNSP FOOT W UNSP SEVERITY Qualifiers: Diabetic foot ulcer location: midfoot Diabetes mellitus type: other specified (including MARIA M) Laterality: left Non-pressure ulcer stage: unspecified non-pressure ulcer stage Qualified Code(s): E13.621 - Other specified diabetes mellitus with foot ulcer; L97.429 - Non-pressure chronic ulcer of left heel and midfoot with unspecified severity (5) HTN (hypertension) Code(s): I10 - ESSENTIAL (PRIMARY) HYPERTENSION Qualifiers: Hypertension type: essential hypertension Qualified Code(s): I10 - Essential (primary) hypertension (6) History of percutaneous coronary intervention Code(s): Z98.61 - CORONARY ANGIOPLASTY STATUS (7) Hx of CABG Code(s): Z95.1 - PRESENCE OF AORTOCORONARY BYPASS GRAFT (8) Hypercholesterolemia Code(s): E78.00 - PURE HYPERCHOLESTEROLEMIA, UNSPECIFIED (9) Ischemic dilated cardiomyopathy Code(s): I25.5 - ISCHEMIC CARDIOMYOPATHY; I42.0 - DILATED CARDIOMYOPATHY (10) PAD (peripheral artery disease) Code(s): I73.9 - PERIPHERAL VASCULAR DISEASE, UNSPECIFIED (11) Presence of automatic cardioverter/defibrillator (AICD) Code(s): Z95.810 - PRESENCE OF AUTOMATIC (IMPLANTABLE) CARDIAC DEFIBRILLATOR (12) Status post laparoscopic cholecystectomy Code(s): Z90.49 - ACQUIRED ABSENCE OF OTHER SPECIFIED PARTS OF DIGESTIVE TRACT Assessment/Plan 07/18/2020 Hida with evidence of acute syed. no filling of gallbladder 07/18/2020 Mild decreased LVEF 45-50%, abnl LV compliance, pcemaker in RV, mil dMR, TR, RVSP normal 04/16/2016 Lexiscan Myoview: Small mild ischemia of mid anterior wall and inferior wall scar. Mld decreased LVEF 43% with AK of basal to mid inferior wall and paradoxical septal motion 04/16/2016 Echo: Norml LV size with mild-mod JACKIE, mild decreased LV systolic function, LVEF 45%, abnl LV compliance, AK of inferior and mid inferolateral, paradoxical septal motion due to post-op state, tr TR, MR 1. POD#2 lap cholecystectomy for acute cholecystitis with cholelithiasis and abnormal LFTs 2. History of left foot MSSA osteomyelitis, diabetic ulcer s/p left foot debridement of ulcer with metatarsal head resection and biopsy 3. CAD s/p PCI/stent, CABG, angina pectoris 4. Ischemic dilated cardiomyopathy 5. HTN 6. Hypercholesterolemia 7. DM 8. Presence of AICD for above cardiomyopathy and VT/VF 9. Acute on CKD PLAN: 1. Drain removed, diet as tolerated, encourage ambulation and oral hydration 2. Continue Carvedilol 25 mg BID, resumed Prinivil 10 mg QD, Amlodipine 10 mg QD, eventual aldosterone inhibition once renal fxn stable 3. Continue Atorvastatin 40 mg QHS as LFT remains stable. Change ASA 81 mg QD to Plavix 75 qd once post-op hemostasis assured 4. GI and DVT prophylaxis 5. Antibiotic coverage Eventually follow up in our office [facility] upon discharge [phone]
[2020-07-24] MEDS: LISINOPRIL 10 MG TABLET (FP) PO SCH (10:48)
[2020-07-24] MEDS: amLODIPine BESYLATE 10 MG TABLET (FP) PO SCH (10:48)
[2020-07-24] MEDS: ASPIRIN 81 MG CHEWABLE TABLETS PO SCH (10:48)
[2020-07-24] MEDS: CARVEDILOL 25 MG TABLET (FP) PO SCH ×2 (10:48→21:16)
[2020-07-24] MEDS: GABAPENTIN 100 MG CAPSULE PO SCH ×2 (10:49→21:16)
--- NOTE | 2020-07-24 13:35 | PN ---
Teaching Attending Note Name of Resident: Bethel Arora ATTENDING PHYSICIAN STATEMENT I saw and evaluated the patient. I reviewed the resident's note and discussed the case with the resident. I agree with the resident's findings and plan as documented. SUBJECTIVE: Seen and examined at bedside. Postop day 2 status post cholecystectomy. Pat ient has still not yet passed flatus. Reports pain is controlled. Hemodynamically stable OBJECTIVE Last Vital Signs Temp Pulse Resp BP Pulse Ox 98.3 F 69 20 119/56 L 93 L 07/24/20 06:00 07/24/20 06:00 07/24/20 06:00 07/24/20 06:00 07/24/20 06:00 PE: Per resident note Labs/Imaging: reviewed ASSESSMENT/PLAN 74-year-old male with a history of CAD status post PCI/stent, CABG, ICD implantation for ischemic cardiomyopathy and VT/VF, CVA with right residual deficit, HTN, HLD, IDDM, left foot osteomyelitis presents with right upper quadrant pain, found to have acute cholecystitis #acute cholecystitis s/p lap syed POD 2 -has not yet passed flatus #hypomagnesemia -replete #Extensive cardiac history Cardiology on board: Appreciate recommendations Continue aspirin, hold clopidogrel Continue statin #IDDM with hypoglycemia Hold home insulin regimen as patient hypo-glycemic ISS Restart insulin regimen as required #History of CVA Continue statin, ASA, hold Plavix #Hypertension Continue home medications
--- NOTE | 2020-07-24 16:11 | PN ---
Physical Exam: SUBJECTIVE: Patient seen and examined at bedside. He is urinating without dysuria, hematuria. He still denies passing any flatus or bowel movement. Tolerating diet without abdominal pain, nausea, vomiting. Denies subjective fevers, chills. OBJECTIVE: Vital Signs Period Temp Pulse Resp BP Sys/Hightower Pulse Ox Last 24 Hr 97.5 F-98.4 F 69-73 20-20 119-136/56-74 93-96 GENERAL: The patient is awake, alert, and fully oriented, in no acute distress. HEAD: Normocephalic, atraumatic. EYES: PERRL, extraocular movements intact, sclera anicteric, conjunctiva clear. ENT: Oropharynx clear, without erythema or exudates. Moist mucous membranes. NECK: Trachea midline, full range of motion. Supple without lymphadenopathy. LUNGS: Breath sounds equal, clear to auscultation bilaterally. No wheezes, no crackles. No accessory muscle use. HEART: Regular rate and rhythm. S1, S2 without murmur, rub or gallop. ABDOMEN: Soft, nondistended, nontender to light and deep palpation x4 quadrants. No rebound tenderness, no guarding. Normoactive bowel sounds x4 quadrants. No hepatosplenomegaly, no masses appreciated. EXTREMITIES: 2+ radial, dorsalis pedis pulses bilaterally. Warm, well-perfused. No lower extremity edema bilaterally. NEUROLOGICAL: Cranial nerves II through XII grossly intact. Normal speech. No gross focal deficits. PSYCH: Normal mood, normal affect upon my encounter. SKIN: Warm, dry. Laparoscopic surgical sites visualized clean, dry, intact. Laboratory Results - last 24 hr 07/23/20 07/23/20 07/24/20 17:06 21:26 06:25 WBC RBC Hgb Hct MCV MCH MCHC RDW Plt Count MPV Sodium Potassium Chloride Carbon Dioxide Anion Gap BUN Creatinine Est GFR (CKD-EPI)AfAm Est GFR (CKD-EPI)NonAf POC Glucometer 214 261 185 Random Glucose Calcium Total Bilirubin AST ALT Alkaline Phosphatase Total Protein Albumin 07/24/20 07/24/20 07/24/20 06:39 06:39 12:20 WBC 9.8 RBC 3.34 L Hgb 9.9 L Hct 29.0 L MCV 86.7 MCH 29.7 MCHC 34.2 RDW 14.3 Plt Count 177 MPV 11.4 H Sodium 141 Potassium 3.5 Chloride 109 H Carbon Dioxide 25 Anion Gap 7 L BUN 21.9 H Creatinine 1.5 H Est GFR (CKD-EPI)AfAm 52.77 Est GFR (CKD-EPI)NonAf 45.53 POC Glucometer 199 Random Glucose 195 H Calcium 7.2 L Total Bilirubin 0.2 AST 25 ALT 26 Alkaline Phosphatase 95 Total Protein 5.7 L Albumin 2.2 L Active Medications Generic Name Dose Route Start Last Admin Trade Name Freq PRN Reason Stop Dose Admin Acetaminophen 650 mg 07/23/20 15:39 Tylenol - PO Q6H PRN PAIN LEVEL 1-3 Albuterol Sulfate 2 puff 07/22/20 16:57 Ventolin Hfa Inhaler - IH Q4H PRN SHORT OF BREATH/WHEEZING Amlodipine Besylate 10 mg 07/23/20 10:00 07/24/20 10:48 Norvasc - PO 10 mg DAILY KIERRA Administration Aspirin 81 mg 07/23/20 10:00 07/24/20 10:48 Asa - PO 81 mg DAILY KIERRA Administration Atorvastatin Calcium 40 mg 07/22/20 22:00 07/23/20 21:27 Lipitor - PO 40 mg HS KIERRA Administration Benzocaine/Menthol 1 each 07/22/20 16:57 Cepacol Lozenge - MM PRN PRN SORE THROAT Carvedilol 25 mg 07/22/20 22:00 07/24/20 10:48 Coreg - PO 25 mg BID KIERRA Administration Famotidine 10 mg 07/22/20 16:57 Acid Vacuum Caster PO BID PRN INDIGESTION Gabapentin 100 mg 07/22/20 22:00 07/24/20 10:49 Neurontin - PO 100 mg BID KIERRA Administration Insulin Aspart 1 vial 07/22/20 22:00 07/24/20 12:32 Novolog Vial Sliding Scale - SQ 2 units ACHS KIERRA Administration Protocol Lisinopril 10 mg 07/23/20 12:00 07/24/20 10:48 Prinivil PO 10 mg DAILY KIERRA Administration Ondansetron HCl 4 mg 07/22/20 16:30 Zofran Injection IVPUSH Q6H PRN NAUSEA AND/OR VOMITING Oxycodone HCl 10 mg 07/22/20 16:57 Roxicodone - PO Q4H PRN PAIN LEVEL 6-10 Oxycodone HCl 5 mg 07/23/20 15:39 Roxicodone - PO Q4H PRN PAIN LEVEL 4 - 6 Polyethylene Glycol 17 gm 07/22/20 16:57 Miralax (For Daily Use) - PO DAILY PRN CONSTIPATION Senna 2 tab 07/22/20 16:57 Senna - PO HS PRN CONSTIPATION ASSESSMENT/PLAN: Patient is a 74 year old male with history of coronary artery disease s/p PCI/stent, 3 vessel CABG, ICD implantation for ischemic cardiomyopathy and VT/VF, CVA with residual right-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 Acute cholecystitis -Patient is POD #1 s/p laparascopic cholecystectomy. -HIDA with evidence of acute cholecystitis -Right upper quadrant ultrasound reveals cholelithiasis. Common bile duct 0.5CM. -Surgery (Dr. Mary) recommendations appreciated. Drain may be removed tomorrow. -GI recommendations (Dr. Davidson) appreciated. -Pain management with Oxycodone. Transition to Acetaminophen to reduce opiod dependence Extensive cardiac history -Cardiology on board: Appreciate recommendations -Continue aspirin, hold clopidogrel -Continue statin -Lisinopril 10mg PO daily History of diabetes mellitus -Hold home insulin regimen as patient hypo-glycemic -Insulin sliding scale ACHS -Restart insulin regimen as required History of CVA -Continue Atorvastatin, ASA, hold Plavix Hypertension -Continue Lisinopril, Amlodipine, Carvedliol, Hydralazine, ASA, Atorvastatin FEN -IV NS @75 -Follow BMP -Sodium modified, diabetic diet Prophylaxis -SCDs bilateral lower extremities Dispositon -Continue care in medical- surgical floor. Visit type - Emergency Visit Emergency Visit: Yes ED Registration Date: 07/17/20 Care time: The patient presented to the Emergency Department on the above date and was hospitalized for further evaluation of their emergent condition. - New Patient This patient is new to me today: No - Critical Care Critical Care patient: No - Discharge Referral Referred to [facility] Med P.C.: No - Medication Review Med list reviewed for High Risk Meds patients 65 and older: Yes ATTENDING PHYSICIAN STATEMENT I saw and evaluated the patient. I reviewed the resident's note and discussed the case with the resident. I agree with the resident's findings and plan as documented. SUBJECTIVE: OBJECTIVE: ASSESSMENT AND PLAN:
[2020-07-24] MEDS: ATORVASTATIN CA 40 MG TABLET (FP) PO SCH (21:16)
[2020-07-25] MEDS: INSULIN SLIDING SCALE (NOVOLOG) 1 VIAL SQ SCH ×2 (06:29→11:47)
[2020-07-25 08:11] LABS: HEMATOCRIT 28.9 % (35.4-49); MCH 29.8 pg (25.7-33.7); MCHC 34.4 g/dl (32.0-35.9); MEAN CELL VOLUME 86.5 fl (80-96); MEAN PLT VOLUME 11.6 fl (7.5-11.1); PLATELET COUNT 159 K/MM3 (134-434); RBC 3.34 M/mm3 (4.00-5.60); RDW 14.4 % (11.9-15.9); WHITE BLOOD COUNT 9.9 K/mm3 (4.0-10.0)
[2020-07-25] MEDS ORDERED: FUROSEMIDE 40 MG/4 ML INJECTABLE VIAL IVPUSH ONE (08:45)
[2020-07-25 08:50] LABS: ALBUMIN 2.2 g/dl (3.4-5.0); BILIRUBIN,TOTAL 0.3 mg/dL (0.2-1); BLOOD UREA NITROGEN 19.8 mg/dL (7-18); CALCIUM 7.7 mg/dL (8.5-10.1); CREATININE 1.3 mg/dL (0.55-1.3); MAGNESIUM 1.4 mg/dL (1.8-2.4); PHOSPHOROUS 2.2 mg/dL (2.5-4.9); POTASSIUM 3.5 mmol/L (3.5-5.1); TOT PROT 5.8 g/dl (6.4-8.2)
--- NOTE | 2020-07-25 09:18 | PN ---
Progress Note, Physician History of Present Illness: 74yo M s/p vasquez syed, discharged prior to being seen. - Current Medication List Current Medications: Active Medications Acetaminophen (Tylenol -) 650 mg PO Q6H PRN PRN Reason: PAIN LEVEL 1-3 Albuterol Sulfate (Ventolin Hfa Inhaler -) 2 puff IH Q4H PRN PRN Reason: SHORT OF BREATH/WHEEZING Amlodipine Besylate (Norvasc -) 10 mg PO DAILY [facility] Last Admin: 07/24/20 10:48 Dose: 10 mg Documented by: Aspirin (Asa -) 81 mg PO DAILY [facility] Last Admin: 07/24/20 10:48 Dose: 81 mg Documented by: Atorvastatin Calcium (Lipitor -) 40 mg PO HS [facility] Last Admin: 07/24/20 21:16 Dose: 40 mg Documented by: Benzocaine/Menthol (Cepacol Lozenge -) 1 each MM PRN PRN PRN Reason: SORE THROAT Carvedilol (Coreg -) 25 mg PO BID [facility] Last Admin: 07/24/20 21:16 Dose: 25 mg Documented by: Famotidine (Acid Comic Illustrator) 10 mg PO BID PRN PRN Reason: INDIGESTION Gabapentin (Neurontin -) 100 mg PO BID [facility] Last Admin: 07/24/20 21:16 Dose: 100 mg Documented by: Insulin Aspart (Novolog Vial Sliding Scale -) 1 vial SQ [facility]; Protocol Last Admin: 07/25/20 06:29 Dose: Not Given Documented by: Lisinopril (Prinivil) 10 mg PO DAILY [facility] Last Admin: 07/24/20 10:48 Dose: 10 mg Documented by: Ondansetron HCl (Zofran Injection) 4 mg IVPUSH Q6H PRN PRN Reason: NAUSEA AND/OR VOMITING Oxycodone HCl (Roxicodone -) 10 mg PO Q4H PRN PRN Reason: PAIN LEVEL 6-10 Oxycodone HCl (Roxicodone -) 5 mg PO Q4H PRN PRN Reason: PAIN LEVEL 4 - 6 Polyethylene Glycol (Miralax (For Daily Use) -) 17 gm PO DAILY PRN PRN Reason: CONSTIPATION Senna (Senna -) 2 tab PO HS PRN PRN Reason: CONSTIPATION - Objective Vital Signs: Vital Signs Temperature 98.0 F 07/25/20 06:33 Pulse Rate 71 07/25/20 06:33 Respiratory Rate 20 07/25/20 06:33 Blood Pressure 136/71 07/25/20 06:33 O2 Sat by Pulse Oximetry (%) 91 L 07/25/20 06:33 Labs: CBC, BMP 07/25/20 06:45 07/25/20 06:45 INR, PTT INR 1.39 (0.83-1.09) H 07/18/20 03:38 Problem List - Problems (1) Acute cholecystitis due to biliary calculus Code(s): K80.00 - CALCULUS OF GALLBLADDER W ACUTE CHOLECYST W/O OBSTRUCTION (2) CAD (coronary artery disease) Code(s): I25.10 - ATHSCL HEART DISEASE OF [place] CORONARY ARTERY W/O ANG PCTRS Qualifiers: Coronary Disease-Associated Artery/Lesion type: [place] artery [place] vs. transplanted heart: [place] heart Associated angina: without angina Qualified Code(s): I25.10 - Atherosclerotic heart disease of [place] coronary artery without angina pectoris (3) Diabetes mellitus Code(s): E11.9 - TYPE 2 DIABETES MELLITUS WITHOUT COMPLICATIONS Qualifiers: Diabetes mellitus type: type 2 Diabetes mellitus complication status: with circulatory complication Diabetes mellitus complication detail: with peripheral angiopathy with gangrene (4) Diabetic foot ulcer Code(s): E11.621 - TYPE 2 DIABETES MELLITUS WITH FOOT ULCER; L97.509 - NON- PRESSURE CHRONIC ULCER OTH PRT UNSP FOOT W UNSP SEVERITY Qualifiers: Diabetic foot ulcer location: midfoot Diabetes mellitus type: other specified (including MARIA M) Laterality: left Non-pressure ulcer stage: unspecified non-pressure ulcer stage Qualified Code(s): E13.621 - Other specified diabetes mellitus with foot ulcer; L97.429 - Non-pressure chronic ulcer of left heel and midfoot with unspecified severity (5) HTN (hypertension) Code(s): I10 - ESSENTIAL (PRIMARY) HYPERTENSION Qualifiers: Hypertension type: essential hypertension Qualified Code(s): I10 - Essential (primary) hypertension (6) History of percutaneous coronary intervention Code(s): Z98.61 - CORONARY ANGIOPLASTY STATUS (7) Hx of CABG Code(s): Z95.1 - PRESENCE OF AORTOCORONARY BYPASS GRAFT (8) Hypercholesterolemia Code(s): E78.00 - PURE HYPERCHOLESTEROLEMIA, UNSPECIFIED (9) Ischemic dilated cardiomyopathy Code(s): I25.5 - ISCHEMIC CARDIOMYOPATHY; I42.0 - DILATED CARDIOMYOPATHY (10) PAD (peripheral artery disease) Code(s): I73.9 - PERIPHERAL VASCULAR DISEASE, UNSPECIFIED (11) Presence of automatic cardioverter/defibrillator (AICD) Code(s): Z95.810 - PRESENCE OF AUTOMATIC (IMPLANTABLE) CARDIAC DEFIBRILLATOR (12) Status post laparoscopic cholecystectomy Code(s): Z90.49 - ACQUIRED ABSENCE OF OTHER SPECIFIED PARTS OF DIGESTIVE TRACT Assessment/Plan 07/18/2020 Hida with evidence of acute syed. no filling of gallbladder 07/18/2020 Mild decreased LVEF 45-50%, abnl LV compliance, pcemaker in RV, mil dMR, TR, RVSP normal 04/16/2016 Lexiscan Myoview: Small mild ischemia of mid anterior wall and inferior wall scar. Mld decreased LVEF 43% with AK of basal to mid inferior wall and paradoxical septal motion 04/16/2016 Echo: Norml LV size with mild-mod JACKIE, mild decreased LV systolic function, LVEF 45%, abnl LV compliance, AK of inferior and mid inferolateral, paradoxical septal motion due to post-op state, tr TR, MR 1. POD#2 lap cholecystectomy for acute cholecystitis with cholelithiasis and abnormal LFTs 2. History of left foot MSSA osteomyelitis, diabetic ulcer s/p left foot debridement of ulcer with metatarsal head resection and biopsy 3. CAD s/p PCI/stent, CABG, angina pectoris 4. Ischemic dilated cardiomyopathy 5. HTN 6. Hypercholesterolemia 7. DM 8. Presence of AICD for above cardiomyopathy and VT/VF 9. Acute on CKD PLAN: 1. Drain removed, diet as tolerated, encourage ambulation and oral hydration 2. Continue Carvedilol 25 mg BID, resumed Prinivil 10 mg QD, Amlodipine 10 mg QD, eventual aldosterone inhibition once renal fxn stable 3. Continue Atorvastatin 40 mg QHS as LFT remains stable. Change ASA 81 mg QD to Plavix 75 qd once post-op hemostasis assured 4. GI and DVT prophylaxis 5. Antibiotic coverage Did not show up for follow up vsit in our office 07/31/2020 [facility] after discharge [phone]
[2020-07-25] MEDS: LISINOPRIL 10 MG TABLET (FP) PO SCH (09:47)
[2020-07-25] MEDS: CARVEDILOL 25 MG TABLET (FP) PO SCH (09:47)
[2020-07-25] MEDS: ASPIRIN 81 MG CHEWABLE TABLETS PO SCH (09:47)
[2020-07-25] MEDS: GABAPENTIN 100 MG CAPSULE PO SCH (09:47)
[2020-07-25] MEDS: amLODIPine BESYLATE 10 MG TABLET (FP) PO SCH (09:47)
[2020-07-25] MEDS ORDERED: PT OWN MED DRAWER 7, Y5N ONE (10:21)
[2020-07-25] MEDS ORDERED: MAGNESIUM 2GM/50ML STERILE WATER IVPB IVPB ONE (11:16)
[2020-07-25] MEDS ORDERED: POTASSIUM PHOSPHATE 20 MM in SODIUM CHLORIDE 500 ML IVPB ONE (11:30)
[2020-07-25] MEDS ORDERED: INSULIN (NOVOLOG) ASPART 100 UNITS/ML 10ML VIAL ONE (11:46)
[2020-07-25] MEDS ORDERED: NAPH,MB-DB/K PH,MBDB POWDER PACKET PO ONE (13:33)
--- NOTE | 2020-07-25 13:36 | DS ---
Physical Exam: SUBJECTIVE: Patient seen and examined at bedside. He is urinating without dysuria, hematuria. He admits passing flatus and small bowel movement. T olerating diet without abdominal pain, nausea, vomiting. Denies subjective fevers, chills. OBJECTIVE: Vital Signs Period Temp Pulse Resp BP Sys/Hightower Pulse Ox Last 24 Hr 97.7 F-99.1 F 69-73 18-20 127-142/62-71 90-96 PHYSICAL EXAM GENERAL: The patient is awake, alert, and fully oriented, in no acute distress. HEAD: Normocephalic, atraumatic. EYES: PERRL, extraocular movements intact, sclera anicteric, conjunctiva clear. ENT: Oropharynx clear, without erythema or exudates. Moist mucous membranes. NECK: Trachea midline, full range of motion. Supple without lymphadenopathy. LUNGS: Breath sounds equal, clear to auscultation bilaterally. No wheezes, no crackles. No accessory muscle use. HEART: Regular rate and rhythm. S1, S2 without murmur, rub or gallop. ABDOMEN: Soft, nondistended, nontender to light and deep palpation x4 quadrants. No rebound tenderness, no guarding. Normoactive bowel sounds x4 quadrants. No hepatosplenomegaly, no masses appreciated. EXTREMITIES: 2+ radial, dorsalis pedis pulses bilaterally. Warm, well-perfused. No lower extremity edema bilaterally. NEUROLOGICAL: Cranial nerves II through XII grossly intact. Normal speech. No gross focal deficits. PSYCH: Normal mood, normal affect upon my encounter. SKIN: Warm, dry. Laparoscopic surgical sites visualized clean, dry, intact. LABS Laboratory Results - last 24 hr 07/24/20 07/24/20 07/24/20 10:30 18:00 21:30 WBC RBC Hgb Hct MCV MCH MCHC RDW Plt Count MPV Sodium Potassium Chloride Carbon Dioxide Anion Gap BUN Creatinine Est GFR (CKD-EPI)AfAm Est GFR (CKD-EPI)NonAf POC Glucometer 165 150 Random Glucose Calcium Phosphorus Magnesium Total Bilirubin AST ALT Alkaline Phosphatase Total Protein Albumin COVID-19 ([facility]) Not detected 07/25/20 07/25/20 07/25/20 06:28 06:45 06:45 WBC 9.9 RBC 3.34 L Hgb 10.0 L Hct 28.9 L MCV 86.5 MCH 29.8 MCHC 34.4 RDW 14.4 Plt Count 159 MPV 11.6 H Sodium 142 Potassium 3.5 Chloride 112 H Carbon Dioxide 22 Anion Gap 8 BUN 19.8 H Creatinine 1.3 Est GFR (CKD-EPI)AfAm 62.74 Est GFR (CKD-EPI)NonAf 54.13 POC Glucometer 129 Random Glucose 136 H Calcium 7.7 L Phosphorus 2.2 L Magnesium 1.4 L Total Bilirubin 0.3 AST 25 ALT 26 Alkaline Phosphatase 83 Total Protein 5.8 L Albumin 2.2 L COVID-19 ([facility]) 07/25/20 11:44 WBC RBC Hgb Hct MCV MCH MCHC RDW Plt Count MPV Sodium Potassium Chloride Carbon Dioxide Anion Gap BUN Creatinine Est GFR (CKD-EPI)AfAm Est GFR (CKD-EPI)NonAf POC Glucometer 190 Random Glucose Calcium Phosphorus Magnesium Total Bilirubin AST ALT Alkaline Phosphatase Total Protein Albumin COVID-19 ([facility]) HOSPITAL COURSE: Date of Admission:07/17/20 Patient is a 74 year old male with history of coronary artery disease s/p PCI/stent, 3 vessel CABG, ICD implantation for ischemic cardiomyopathy and VT/VF, 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 HIDA scan confirmed acute cholecystitis. Patient was evaluated by general surgeon and underwent laparoscoic cholecystectomy Patient tolerating oral intake, passing flatus, bowel movements, and urinating. Discharged to assisted living facility to follow up with primary care physician and general surgeon. His Insulin Levemir was discontinued, patient noted to be hypoglycemic upon admission. To continue Metformin, and discuss diabetes regimen with primary care physician. Date of Discharge: 07/25/20 Minutes to complete discharge: 36 Discharge Summary Problems reviewed: Yes Reason For Visit: CHOLECYSTITIS Current Active Problems Abdominal pain (Acute) Acute cholecystitis due to biliary calculus (Acute) Pre-operative cardiovascular examination (Acute) Status post laparoscopic cholecystectomy (Acute) Condition: Good - Instructions Diet, Activity, Other Instructions: You were admitted to the hospital for evaluation of abdominal pain. You were evaluated by the general surgeon, cash shortage investigator, and your gallbladder was surgically removed (laparoscopic cholecystectomy). You are medically stable for discharge home. DO NOT take your your (long acting) Insulin Levemir. Your blood sugars were noted to be low when you came to the hospital. Continue taking your Metformin, and discuss your diabetes medication regimen with your primary care physician. Continue taking your other home medications as directed Follow up with your primary care physician within one -two days after discharge. A referral has been provided. Follow up with general surgeon (Dr. Mary). A referral has been provided. Please see below his discharge instructions. Return to the nearest emergency department if you experience worsening symptoms, subjective fevers, chills, shortness of breath, chest pain, palpitations, abdominal pain, nausea, vomiting, any trauma or loss of consciousness. Dr. Mary Discharge Instructions Dear REGINALDO BAILEY, Post Operative Instructions Physical activity Resume your normal everyday activity as tolerated no heavy lifting or exercise until seen by your surgeon. You may walk unlimited amounts of and climb stairs. You may resume driving the car when you feel safe and comfortable behind the wheel. Wound care You have a liquid bandage over your incisions. This will come off slowly on its own over the next few weeks. Please avoid picking at it if you notice it flaking. You may shower starting tomorrow. When showering allow soap and water to run over the incision. Do not scrub, pat dry after showering. Diet There are no dietary restrictions. Eat healthy, high-fiber foods. Drink 6 to 8 g lasses of liquid each day. This will assist in keeping your bowels are regular. Pain management You may take Tylenol or acetaminophen or Ibuprofen (for example, Motrin, Advil etc.) Any pain prescription medication ordered should be taken as prescribed for moderate to severe pain. Call Dr. Mary for any of the following: Severe pain not relieved by medication Fever of 101 or higher Excessive bleeding or drainage on dressing Inability to urinate Call the office at [phone] for a post operative appointment in 7 - 10 days. Referrals: Negro Strauss [Primary Care Provider] - Richard Mary MD [Staff Physician] - Disposition: [facility] - Home Medications Comprehensive Discharge Medication List: Ambulatory Orders Multivitamins [Multivit ([facility] Formulary)] 1 udtab PO DAILY #0 tab 01/02/13 Lisinopril [Prinivil] 20 mg PO BID 05/10/16 metFORMIN HCL [Metformin HCl] 1,000 mg PO BID 12/02/16 Amlodipine Besylate [Norvasc -] 10 mg PO DAILY #30 tablet 12/10/16 Atorvastatin Ca [Lipitor] 40 mg PO HS #30 tablet 12/10/16 Carvedilol [Coreg -] 25 mg PO BID #30 tablet 12/10/16 Clopidogrel Bisulfate [Plavix -] 75 mg PO DAILY #30 tablet 12/10/16 hydrALAZINE HCL [Apresoline -] 25 mg PO BID #30 tablet 12/10/16 Aspirin 81 mg PO DAILY 05/19/20 Gabapentin 100 mg PO BID 05/19/20 Famotidine 20 mg PO BID 07/17/20 This patient is new to me today: No Emergency Visit: Yes ED Registration Date: 07/17/20 Care time: The patient presented to the Emergency Department on the above date and was hospitalized for further evaluation of their emergent condition. Critical Care patient: No - Discharge Referral Referred to [facility] Med P.C.: No ATTENDING PHYSICIAN STATEMENT I saw and evaluated the patient. I reviewed the resident's note and discussed the case with the resident. I agree with the resident's findings and plan as documented. SUBJECTIVE: OBJECTIVE: ASSESSMENT AND PLAN:
--- NOTE | 2020-07-25 13:43 | PN ---
Teaching Attending Note Name of Resident: Bethel Arora ATTENDING PHYSICIAN STATEMENT I saw and evaluated the patient. I reviewed the resident's note and discussed the case with the resident. I agree with the resident's findings and plan as documented. SUBJECTIVE: Seen and examined at bedside. Postop day 3 status post cholecystectomy. Hem odynamically stable. Passing flatus tolerating p.o. Patient is medically cleared for discharge OBJECTIVE Last Vital Signs Temp Pulse Resp BP Pulse Ox 98.3 F 72 18 142/66 96 07/25/20 10:00 07/25/20 10:00 07/25/20 10:00 07/25/20 10:07/25/20 10:00 PE: Per resident note Labs/Imaging: reviewed ASSESSMENT/PLAN 74-year-old male with a history of CAD status post PCI/stent, CABG, ICD implantation for ischemic cardiomyopathy and VT/VF, CVA with right residual deficit, HTN, HLD, IDDM, left foot osteomyelitis presents with right upper quadrant pain, found to have acute cholecystitis. . Patient underwent laparoscopic cholecystectomy with patient to the placement of pigtail drainage catheter which was since removed. Patient is now medically cleared for discharge. He will be sent home on metformin with no standing insulin as his inpatient requirements were very low. He should follow-up with his PCP and with surgery for further management.
[2020-07-25 16:01] VITALS: BP 145/73; PULSE 69; TEMP 97.4
--- NOTE | 2020-07-28 12:00 | PATH ---
Surgical Pathology Report Patient Name: REGINALDO BAILEY Med. Rec. #: [id number] /Age/Gender: 1945 (Age: 74) / M Account: [id number] Location: [facility] MED/SURG Taken: 07/22/2020 Received: 07/23/2020 Reported: 07/28/2020 Physicians: MD Geronimo Ochoa M.D. Specimen(s) Received GALLBLADDER Clinical History Acute cholecystitis Final Diagnosis GALLBLADDER, CHOLECYSTECTOMY: ACUTE AND CHRONIC CHOLECYSTITIS. CHOLELITHIASIS. Electronically Signed Alice Villanueva M.D. Gross Description Received in formalin, labeled "gallbladder," is a 9.0 x 3.8 x 3.1 cm. gallbladder with a 0.2 cm. in length portion of cystic duct attached. The outer surface is briones-hackett with a focal defect and varies from smooth to shaggy. The lumen contains abundant green, sludgelike bile. There are abundant irregular to fragmented choleliths present, ranging from 0.1 to 0.8 cm in greatest dimension. The mucosa is green and focally eroded. The wall of the gallbladder ranges from 0.1-0.5 cm. in thickness. Cigar Head Holer sections are submitted in one cassette. 07/24/2020 [facility]07/24/2020
== END 2020-07-25 16:42 | DRG 418 ==
LOC: JER 16:09 → JERBED 19:46 → J8W 07-18 06:53
PROVIDERS: ADMIT Hospitalist; ATTEND Internal Medicine
PROC: 0FT44ZZ Resection of Gallbladder, Percutaneous Endoscopic Approach (ICD-10-PCS; principal; 2020-07-22 11:30)
DX: K80.00 Calculus of gallbladder with acute cholecystitis without obstruction (principal); I69.351 Hemiplegia and hemiparesis following cerebral infarction affecting right dominant side; L97.508 Non-pressure chronic ulcer of other part of unspecified foot with other specified severity; I13.0 Hypertensive heart and chronic kidney disease with heart failure and stage 1 through stage 4 chronic kidney disease, or unspecified chronic kidney disease; I50.22 Chronic systolic (congestive) heart failure; I42.9 Cardiomyopathy, unspecified; M86.8X7 Other osteomyelitis, ankle and foot; N17.9 Acute kidney failure, unspecified; I10 Essential (primary) hypertension; I25.119 Atherosclerotic heart disease of native coronary artery with unspecified angina pectoris; E78.5 Hyperlipidemia, unspecified; D64.9 Anemia, unspecified; R10.11 Right upper quadrant pain; E11.69 Type 2 diabetes mellitus with other specified complication; E11.621 Type 2 diabetes mellitus with foot ulcer; E11.51 Type 2 diabetes mellitus with diabetic peripheral angiopathy without gangrene; E11.22 Type 2 diabetes mellitus with diabetic chronic kidney disease; E11.40 Type 2 diabetes mellitus with diabetic neuropathy, unspecified; E11.649 Type 2 diabetes mellitus with hypoglycemia without coma; N18.9 Chronic kidney disease, unspecified; Z89.421 Acquired absence of other right toe(s); Z95.1 Presence of aortocoronary bypass graft; Z95.810 Presence of automatic (implantable) cardiac defibrillator; Z95.5 Presence of coronary angioplasty implant and graft
CPT/HCPCS: 36415; 71045-TC-FY; 76705-TC; 78226-TC; 80053; 82272; 82550; 82728; 82962; 83540; 83550; 83690; 83735; 84100; 84466; 84484; 85025; 85027; 85610; 85730; 86850; 86900; 86901; 87045; 87046; 87205; 87324; 87449; 88304-TC; 93005; 93010; 93306-TC; 94010; 94760; 97116-GP; 97161-GP; 99285-25; A9537; J0131; U0003

== ENCOUNTER 2020-07-27 08:47 | Emergency (ER) | payer OTHER ==
[2020-07-27 09:08] VITALS: BP 160/74; PULSE 74; TEMP 99.2; BMI 28.8
--- NOTE | 2020-07-27 09:18 | PDOC ---
History of Present Illness - General Chief Complaint: Pain Stated Complaint: PAIN Time Seen by Provider: 07/27/20 08:58 - History of Present Illness Initial Comments: 07/27/20 09:24 74yo male with extensive PMH presents to the ER because his surgical incision was draining clear fluid. He was discharged 2 days prior after a laparoscopic cholecystectomy. The surgical drain was removed prior to discharge, and the incision where the drain was is the one that was draining clear fluid and soaked the gauze. The patient was under the impression that only the surgeon could change the dressing, so he did not less the nurse change it at his facility. Denies pain at the site. Denies fever. ROS otherwise negative. PMH/PSH/Meds/Allergies: as per chart ROS GENERAL/CONSTITUTIONAL: No fever or chills. No weakness. HEAD, EYES, EARS, NOSE AND THROAT: No change in vision. No ear pain or discharge. No sore throat. CARDIOVASCULAR: No chest pain or shortness of breath RESPIRATORY: No cough, wheezing, or hemoptysis. GASTROINTESTINAL: No nausea, vomiting, diarrhea or constipation. GENITOURINARY: No dysuria, frequency, or change in urination. MUSCULOSKELETAL: No joint or muscle swelling or pain. No neck or back pain. SKIN: No rash NEUROLOGIC: No headache, vertigo, loss of consciousness, or change in strength/sensation. ENDOCRINE: No increased thirst. No abnormal weight change HEMATOLOGIC/LYMPHATIC: No anemia, easy bleeding, or history of blood clots. ALLERGIC/IMMUNOLOGIC: No hives or skin allergy. PE GENERAL: Awake, alert, and fully oriented, in no acute distress HEAD: No signs of trauma, normocephalic, atraumatic EYES: PERRLA, EOMI, sclera anicteric, conjunctiva clear ENT: Auricles normal inspection, hearing grossly normal, nares patent, oropharynx clear without exudates. Moist mucosa NECK: Normal ROM, supple, no lymphadenopathy, JVD, or masses LUNGS: No distress, speaks full sentences, clear to auscultation bilaterally HEART: Regular rate and rhythm, normal S1 and S2, no murmurs, rubs or gallops, peripheral pulses normal and equal bilaterally. ABDOMEN: Soft, nontender. Right lateral incision draining scant serosanguenous fluid without erythema. The other three incisions are well-healing. EXTREMITIES : Normal inspection, Normal range of motion, no edema. No clubbing or cyanosis. NEUROLOGICAL: Cranial nerves II through XII grossly intact. Normal speech, normal gait, no focal sensorimotor deficits SKIN: Warm, Dry, normal turgor, no rashes or lesions noted Vital Signs Temp Pulse Resp BP Pulse Ox 99.2 F 74 18 160/74 98 07/27/20 08:50 07/27/20 08:50 07/27/20 08:50 07/27/20 08:50 07/27/20 08:50 MDM: 74yo male with extensive PMH presents to the ER because his surgical incision was draining clear fluid. No signs of infection or dehiscence. -DC home with instructions that the facility nurse can change the dressing Past History - Medical History Allergies/Adverse Reactions: Allergies Allergy/AdvReac Type Severity Reaction Status Date / Time No Known Allergies Allergy Verified 07/27/20 09:19 Home Medications: Ambulatory Orders Multivitamins [Multivit ([facility] Formulary)] 1 udtab PO DAILY #0 tab 01/02/13 Lisinopril [Prinivil] 20 mg PO BID 05/10/16 metFORMIN HCL [Metformin HCl] 1,000 mg PO BID 12/02/16 Amlodipine Besylate [Norvasc -] 10 mg PO DAILY #30 tablet 12/10/16 Atorvastatin Ca [Lipitor] 40 mg PO HS #30 tablet 12/10/16 Carvedilol [Coreg -] 25 mg PO BID #30 tablet 12/10/16 Clopidogrel Bisulfate [Plavix -] 75 mg PO DAILY #30 tablet 12/10/16 hydrALAZINE HCL [Apresoline -] 25 mg PO BID #30 tablet 12/10/16 Aspirin 81 mg PO DAILY 05/19/20 Gabapentin 100 mg PO BID 05/19/20 Famotidine 20 mg PO BID 07/17/20 Anemia: No Asthma: No Cancer: No Cardiac Disorders: Yes (CABG) CVA: No COPD: No CHF: No Dementia: No Diabetes: Yes (IDDM) GI Disorders: No Disorders: Yes (KIDNEY STONES) HTN: Yes Hypercholesterolemia: Yes Seizures: No Thyroid Disease: No - Surgical History Abdominal Surgery: No Appendectomy: No Cardiac Surgery: Yes (stent,diffibrilator,bypass CABG) Cholecystectomy: No Lung Surgery: No Neurologic Surgery: No Orthopedic Surgery: No (LEFT FT - 4TH TOE AMPUTATION - 5 YRS AGO) - Psycho-Social/Smoking History Smoking Status: Yes Smoking History: Unknown if ever smoked Have you smoked in the past 12 months: Yes Number of Cigarettes Smoked Daily: 0 Cigars Per Day: 2 'Breaking Loose' booklet given: 05/10/16 - Substance Abuse Hx (Audit-C & DAST Scrn) In the last yr the pt used illegal drug/Rx for NonMed reason: No Score: Yes response is considered Positive: 0 Screen Result (Positive result requires Nsg. DAST-10): Negative *Physical Exam - Vital Signs Last Vital Signs Temp Pulse Resp BP Pulse Ox 99.2 F 74 18 160/74 98 07/27/20 08:50 07/27/20 08:50 07/27/20 08:50 07/27/20 08:50 07/27/20 08:50 Discharge - Discharge Information Problems reviewed: Yes Clinical Impression/Diagnosis: Drainage from surgical wound Condition: Good Disposition: HOME - Admission No - Follow up/Referral Referrals: Negro Strauss [Primary Care Provider] - - Patient Discharge Instructions Additional Instructions: You were seen in the ER because your surgical wound was draining clear fluid. We did a physical exam, and this fluid is normal. The nurses at your facility can change the gauze twice a day. Please see your surgeon, Dr. Mary, in 5-8 days for a follow up appointment. Please return to the ER if you have pain at the site, pus, blood, swelling, fever, or any other reason. - Post Discharge Activity
--- NOTE | 2020-07-27 09:25 | PDOC ---
Attending Attestation - Resident Resident Name: Christiano Garcia - ED Attending Attestation I have performed the following: I have examined & evaluated the patient, The case was reviewed & discussed with the resident, I agree w/resident's findings & plan, Exceptions are as noted - HPI HPI: 07/27/20 09:23 74 years old status post cholecystectomy last week presents to the ED with drainage from laparoscopic excision sites No fever no chills no abdominal pain no redness to area he describes adjacent drainage is clear in nature several pads were soaked and he came to the ED for evaluation - Physicial Exam PE: 07/27/20 09:23 Vitals: Triage Vital signs reviewed General Appearance: No acute distress, well nourished well developed, Head: Atraumatic, Cardiac: Regular rate and rhythym, Lungs: Clear to auscultation bilateral, good air movement bilaterally, Abdomen: Soft, non distended, normal bowel sounds, non tender to palpation, Well-appearing laparoscopic incision sites right inferior laparoscopic incision site with small amount of clear serosanguineous discharge no fluctuance around the site no redness or cellulitis around the site no tenderness around the site no rebound no guarding on abdominal examination Extremities: Full range of motion to all extremities, no cyanosis, clubbing, or edema Skin: Warm and dry, no rashes or lesions, no rash, no petechiae Psych: Normal mood, normal affect - Medical Decision Making 07/27/20 09:24 History and examination consistent with normal postoperative serosanguineous discharge. Draining appropriately No evidence of acute intra-abdominal process or infection. Well-healing surgical incision sites. Patient has surgical follow-up this week Will recommend dressing changes as needed and return to ED for any fever chills abdominal pain redness around incision sites or for any concerns Discharge - Discharge Information Problems reviewed: Yes Clinical Impression/Diagnosis: Drainage from surgical wound Condition: Good Disposition: HOME - Follow up/Referral Referrals: Negro Strauss [Primary Care Provider] - - Patient Discharge Instructions Additional Instructions: You were seen in the ER because your surgical wound was draining clear fluid. We did a physical exam, and this fluid is normal. The nurses at your facility can change the gauze twice a day. Please see your surgeon, Dr. Mary, in 5-8 days for a follow up appointment. Please return to the ER if you have pain at the site, pus, blood, swelling, fever, or any other reason. - Post Discharge Activity
== END 2020-07-27 10:30 | disposition home or self-care (01) ==
LOC: JER 08:47
DX: T81.89XA Other complications of procedures, not elsewhere classified, initial encounter (principal)
CPT/HCPCS: 99281-25

== ENCOUNTER 2020-11-28 10:06 | Inpatient (IN) | payer OTHER ==
[2020-11-28] MEDS ORDERED: ACETAMINOPHEN 500 MG TABLET (FP) PO ONE (10:48)
[2020-11-28 11:47] LABS: VENOUS BASE EXCESS -4.6 mmol/L (-2-2); VENOUS O2 SATURATION 79.3 % (70-80); VENOUS PCO2 34.8 mmHg (38-52); VENOUS PH 7.373 (7.310-7.410)
[2020-11-28] MEDS ORDERED: ACETAMINOPHEN 325 MG TABLET (FP) ONE (11:53)
[2020-11-28 12:13] LABS: BASO % 0.3 % (0-2.0); EOS % 0.3 % (0-4.5); HEMATOCRIT 27.3 % (35.4-49); HEMOGLOBIN 9.2 GM/dL (11.7-16.9); LYMPH % 18.2 % (8-40); MCH 29.8 pg (25.7-33.7); MCHC 33.8 g/dl (32.0-35.9); MEAN CELL VOLUME 88.3 fl (80-96); MEAN PLT VOLUME 12.1 fl (7.5-11.1); MONO % 9.9 % (3.8-10.2); NEUT % 71.3 % (42.8-82.8); PLATELET COUNT 109 K/MM3 (134-434); WHITE BLOOD COUNT 5.1 K/mm3 (4.0-10.0)
[2020-11-28 12:32] LABS: CHLORIDE 106 mmol/L (98-107); POTASSIUM 4.1 mmol/L (3.5-5.1); SODIUM 137 mmol/L (136-145)
[2020-11-28 12:34] LABS: ANION GAP 6 MMOL/L (8-16); BLOOD UREA NITROGEN 26.9 mg/dL (7-18); CALCIUM 8.2 mg/dL (8.5-10.1); CO2 25 mmol/L (21-32); GLUCOSE,RANDOM 66 mg/dL (74-106)
[2020-11-28 12:35] LABS: ALBUMIN 3.1 g/dl (3.4-5.0)
[2020-11-28 12:38] LABS: BILIRUBIN,DIRECT 0.1 mg/dL (0.0-0.2); CREATININE 1.7 mg/dL (0.55-1.3); SGOT/AST 20 U/L (15-37); SGPT/ALT 15 U/L (13-61)
[2020-11-28 12:40] LABS: BILIRUBIN,TOTAL 0.4 mg/dL (0.2-1); TOT PROT 7.4 g/dl (6.4-8.2)
[2020-11-28 12:41] LABS: ALK PHOS 46 U/L (45-117)
[2020-11-28 12:42] LABS: LDH 188 U/L (87-246)
[2020-11-28] MEDS ORDERED: DEXAMETHASONE SOD PHOSPHATE 4 MG/1 ML VIAL IVPUSH ONE (13:40)
[2020-11-28 13:41] LABS: N-TERMINAL BNP 3298.1 pg/ml (5-125)
[2020-11-28] MEDS ORDERED: DEXAMETHASONE SOD PHOSPHATE 10 MG/1 ML VIAL ONE (13:59)
[2020-11-28] MEDS ORDERED: SODIUM CHLORIDE 1,000 ML IV SCH (14:30)
[2020-11-28] MEDS ORDERED: DEXTROSE 50%-WATER 25 GM/50 ML DISP.SYRIN ONE (15:10)
[2020-11-28] MEDS: INSULIN SLIDING SCALE (NOVOLOG) 1 VIAL SQ SCH ×2 (16:14→22:40)
[2020-11-28 18:27] VITALS: BMI 25.7
[2020-11-28] MEDS: HEPARIN NA (PORCINE) 5,000 UNITS/ML 1ML VIAL SQ SCH (19:02)
[2020-11-28] MEDS: GABAPENTIN 100 MG CAPSULE PO SCH (22:32)
[2020-11-28] MEDS: CARVEDILOL 25 MG TABLET (FP) PO SCH (22:33)
[2020-11-28] MEDS: ATORVASTATIN CA 40 MG TABLET (FP) PO SCH (22:33)
[2020-11-28] MEDS: FAMOTIDINE 20 MG TABLET PO SCH (22:33)
[2020-11-29] MEDS: HEPARIN NA (PORCINE) 5,000 UNITS/ML 1ML VIAL SQ SCH ×3 (02:46→17:44)
[2020-11-29] MEDS: INSULIN SLIDING SCALE (NOVOLOG) 1 VIAL SQ SCH ×4 (06:09→22:50)
[2020-11-29] MEDS: FAMOTIDINE 20 MG TABLET PO SCH ×2 (09:43→22:52)
[2020-11-29] MEDS: CARVEDILOL 25 MG TABLET (FP) PO SCH ×2 (09:43→22:50)
[2020-11-29] MEDS: ASPIRIN 81 MG CHEWABLE TABLETS PO SCH (09:44)
[2020-11-29] MEDS: GABAPENTIN 100 MG CAPSULE PO SCH ×2 (09:44→22:52)
[2020-11-29] MEDS: MULTIVITAMINS (DAILY MVI) TABLET (FP) PO SCH (09:44)
[2020-11-29 10:47] LABS: HEMATOCRIT 29.4 % (35.4-49); HEMOGLOBIN 9.9 GM/dL (11.7-16.9); MCH 29.8 pg (25.7-33.7); MCHC 33.7 g/dl (32.0-35.9); MEAN CELL VOLUME 88.4 fl (80-96); MEAN PLT VOLUME 12.2 fl (7.5-11.1); PLATELET COUNT 106 K/MM3 (134-434); RBC 3.33 M/mm3 (4.00-5.60); RDW 14.2 % (11.9-15.9); WHITE BLOOD COUNT 7.1 K/mm3 (4.0-10.0)
[2020-11-29 11:08] LABS: CALCIUM 8.3 mg/dL (8.5-10.1)
[2020-11-29 11:09] LABS: MAGNESIUM 1.7 mg/dL (1.8-2.4)
[2020-11-29 11:12] LABS: CREATININE 1.6 mg/dL (0.55-1.3); PHOSPHOROUS 2.9 mg/dL (2.5-4.9)
[2020-11-29] MEDS ORDERED: AZITHROMYCIN IVPB 500 MG/250 ML BAG IVPB ONE (11:38)
[2020-11-29] MEDS ORDERED: MAGNESIUM SULF 50% (8.12 MEQ/2 ML-1 GM VIAL) IVPB ONE (11:45)
[2020-11-29] MEDS ORDERED: DEXTROSE 5%-WATER - 50 ML IVPB ONE (11:58)
[2020-11-29] MEDS ORDERED: cefTRIAXone SODIUM 1 GM VIAL ONE (11:58)
[2020-11-29] MEDS ORDERED: REMDESIVIR 200 MG in SODIUM CHLORIDE 210 ML IVPB ONE (12:00)
[2020-11-29] MEDS: CEFTRIAXONE 1 GM in DEXTROSE 5%-WATER - 50 ML IVPB SCH (12:13)
[2020-11-29] MEDS: ASCORBIC ACID 500 MG TABLET (FP) PO SCH (12:14)
[2020-11-29] MEDS: DEXAMETHASONE SOD PHOSPHATE 4 MG/1 ML VIAL IVPUSH SCH (12:14)
[2020-11-29] MEDS: ZINC SULFATE 220 MG CAPSULE (FP) PO SCH (12:14)
[2020-11-29] MEDS: CHOLECALCIFEROL (VIT D3) 5000 UNITS (125 MCG) CAP PO SCH (12:22)
[2020-11-29 12:34] LABS: HEMATOCRIT 31.9 % (35.4-49); HEMOGLOBIN 10.6 GM/dL (11.7-16.9); MCH 29.6 pg (25.7-33.7); MCHC 33.3 g/dl (32.0-35.9); MEAN CELL VOLUME 88.6 fl (80-96); MEAN PLT VOLUME 11.9 fl (7.5-11.1); MONO % 5.3 % (3.8-10.2); NEUT % 87.7 % (42.8-82.8); PLATELET COUNT 126 K/MM3 (134-434); RDW 14.2 % (11.9-15.9); WHITE BLOOD COUNT 9.4 K/mm3 (4.0-10.0)
[2020-11-29 12:53] LABS: POTASSIUM 3.7 mmol/L (3.5-5.1)
[2020-11-29 12:54] LABS: CALCIUM 8.1 mg/dL (8.5-10.1)
[2020-11-29 12:55] LABS: BLOOD UREA NITROGEN 32.3 mg/dL (7-18)
[2020-11-29 12:58] LABS: CREATININE 1.8 mg/dL (0.55-1.3)
[2020-11-29 12:59] LABS: BILIRUBIN,TOTAL 0.8 mg/dL (0.2-1); TOT PROT 7.4 g/dl (6.4-8.2)
[2020-11-29] MEDS: ATORVASTATIN CA 40 MG TABLET (FP) PO SCH (22:51)
[2020-11-29 23:43] LABS: EPI CELLS 9 /uL (0-25.1); HYALINE CASTS 2 /uL (0-3.1); URINE APPEARANCE CLEAR; URINE BACTERIA 24 /uL (0-1359); URINE BILIRUBIN NEGATIVE (NEGATIVE); URINE COLOR YELLOW; URINE GLUCOSE (UA) 2+ (NEGATIVE); URINE KETONE NEGATIVE (NEGATIVE); URINE LEUK ESTERASE NEGATIVE (NEGATIVE); URINE NITRITE NEGATIVE (NEGATIVE); URINE PROTEIN 1+ (NEGATIVE); URINE RBC 32 /uL (0-23.9); URINE UROBILINOGEN 0.2 mg/dL (0.2-1.0); URINE WBC 7 /uL (0-25.8)
[2020-11-30] MEDS: HEPARIN NA (PORCINE) 5,000 UNITS/ML 1ML VIAL SQ SCH ×3 (02:45→21:18)
[2020-11-30] MEDS: INSULIN SLIDING SCALE (NOVOLOG) 1 VIAL SQ SCH ×4 (06:12→21:27)
[2020-11-30] MEDS ORDERED: AZITHROMYCIN IVPB 250 MG in DEXTROSE 5%-WATER - 250 ML IVPB SCH (10:00)
[2020-11-30] MEDS ORDERED: DEXTROSE 5%-WATER - 50 ML IVPB ONE (11:14)
[2020-11-30] MEDS ORDERED: cefTRIAXone SODIUM 1 GM VIAL ONE (11:14)
[2020-11-30] MEDS: CEFTRIAXONE 1 GM in DEXTROSE 5%-WATER - 50 ML IVPB SCH (11:32)
[2020-11-30] MEDS: GABAPENTIN 100 MG CAPSULE PO SCH ×2 (11:33→21:18)
[2020-11-30] MEDS: CHOLECALCIFEROL (VIT D3) 5000 UNITS (125 MCG) CAP PO SCH (11:33)
[2020-11-30] MEDS: MULTIVITAMINS (DAILY MVI) TABLET (FP) PO SCH (11:33)
[2020-11-30] MEDS: ZINC SULFATE 220 MG CAPSULE (FP) PO SCH (11:33)
[2020-11-30] MEDS: ASCORBIC ACID 500 MG TABLET (FP) PO SCH (11:33)
[2020-11-30] MEDS: ASPIRIN 81 MG CHEWABLE TABLETS PO SCH (11:34)
[2020-11-30] MEDS: FAMOTIDINE 20 MG TABLET PO SCH ×2 (11:34→21:19)
[2020-11-30] MEDS: DEXAMETHASONE SOD PHOSPHATE 4 MG/1 ML VIAL IVPUSH SCH (11:34)
[2020-11-30] MEDS: CARVEDILOL 25 MG TABLET (FP) PO SCH ×2 (11:34→21:18)
[2020-11-30 11:40] LABS: HEMATOCRIT 28.4 % (35.4-49); HEMOGLOBIN 9.6 GM/dL (11.7-16.9); LYMPH % 6.8 % (8-40); MCH 29.6 pg (25.7-33.7); MEAN PLT VOLUME 11.5 fl (7.5-11.1); MONO % 5.3 % (3.8-10.2); NEUT % 87.9 % (42.8-82.8); PLATELET COUNT 115 K/MM3 (134-434); RBC 3.26 M/mm3 (4.00-5.60); RDW 14.2 % (11.9-15.9); WHITE BLOOD COUNT 8.5 K/mm3 (4.0-10.0)
[2020-11-30 12:00] LABS: CALCIUM 8.1 mg/dL (8.5-10.1)
[2020-11-30 12:01] LABS: ALBUMIN 2.7 g/dl (3.4-5.0); BLOOD UREA NITROGEN 33.8 mg/dL (7-18)
[2020-11-30 12:03] LABS: CREATININE 1.4 mg/dL (0.55-1.3)
[2020-11-30 12:05] LABS: BILIRUBIN,TOTAL 0.3 mg/dL (0.2-1); TOT PROT 6.7 g/dl (6.4-8.2)
[2020-11-30] MEDS: REMDESIVIR 100 MG in SODIUM CHLORIDE 230 ML IVPB SCH (13:38)
[2020-11-30] MEDS: ATORVASTATIN CA 40 MG TABLET (FP) PO SCH (21:18)
[2020-12-01] MEDS: HEPARIN NA (PORCINE) 5,000 UNITS/ML 1ML VIAL SQ SCH ×3 (05:54→22:25)
[2020-12-01] MEDS: INSULIN SLIDING SCALE (NOVOLOG) 1 VIAL SQ SCH ×4 (06:12→22:43)
[2020-12-01] MEDS: ASPIRIN 81 MG CHEWABLE TABLETS PO SCH (10:55)
[2020-12-01] MEDS: ZINC SULFATE 220 MG CAPSULE (FP) PO SCH (10:55)
[2020-12-01] MEDS: CARVEDILOL 25 MG TABLET (FP) PO SCH ×2 (10:55→22:25)
[2020-12-01] MEDS: DEXAMETHASONE SOD PHOSPHATE 4 MG/1 ML VIAL IVPUSH SCH (10:56)
[2020-12-01] MEDS: MULTIVITAMINS (DAILY MVI) TABLET (FP) PO SCH (10:56)
[2020-12-01] MEDS: GABAPENTIN 100 MG CAPSULE PO SCH ×2 (10:56→22:24)
[2020-12-01] MEDS: ASCORBIC ACID 500 MG TABLET (FP) PO SCH (10:56)
[2020-12-01] MEDS: FAMOTIDINE 20 MG TABLET PO SCH ×2 (10:56→22:25)
[2020-12-01 12:51] LABS: BASO % 0.1 % (0-2.0); HEMATOCRIT 28.9 % (35.4-49); HEMOGLOBIN 9.7 GM/dL (11.7-16.9); LYMPH % 9.1 % (8-40); MCH 29.4 pg (25.7-33.7); MCHC 33.6 g/dl (32.0-35.9); MEAN CELL VOLUME 87.7 fl (80-96); MEAN PLT VOLUME 12.5 fl (7.5-11.1); MONO % 6.9 % (3.8-10.2); NEUT % 83.9 % (42.8-82.8); PLATELET COUNT 116 K/MM3 (134-434); RDW 14.3 % (11.9-15.9); WHITE BLOOD COUNT 7.7 K/mm3 (4.0-10.0)
[2020-12-01 13:07] LABS: POTASSIUM 4.3 mmol/L (3.5-5.1)
[2020-12-01 13:11] LABS: ALBUMIN 2.6 g/dl (3.4-5.0); CALCIUM 8.2 mg/dL (8.5-10.1)
[2020-12-01 13:12] LABS: BLOOD UREA NITROGEN 37.4 mg/dL (7-18)
[2020-12-01 13:15] LABS: CREATININE 1.4 mg/dL (0.55-1.3); PHOSPHOROUS 2.4 mg/dL (2.5-4.9)
[2020-12-01 13:16] LABS: BILIRUBIN,TOTAL 0.4 mg/dL (0.2-1); TOT PROT 6.8 g/dl (6.4-8.2)
[2020-12-01] MEDS: CHOLECALCIFEROL (VIT D3) 5000 UNITS (125 MCG) CAP PO SCH (14:46)
[2020-12-01] MEDS: REMDESIVIR 100 MG in SODIUM CHLORIDE 230 ML IVPB SCH (14:46)
[2020-12-01] MEDS ORDERED: NAPH,MB-DB/K PH,MBDB POWDER PACKET PO ONE (17:01)
[2020-12-01] MEDS: amLODIPine BESYLATE 10 MG TABLET (FP) PO SCH (17:31)
[2020-12-01] MEDS: ATORVASTATIN CA 40 MG TABLET (FP) PO SCH (22:24)
[2020-12-02] MEDS: INSULIN SLIDING SCALE (NOVOLOG) 1 VIAL SQ SCH ×4 (06:50→23:07)
[2020-12-02] MEDS: HEPARIN NA (PORCINE) 5,000 UNITS/ML 1ML VIAL SQ SCH ×3 (06:52→23:06)
[2020-12-02 09:37] LABS: BASO % 0.2 % (0-2.0); HEMATOCRIT 30.5 % (35.4-49); HEMOGLOBIN 10.3 GM/dL (11.7-16.9); LYMPH % 9.7 % (8-40); MCH 29.6 pg (25.7-33.7); MCHC 33.7 g/dl (32.0-35.9); MEAN CELL VOLUME 87.8 fl (80-96); MONO % 6.4 % (3.8-10.2); NEUT % 83.7 % (42.8-82.8); PLATELET COUNT 126 K/MM3 (134-434); RBC 3.47 M/mm3 (4.00-5.60); RDW 14.3 % (11.9-15.9); WHITE BLOOD COUNT 7.4 K/mm3 (4.0-10.0)
[2020-12-02] MEDS: FAMOTIDINE 20 MG TABLET PO SCH ×2 (09:43→23:06)
[2020-12-02] MEDS: ASPIRIN 81 MG CHEWABLE TABLETS PO SCH (09:43)
[2020-12-02] MEDS: ZINC SULFATE 220 MG CAPSULE (FP) PO SCH (09:43)
[2020-12-02] MEDS: GABAPENTIN 100 MG CAPSULE PO SCH ×2 (09:43→23:06)
[2020-12-02] MEDS: amLODIPine BESYLATE 10 MG TABLET (FP) PO SCH (09:43)
[2020-12-02] MEDS: MULTIVITAMINS (DAILY MVI) TABLET (FP) PO SCH (09:43)
[2020-12-02] MEDS: ASCORBIC ACID 500 MG TABLET (FP) PO SCH (09:43)
[2020-12-02] MEDS: DEXAMETHASONE SOD PHOSPHATE 4 MG/1 ML VIAL IVPUSH SCH (09:43)
[2020-12-02] MEDS: CARVEDILOL 25 MG TABLET (FP) PO SCH ×2 (09:43→23:05)
[2020-12-02] MEDS: CHOLECALCIFEROL (VIT D3) 5000 UNITS (125 MCG) CAP PO SCH (09:45)
[2020-12-02 09:57] LABS: POTASSIUM 4.4 mmol/L (3.5-5.1)
[2020-12-02 10:00] LABS: CALCIUM 8.3 mg/dL (8.5-10.1)
[2020-12-02 10:01] LABS: ALBUMIN 2.7 g/dl (3.4-5.0); BLOOD UREA NITROGEN 34.7 mg/dL (7-18); MAGNESIUM 1.9 mg/dL (1.8-2.4)
[2020-12-02 10:04] LABS: CREATININE 1.3 mg/dL (0.55-1.3); PHOSPHOROUS 2.9 mg/dL (2.5-4.9)
[2020-12-02 10:05] LABS: BILIRUBIN,TOTAL 0.5 mg/dL (0.2-1)
[2020-12-02] MEDS ORDERED: INSULIN (NOVOLOG) ASPART 100 UNITS/ML 10ML VIAL ONE (11:14)
[2020-12-02] MEDS: REMDESIVIR 100 MG in SODIUM CHLORIDE 230 ML IVPB SCH (11:28)
[2020-12-02] MEDS: ATORVASTATIN CA 40 MG TABLET (FP) PO SCH (23:05)
[2020-12-03] MEDS: HEPARIN NA (PORCINE) 5,000 UNITS/ML 1ML VIAL SQ SCH ×3 (06:44→21:54)
[2020-12-03] MEDS: INSULIN SLIDING SCALE (NOVOLOG) 1 VIAL SQ SCH ×4 (06:47→22:16)
[2020-12-03] MEDS: MULTIVITAMINS (DAILY MVI) TABLET (FP) PO SCH (10:25)
[2020-12-03] MEDS: FAMOTIDINE 20 MG TABLET PO SCH ×2 (10:25→21:54)
[2020-12-03] MEDS: ASPIRIN 81 MG CHEWABLE TABLETS PO SCH (10:26)
[2020-12-03] MEDS: amLODIPine BESYLATE 10 MG TABLET (FP) PO SCH (10:26)
[2020-12-03] MEDS: ZINC SULFATE 220 MG CAPSULE (FP) PO SCH (10:26)
[2020-12-03] MEDS: GABAPENTIN 100 MG CAPSULE PO SCH ×2 (10:26→21:53)
[2020-12-03] MEDS: ASCORBIC ACID 500 MG TABLET (FP) PO SCH (10:26)
[2020-12-03] MEDS: CARVEDILOL 25 MG TABLET (FP) PO SCH ×2 (10:26→21:53)
[2020-12-03] MEDS: DEXAMETHASONE SOD PHOSPHATE 4 MG/1 ML VIAL IVPUSH SCH (10:26)
[2020-12-03] MEDS: CHOLECALCIFEROL (VIT D3) 5000 UNITS (125 MCG) CAP PO SCH (10:27)
[2020-12-03] MEDS: REMDESIVIR 100 MG in SODIUM CHLORIDE 230 ML IVPB SCH (12:47)
[2020-12-03] MEDS: INSULIN (LEVEMIR) 100 UNITS/ML UNITS SQ SCH ×2 (14:00→21:55)
[2020-12-03] MEDS: Insulin (LOG) Aspart 100 UNITS/ML VIAL SQ SCH (17:39)
[2020-12-03] MEDS: ATORVASTATIN CA 40 MG TABLET (FP) PO SCH (21:53)
[2020-12-04] MEDS: HEPARIN NA (PORCINE) 5,000 UNITS/ML 1ML VIAL SQ SCH ×3 (06:13→21:31)
[2020-12-04] MEDS: INSULIN (LEVEMIR) 100 UNITS/ML UNITS SQ SCH ×2 (06:16→21:32)
[2020-12-04] MEDS: INSULIN SLIDING SCALE (NOVOLOG) 1 VIAL SQ SCH ×4 (06:17→21:39)
[2020-12-04] MEDS: Insulin (LOG) Aspart 100 UNITS/ML VIAL SQ SCH ×3 (06:17→16:44)
[2020-12-04] MEDS ORDERED: PT OWN MED DRAWER 7, Y5N ONE ×2 (06:50→09:32)
[2020-12-04] MEDS: ASCORBIC ACID 500 MG TABLET (FP) PO SCH (09:53)
[2020-12-04] MEDS: GABAPENTIN 100 MG CAPSULE PO SCH ×2 (09:53→21:31)
[2020-12-04] MEDS: CARVEDILOL 25 MG TABLET (FP) PO SCH ×2 (09:53→21:31)
[2020-12-04] MEDS: amLODIPine BESYLATE 10 MG TABLET (FP) PO SCH (09:53)
[2020-12-04] MEDS: ASPIRIN 81 MG CHEWABLE TABLETS PO SCH (09:53)
[2020-12-04] MEDS: MULTIVITAMINS (DAILY MVI) TABLET (FP) PO SCH (09:53)
[2020-12-04] MEDS: FAMOTIDINE 20 MG TABLET PO SCH ×2 (09:54→21:32)
[2020-12-04] MEDS: DEXAMETHASONE SOD PHOSPHATE 4 MG/1 ML VIAL IVPUSH SCH (09:54)
[2020-12-04] MEDS: CHOLECALCIFEROL (VIT D3) 5000 UNITS (125 MCG) CAP PO SCH (09:54)
[2020-12-04] MEDS: ZINC SULFATE 220 MG CAPSULE (FP) PO SCH (09:54)
[2020-12-04 10:44] LABS: BASO % 0.1 % (0-2.0); HEMATOCRIT 31.8 % (35.4-49); HEMOGLOBIN 10.7 GM/dL (11.7-16.9); LYMPH % 10.1 % (8-40); MCH 29.3 pg (25.7-33.7); MCHC 33.8 g/dl (32.0-35.9); MEAN CELL VOLUME 86.7 fl (80-96); MONO % 6.4 % (3.8-10.2); NEUT % 83.4 % (42.8-82.8); PLATELET COUNT 162 K/MM3 (134-434); RBC 3.67 M/mm3 (4.00-5.60); RDW 14.4 % (11.9-15.9)
[2020-12-04 10:59] LABS: POTASSIUM 4.3 mmol/L (3.5-5.1)
[2020-12-04 11:07] LABS: CALCIUM 8.8 mg/dL (8.5-10.1)
[2020-12-04 11:08] LABS: ALBUMIN 2.6 g/dl (3.4-5.0); MAGNESIUM 1.9 mg/dL (1.8-2.4)
[2020-12-04 11:11] LABS: CREATININE 1.3 mg/dL (0.55-1.3); PHOSPHOROUS 3.3 mg/dL (2.5-4.9)
[2020-12-04 11:12] LABS: BILIRUBIN,TOTAL 0.6 mg/dL (0.2-1); TOT PROT 6.5 g/dl (6.4-8.2)
[2020-12-04 11:39] LABS: ERYTHROCYTE SEDIMENTATION RATE 57 mm/hr (0-20)
[2020-12-04 12:01] LABS: ANISOCYTOSIS 1+; MACROCYTOSIS 0; PLATELET ESTIMATE NORMAL
[2020-12-04] MEDS ORDERED: INSULIN (NOVOLOG) ASPART 100 UNITS/ML 10ML VIAL ONE (20:34)
[2020-12-04] MEDS: ATORVASTATIN CA 40 MG TABLET (FP) PO SCH (21:31)
[2020-12-05] MEDS: HEPARIN NA (PORCINE) 5,000 UNITS/ML 1ML VIAL SQ SCH ×3 (06:06→22:34)
[2020-12-05] MEDS: INSULIN (LEVEMIR) 100 UNITS/ML UNITS SQ SCH ×2 (06:18→22:35)
[2020-12-05] MEDS: Insulin (LOG) Aspart 100 UNITS/ML VIAL SQ SCH ×3 (06:20→16:41)
[2020-12-05] MEDS: INSULIN SLIDING SCALE (NOVOLOG) 1 VIAL SQ SCH ×4 (06:21→21:50)
[2020-12-05] MEDS: ZINC SULFATE 220 MG CAPSULE (FP) PO SCH (10:28)
[2020-12-05] MEDS: ASPIRIN 81 MG CHEWABLE TABLETS PO SCH (10:28)
[2020-12-05] MEDS: amLODIPine BESYLATE 10 MG TABLET (FP) PO SCH (10:29)
[2020-12-05] MEDS: MULTIVITAMINS (DAILY MVI) TABLET (FP) PO SCH (10:29)
[2020-12-05] MEDS: CHOLECALCIFEROL (VIT D3) 5000 UNITS (125 MCG) CAP PO SCH (10:29)
[2020-12-05] MEDS: GABAPENTIN 100 MG CAPSULE PO SCH ×2 (10:29→22:33)
[2020-12-05] MEDS: ASCORBIC ACID 500 MG TABLET (FP) PO SCH (10:29)
[2020-12-05] MEDS: CARVEDILOL 25 MG TABLET (FP) PO SCH ×2 (10:29→22:33)
[2020-12-05] MEDS: FAMOTIDINE 20 MG TABLET PO SCH ×2 (10:29→22:34)
[2020-12-05 10:38] LABS: BASO % 0.1 % (0-2.0); HEMATOCRIT 31.4 % (35.4-49); HEMOGLOBIN 10.5 GM/dL (11.7-16.9); LYMPH % 10.2 % (8-40); MCHC 33.4 g/dl (32.0-35.9); MEAN CELL VOLUME 86.8 fl (80-96); MEAN PLT VOLUME 12.3 fl (7.5-11.1); MONO % 6.8 % (3.8-10.2); NEUT % 82.9 % (42.8-82.8); PLATELET COUNT 176 K/MM3 (134-434); RBC 3.62 M/mm3 (4.00-5.60); RDW 13.9 % (11.9-15.9); WHITE BLOOD COUNT 11.6 K/mm3 (4.0-10.0)
[2020-12-05 11:01] LABS: POTASSIUM 4.3 mmol/L (3.5-5.1)
[2020-12-05 11:07] LABS: ALBUMIN 2.5 g/dl (3.4-5.0); CALCIUM 8.6 mg/dL (8.5-10.1)
[2020-12-05 11:08] LABS: BLOOD UREA NITROGEN 45.7 mg/dL (7-18); MAGNESIUM 1.9 mg/dL (1.8-2.4)
[2020-12-05 11:11] LABS: CREATININE 1.4 mg/dL (0.55-1.3); PHOSPHOROUS 3.9 mg/dL (2.5-4.9)
[2020-12-05 11:12] LABS: BILIRUBIN,TOTAL 0.3 mg/dL (0.2-1); TOT PROT 6.4 g/dl (6.4-8.2)
[2020-12-05 11:28] LABS: ERYTHROCYTE SEDIMENTATION RATE 40 mm/hr (0-20)
[2020-12-05 13:20] LABS: ANISOCYTOSIS 1+; MACROCYTOSIS 1+; PLATELET ESTIMATE NORMAL
[2020-12-05] MEDS ORDERED: DOCUSATE SODIUM 100 MG CAPSULE (FP) PO PRN (17:59)
[2020-12-05] MEDS: ATORVASTATIN CA 40 MG TABLET (FP) PO SCH (22:33)
[2020-12-06] MEDS: Insulin (LOG) Aspart 100 UNITS/ML VIAL SQ SCH ×2 (06:46→11:38)
[2020-12-06] MEDS: INSULIN SLIDING SCALE (NOVOLOG) 1 VIAL SQ SCH ×4 (06:46→21:58)
[2020-12-06] MEDS: INSULIN (LEVEMIR) 100 UNITS/ML UNITS SQ SCH (06:47)
[2020-12-06] MEDS: HEPARIN NA (PORCINE) 5,000 UNITS/ML 1ML VIAL SQ SCH ×3 (06:48→21:47)
[2020-12-06 09:00] LABS: BASO % 0.3 % (0-2.0); EOS % 1.8 % (0-4.5); HEMATOCRIT 34.3 % (35.4-49); HEMOGLOBIN 11.5 GM/dL (11.7-16.9); LYMPH % 17.9 % (8-40); MCH 29.3 pg (25.7-33.7); MCHC 33.5 g/dl (32.0-35.9); MEAN CELL VOLUME 87.5 fl (80-96); MEAN PLT VOLUME 12.6 fl (7.5-11.1); MONO % 7.1 % (3.8-10.2); NEUT % 72.9 % (42.8-82.8); PLATELET COUNT 176 K/MM3 (134-434); RBC 3.91 M/mm3 (4.00-5.60); RDW 14.2 % (11.9-15.9); WHITE BLOOD COUNT 11.4 K/mm3 (4.0-10.0)
[2020-12-06 09:34] LABS: ALBUMIN 2.7 g/dl (3.4-5.0); BLOOD UREA NITROGEN 40.5 mg/dL (7-18); CALCIUM 9.1 mg/dL (8.5-10.1); CREATININE 1.3 mg/dL (0.55-1.3)
[2020-12-06 09:35] LABS: BILIRUBIN,TOTAL 0.3 mg/dL (0.2-1); MAGNESIUM 1.9 mg/dL (1.8-2.4); TOT PROT 6.6 g/dl (6.4-8.2)
[2020-12-06 09:37] LABS: PHOSPHOROUS 4.1 mg/dL (2.5-4.9)
[2020-12-06] MEDS ORDERED: INSULIN (LEVEMIR) 100 UNITS/ML UNITS SQ SCH (11:11)
[2020-12-06] MEDS: ASPIRIN 81 MG CHEWABLE TABLETS PO SCH (11:21)
[2020-12-06] MEDS: MULTIVITAMINS (DAILY MVI) TABLET (FP) PO SCH (11:21)
[2020-12-06] MEDS: ZINC SULFATE 220 MG CAPSULE (FP) PO SCH (11:21)
[2020-12-06] MEDS: amLODIPine BESYLATE 10 MG TABLET (FP) PO SCH (11:21)
[2020-12-06] MEDS: CARVEDILOL 25 MG TABLET (FP) PO SCH ×3 (11:21→22:07)
[2020-12-06] MEDS: FAMOTIDINE 20 MG TABLET PO SCH ×2 (11:22→21:46)
[2020-12-06] MEDS: ASCORBIC ACID 500 MG TABLET (FP) PO SCH (11:22)
[2020-12-06] MEDS: GABAPENTIN 100 MG CAPSULE PO SCH ×2 (11:23→21:47)
[2020-12-06 13:17] LABS: ERYTHROCYTE SEDIMENTATION RATE 34 mm/hr (0-20)
[2020-12-06 14:02] LABS: ANISOCYTOSIS 0; MACROCYTOSIS 0; OVALOCYTE 0; PLATELET ESTIMATE NORMAL
[2020-12-06] MEDS: CHOLECALCIFEROL (VIT D3) 5000 UNITS (125 MCG) CAP PO SCH (15:54)
[2020-12-06] MEDS ORDERED: PT OWN MED DRAWER 7, Y5N ONE (21:08)
[2020-12-06] MEDS: ATORVASTATIN CA 40 MG TABLET (FP) PO SCH (21:46)
[2020-12-07] MEDS: INSULIN SLIDING SCALE (NOVOLOG) 1 VIAL SQ SCH ×4 (06:49→21:16)
[2020-12-07] MEDS: HEPARIN NA (PORCINE) 5,000 UNITS/ML 1ML VIAL SQ SCH ×3 (06:49→21:04)
[2020-12-07] MEDS: ASCORBIC ACID 500 MG TABLET (FP) PO SCH (09:48)
[2020-12-07] MEDS: ASPIRIN 81 MG CHEWABLE TABLETS PO SCH (09:48)
[2020-12-07] MEDS: CARVEDILOL 25 MG TABLET (FP) PO SCH ×2 (09:48→21:03)
[2020-12-07] MEDS: amLODIPine BESYLATE 10 MG TABLET (FP) PO SCH (09:48)
[2020-12-07] MEDS: MULTIVITAMINS (DAILY MVI) TABLET (FP) PO SCH (09:48)
[2020-12-07] MEDS: CHOLECALCIFEROL (VIT D3) 5000 UNITS (125 MCG) CAP PO SCH (09:48)
[2020-12-07] MEDS: FAMOTIDINE 20 MG TABLET PO SCH ×2 (09:49→21:04)
[2020-12-07] MEDS: GABAPENTIN 100 MG CAPSULE PO SCH ×2 (09:49→21:04)
[2020-12-07] MEDS: ZINC SULFATE 220 MG CAPSULE (FP) PO SCH (09:49)
[2020-12-07] MEDS ORDERED: INSULIN (NOVOLOG) ASPART 100 UNITS/ML 10ML VIAL ONE (20:56)
[2020-12-07] MEDS: ATORVASTATIN CA 40 MG TABLET (FP) PO SCH (21:03)
[2020-12-08] MEDS: HEPARIN NA (PORCINE) 5,000 UNITS/ML 1ML VIAL SQ SCH ×3 (06:07→21:19)
[2020-12-08] MEDS: INSULIN SLIDING SCALE (NOVOLOG) 1 VIAL SQ SCH ×4 (06:16→21:19)
[2020-12-08 09:54] LABS: POTASSIUM 4.4 mmol/L (3.5-5.1)
[2020-12-08 09:57] LABS: CALCIUM 8.6 mg/dL (8.5-10.1)
[2020-12-08 09:58] LABS: BLOOD UREA NITROGEN 47.5 mg/dL (7-18)
[2020-12-08 10:01] LABS: CREATININE 1.6 mg/dL (0.55-1.3)
[2020-12-08] MEDS: ASCORBIC ACID 500 MG TABLET (FP) PO SCH (11:08)
[2020-12-08] MEDS: amLODIPine BESYLATE 10 MG TABLET (FP) PO SCH (11:08)
[2020-12-08] MEDS: GABAPENTIN 100 MG CAPSULE PO SCH ×2 (11:09→21:19)
[2020-12-08] MEDS: MULTIVITAMINS (DAILY MVI) TABLET (FP) PO SCH (11:09)
[2020-12-08] MEDS: ASPIRIN 81 MG CHEWABLE TABLETS PO SCH (11:09)
[2020-12-08] MEDS: CARVEDILOL 25 MG TABLET (FP) PO SCH ×2 (11:09→21:19)
[2020-12-08] MEDS: FAMOTIDINE 20 MG TABLET PO SCH ×2 (11:09→21:19)
[2020-12-08] MEDS: ZINC SULFATE 220 MG CAPSULE (FP) PO SCH (11:09)
[2020-12-08] MEDS: CHOLECALCIFEROL (VIT D3) 5000 UNITS (125 MCG) CAP PO SCH (11:09)
[2020-12-08] MEDS: ATORVASTATIN CA 40 MG TABLET (FP) PO SCH (21:18)
[2020-12-09] MEDS: INSULIN SLIDING SCALE (NOVOLOG) 1 VIAL SQ SCH ×4 (06:25→23:29)
[2020-12-09] MEDS: HEPARIN NA (PORCINE) 5,000 UNITS/ML 1ML VIAL SQ SCH ×3 (06:25→23:28)
[2020-12-09] MEDS ORDERED: PT OWN MED DRAWER 7, Y5N ONE (09:18)
[2020-12-09] MEDS: ASCORBIC ACID 500 MG TABLET (FP) PO SCH (09:45)
[2020-12-09] MEDS: MULTIVITAMINS (DAILY MVI) TABLET (FP) PO SCH (09:45)
[2020-12-09] MEDS: ZINC SULFATE 220 MG CAPSULE (FP) PO SCH (09:45)
[2020-12-09] MEDS: CARVEDILOL 25 MG TABLET (FP) PO SCH ×2 (09:45→23:28)
[2020-12-09] MEDS: amLODIPine BESYLATE 10 MG TABLET (FP) PO SCH (09:45)
[2020-12-09] MEDS: GABAPENTIN 100 MG CAPSULE PO SCH ×2 (09:46→23:29)
[2020-12-09] MEDS: ASPIRIN 81 MG CHEWABLE TABLETS PO SCH (09:46)
[2020-12-09] MEDS: CHOLECALCIFEROL (VIT D3) 5000 UNITS (125 MCG) CAP PO SCH (09:46)
[2020-12-09] MEDS: FAMOTIDINE 20 MG TABLET PO SCH ×2 (09:46→23:29)
[2020-12-09 11:48] LABS: BASO % 0.1 % (0-2.0); HEMATOCRIT 30.7 % (35.4-49); HEMOGLOBIN 10.3 GM/dL (11.7-16.9); LYMPH % 14.2 % (8-40); MCH 29.4 pg (25.7-33.7); MCHC 33.7 g/dl (32.0-35.9); MEAN CELL VOLUME 87.3 fl (80-96); MEAN PLT VOLUME 11.3 fl (7.5-11.1); MONO % 8.3 % (3.8-10.2); NEUT % 75.4 % (42.8-82.8); PLATELET COUNT 159 K/MM3 (134-434); RBC 3.51 M/mm3 (4.00-5.60); RDW 14.7 % (11.9-15.9); WHITE BLOOD COUNT 8.8 K/mm3 (4.0-10.0)
[2020-12-09 12:07] LABS: POTASSIUM 4.6 mmol/L (3.5-5.1)
[2020-12-09 12:09] LABS: BLOOD UREA NITROGEN 37.7 mg/dL (7-18); CALCIUM 8.7 mg/dL (8.5-10.1)
[2020-12-09 12:10] LABS: ALBUMIN 2.4 g/dl (3.4-5.0)
[2020-12-09 12:13] LABS: CREATININE 1.5 mg/dL (0.55-1.3)
[2020-12-09 12:15] LABS: BILIRUBIN,TOTAL 0.8 mg/dL (0.2-1); TOT PROT 6.3 g/dl (6.4-8.2)
[2020-12-09 12:37] LABS: ANISOCYTOSIS 0; MACROCYTOSIS 0; OVALOCYTE 1+; PLATELET ESTIMATE DECREASED
[2020-12-09] MEDS: ATORVASTATIN CA 40 MG TABLET (FP) PO SCH (23:28)
[2020-12-10] MEDS: HEPARIN NA (PORCINE) 5,000 UNITS/ML 1ML VIAL SQ SCH (06:49)
[2020-12-10] MEDS: INSULIN SLIDING SCALE (NOVOLOG) 1 VIAL SQ SCH ×2 (06:51→11:54)
[2020-12-10 09:25] LABS: POTASSIUM 4.3 mmol/L (3.5-5.1)
[2020-12-10 09:27] LABS: ALBUMIN 2.4 g/dl (3.4-5.0); BLOOD UREA NITROGEN 36.6 mg/dL (7-18); CALCIUM 8.8 mg/dL (8.5-10.1)
[2020-12-10 09:30] LABS: CREATININE 1.5 mg/dL (0.55-1.3)
[2020-12-10 09:32] LABS: BILIRUBIN,TOTAL 0.4 mg/dL (0.2-1); TOT PROT 5.9 g/dl (6.4-8.2)
[2020-12-10] MEDS ORDERED: PT OWN MED DRAWER 7, Y5N ONE (09:32)
[2020-12-10] MEDS: MULTIVITAMINS (DAILY MVI) TABLET (FP) PO SCH (09:40)
[2020-12-10] MEDS: FAMOTIDINE 20 MG TABLET PO SCH (09:40)
[2020-12-10] MEDS: ASPIRIN 81 MG CHEWABLE TABLETS PO SCH (09:40)
[2020-12-10] MEDS: CARVEDILOL 25 MG TABLET (FP) PO SCH (09:40)
[2020-12-10] MEDS: GABAPENTIN 100 MG CAPSULE PO SCH (09:40)
[2020-12-10] MEDS: ZINC SULFATE 220 MG CAPSULE (FP) PO SCH (09:40)
[2020-12-10] MEDS: ASCORBIC ACID 500 MG TABLET (FP) PO SCH (09:40)
[2020-12-10] MEDS: CHOLECALCIFEROL (VIT D3) 5000 UNITS (125 MCG) CAP PO SCH (09:40)
[2020-12-10] MEDS: amLODIPine BESYLATE 10 MG TABLET (FP) PO SCH (09:40)
[2020-12-10 13:41] VITALS: BP 143/74; PULSE 69; TEMP 98.5
== END 2020-12-10 14:17 | disposition home or self-care (01) | DRG 177 ==
LOC: JER 10:06 → JERBED 14:08 → J5S 17:42
PROVIDERS: ADMIT Internal Medicine
PROC: XW13325 Transfusion of Convalescent Plasma (Nonautologous) into Peripheral Vein, Percutaneous Approach, New Technology Group 5 (ICD-10-PCS; principal; 2020-11-29)
PROC: XW033E5 Introduction of Remdesivir Anti-infective into Peripheral Vein, Percutaneous Approach, New Technology Group 5 (ICD-10-PCS; 2020-11-29)
DX: U07.1 COVID-19 (principal); J12.82 Pneumonia due to coronavirus disease 2019; J96.01 Acute respiratory failure with hypoxia; I69.351 Hemiplegia and hemiparesis following cerebral infarction affecting right dominant side; N17.9 Acute kidney failure, unspecified; I25.5 Ischemic cardiomyopathy; Z79.4 Long term (current) use of insulin; E11.22 Type 2 diabetes mellitus with diabetic chronic kidney disease; I12.9 Hypertensive chronic kidney disease with stage 1 through stage 4 chronic kidney disease, or unspecified chronic kidney disease; N18.9 Chronic kidney disease, unspecified; I25.10 Atherosclerotic heart disease of native coronary artery without angina pectoris; Z95.1 Presence of aortocoronary bypass graft; E11.65 Type 2 diabetes mellitus with hyperglycemia; E78.5 Hyperlipidemia, unspecified; Z89.422 Acquired absence of other left toe(s); E86.0 Dehydration
CPT/HCPCS: 36415; 36430; 71045-TC-FY; 76775-TC; 80048; 80053; 81003; 82248; 82436; 82550; 82565; 82728; 82803; 82962; 83036; 83615; 83735; 83880; 84100; 84133; 84300; 84484; 85025; 85027; 85379; 85651; 86140; 86850; 86900; 86901; 87040; 87426; 87804; 93005; 93010; 94761; 97116-GP; 97161-GP; 99285-25; C9399; C9803; J1644; P9017; U0003

== ENCOUNTER 2022-07-04 17:05 | Emergency (ER) | payer OTHER ==
[2022-07-04 17:12] VITALS: BP 154/77; PULSE 69; RESP 18; TEMP 97.8; BMI 27.6
[2022-07-04] MEDS ORDERED: SULFAMETHOXAZOLE/TRIMETHOPRIM 800MG/160MG D.S. TABLET PO ONE (18:37)
[2022-07-04] MEDS ORDERED: BACITRACIN 15 GM TUBE TOPICAL OINTMENT TP ONE (18:43)
[2022-07-04] MEDS ORDERED: BACITRACIN 15 GM TUBE TOPICAL OINTMENT ONE (18:44)
[2022-07-04] MEDS ORDERED: SULFAMETHOXAZOLE/TRIMETHOPRIM 800MG/160MG D.S. TABLET ONE (18:44)
== END 2022-07-04 19:31 | disposition home or self-care (01) ==
LOC: JERFT 17:05
DX: S91.332A Puncture wound without foreign body, left foot, initial encounter (principal); W45.8XXA Other foreign body or object entering through skin, initial encounter
CPT/HCPCS: 99283-25